=== PATIENT | male | born 1965 | race Caucasian/White ===

== ENCOUNTER 2016-09-25 16:23 | Emergency (ER) | payer OTHER ==
[2016-09-25 16:34] VITALS: TEMP 98
[2016-09-25] MEDS ORDERED: ONDANSETRON 4 MG TAB PO STA (17:12)
[2016-09-25] MEDS ORDERED: METOCLOPRAMIDE 5 MG/ML 2 ML VIAL IVP STA (19:31)
[2016-09-25] MEDS ORDERED: diphenhydrAMINE 50 MG/ML 1 ML VIAL IVP STA (19:31)
[2016-09-25] MEDS ORDERED: MAG HYDROX/AL HYDROX/SIMETH 30 ML, HYOSCYAMINE ELIXIR 10 ML, CIMETIDINE HCL 300 MG PO STA ×6 (19:31→22:07)
[2016-09-25] MEDS ORDERED: SODIUM CHLORIDE 0.9% 1,000 ML IV STA (19:31)
--- NOTE | 2016-09-25 19:36 | ED ---
Abdominal Pain HPI - General Chief Complaint: Abdominal Pain Stated Complaint: Vomiting Time Seen by Provider: 09/25/16 19:17 Source: patient, RN notes reviewed Mode of arrival: ambulatory Limitations: no limitations - History of Present Illness Initial Comments: Patient is a 51-year-old male presenting to the emergency department with chief complaint of vomiting for the past few hourss and epigastric pain. Patient reports that he feels extremely nauseated. Patient is history of GERD and it has been this bad before. Patient was given a Zofran in the waiting room. Patient reports that he has been able to urinate and denies diarrhea, hematachezia, melena, constipation. Patient has history of A. fib, patient states he is on warfarin. She reports his any history of cholecystectomy and appendectomy. Patient denies any recent fever, chills, shortness of breath, chest pain, back pain, numbness or tingling, dysuria or hematuria, constipation or diarrhea, headaches or visual changes, or any other current symptoms. - Related Data Home Medications Medication Instructions Recorded Confirmed Warfarin Sodium [Coumadin] 6 mg PO HS 12/07/15 09/25/16 Famotidine [Pepcid] 40 mg PO DAILY 09/25/16 09/25/16 Previous Rx's Medication Instructions Recorded Acetaminophen-Codeine 300-30mg 1 tab PO Q4H PRN #8 tablet 09/25/16 [Tylenol #3] Metoclopramide [Reglan] 10 mg PO 10 #12 tab 09/25/16 Omeprazole 40 mg PO DAILY #30 capsule. 09/25/16 Allergies Allergy/AdvReac Type Severity Reaction Status Date / Time No Known Allergies Allergy Verified 09/25/16 19:18 Review of Systems ROS Statement: Those systems with pertinent positive or pertinent negative responses have been documented in the HPI. ROS Other: All systems not noted in ROS Statement are negative. Past Medical History Past Medical History: Atrial Fibrillation, GERD/Reflux, Hypertension, Osteoarthritis (OA) Additional Past Medical History / Comment(s): severe GERD, DJD. History of Any Multi-Drug Resistant Organisms: None Reported Past Surgical History: Appendectomy, Cholecystectomy, Hernia Repair, Joint Replacement, Orthopedic Surgery Additional Past Surgical History / Comment(s): 12/07/14 Total R Hip replacement, RIGHT KNEE SCOPE, umbilical hernia, EGD Past Anesthesia/Blood Transfusion Reactions: No Reported Reaction Past Psychological History: Anxiety Additional Psychological History / Comment(s): Pt lives significant other and is independent. He does have a limp. He does not use any assistive devices. There are 2 adult children in the home. Smoking Status: Current every day smoker Past Alcohol Use History: Daily, Heavy Additional Past Alcohol Use History / Comment(s): Pt started smoking in 1979 and is a 1 ppd smoker. Pt states he drinks 6-7 drinks with liquor per day. Past Drug Use History: None Reported Additional Drug Use History / Comment(s): Pt S.O. states he took 90 pills of norco within a week post hip replacement - Past Family History Father Family Medical History: Coronary Artery Disease (CAD), Diabetes Mellitus, Myocardial Infarction ([place]) Additional Family Medical History / Comment(s): Father has at the age of 74 yrs of a [place]. He had 2 Cabg's Mother Family Medical History: Coronary Artery Disease (CAD), Diabetes Mellitus, Musculoskeletal Disorder, Neurologic Disorder Additional Family Medical History / Comment(s): Mother is . She at age 64 yrs. She had a cabg and multiple sclerosis Brother(s) Family Medical History: AFIB Additional Family Medical History / Comment(s): Pt has another brother with CAD and MIs General Exam - General Exam Comments Initial Comments: Patient is a ill-appearing 51-year-old male. He does appear to be in discomfort. Limitations: no limitations General appearance: alert, in no apparent distress Head exam: Present: atraumatic, normocephalic, normal inspection Eye exam: Present: normal appearance, PERRL, EOMI. Absent: scleral icterus, conjunctival injection, periorbital swelling ENT exam: Present: normal exam, mucous membranes moist Neck exam: Present: normal inspection. Absent: tenderness, meningismus, lymphadenopathy Respiratory exam: Present: normal lung sounds bilaterally. Absent: respiratory distress, wheezes, rales, rhonchi, stridor Cardiovascular Exam: Present: regular rate, normal rhythm, normal heart sounds. Absent: systolic murmur, diastolic murmur, rubs, gallop, clicks GI/Abdominal exam: Present: soft, tenderness (Mild epigastric tenderness.), normal bowel sounds. Absent: distended, guarding, rebound, rigid Extremities exam: Present: normal inspection, full ROM, normal capillary refill. Absent: tenderness, pedal edema, joint swelling, calf tenderness Back exam: Present: normal inspection Neurological exam: Present: alert, oriented X3, CN II-XII intact Psychiatric exam: Present: normal affect, normal mood Skin exam: Present: warm, dry, intact, normal color. Absent: rash Course Vital Signs 09/25/16 09/25/16 16:30 20:33 Temperature 98 F Pulse Rate 98 83 Respiratory 20 17 Rate Blood Pressure 141/99 166/102 O2 Sat by Pulse 99 97 Oximetry - Reevaluation(s) Reevaluation #1: 09/25/16 20:18 is reevaluated states that his pain is mildly improving. Patient reports it is now an 8 out of 10 after the GI cocktail. Medical Decision Making - Medical Decision Making Patient is a 51 year old male with history of Afib on warfarin presenting with epigastric abdominal pain for a few hours and nausea. Patient reports he has had GERD episodes like this before, and states he has been taking pepcid for GERD occasionally. Patient reports that his pain is mildly improved with GI cocktail, but pain is not totally diminished. Patient reports that he has been treated in the past with 2 GI cocktails. with help with his symptoms. Patient lab work, imaging studies show no acute abnormalities. Patient will be discharged with Rx of omeprazole and pain medication as patients symptoms could likely be related to an Ulcer and advised to follow up with GI specialist. Patient agrees with treatment planand will comply. - Lab Data Result diagrams: 09/25/16 19:25 09/25/16 19:25 Lab Results 09/25/16 09/25/16 09/25/16 Range/Units 19:25 19:25 20:37 WBC 6.9 (3.8-10.6) k/uL RBC 5.39 (4.30-5.90) m/uL Hgb 17.7 H (13.0-17.5) gm/dL Hct 52.1 (39.0-53.0) % MCV 96.6 (80.0-100.0) fL MCH 32.9 (25.0-35.0) pg MCHC 34.1 (31.0-37.0) g/dL RDW 12.4 (11.5-15.5) % Plt Count 207 (150-450) k/uL Neutrophils % 81 % Lymphocytes % 12 % Monocytes % 5 % Eosinophils % 0 % Basophils % 1 % Neutrophils # 5.6 (1.3-7.7) k/uL Lymphocytes # 0.8 L (1.0-4.8) k/uL Monocytes # 0.3 (0-1.0) k/uL Eosinophils # 0.0 (0-0.7) k/uL Basophils # 0.0 (0-0.2) k/uL PT (9.0-12.0) sec INR (<1.1) APTT (22.0-30.0) sec Sodium 144 (137-145) mmol/L Potassium 5.1 (3.5-5.1) mmol/L Chloride 105 (98-107) mmol/L Carbon Dioxide 23 (22-30) mmol/L Anion Gap 16 mmol/L BUN 16 (9-20) mg/dL Creatinine 1.03 (0.66-1.25) mg/dL Est GFR (MDRD) Af Amer >60 (>60 ml/min/1.73 sqM) Est GFR (MDRD) Non-Af >60 (>60 ml/min/1.73 sqM) Glucose 134 H (74-99) mg/dL Calcium 9.9 (8.4-10.2) mg/dL Magnesium (1.6-2.3) mg/dL Total Bilirubin 1.0 (0.2-1.3) mg/dL AST 32 (17-59) U/L ALT 60 (21-72) U/L Alkaline Phosphatase 109 (38-126) U/L Total Creatine Kinase (55-170) U/L CK-MB (CK-2) (0.0-2.4) ng/mL CK-MB (CK-2) Rel Index Troponin I (0.000-0.034) ng/mL Total Protein 7.8 (6.3-8.2) g/dL Albumin 4.8 (3.5-5.0) g/dL Amylase 31 (30-110) U/L Lipase 161 (23-300) U/L Urine Color Yellow Urine Appearance Clear (Clear) Urine pH 8.5 H (5.0-8.0) Ur Specific [place] 1.022 (1.001-1.035) Urine Protein 2+ H (Negative) Urine Glucose (UA) Negative (Negative) Urine Ketones Negative (Negative) Urine Blood Negative (Negative) Urine Nitrate Negative (Negative) Urine Bilirubin Negative (Negative) Urine Urobilinogen <2.0 (<2.0) mg/dL Ur Leukocyte Esterase Negative (Negative) Urine RBC <1 (0-5) /hpf Urine WBC 2 (0-5) /hpf Urine Bacteria Rare H (None) /hpf Hyaline Casts 5 H (0-2) /lpf Urine Mucus Few H (None) /hpf 09/25/16 09/25/16 09/25/16 Range/Units 21:30 21:30 21:30 WBC (3.8-10.6) k/uL RBC (4.30-5.90) m/uL Hgb (13.0-17.5) gm/dL Hct (39.0-53.0) % MCV (80.0-100.0) fL MCH (25.0-35.0) pg MCHC (31.0-37.0) g/dL RDW (11.5-15.5) % Plt Count (150-450) k/uL Neutrophils % % Lymphocytes % % Monocytes % % Eosinophils % % Basophils % % Neutrophils # (1.3-7.7) k/uL Lymphocytes # (1.0-4.8) k/uL Monocytes # (0-1.0) k/uL Eosinophils # (0-0.7) k/uL Basophils # (0-0.2) k/uL PT 10.4 (9.0-12.0) sec INR 1.0 (<1.1) APTT 23.2 (22.0-30.0) sec Sodium (137-145) mmol/L Potassium (3.5-5.1) mmol/L Chloride (98-107) mmol/L Carbon Dioxide (22-30) mmol/L Anion Gap mmol/L BUN (9-20) mg/dL Creatinine (0.66-1.25) mg/dL Est GFR (MDRD) Af Amer (>60 ml/min/1.73 sqM) Est GFR (MDRD) Non-Af (>60 ml/min/1.73 sqM) Glucose (74-99) mg/dL Calcium (8.4-10.2) mg/dL Magnesium 2.1 (1.6-2.3) mg/dL Total Bilirubin (0.2-1.3) mg/dL AST (17-59) U/L ALT (21-72) U/L Alkaline Phosphatase (38-126) U/L Total Creatine Kinase 59 (55-170) U/L CK-MB (CK-2) 0.4 (0.0-2.4) ng/mL CK-MB (CK-2) Rel Index 0.7 Troponin I <0.012 (0.000-0.034) ng/mL Total Protein (6.3-8.2) g/dL Albumin (3.5-5.0) g/dL Amylase (30-110) U/L Lipase (23-300) U/L Urine Color Urine Appearance (Clear) Urine pH (5.0-8.0) Ur Specific [place] (1.001-1.035) Urine Protein (Negative) Urine Glucose (UA) (Negative) Urine Ketones (Negative) Urine Blood (Negative) Urine Nitrate (Negative) Urine Bilirubin (Negative) Urine Urobilinogen (<2.0) mg/dL Ur Leukocyte Esterase (Negative) Urine RBC (0-5) /hpf Urine WBC (0-5) /hpf Urine Bacteria (None) /hpf Hyaline Casts (0-2) /lpf Urine Mucus (None) /hpf 09/25/16 20:43 EKG does show atrial fibrillation. There is evidence of T-wave abnormality consistent with anterior ischemia. Injury 97 bpm. QRS duration 84 ms QT/QTc is 358/454 ms. Compared to previous EKG of 12/07/2015 this is a similar EKG. No acute changes. 09/25/16 21:24 - Radiology Data Radiology results: report reviewed Chest x-ray revealed no evidence of any acute cardiopulmonary process. KUB x- ray is shows no acute abnormalities. [address] Nicole. Disposition Clinical Impression: Nausea, Epigastric pain Disposition: HOME SELF-CARE Condition: Good Instructions: Abdominal Pain (ED), Gastroesophageal Reflux Disease (ED) Additional Instructions: Patient started a follow-up with GI specialist. Patient started to have a bland diet. Return to the emergency room if any alarming signs or symptoms occur. Prescriptions: Acetaminophen-Codeine 300-30mg [Tylenol #3] 1 tab PO Q4H PRN #8 tablet PRN Reason: Pain Metoclopramide [Reglan] 10 mg PO 10 #12 tab Omeprazole 40 mg PO DAILY #30 capsule.dr Referrals: Aaron Loja MD [Primary Care Provider] - 1-2 days Megan Scales MD [STAFF PHYSICIAN] - 1-2 days Time of Disposition: 22:35
[2016-09-25 19:46] LABS: Basophils % (A) 1 %; CH 33.8; CHCM 35.2; Eosinophils % (A) 0 %; HCT 52.1 % (39.0-53.0); HDW 2.39; HGB 17.7 gm/dL (13.0-17.5); Luc # (Auto) 0.09; Luc % (Auto) 1; Lymphocytes # (A) 0.8 k/uL (1.0-4.8); Lymphocytes % (A) 12 %; MCH 32.9 pg (25.0-35.0); MCHC 34.1 g/dL (31.0-37.0); MCV 96.6 fL (80.0-100.0); Monocytes # (A) 0.3 k/uL (0-1.0); Monocytes % (A) 5 %; Neutrophils # (A) 5.6 k/uL (1.3-7.7); Neutrophils % (A) 81 %; RBC 5.39 m/uL (4.30-5.90); RDW 12.4 % (11.5-15.5); WBC 6.9 k/uL (3.8-10.6); WBC (Perox) 6.53
[2016-09-25 19:56] LABS: ALT 60 U/L (21-72); AST 32 U/L (17-59); Alkaline Phosphatase 109 U/L (38-126); Amylase 31 U/L (30-110); Anion Gap 16 mmol/L; Blood Urea Nitrogen 16 mg/dL (9-20); Calcium 9.9 mg/dL (8.4-10.2); Carbon Dioxide 23 mmol/L (22-30); Chloride 105 mmol/L (98-107); Glucose 134 mg/dL (74-99); Non-African American GFR(MDRD) >60 (>60 ml/min/1.73 sqM); Potassium 5.1 mmol/L (3.5-5.1); Sodium 144 mmol/L (137-145); Total Protein 7.8 g/dL (6.3-8.2)
[2016-09-25] MEDS ORDERED: PANTOPRAZOLE 40 MG/10 ML VIAL IVP STA (20:18)
--- NOTE | 2016-09-25 20:23 | XR ---
EXAMINATION TYPE: XR chest 2V DATE OF EXAM: 09/25/2016 7:52 PM COMPARISON: Prior chest x-ray 18 December 2014 HISTORY: Epigastric pain, nausea and vomiting TECHNIQUE: Frontal and lateral views of the chest are obtained. FINDINGS: There is no focal air space opacity, pleural effusion, or pneumothorax seen. The cardiac silhouette size is within normal limits. The osseous structures are intact. IMPRESSION: No acute cardiopulmonary process.
--- NOTE | 2016-09-25 20:26 | XR ---
Abdomen HISTORY: Pain, nausea vomiting and diarrhea Frontal view of the abdomen submitted on 2 images and correlated to prior abdomen and CT abdomen 21 O ctober 2016 Lung bases are clear. There is no bowel obstruction or pneumoperitoneum evident. Postoperative change s noted to the right hip. Vascular calcifications are noted incidentally. Degenerative disc changes i n the visualized spine. IMPRESSION: No acute abnormality is evident
[2016-09-25 20:35] VITALS: BP 166/102; PULSE 83; RESP 17
[2016-09-25 20:50] LABS: Appearance,Urine Clear (Clear); Bacteria,Urine Rare /hpf; Bilirubin,Urine Negative (Negative); Glucose,Urine (UA) Negative (Negative); Ketones,Urine Negative (Negative); Leukocyte Esterase,Urine Negative (Negative); Mucus,Urine Few /hpf; Nitrite,Urine Negative (Negative); PH, Urine 8.5 (5.0-8.0); Particle Count 4018; Protein,Urine 2+ (Negative); RBC,Urine <1 /hpf (0-5); Specific Gravity,Urine 1.022 (1.001-1.035); UA Billing (MACRO vs. MICRO) MICRO; Urobilinogen,Urine <2.0 mg/dL (<2.0); WBC,Urine 2 /hpf (0-5)
[2016-09-25 21:48] LABS: Partial Thromboplastin Time 23.2 sec (22.0-30.0); Prothrombin Time 10.4 sec (9.0-12.0)
[2016-09-25 22:00] LABS: Creatine Kinase 59 U/L (55-170)
[2016-09-25] MEDS ORDERED: MORPHINE SULFATE 2 MG/ML SYRINGE IVP ONE (22:10)
[2016-09-25 22:14] LABS: Creatine Kinase MB 0.4 ng/mL (0.0-2.4); Troponin I <0.012 ng/mL (0.000-0.034)
[2016-09-25] MEDS ORDERED: MAG HYDROX/AL HYDROX/SIMETH 30 ML, HYOSCYAMINE ELIXIR 10 ML, CIMETIDINE HCL 300 MG, LID... PO STA ×4 (22:34)
== END 2016-09-25 23:18 | disposition home or self-care (01) ==
LOC: EC 16:23
DX: R11.2 Nausea with vomiting, unspecified (principal); I48.91 Unspecified atrial fibrillation; K21.9 Gastro-esophageal reflux disease without esophagitis; I10 Essential (primary) hypertension; F17.200 Nicotine dependence, unspecified, uncomplicated; Z79.01 Long term (current) use of anticoagulants; Z82.49 Family history of ischemic heart disease and other diseases of the circulatory system; Z79.899 Other long term (current) drug therapy
CPT/HCPCS: 99284; 96374; 96375 ×2; 96361; 36415; 93005; 80053; 82150; 82550; 82553; 83690; 83735; 84484; 85025; 85610; 85730; 81001; 71020; 74000; J1200; J2765; C9113

== ENCOUNTER 2016-12-17 12:32 | Emergency (ER) | payer OTHER ==
[2016-12-17] MEDS ORDERED: HYDROmorphone 1 MG/ML 1 ML SYRINGE IVP STA ×2 (14:29→15:39)
[2016-12-17] MEDS ORDERED: SODIUM CHLORIDE 0.9% 1,000 ML IV STA ×2 (14:29)
[2016-12-17] MEDS ORDERED: ONDANSETRON 4 MG/2 ML VIAL IVP STA (14:29)
[2016-12-17] MEDS ORDERED: PANTOPRAZOLE 40 MG/10 ML VIAL IVP STA (14:31)
[2016-12-17] MEDS ORDERED: MAG HYDROX/AL HYDROX/SIMETH 30 ML, HYOSCYAMINE ELIXIR 10 ML, CIMETIDINE HCL 300 MG, LID... PO STA ×4 (14:31)
[2016-12-17 15:16] LABS: Basophils % (A) 0 %; CH 33.8; CHCM 35.1; Eosinophils # (A) 0.1 k/uL (0-0.7); Eosinophils % (A) 1 %; HCT 50.7 % (39.0-53.0); HDW 2.39; Luc # (Auto) 0.08; Luc % (Auto) 1; Lymphocytes # (A) 0.8 k/uL (1.0-4.8); Lymphocytes % (A) 8 %; MCH 34.3 pg (25.0-35.0); MCHC 35.6 g/dL (31.0-37.0); MCV 96.4 fL (80.0-100.0); Mean Platelet Volume 8.2; Monocytes # (A) 0.2 k/uL (0-1.0); Monocytes % (A) 2 %; Neutrophils # (A) 8.5 k/uL (1.3-7.7); Neutrophils % (A) 88 %; RBC 5.26 m/uL (4.30-5.90); RDW 12.4 % (11.5-15.5); WBC 9.7 k/uL (3.8-10.6); WBC (Perox) 10.13
[2016-12-17 15:22] LABS: ALT 41 U/L (21-72); AST 27 U/L (17-59); Alkaline Phosphatase 77 U/L (38-126); Amylase 50 U/L (30-110); Anion Gap 15 mmol/L; Blood Urea Nitrogen 14 mg/dL (9-20); Carbon Dioxide 17 mmol/L (22-30); Chloride 110 mmol/L (98-107); Glucose 139 mg/dL (74-99); Magnesium 1.8 mg/dL (1.6-2.3); Non-African American GFR(MDRD) >60 (>60 ml/min/1.73 sqM); Potassium 4.9 mmol/L (3.5-5.1); Sodium 142 mmol/L (137-145); Total Bilirubin 1.3 mg/dL (0.2-1.3); Total Protein 7.8 g/dL (6.3-8.2)
--- NOTE | 2016-12-17 15:31 | XR ---
EXAMINATION TYPE: XR abdomen acute w cxr DATE OF EXAM: 12/17/2016 3:25 PM COMPARISON: 01/11/1716 HISTORY: Pain TECHNIQUE: Single view of the chest and 2 views of the abdomen are submitted. FINDINGS: Single view of the chest fails demonstrate evidence for acute pulmonary disease. There is no evidence for pneumoperitoneum. The bowel gas pattern is unremarkable as there is air throughout nondilated small and large bowel. No sizeable air fluid levels.No mass effects are seen. No unusual calcifications. Multiple phleboliths are seen within the pelvic basin. IMPRESSION: 1. Unremarkable study.
[2016-12-17 15:32] LABS: Partial Thromboplastin Time 22.5 sec (22.0-30.0); Prothrombin Time 10.4 sec (9.0-12.0)
[2016-12-17] MEDS ORDERED: METOCLOPRAMIDE 5 MG/ML 2 ML VIAL IVP STA (15:35)
[2016-12-17 15:38] VITALS: RESP 18
[2016-12-17 15:39] LABS: Creatine Kinase 52 U/L (55-170)
--- NOTE | 2016-12-17 15:46 | ED ---
General Adult HPI - General Chief complaint: Nausea/Vomiting/Diarrhea Stated complaint: Nausea Time Seen by Provider: 12/17/16 14:17 Source: patient Mode of arrival: wheelchair Limitations: no limitations - History of Present Illness Initial comments: This 51-year-old white male presents with a complaint of some nausea and vomiting. He states that it came on this morning. He also said some abdominal pain and chest burning. The abdominal pain and is in the midepigastric region. He states that his symptoms are consistent with his prior gastroesophageal reflux disorder. He apparently has had multiple similar incidents. She states that his last time was approximately 6 months ago. He relates that he has had some chills but no fever. There's been no blood in his vomitus or stool. He denies any diarrhea. He does not utilize any alcohol on the last 3-4 days. He states that he's had approximately 15 previous similar incidents in usually receives pain medication and a GI cocktail. No other complaints or modifying factors. He denies any fevers chills. - Related Data Home Medications Medication Instructions Recorded Confirmed Warfarin Sodium [Coumadin] 6 mg PO HS 12/07/15 12/17/16 Famotidine [Pepcid] 40 mg PO DAILY 09/25/16 12/17/16 Amoxicillin/Potassium Clav 1 tab PO Q12HR 12/17/16 12/17/16 [Augmentin 875-125 Tablet] Hydrocodone/Acetaminophen [[place] 1 tab PO Q6HR PRN 12/17/16 12/17/16 5-325] Venlafaxine HCl [Effexor XR] 75 mg PO DAILY 12/17/16 12/17/16 amLODIPine BESYLATE [Norvasc] 10 mg PO DAILY 12/17/16 12/17/16 Previous Rx's Medication Instructions Recorded Dicyclomine [Bentyl] 20 mg PO QID PRN #20 tablet 12/17/16 Ondansetron [Zofran ODT] 8 mg PO Q8HR PRN #20 tab 12/17/16 Allergies Allergy/AdvReac Type Severity Reaction Status Date / Time No Known Allergies Allergy Verified 12/17/16 14:41 Review of Systems ROS Statement: Those systems with pertinent positive or pertinent negative responses have been documented in the HPI. ROS Other: All systems not noted in ROS Statement are negative. Past Medical History Past Medical History: Atrial Fibrillation, GERD/Reflux, Hypertension, Osteoarthritis (OA) Additional Past Medical History / Comment(s): severe GERD, DJD. History of Any Multi-Drug Resistant Organisms: None Reported Past Surgical History: Appendectomy, Cholecystectomy, Hernia Repair, Joint Replacement, Orthopedic Surgery Additional Past Surgical History / Comment(s): 12/07/14 Total R Hip replacement, RIGHT KNEE SCOPE, umbilical hernia, EGD Past Anesthesia/Blood Transfusion Reactions: No Reported Reaction Past Psychological History: Anxiety Additional Psychological History / Comment(s): Pt lives significant other and is independent. He does have a limp. He does not use any assistive devices. There are 2 adult children in the home. Smoking Status: Current every day smoker Past Alcohol Use History: Daily, Heavy Additional Past Alcohol Use History / Comment(s): Pt started smoking in 1979 and is a 1 ppd smoker. Pt states he drinks 6-7 drinks with liquor per day. Past Drug Use History: None Reported Additional Drug Use History / Comment(s): Pt S.O. states he took 90 pills of norco within a week post hip replacement - Past Family History Father Family Medical History: Coronary Artery Disease (CAD), Diabetes Mellitus, Myocardial Infarction ([place]) Additional Family Medical History / Comment(s): Father has at the age of 74 yrs of a [place]. He had 2 Cabg's Mother Family Medical History: Coronary Artery Disease (CAD), Diabetes Mellitus, Musculoskeletal Disorder, Neurologic Disorder Additional Family Medical History / Comment(s): Mother is . She at age 64 yrs. She had a cabg and multiple sclerosis Brother(s) Family Medical History: AFIB Additional Family Medical History / Comment(s): Pt has another brother with CAD and MIs General Exam - General Exam Comments Initial Comments: GENERAL: The patient is well nourished and well hydrated. VITAL SIGNS: Heart rate, blood pressure, respiratory rate reviewed as recorded in nurse's notes. EYES: Pupils are round and reactive. Extraocular movements are intact. No conjunctival / lid redness or swelling. ENT: No external evidence of injury, swelling, or ecchymosis. Airway is patent. Throat is clear. NECK: Nontender. No swelling or evidence of injury. No subcutaneous emphysema. Trachea is midline. No thyroid mass. HEART: Regular rate and rhythm. Good peripheral pulses. LUNGS/CHEST: Breath sounds clear and equal bilaterally. No rales, rhonchi, or wheezes. No ecchymosis, subcutaneous emphysema, or tenderness. ABDOMEN: There is tenderness noted to the midepigastric region. No palpable masses or organomegaly. No peritoneal signs. No abdominal wall swelling or ecchymosis. EXTREMITIES: No extremity tenderness. Normal muscle tone and function. No thoracolumbar tenderness. NEUROLOGIC: Sensation is grossly intact. Cranial nerve exam reveals face is symmetrical, tongue is midline, speech is clear. SKIN: No abrasions or ecchymosis is noted. No induration or masses noted. PSYCHIATRIC: Alert and oriented. Appropriate behavior and judgment. Limitations: no limitations Course Vital Signs 12/17/16 12/17/16 12/17/16 13:41 15:10 15:37 Temperature 98.9 F 99.4 F Pulse Rate 84 95 80 Respiratory 20 24 18 Rate Blood Pressure 156/93 185/119 184/104 O2 Sat by Pulse 98 100 100 Oximetry Medical Decision Making - Medical Decision Making The patient was seen and examined. All diagnostics were reviewed. The EKG shows an atrial fibrillation rhythm at a rate of 79. The qrs duration is 86 and the qtc interval is 412. There is no acute ST-T wave changes noted. He does have a history of atrial fibrillation. The laboratory is reviewed. He receives a GI cocktail, Zofran, Reglan, 2 aliquots of Dilaudid, and IV fluids. The acute abdominal series was read out as unremarkable per radiology. I do not see any abnormalities upon my evaluation as well. The laboratory does show a decreased CO2 consistent with dehydration. The remainder of labs are essentially within normal limits. On recheck, he is feeling much improved. He states that he feels well enough to go home. Is felt that his symptoms are related to his reflux as he has had very similar symptoms approximately 15 times in the past. He leaves in no identifiable distress. - Lab Data Result diagrams: 12/17/16 15:06 12/17/16 15:06 Lab Results 12/17/16 12/17/16 12/17/16 Range/Units 15:06 15:06 15:06 WBC 9.7 (3.8-10.6) k/uL RBC 5.26 (4.30-5.90) m/uL Hgb 18.0 H (13.0-17.5) gm/dL Hct 50.7 (39.0-53.0) % MCV 96.4 (80.0-100.0) fL MCH 34.3 (25.0-35.0) pg MCHC 35.6 (31.0-37.0) g/dL RDW 12.4 (11.5-15.5) % Plt Count 198 (150-450) k/uL Neutrophils % 88 % Lymphocytes % 8 % Monocytes % 2 % Eosinophils % 1 % Basophils % 0 % Neutrophils # 8.5 H (1.3-7.7) k/uL Lymphocytes # 0.8 L (1.0-4.8) k/uL Monocytes # 0.2 (0-1.0) k/uL Eosinophils # 0.1 (0-0.7) k/uL Basophils # 0.0 (0-0.2) k/uL PT (9.0-12.0) sec INR (<1.1) APTT (22.0-30.0) sec Sodium 142 (137-145) mmol/L Potassium 4.9 (3.5-5.1) mmol/L Chloride 110 H (98-107) mmol/L Carbon Dioxide 17 L (22-30) mmol/L Anion Gap 15 mmol/L BUN 14 (9-20) mg/dL Creatinine 0.80 (0.66-1.25) mg/dL Est GFR (MDRD) Af Amer >60 (>60 ml/min/1.73 sqM) Est GFR (MDRD) Non-Af >60 (>60 ml/min/1.73 sqM) Glucose 139 H (74-99) mg/dL Calcium 10.0 (8.4-10.2) mg/dL Magnesium 1.8 (1.6-2.3) mg/dL Total Bilirubin 1.3 (0.2-1.3) mg/dL AST 27 (17-59) U/L ALT 41 (21-72) U/L Alkaline Phosphatase 77 (38-126) U/L Total Creatine Kinase 52 L (55-170) U/L CK-MB (CK-2) 0.6 (0.0-2.4) ng/mL CK-MB (CK-2) Rel Index 1.2 Troponin I <0.012 (0.000-0.034) ng/mL Total Protein 7.8 (6.3-8.2) g/dL Albumin 4.7 (3.5-5.0) g/dL Amylase 50 (30-110) U/L Lipase 182 (23-300) U/L 12/17/16 Range/Units 15:06 WBC (3.8-10.6) k/uL RBC (4.30-5.90) m/uL Hgb (13.0-17.5) gm/dL Hct (39.0-53.0) % MCV (80.0-100.0) fL MCH (25.0-35.0) pg MCHC (31.0-37.0) g/dL RDW (11.5-15.5) % Plt Count (150-450) k/uL Neutrophils % % Lymphocytes % % Monocytes % % Eosinophils % % Basophils % % Neutrophils # (1.3-7.7) k/uL Lymphocytes # (1.0-4.8) k/uL Monocytes # (0-1.0) k/uL Eosinophils # (0-0.7) k/uL Basophils # (0-0.2) k/uL PT 10.4 (9.0-12.0) sec INR 1.0 (<1.1) APTT 22.5 (22.0-30.0) sec Sodium (137-145) mmol/L Potassium (3.5-5.1) mmol/L Chloride (98-107) mmol/L Carbon Dioxide (22-30) mmol/L Anion Gap mmol/L BUN (9-20) mg/dL Creatinine (0.66-1.25) mg/dL Est GFR (MDRD) Af Amer (>60 ml/min/1.73 sqM) Est GFR (MDRD) Non-Af (>60 ml/min/1.73 sqM) Glucose (74-99) mg/dL Calcium (8.4-10.2) mg/dL Magnesium (1.6-2.3) mg/dL Total Bilirubin (0.2-1.3) mg/dL AST (17-59) U/L ALT (21-72) U/L Alkaline Phosphatase (38-126) U/L Total Creatine Kinase (55-170) U/L CK-MB (CK-2) (0.0-2.4) ng/mL CK-MB (CK-2) Rel Index Troponin I (0.000-0.034) ng/mL Total Protein (6.3-8.2) g/dL Albumin (3.5-5.0) g/dL Amylase (30-110) U/L Lipase (23-300) U/L Disposition Clinical Impression: Abdominal pain, Chest pain, GERD (gastroesophageal reflux disease), Nausea and vomiting, Hypertension Disposition: HOME SELF-CARE Condition: Fair Prescriptions: Dicyclomine [Bentyl] 20 mg PO QID PRN #20 tablet PRN Reason: Pain Ondansetron [Zofran ODT] 8 mg PO Q8HR PRN #20 tab PRN Reason: Nausea Referrals: Aaron Loja MD [Primary Care Provider] - 1-2 days Time of Disposition: 16:34
[2016-12-17 15:52] LABS: Creatine Kinase MB 0.6 ng/mL (0.0-2.4); Troponin I <0.012 ng/mL (0.000-0.034)
[2016-12-17 16:47] VITALS: BP 150/100; PULSE 71; TEMP 98
== END 2016-12-17 16:48 | disposition home or self-care (01) ==
LOC: EC 12:32
DX: K21.9 Gastro-esophageal reflux disease without esophagitis (principal); R07.9 Chest pain, unspecified; R10.13 Epigastric pain; R11.2 Nausea with vomiting, unspecified; I10 Essential (primary) hypertension; I48.91 Unspecified atrial fibrillation; F17.200 Nicotine dependence, unspecified, uncomplicated; Z79.01 Long term (current) use of anticoagulants; Z79.899 Other long term (current) drug therapy
CPT/HCPCS: 99284 ×2; 96374 ×2; 96375 ×4; 96376 ×2; 96361 ×3; 99283; 36415; 93005; 80053; 82150; 82550; 82553; 83690; 83735; 84484; 85025; 85610; 85730; 74022; J2765; J2405; J1170; C9113

== ENCOUNTER 2016-12-17 20:28 | Emergency (ER) | payer OTHER ==
[2016-12-17 21:09] VITALS: TEMP 100.4
[2016-12-17] MEDS ORDERED: ONDANSETRON 4 MG/2 ML VIAL IVP STA (23:31)
[2016-12-17] MEDS ORDERED: MAG HYDROX/AL HYDROX/SIMETH 30 ML, HYOSCYAMINE ELIXIR 10 ML, CIMETIDINE HCL 300 MG, LID... PO STA ×4 (23:31)
[2016-12-17] MEDS ORDERED: MORPHINE SULFATE 4 MG/ML SYRINGE IVP STA (23:31)
[2016-12-17] MEDS ORDERED: SODIUM CHLORIDE 0.9% 500 ML IV STA (23:31)
--- NOTE | 2016-12-17 23:37 | ED ---
General Adult HPI - General Chief complaint: Abdominal Pain Stated complaint: Abd Pain Time Seen by Provider: 12/17/16 22:57 Source: patient Mode of arrival: ambulatory Limitations: no limitations - History of Present Illness Initial comments: 51-year-old male with past medical history of GERD presented for evaluation of epigastric abdominal pain with radiation up into his chest. He states that this is similar to previous episodes of GERD including this morning when he was evaluated at this facility. His workup was negative for any acute abnormalities and he had resolution of his symptoms and was discharged home. He states that he called in his prescription but that he wasn't able to pick it up. His symptoms have now returned and are as bad as they were when he came the first time. He states he has associated nausea and vomiting and some looser stools but no diarrhea. He denies any shortness of breath and states that the chest pain is just a burning that goes up his sternum into his mouth. - Related Data Home Medications Medication Instructions Recorded Confirmed Warfarin Sodium [Coumadin] 6 mg PO HS 12/07/15 12/17/16 Famotidine [Pepcid] 40 mg PO DAILY 09/25/16 12/17/16 Amoxicillin/Potassium Clav 1 tab PO Q12HR 12/17/16 12/17/16 [Augmentin 875-125 Tablet] Hydrocodone/Acetaminophen [[place] 1 tab PO Q6HR PRN 12/17/16 12/17/16 5-325] Venlafaxine HCl [Effexor XR] 75 mg PO DAILY 12/17/16 12/17/16 amLODIPine BESYLATE [Norvasc] 10 mg PO DAILY 12/17/16 12/17/16 Previous Rx's Medication Instructions Recorded Dicyclomine [Bentyl] 20 mg PO QID PRN #20 tablet 12/17/16 Ondansetron [Zofran ODT] 8 mg PO Q8HR PRN #20 tab 12/17/16 Allergies Allergy/AdvReac Type Severity Reaction Status Date / Time No Known Allergies Allergy Verified 12/17/16 22:50 Review of Systems ROS Statement: Those systems with pertinent positive or pertinent negative responses have been documented in the HPI. ROS Other: All systems not noted in ROS Statement are negative. Constitutional: Denies: fever, chills Eyes: Denies: eye pain, eye discharge ENT: Denies: ear pain, throat pain, dental pain, hearing loss Respiratory: Denies: cough, dyspnea Cardiovascular: Reports: chest pain (Described as a burning radiating up into his mouth). Denies: palpitations, dyspnea on exertion Endocrine: Denies: fatigue, heat or cold intolerance Gastrointestinal: Reports: abdominal pain, nausea, vomiting. Denies: diarrhea, constipation, hematemesis, melena, hematochezia Genitourinary: Denies: urgency, dysuria Musculoskeletal: Denies: back pain, joint swelling, myalgia Skin: Denies: rash, lesions Neurological: Denies: headache, weakness Psychiatric: Denies: anxiety, depression Hematological/Lymphatic: Denies: easy bleeding, easy bruising Past Medical History Past Medical History: Atrial Fibrillation, GERD/Reflux, Hypertension, Osteoarthritis (OA) Additional Past Medical History / Comment(s): severe GERD, DJD. History of Any Multi-Drug Resistant Organisms: None Reported Past Surgical History: Appendectomy, Cholecystectomy, Hernia Repair, Joint Replacement, Orthopedic Surgery Additional Past Surgical History / Comment(s): 12/07/14 Total R Hip replacement, RIGHT KNEE SCOPE, umbilical hernia, EGD Past Anesthesia/Blood Transfusion Reactions: No Reported Reaction Past Psychological History: Anxiety Additional Psychological History / Comment(s): Pt lives significant other and is independent. He does have a limp. He does not use any assistive devices. There are 2 adult children in the home. Smoking Status: Current every day smoker Past Alcohol Use History: Daily, Heavy Additional Past Alcohol Use History / Comment(s): Pt started smoking in 1979 and is a 1 ppd smoker. Pt states he drinks 6-7 drinks with liquor per day. Past Drug Use History: None Reported Additional Drug Use History / Comment(s): Pt S.O. states he took 90 pills of norco within a week post hip replacement - Past Family History Father Family Medical History: Coronary Artery Disease (CAD), Diabetes Mellitus, Myocardial Infarction ([place]) Additional Family Medical History / Comment(s): Father has at the age of 74 yrs of a [place]. He had 2 Cabg's Mother Family Medical History: Coronary Artery Disease (CAD), Diabetes Mellitus, Musculoskeletal Disorder, Neurologic Disorder Additional Family Medical History / Comment(s): Mother is . She at age 64 yrs. She had a cabg and multiple sclerosis Brother(s) Family Medical History: AFIB Additional Family Medical History / Comment(s): Pt has another brother with CAD and MIs General Exam Limitations: no limitations General appearance: alert, in no apparent distress Head exam: Present: atraumatic, normocephalic, normal inspection Eye exam: Present: normal appearance, PERRL, EOMI. Absent: scleral icterus, conjunctival injection, periorbital swelling ENT exam: Present: normal exam, mucous membranes moist Neck exam: Present: normal inspection. Absent: tenderness, meningismus, lymphadenopathy Respiratory exam: Present: normal lung sounds bilaterally. Absent: respiratory distress, wheezes, rales, rhonchi, stridor Cardiovascular Exam: Present: regular rate, normal rhythm, normal heart sounds. Absent: systolic murmur, diastolic murmur, rubs, gallop, clicks GI/Abdominal exam: Present: soft, normal bowel sounds. Absent: distended, tenderness, guarding, rebound, rigid Rectal exam: Present: deferred Extremities exam: Present: normal inspection, full ROM, normal capillary refill. Absent: tenderness, pedal edema, joint swelling, calf tenderness Back exam: Present: normal inspection Neurological exam: Present: alert, oriented X3, CN II-XII intact. Absent: altered Psychiatric exam: Present: normal affect, normal mood Skin exam: Present: warm, dry, intact, normal color. Absent: rash Course Vital Signs 12/17/16 21:06 Temperature 100.4 F H Pulse Rate 104 H Respiratory 18 Rate Blood Pressure 165/94 O2 Sat by Pulse 96 Oximetry Medical Decision Making - Medical Decision Making 51-year-old male who was seen at this facility earlier today for GERD symptoms presenting for further evaluation today. He states that the symptoms are consistent with previous episodes of GERD and there is no change from earlier his symptoms just persist. He denies any chest pain or shortness of breath but does admit to associated nausea and vomiting. There is also some loose stools. On physical examination there are no significant abnormalities. We'll obtain labs and provide GI cocktail and pain control. Patient does have a mild temperature and was given Tylenol as there is no indication of infectious etiology between the workup earlier today and this one at this time. Labs revealed no significant abnormalities. Pt reevaluated and found sleeping in bed comfortably. He was woken up informed of all lab results and that he would be discharged with instruction to follow-up with his primary care physician as well as being given a GI referral. He was further advised to get the prescriptions that he was given earlier filled and to take them as prescribed. He was advised to return to this facility if symptoms should worsen or persist. The patient acknowledged an understanding of all this information and agreed with this plan of care. - Lab Data Result diagrams: 12/18/16 00:11 12/18/16 00:11 Lab Results 12/18/16 12/18/16 12/18/16 Range/Units 00:11 00:11 00:11 WBC 11.8 H (3.8-10.6) k/uL RBC 4.67 (4.30-5.90) m/uL Hgb 15.9 (13.0-17.5) gm/dL Hct 45.0 (39.0-53.0) % MCV 96.4 (80.0-100.0) fL MCH 34.1 (25.0-35.0) pg MCHC 35.3 (31.0-37.0) g/dL RDW 12.2 (11.5-15.5) % Plt Count 176 (150-450) k/uL Neutrophils % 85 % Lymphocytes % 8 % Monocytes % 5 % Eosinophils % 0 % Basophils % 0 % Neutrophils # 10.0 H (1.3-7.7) k/uL Lymphocytes # 0.9 L (1.0-4.8) k/uL Monocytes # 0.6 (0-1.0) k/uL Eosinophils # 0.0 (0-0.7) k/uL Basophils # 0.0 (0-0.2) k/uL Sodium 142 (137-145) mmol/L Potassium 4.3 (3.5-5.1) mmol/L Chloride 109 H (98-107) mmol/L Carbon Dioxide 20 L (22-30) mmol/L Anion Gap 13 mmol/L BUN 12 (9-20) mg/dL Creatinine 0.80 (0.66-1.25) mg/dL Est GFR (MDRD) Af Amer >60 (>60 ml/min/1.73 sqM) Est GFR (MDRD) Non-Af >60 (>60 ml/min/1.73 sqM) Glucose 117 H (74-99) mg/dL Calcium 9.4 (8.4-10.2) mg/dL Total Bilirubin 1.1 (0.2-1.3) mg/dL AST 20 (17-59) U/L ALT 46 (21-72) U/L Alkaline Phosphatase 71 (38-126) U/L Troponin I <0.012 (0.000-0.034) ng/mL Total Protein 6.8 (6.3-8.2) g/dL Albumin 4.2 (3.5-5.0) g/dL Lipase 223 (23-300) U/L Disposition Clinical Impression: Abdominal pain Disposition: HOME SELF-CARE Condition: Stable Instructions: Abdominal Pain (ED), Gastroesophageal Reflux Disease (ED) Time of Disposition: 01:55
[2016-12-18 00:39] LABS: Basophils % (A) 0 %; CH 34.2; CHCM 35.6; Eosinophils % (A) 0 %; HDW 2.37; HGB 15.9 gm/dL (13.0-17.5); Luc # (Auto) 0.19; Luc % (Auto) 2; Lymphocytes # (A) 0.9 k/uL (1.0-4.8); Lymphocytes % (A) 8 %; MCH 34.1 pg (25.0-35.0); MCHC 35.3 g/dL (31.0-37.0); MCV 96.4 fL (80.0-100.0); Mean Platelet Volume 8.8; Monocytes # (A) 0.6 k/uL (0-1.0); Monocytes % (A) 5 %; Neutrophils % (A) 85 %; RBC 4.67 m/uL (4.30-5.90); RDW 12.2 % (11.5-15.5); WBC 11.8 k/uL (3.8-10.6)
[2016-12-18] MEDS ORDERED: ACETAMINOPHEN TAB 325 MG TAB PO STA (00:49)
[2016-12-18 00:52] LABS: ALT 46 U/L (21-72); AST 20 U/L (17-59); Alkaline Phosphatase 71 U/L (38-126); Anion Gap 13 mmol/L; Blood Urea Nitrogen 12 mg/dL (9-20); Calcium 9.4 mg/dL (8.4-10.2); Carbon Dioxide 20 mmol/L (22-30); Chloride 109 mmol/L (98-107); Glucose 117 mg/dL (74-99); Non-African American GFR(MDRD) >60 (>60 ml/min/1.73 sqM); Potassium 4.3 mmol/L (3.5-5.1); Sodium 142 mmol/L (137-145); Total Bilirubin 1.1 mg/dL (0.2-1.3); Total Protein 6.8 g/dL (6.3-8.2)
[2016-12-18] MEDS ORDERED: FAMOTIDINE 20 MG/2 ML VIAL IV STA (01:47)
[2016-12-18] MEDS ORDERED: ONDANSETRON 4 MG/2 ML VIAL IVP STA (01:47)
[2016-12-18 02:07] VITALS: BP 143/89; PULSE 99; RESP 16
== END 2016-12-18 02:07 | disposition home or self-care (01) ==
LOC: EC 20:28
DX: R10.13 Epigastric pain (principal); R11.2 Nausea with vomiting, unspecified; F17.200 Nicotine dependence, unspecified, uncomplicated; I10 Essential (primary) hypertension; K21.9 Gastro-esophageal reflux disease without esophagitis; I48.91 Unspecified atrial fibrillation; Z90.49 Acquired absence of other specified parts of digestive tract; Z98.890 Other specified postprocedural states; Z79.01 Long term (current) use of anticoagulants; Z79.899 Other long term (current) drug therapy
CPT/HCPCS: 96374 ×2; 96375 ×3; 96376 ×2; 96361 ×2; 99283 ×2; 36415; 80053; 83690; 84484; 85025; J2270; J2405

== ENCOUNTER 2017-03-04 17:01 | Emergency (ER) | payer OTHER ==
[2017-03-04] MEDS ORDERED: METOCLOPRAMIDE 5 MG/ML 2 ML VIAL IVP STA (17:52)
[2017-03-04] MEDS ORDERED: MORPHINE SULFATE 2 MG/ML SYRINGE IVP STA (17:52)
[2017-03-04] MEDS ORDERED: SODIUM CHLORIDE 0.9% 1,000 ML IV STA (17:52)
[2017-03-04] MEDS ORDERED: MAG HYDROX/AL HYDROX/SIMETH 30 ML, HYOSCYAMINE ELIXIR 10 ML, CIMETIDINE HCL 300 MG PO STA ×3 (17:53)
--- NOTE | 2017-03-04 18:17 | ED ---
Abdominal Pain HPI - General Chief Complaint: Abdominal Pain Stated Complaint: Acid Reflex Time Seen by Provider: 03/04/17 17:51 Source: patient, RN notes reviewed Mode of arrival: ambulatory Limitations: no limitations - History of Present Illness Initial Comments: This a 52-year-old male presents emergency Department with chief complaint of abdominal pain,, acid reflux. Patient states he has his ongoing issue where he needs to come to the hospital occasionally. Patient states that he has seen Dr. Kelly has had EGDs in the past. Patient states that he wants to perform Tyler fundoplication Patient states that he is unsure if he wants to have this procedure done. Patient denies any fevers or chills. Patient denies any chest pain or shortness breath denies any back pain. Patient has no diarrhea no constipation. Patient states that he tried some Sprite to settle his stomach was states it did not help. - Related Data Home Medications Medication Instructions Recorded Confirmed Hydrocodone/Acetaminophen [[place] 1 tab PO Q6HR PRN 12/17/16 03/04/17 5-325] Warfarin [Coumadin] 2.5 mg PO DAILY 03/04/17 03/04/17 Allergies Allergy/AdvReac Type Severity Reaction Status Date / Time No Known Allergies Allergy Verified 03/04/17 18:44 Review of Systems ROS Statement: Those systems with pertinent positive or pertinent negative responses have been documented in the HPI. ROS Other: All systems not noted in ROS Statement are negative. Past Medical History Past Medical History: Atrial Fibrillation, GERD/Reflux, Hypertension, Osteoarthritis (OA) Additional Past Medical History / Comment(s): severe GERD, DJD. History of Any Multi-Drug Resistant Organisms: None Reported Past Surgical History: Appendectomy, Cholecystectomy, Hernia Repair, Joint Replacement, Orthopedic Surgery Additional Past Surgical History / Comment(s): 12/07/14 Total R Hip replacement, RIGHT KNEE SCOPE, umbilical hernia, EGD Past Anesthesia/Blood Transfusion Reactions: No Reported Reaction Past Psychological History: Anxiety Additional Psychological History / Comment(s): Pt lives significant other and is independent. He does have a limp. He does not use any assistive devices. There are 2 adult children in the home. Smoking Status: Current every day smoker Past Alcohol Use History: Daily, Heavy Additional Past Alcohol Use History / Comment(s): Pt started smoking in 1979 and is a 1 ppd smoker. Pt states he drinks 6-7 drinks with liquor per day. Past Drug Use History: None Reported Additional Drug Use History / Comment(s): Pt S.O. states he took 90 pills of norco within a week post hip replacement - Past Family History Father Family Medical History: Coronary Artery Disease (CAD), Diabetes Mellitus, Myocardial Infarction ([place]) Additional Family Medical History / Comment(s): Father has at the age of 74 yrs of a [place]. He had 2 Cabg's Mother Family Medical History: Coronary Artery Disease (CAD), Diabetes Mellitus, Musculoskeletal Disorder, Neurologic Disorder Additional Family Medical History / Comment(s): Mother is . She at age 64 yrs. She had a cabg and multiple sclerosis Brother(s) Family Medical History: AFIB Additional Family Medical History / Comment(s): Pt has another brother with CAD and MIs General Exam Limitations: no limitations General appearance: alert, in no apparent distress Respiratory exam: Present: normal lung sounds bilaterally. Absent: respiratory distress, wheezes, rales, rhonchi, stridor Cardiovascular Exam: Present: regular rate, normal rhythm, normal heart sounds. Absent: systolic murmur, diastolic murmur, rubs, gallop, clicks GI/Abdominal exam: Present: soft, tenderness, normal bowel sounds. Absent: distended, guarding, rebound, rigid Back exam: Absent: CVA tenderness (R), CVA tenderness (L) Skin exam: Present: warm, dry, intact, normal color. Absent: rash Course Vital Signs 03/04/17 17:20 Temperature 98.5 F Pulse Rate 95 Respiratory 20 Rate Blood Pressure 158/98 O2 Sat by Pulse 99 Oximetry - Reevaluation(s) Reevaluation #1: 03/04/17 20:03 Patient was reevaluated at this time. Patient is resting comfortably and much improved. Medical Decision Making - Medical Decision Making 52-year-old male present emergency department for low pain, GERD. Patient has is ongoing issue. Patient has seen was seen in the past. Patient will follow-up with him. Return parameters were discussed. - Lab Data Result diagrams: 03/04/17 18:16 03/04/17 18:16 Lab Results 03/04/17 03/04/17 03/04/17 Range/Units 18:16 18:16 18:16 WBC 8.2 (3.8-10.6) k/uL RBC 5.13 (4.30-5.90) m/uL Hgb 17.7 H (13.0-17.5) gm/dL Hct 51.1 (39.0-53.0) % MCV 99.6 (80.0-100.0) fL MCH 34.5 (25.0-35.0) pg MCHC 34.6 (31.0-37.0) g/dL RDW 12.5 (11.5-15.5) % Plt Count 222 (150-450) k/uL Neutrophils % 89 % Lymphocytes % 7 % Monocytes % 3 % Eosinophils % 0 % Basophils % 0 % Neutrophils # 7.3 (1.3-7.7) k/uL Lymphocytes # 0.6 L (1.0-4.8) k/uL Monocytes # 0.2 (0-1.0) k/uL Eosinophils # 0.0 (0-0.7) k/uL Basophils # 0.0 (0-0.2) k/uL Sodium 139 (137-145) mmol/L Potassium 4.5 (3.5-5.1) mmol/L Chloride 110 H (98-107) mmol/L Carbon Dioxide 20 L (22-30) mmol/L Anion Gap 9 mmol/L BUN 10 (9-20) mg/dL Creatinine 0.73 (0.66-1.25) mg/dL Est GFR (MDRD) Af Amer >60 (>60 ml/min/1.73 sqM) Est GFR (MDRD) Non-Af >60 (>60 ml/min/1.73 sqM) Glucose 149 H (74-99) mg/dL Calcium 9.6 (8.4-10.2) mg/dL Total Bilirubin 1.4 H (0.2-1.3) mg/dL AST 27 (17-59) U/L ALT 51 (21-72) U/L Alkaline Phosphatase 83 (38-126) U/L Troponin I <0.012 (0.000-0.034) ng/mL Total Protein 7.3 (6.3-8.2) g/dL Albumin 4.4 (3.5-5.0) g/dL Amylase <30 L (30-110) U/L Lipase 138 (23-300) U/L Urine Color Urine Appearance (Clear) Urine pH (5.0-8.0) Ur Specific [place] (1.001-1.035) Urine Protein (Negative) Urine Glucose (UA) (Negative) Urine Ketones (Negative) Urine Blood (Negative) Urine Nitrite (Negative) Urine Bilirubin (Negative) Urine Urobilinogen (<2.0) mg/dL Ur Leukocyte Esterase (Negative) Urine RBC (0-5) /hpf Urine WBC (0-5) /hpf Ur Squamous Epith Cells (0-4) /hpf Hyaline Casts (0-2) /lpf Urine Mucus (None) /hpf 03/04/17 Range/Units 19:39 WBC (3.8-10.6) k/uL RBC (4.30-5.90) m/uL Hgb (13.0-17.5) gm/dL Hct (39.0-53.0) % MCV (80.0-100.0) fL MCH (25.0-35.0) pg MCHC (31.0-37.0) g/dL RDW (11.5-15.5) % Plt Count (150-450) k/uL Neutrophils % % Lymphocytes % % Monocytes % % Eosinophils % % Basophils % % Neutrophils # (1.3-7.7) k/uL Lymphocytes # (1.0-4.8) k/uL Monocytes # (0-1.0) k/uL Eosinophils # (0-0.7) k/uL Basophils # (0-0.2) k/uL Sodium (137-145) mmol/L Potassium (3.5-5.1) mmol/L Chloride (98-107) mmol/L Carbon Dioxide (22-30) mmol/L Anion Gap mmol/L BUN (9-20) mg/dL Creatinine (0.66-1.25) mg/dL Est GFR (MDRD) Af Amer (>60 ml/min/1.73 sqM) Est GFR (MDRD) Non-Af (>60 ml/min/1.73 sqM) Glucose (74-99) mg/dL Calcium (8.4-10.2) mg/dL Total Bilirubin (0.2-1.3) mg/dL AST (17-59) U/L ALT (21-72) U/L Alkaline Phosphatase (38-126) U/L Troponin I (0.000-0.034) ng/mL Total Protein (6.3-8.2) g/dL Albumin (3.5-5.0) g/dL Amylase (30-110) U/L Lipase (23-300) U/L Urine Color Yellow Urine Appearance Clear (Clear) Urine pH 6.0 (5.0-8.0) Ur Specific [place] 1.023 (1.001-1.035) Urine Protein 1+ H (Negative) Urine Glucose (UA) Negative (Negative) Urine Ketones Negative (Negative) Urine Blood Negative (Negative) Urine Nitrite Negative (Negative) Urine Bilirubin Negative (Negative) Urine Urobilinogen <2.0 (<2.0) mg/dL Ur Leukocyte Esterase Negative (Negative) Urine RBC <1 (0-5) /hpf Urine WBC <1 (0-5) /hpf Ur Squamous Epith Cells <1 (0-4) /hpf Hyaline Casts 1 (0-2) /lpf Urine Mucus Rare H (None) /hpf Disposition Clinical Impression: Abdominal pain, GERD (gastroesophageal reflux disease) Disposition: HOME SELF-CARE Condition: Stable Instructions: Abdominal Pain (ED) Additional Instructions: Please return to the Emergency Department if symptoms worsen or any other concerns. Referrals: Aaron Loja MD [Primary Care Provider] - 1-2 days Time of Disposition: 20:04
[2017-03-04 18:28] LABS: Basophils % (A) 0 %; CH 34.9; CHCM 35.2; Eosinophils % (A) 0 %; HCT 51.1 % (39.0-53.0); HDW 2.27; HGB 17.7 gm/dL (13.0-17.5); Luc # (Auto) 0.06; Luc % (Auto) 1; Lymphocytes # (A) 0.6 k/uL (1.0-4.8); Lymphocytes % (A) 7 %; MCH 34.5 pg (25.0-35.0); MCHC 34.6 g/dL (31.0-37.0); MCV 99.6 fL (80.0-100.0); Mean Platelet Volume 8.9; Monocytes # (A) 0.2 k/uL (0-1.0); Monocytes % (A) 3 %; Neutrophils # (A) 7.3 k/uL (1.3-7.7); Neutrophils % (A) 89 %; RBC 5.13 m/uL (4.30-5.90); RDW 12.5 % (11.5-15.5); WBC 8.2 k/uL (3.8-10.6); WBC (Perox) 8.28
[2017-03-04 18:38] LABS: ALT 51 U/L (21-72); AST 27 U/L (17-59); Alkaline Phosphatase 83 U/L (38-126); Amylase <30 U/L (30-110); Anion Gap 9 mmol/L; Blood Urea Nitrogen 10 mg/dL (9-20); Calcium 9.6 mg/dL (8.4-10.2); Carbon Dioxide 20 mmol/L (22-30); Chloride 110 mmol/L (98-107); Glucose 149 mg/dL (74-99); Non-African American GFR(MDRD) >60 (>60 ml/min/1.73 sqM); Potassium 4.5 mmol/L (3.5-5.1); Sodium 139 mmol/L (137-145); Total Bilirubin 1.4 mg/dL (0.2-1.3); Total Protein 7.3 g/dL (6.3-8.2)
[2017-03-04] MEDS ORDERED: ONDANSETRON 4 MG/2 ML VIAL IVP STA (19:01)
[2017-03-04] MEDS ORDERED: HYDROmorphone 1 MG/ML 1 ML SYRINGE IVP STA (19:01)
[2017-03-04 19:58] LABS: Appearance,Urine Clear (Clear); Bilirubin,Urine Negative (Negative); Glucose,Urine (UA) Negative (Negative); Ketones,Urine Negative (Negative); Leukocyte Esterase,Urine Negative (Negative); Mucus,Urine Rare /hpf; Nitrite,Urine Negative (Negative); Particle Count 1916; Protein,Urine 1+ (Negative); RBC,Urine <1 /hpf (0-5); Specific Gravity,Urine 1.023 (1.001-1.035); Squamous Epithelial Cell,Urine <1 /hpf (0-4); UA Billing (MACRO vs. MICRO) MICRO; Urobilinogen,Urine <2.0 mg/dL (<2.0); WBC,Urine <1 /hpf (0-5)
[2017-03-04 20:25] VITALS: BP 129/80; PULSE 70; RESP 18; TEMP 98.4
== END 2017-03-04 20:25 | disposition home or self-care (01) ==
LOC: EC 17:01
DX: K21.9 Gastro-esophageal reflux disease without esophagitis (principal); I48.91 Unspecified atrial fibrillation; F17.200 Nicotine dependence, unspecified, uncomplicated; Z96.641 Presence of right artificial hip joint; Z79.01 Long term (current) use of anticoagulants
CPT/HCPCS: 36415; 80053; 82150; 83690; 84484; 85025; 81001; 99284; 96374; 96375 ×3; 96361; J2765; J2405; J2270; J1170

== ENCOUNTER 2017-04-24 18:26 | Emergency (ER) | payer OTHER ==
[2017-04-24 18:30] VITALS: TEMP 98.8
[2017-04-24] MEDS ORDERED: ONDANSETRON 4 MG/2 ML VIAL IVP STA (18:59)
[2017-04-24] MEDS ORDERED: MORPHINE SULFATE 4 MG/ML SYRINGE IV STA (18:59)
[2017-04-24] MEDS ORDERED: SODIUM CHLORIDE 0.9% 1,000 ML IV STA (18:59)
[2017-04-24] MEDS ORDERED: FAMOTIDINE 20 MG/2 ML VIAL IV STA (19:00)
--- NOTE | 2017-04-24 19:20 | ED ---
Abdominal Pain HPI - General Chief Complaint: Abdominal Pain Stated Complaint: vomiting Time Seen by Provider: 04/24/17 18:42 Source: patient, RN notes reviewed Mode of arrival: wheelchair Limitations: no limitations - History of Present Illness Initial Comments: Patient is a 52-year-old male presents emergency room for evaluation of GERD. Patient states he has a history of GERD. Patient states he takes medication daily for it. Patient states every once in a while he will have extreme vomiting that he cannot subside. Patient states this feels like his normal symptoms when he has a flareup. Patient denies chest pain. Patient denies shortness of breath. Patient states symptoms began about 12 hours ago. Patient denies fevers or chills. Patient denies diarrhea constipation. - Related Data Home Medications Medication Instructions Recorded Confirmed Hydrocodone/Acetaminophen [[place] 1 tab PO Q6HR PRN 12/17/16 04/24/17 5-325] Warfarin [Coumadin] 2.5 mg PO DAILY 03/04/17 04/24/17 Allergies Allergy/AdvReac Type Severity Reaction Status Date / Time No Known Allergies Allergy Verified 04/24/17 18:29 Review of Systems ROS Statement: Those systems with pertinent positive or pertinent negative responses have been documented in the HPI. ROS Other: All systems not noted in ROS Statement are negative. Past Medical History Past Medical History: Atrial Fibrillation, GERD/Reflux, Hypertension, Osteoarthritis (OA) Additional Past Medical History / Comment(s): severe GERD, DJD. History of Any Multi-Drug Resistant Organisms: None Reported Past Surgical History: Appendectomy, Cholecystectomy, Hernia Repair, Joint Replacement, Orthopedic Surgery Additional Past Surgical History / Comment(s): 12/07/14 Total R Hip replacement, RIGHT KNEE SCOPE, umbilical hernia, EGD Past Anesthesia/Blood Transfusion Reactions: No Reported Reaction Past Psychological History: Anxiety Smoking Status: Current every day smoker Past Alcohol Use History: Daily, Heavy Past Drug Use History: None Reported - Past Family History Father Family Medical History: Coronary Artery Disease (CAD), Diabetes Mellitus, Myocardial Infarction ([place]) Additional Family Medical History / Comment(s): Father has at the age of 74 yrs of a [place]. He had 2 Cabg's Mother Family Medical History: Coronary Artery Disease (CAD), Diabetes Mellitus, Musculoskeletal Disorder, Neurologic Disorder Additional Family Medical History / Comment(s): Mother is . She at age 64 yrs. She had a cabg and multiple sclerosis Brother(s) Family Medical History: AFIB Additional Family Medical History / Comment(s): Pt has another brother with CAD and MIs General Exam - General Exam Comments Initial Comments: Laying in exam room, actively vomiting Limitations: no limitations General appearance: alert, anxious Head exam: Present: atraumatic, normocephalic, normal inspection Eye exam: Present: normal appearance ENT exam: Present: normal exam Neck exam: Present: normal inspection Respiratory exam: Present: normal lung sounds bilaterally. Absent: respiratory distress Cardiovascular Exam: Present: normal rhythm, tachycardia, normal heart sounds GI/Abdominal exam: Present: soft, normal bowel sounds. Absent: distended, tenderness, guarding, rebound, rigid Extremities exam: Present: normal inspection Back exam: Present: normal inspection Neurological exam: Present: alert, oriented X3, CN II-XII intact, normal gait Psychiatric exam: Present: normal affect, normal mood Skin exam: Present: warm, dry, intact, normal color. Absent: rash Course Vital Signs 04/24/17 04/24/17 18:28 23:42 Temperature 98.8 F Pulse Rate 115 H 75 Respiratory 20 18 Rate Blood Pressure 123/95 134/82 O2 Sat by Pulse 99 98 Oximetry - Reevaluation(s) Reevaluation #1: 04/24/17 20:29 Patient reevaluated and states he is not feeling any better. Patient will be given Reglan and Dilaudid reevaluated after KUB x-ray is read. Medical Decision Making - Medical Decision Making Patient is a 52-year-old male since emergency room for evaluation. Patient states he has a history of GERD and is having a flareup of acid reflux. Patient states the symptoms are consistent with every other time he comes here. Patient denies chest pain or shortness of breath. Cardiac workup negative. Patient is feeling better and can be discharged home. Return parameters discussed. Case discussed Dr. Rashid. - Lab Data Result diagrams: 04/24/17 19:17 04/24/17 19:17 Lab Results 04/24/17 04/24/17 04/24/17 Range/Units 19:17 19:17 19:17 WBC 6.6 (3.8-10.6) k/uL RBC 4.82 (4.30-5.90) m/uL Hgb 16.7 (13.0-17.5) gm/dL Hct 47.5 (39.0-53.0) % MCV 98.6 (80.0-100.0) fL MCH 34.6 (25.0-35.0) pg MCHC 35.0 (31.0-37.0) g/dL RDW 11.8 (11.5-15.5) % Plt Count 189 (150-450) k/uL Neutrophils % 74 % Lymphocytes % 17 % Monocytes % 6 % Eosinophils % 2 % Basophils % 1 % Neutrophils # 4.9 (1.3-7.7) k/uL Lymphocytes # 1.1 (1.0-4.8) k/uL Monocytes # 0.4 (0-1.0) k/uL Eosinophils # 0.1 (0-0.7) k/uL Basophils # 0.0 (0-0.2) k/uL PT (9.0-12.0) sec INR (<1.2) APTT (22.0-30.0) sec Sodium 139 (137-145) mmol/L Potassium 4.3 (3.5-5.1) mmol/L Chloride 107 (98-107) mmol/L Carbon Dioxide 18 L (22-30) mmol/L Anion Gap 14 mmol/L BUN 5 L (9-20) mg/dL Creatinine 0.80 (0.66-1.25) mg/dL Est GFR (MDRD) Af Amer >60 (>60 ml/min/1.73 sqM) Est GFR (MDRD) Non-Af >60 (>60 ml/min/1.73 sqM) Glucose 117 H (74-99) mg/dL Calcium 9.3 (8.4-10.2) mg/dL Total Bilirubin 0.8 (0.2-1.3) mg/dL AST 29 (17-59) U/L ALT 57 (21-72) U/L Alkaline Phosphatase 76 (38-126) U/L Total Creatine Kinase 69 (55-170) U/L CK-MB (CK-2) 1.0 (0.0-2.4) ng/mL CK-MB (CK-2) Rel Index 1.4 Troponin I <0.012 (0.000-0.034) ng/mL Total Protein 6.6 (6.3-8.2) g/dL Albumin 4.2 (3.5-5.0) g/dL Amylase <30 L (30-110) U/L Lipase 168 (23-300) U/L 04/24/17 Range/Units 19:17 WBC (3.8-10.6) k/uL RBC (4.30-5.90) m/uL Hgb (13.0-17.5) gm/dL Hct (39.0-53.0) % MCV (80.0-100.0) fL MCH (25.0-35.0) pg MCHC (31.0-37.0) g/dL RDW (11.5-15.5) % Plt Count (150-450) k/uL Neutrophils % % Lymphocytes % % Monocytes % % Eosinophils % % Basophils % % Neutrophils # (1.3-7.7) k/uL Lymphocytes # (1.0-4.8) k/uL Monocytes # (0-1.0) k/uL Eosinophils # (0-0.7) k/uL Basophils # (0-0.2) k/uL PT 10.3 (9.0-12.0) sec INR 1.0 (<1.2) APTT 22.4 (22.0-30.0) sec Sodium (137-145) mmol/L Potassium (3.5-5.1) mmol/L Chloride (98-107) mmol/L Carbon Dioxide (22-30) mmol/L Anion Gap mmol/L BUN (9-20) mg/dL Creatinine (0.66-1.25) mg/dL Est GFR (MDRD) Af Amer (>60 ml/min/1.73 sqM) Est GFR (MDRD) Non-Af (>60 ml/min/1.73 sqM) Glucose (74-99) mg/dL Calcium (8.4-10.2) mg/dL Total Bilirubin (0.2-1.3) mg/dL AST (17-59) U/L ALT (21-72) U/L Alkaline Phosphatase (38-126) U/L Total Creatine Kinase (55-170) U/L CK-MB (CK-2) (0.0-2.4) ng/mL CK-MB (CK-2) Rel Index Troponin I (0.000-0.034) ng/mL Total Protein (6.3-8.2) g/dL Albumin (3.5-5.0) g/dL Amylase (30-110) U/L Lipase (23-300) U/L 04/24/17 20:33 Atrial fibrillation, ventricular rate 91 bpm, QRS duration 88 ms, QT/QTC 362/ 445 ms - Radiology Data Radiology results: report reviewed, image reviewed Disposition Clinical Impression: Acid reflux Disposition: HOME SELF-CARE Condition: Good Instructions: Gastroesophageal Reflux Disease (ED) Additional Instructions: Continue taking at home medications as needed. Please follow up with primary care provider or GI specialist in 1-2 days. If any new symptom arises or symptoms worsen, return to ER as soon as possible. Referrals: Aaron Loja MD [Primary Care Provider] - 1-2 days Time of Disposition: 23:32
[2017-04-24 19:35] LABS: Basophils % (A) 1 %; CH 34.5; CHCM 35.1; Eosinophils # (A) 0.1 k/uL (0-0.7); Eosinophils % (A) 2 %; HCT 47.5 % (39.0-53.0); HDW 2.36; HGB 16.7 gm/dL (13.0-17.5); Luc # (Auto) 0.12; Luc % (Auto) 2; Lymphocytes # (A) 1.1 k/uL (1.0-4.8); Lymphocytes % (A) 17 %; MCH 34.6 pg (25.0-35.0); MCV 98.6 fL (80.0-100.0); Mean Platelet Volume 8.4; Monocytes # (A) 0.4 k/uL (0-1.0); Monocytes % (A) 6 %; Neutrophils # (A) 4.9 k/uL (1.3-7.7); Neutrophils % (A) 74 %; RBC 4.82 m/uL (4.30-5.90); RDW 11.8 % (11.5-15.5); WBC 6.6 k/uL (3.8-10.6); WBC (Perox) 6.84
[2017-04-24 19:44] LABS: ALT 57 U/L (21-72); AST 29 U/L (17-59); Alkaline Phosphatase 76 U/L (38-126); Amylase <30 U/L (30-110); Anion Gap 14 mmol/L; Blood Urea Nitrogen 5 mg/dL (9-20); Calcium 9.3 mg/dL (8.4-10.2); Carbon Dioxide 18 mmol/L (22-30); Chloride 107 mmol/L (98-107); Glucose 117 mg/dL (74-99); Non-African American GFR(MDRD) >60 (>60 ml/min/1.73 sqM); Potassium 4.3 mmol/L (3.5-5.1); Sodium 139 mmol/L (137-145); Total Bilirubin 0.8 mg/dL (0.2-1.3); Total Protein 6.6 g/dL (6.3-8.2)
[2017-04-24 19:52] LABS: Partial Thromboplastin Time 22.4 sec (22.0-30.0); Prothrombin Time 10.3 sec (9.0-12.0)
[2017-04-24 19:56] LABS: Creatine Kinase 69 U/L (55-170)
[2017-04-24 20:09] LABS: Troponin I <0.012 ng/mL (0.000-0.034)
[2017-04-24] MEDS ORDERED: METOCLOPRAMIDE 5 MG/ML 2 ML VIAL IVP STA (20:27)
[2017-04-24] MEDS ORDERED: SODIUM CHLORIDE 0.9% 1,000 ML IV ONE (20:28)
[2017-04-24] MEDS ORDERED: HYDROmorphone 1 MG/ML 1 ML SYRINGE IVP STA ×2 (20:28→23:07)
--- NOTE | 2017-04-24 21:24 | XR ---
EXAMINATION TYPE: XR KUB DATE OF EXAM: 04/24/2017 COMPARISON: 12/17/2016 HISTORY: Abdominal pain TECHNIQUE: 3 views FINDINGS: There is no sign of intestinal obstruction or pneumoperitoneum. Fecal pattern is normal. Th ere is a right hip prosthesis. There are no pathologic calcifications over the kidneys. Lung bases ar e clear. IMPRESSION: Nonacute abdomen. No change.
[2017-04-24] MEDS ORDERED: MAG HYDROX/AL HYDROX/SIMETH 30 ML, HYOSCYAMINE ELIXIR 10 ML, CIMETIDINE HCL 300 MG, LID... PO STA ×4 (22:20)
[2017-04-24 23:43] VITALS: BP 134/82; PULSE 75; RESP 18
== END 2017-04-24 23:47 | disposition home or self-care (01) ==
LOC: EC 18:26
DX: K21.9 Gastro-esophageal reflux disease without esophagitis (principal); R11.10 Vomiting, unspecified; I48.91 Unspecified atrial fibrillation; F17.200 Nicotine dependence, unspecified, uncomplicated; Z90.49 Acquired absence of other specified parts of digestive tract
CPT/HCPCS: 36415; 93005; 80053; 82150; 82550; 82553; 83690; 84484; 85025; 85610; 85730; 74000; 99284; 96374; 96375 ×4; 96376; 96361 ×2; J2270; J2765; J2405; J1170

== ENCOUNTER 2017-06-24 09:50 | Emergency (ER) | payer OTHER ==
[2017-06-24] MEDS ORDERED: PANTOPRAZOLE 40 MG/10 ML VIAL IVP STA (10:31)
[2017-06-24] MEDS ORDERED: SODIUM CHLORIDE 0.9% 1,000 ML IV STA (10:31)
[2017-06-24] MEDS ORDERED: HYDROmorphone 1 MG/ML 1 ML SYRINGE IVP STA (10:31)
[2017-06-24] MEDS ORDERED: ONDANSETRON 4 MG/2 ML VIAL IVP STA ×2 (10:31→13:14)
[2017-06-24] MEDS ORDERED: MAG HYDROX/AL HYDROX/SIMETH 30 ML, HYOSCYAMINE ELIXIR 10 ML, CIMETIDINE HCL 300 MG PO STA ×3 (10:32)
--- NOTE | 2017-06-24 10:43 | ED ---
General Adult HPI - General Chief complaint: Nausea/Vomiting/Diarrhea Stated complaint: N/V/D Time Seen by Provider: 06/24/17 10:00 Source: patient, RN notes reviewed Mode of arrival: ambulatory Limitations: no limitations - History of Present Illness Initial comments: This is a 52-year-old male presents emergency department past medical history significant for intractable vomiting. Patient states after he starts vomiting he gets severe heartburn and this is been ongoing problem for years. Patient states she supposed to have a fundoplication but he never does because he isn't independent worker and has no one else to do his job. Patient denies any fever chills. Patient denies any diarrhea. Patient states there is a little bit of epigastric abdominal pain but the burning in his esophagus is what really bothered. Patient states he has had pancreatitis once before. Patient states she drinks about twice a week. Patient denies seeing any blood in his vomitus. Patient denies any back pain. Patient denies any chest pain or pressure patient denies any difficulty breathing or shortness of breath - Related Data Home Medications Medication Instructions Recorded Confirmed Hydrocodone/Acetaminophen [[place] 1 tab PO Q6HR PRN 12/17/16 06/24/17 5-325] Warfarin Sodium 6 mg PO DAILY 06/24/17 06/24/17 Previous Rx's Medication Instructions Recorded Ondansetron Odt [Zofran Odt] 4 mg PO Q8HR PRN #10 tab 06/24/17 Allergies Allergy/AdvReac Type Severity Reaction Status Date / Time No Known Allergies Allergy Verified 06/24/17 10:33 Review of Systems ROS Statement: Those systems with pertinent positive or pertinent negative responses have been documented in the HPI. ROS Other: All systems not noted in ROS Statement are negative. Past Medical History Past Medical History: Atrial Fibrillation, GERD/Reflux, Hypertension, Osteoarthritis (OA) Additional Past Medical History / Comment(s): severe GERD, DJD. History of Any Multi-Drug Resistant Organisms: None Reported Past Surgical History: Appendectomy, Cholecystectomy, Hernia Repair, Joint Replacement, Orthopedic Surgery Additional Past Surgical History / Comment(s): 12/07/14 Total R Hip replacement, RIGHT KNEE SCOPE, umbilical hernia, EGD Past Anesthesia/Blood Transfusion Reactions: No Reported Reaction Past Psychological History: Anxiety Smoking Status: Current every day smoker Past Alcohol Use History: Daily, Heavy Past Drug Use History: None Reported - Past Family History Father Family Medical History: Coronary Artery Disease (CAD), Diabetes Mellitus, Myocardial Infarction ([place]) Additional Family Medical History / Comment(s): Father has at the age of 74 yrs of a [place]. He had 2 Cabg's Mother Family Medical History: Coronary Artery Disease (CAD), Diabetes Mellitus, Musculoskeletal Disorder, Neurologic Disorder Additional Family Medical History / Comment(s): Mother is . She at age 64 yrs. She had a cabg and multiple sclerosis Brother(s) Family Medical History: AFIB Additional Family Medical History / Comment(s): Pt has another brother with CAD and MIs General Exam - General Exam Comments Initial Comments: GENERAL: Patient is well-developed and well-nourished. Patient is nontoxic and well- hydrated and is in mild distress. ENT: Neck is soft and supple. No significant lymphadenopathy is noted. Oropharynx is clear. Moist mucous membranes. Neck has full range of motion without eliciting any pain. EYES: The sclera were anicteric and conjunctiva were pink and moist. Extraocular movements were intact and pupils were equal round and reactive to light. Eyelids were unremarkable. PULMONARY: Unlabored respirations. Good breath sounds bilaterally. No audible rales rhonchi or wheezing was noted. CARDIOVASCULAR: There is a regular rate and rhythm without any murmurs gallops or rubs. ABDOMEN: Minimal epigastric pain. No palpable organomegaly was noted. There is no palpable pulsatile mass. SKIN: Skin is clear with no lesions or rashes and otherwise unremarkable. NEUROLOGIC: Patient is alert and oriented x3. Cranial nerves II through XII are grossly intact. Motor and sensory are also intact. Normal speech, volume and content. Symmetrical smile. MUSCULOSKELETAL: Normal extremities with adequate strength and full range of motion. No lower extremity swelling or edema. No calf tenderness. LYMPHATICS: No significant lymphadenopathy is noted PSYCHIATRIC: Normal psychiatric evaluation. Limitations: no limitations Course Vital Signs 06/24/17 06/24/17 06/24/17 10:18 12:31 14:02 Temperature 99.3 F 98.1 F Pulse Rate 92 68 70 Respiratory 20 20 20 Rate Blood Pressure 161/106 154/93 156/75 O2 Sat by Pulse 97 96 96 Oximetry 06/24/17 14:55 Temperature 98 F Pulse Rate 70 Respiratory 18 Rate Blood Pressure 155/90 O2 Sat by Pulse 98 Oximetry Medical Decision Making - Medical Decision Making EKG shows atrial fibrillation at 81 bpm QRS is 86 QT interval 372 QTC is 432. Patient's EKG shows no ST segment elevation or depression there is no T-wave abnormalities. I offered the patient admission and told him I would speak with Dr. Loja the patient wanted to go home and follow-up on his own. - Lab Data Result diagrams: 06/24/17 11:44 06/24/17 11:44 Lab Results 06/24/17 06/24/17 06/24/17 Range/Units 11:44 11:44 11:44 WBC 9.2 (3.8-10.6) k/uL RBC 5.17 (4.30-5.90) m/uL Hgb 17.3 (13.0-17.5) gm/dL Hct 51.7 (39.0-53.0) % MCV 100.1 H (80.0-100.0) fL MCH 33.5 (25.0-35.0) pg MCHC 33.5 (31.0-37.0) g/dL RDW 12.0 (11.5-15.5) % Plt Count 195 (150-450) k/uL Neutrophils % 79 % Lymphocytes % 11 % Monocytes % 6 % Eosinophils % 1 % Basophils % 0 % Neutrophils # 7.3 (1.3-7.7) k/uL Lymphocytes # 1.0 (1.0-4.8) k/uL Monocytes # 0.6 (0-1.0) k/uL Eosinophils # 0.1 (0-0.7) k/uL Basophils # 0.0 (0-0.2) k/uL Sodium 139 (137-145) mmol/L Potassium 5.2 H (3.5-5.1) mmol/L Chloride 110 H (98-107) mmol/L Carbon Dioxide 16 L (22-30) mmol/L Anion Gap 13 mmol/L BUN 16 (9-20) mg/dL Creatinine 0.87 (0.66-1.25) mg/dL Est GFR (MDRD) Af Amer >60 (>60 ml/min/1.73 sqM) Est GFR (MDRD) Non-Af >60 (>60 ml/min/1.73 sqM) Glucose 133 H (74-99) mg/dL Calcium 9.9 (8.4-10.2) mg/dL Total Bilirubin 1.1 (0.2-1.3) mg/dL AST 35 (17-59) U/L ALT 46 (21-72) U/L Alkaline Phosphatase 72 (38-126) U/L Total Creatine Kinase 52 L (55-170) U/L CK-MB (CK-2) 1.1 (0.0-2.4) ng/mL CK-MB (CK-2) Rel Index 2.1 Troponin I <0.012 (0.000-0.034) ng/mL Total Protein 7.6 (6.3-8.2) g/dL Albumin 4.5 (3.5-5.0) g/dL Amylase 38 (30-110) U/L Lipase 270 (23-300) U/L Disposition Clinical Impression: GERD (gastroesophageal reflux disease) Disposition: HOME SELF-CARE Condition: Good Instructions: Gastroesophageal Reflux Disease (ED) Additional Instructions: Patient should stop drinking alcohol and stop smoking. Prescriptions: Ondansetron Odt [Zofran Odt] 4 mg PO Q8HR PRN #10 tab PRN Reason: Nausea And Vomiting Referrals: Aaron Loja MD [Primary Care Provider] - 1-2 days Time of Disposition: 14:36
[2017-06-24 12:10] LABS: Basophils % (A) 0 %; CH 34.1; CHCM 34.2; Eosinophils # (A) 0.1 k/uL (0-0.7); Eosinophils % (A) 1 %; HCT 51.7 % (39.0-53.0); HDW 2.31; HGB 17.3 gm/dL (13.0-17.5); Luc % (Auto) 2; Lymphocytes % (A) 11 %; MCH 33.5 pg (25.0-35.0); MCHC 33.5 g/dL (31.0-37.0); MCV 100.1 fL (80.0-100.0); Mean Platelet Volume 8.9; Monocytes # (A) 0.6 k/uL (0-1.0); Monocytes % (A) 6 %; Neutrophils # (A) 7.3 k/uL (1.3-7.7); Neutrophils % (A) 79 %; RBC 5.17 m/uL (4.30-5.90); WBC 9.2 k/uL (3.8-10.6)
[2017-06-24 12:16] LABS: ALT 46 U/L (21-72); AST 35 U/L (17-59); Alkaline Phosphatase 72 U/L (38-126); Amylase 38 U/L (30-110); Anion Gap 13 mmol/L; Blood Urea Nitrogen 16 mg/dL (9-20); Calcium 9.9 mg/dL (8.4-10.2); Carbon Dioxide 16 mmol/L (22-30); Chloride 110 mmol/L (98-107); Glucose 133 mg/dL (74-99); Non-African American GFR(MDRD) >60 (>60 ml/min/1.73 sqM); Sodium 139 mmol/L (137-145); Total Bilirubin 1.1 mg/dL (0.2-1.3); Total Protein 7.6 g/dL (6.3-8.2)
--- NOTE | 2017-06-24 12:19 | XR ---
EXAMINATION TYPE: XR KUB DATE OF EXAM: 06/24/2017 11:59 AM CLINICAL HISTORY: Abdominal pain with history of GERD. TECHNIQUE: Two Upright KUB images of the abdomen are obtained. COMPARISON: Abdominal x-ray April 24, 2017. CT abdomen and pelvis July 13, 2016. FINDINGS: There is some paucity of bowel gas. Visualized gas is noted in nondistended small and large bowel loops. No suspicious air-fluid levels are seen. There are scattered pelvic phleboliths. Metall ic hardware from right hip surgery is partially imaged. There is prominent spurring in the lower thor acic spine. No pneumoperitoneum is seen. IMPRESSION: Overall nonspecific but favor nonobstructive bowel gas pattern.
[2017-06-24 12:21] LABS: Potassium 5.2 mmol/L (3.5-5.1)
[2017-06-24 12:30] LABS: Creatine Kinase 52 U/L (55-170)
[2017-06-24 12:43] LABS: Creatine Kinase MB 1.1 ng/mL (0.0-2.4); Troponin I <0.012 ng/mL (0.000-0.034)
[2017-06-24 14:04] VITALS: PULSE 70
[2017-06-24 14:56] VITALS: BP 155/90; RESP 18; TEMP 98
== END 2017-06-24 14:57 | disposition home or self-care (01) ==
LOC: EC 09:50
DX: K21.9 Gastro-esophageal reflux disease without esophagitis (principal); I48.91 Unspecified atrial fibrillation; F17.200 Nicotine dependence, unspecified, uncomplicated; Z79.01 Long term (current) use of anticoagulants; Z90.49 Acquired absence of other specified parts of digestive tract
CPT/HCPCS: 99284 ×2; 96374 ×2; 96375 ×3; 96376 ×2; 96361 ×3; 36415; 93005; 80053; 82150; 82550; 82553; 83690; 84484; 85025; 74000; J2405; J1170; C9113

== ENCOUNTER 2017-09-20 17:56 | Emergency (ER) | payer OTHER ==
[2017-09-20 18:14] VITALS: RESP 18; TEMP 99
[2017-09-20] MEDS ORDERED: ONDANSETRON 4 MG/2 ML VIAL IVP STA (19:39)
[2017-09-20] MEDS ORDERED: SODIUM CHLORIDE 0.9% 1,000 ML IV STA (19:39)
[2017-09-20] MEDS ORDERED: PANTOPRAZOLE 40 MG/10 ML VIAL IVP STA (19:39)
[2017-09-20] MEDS ORDERED: ACETAMINOPHEN IV (For NPO) 1,000 MG in EMPTY BAG 1 BAG IVPB ONE (19:41)
--- NOTE | 2017-09-20 19:44 | ED ---
General Adult HPI - General Chief complaint: Abdominal Pain Stated complaint: Gerd Time Seen by Provider: 09/20/17 18:15 Source: patient, RN notes reviewed Mode of arrival: ambulatory Limitations: no limitations - History of Present Illness Initial comments: This is a 52-year-old male who presents emergency Department complaining of his GERD getting very bad. Patient states he had a long-standing history of this. Patient states it starts and then he starts having vomiting episodes about every half an hour. Patient states he scheduled for a fundoplication next year by Dr. Kelly. Patient denies any fever but states she's had the chills all day. Patient denies any abdominal pain. Patient denies any diarrhea. Patient denies any chest pain palpitations difficulty breathing or shortness of breath. Patient denies any headache patient denies lightheadedness or dizziness. Patient states this episode is like many other episodes she's had in the past. - Related Data Home Medications Medication Instructions Recorded Confirmed Hydrocodone/Acetaminophen [[place] 1 tab PO Q6HR PRN 12/17/16 09/20/17 5-325] Warfarin Sodium 6 mg PO DAILY 06/24/17 09/20/17 Previous Rx's Medication Instructions Recorded Ondansetron Odt [Zofran Odt] 4 mg PO Q8HR PRN #10 tab 06/24/17 Allergies Allergy/AdvReac Type Severity Reaction Status Date / Time No Known Allergies Allergy Verified 09/20/17 19:27 Review of Systems ROS Statement: Those systems with pertinent positive or pertinent negative responses have been documented in the HPI. ROS Other: All systems not noted in ROS Statement are negative. Past Medical History Past Medical History: Atrial Fibrillation, GERD/Reflux, Hypertension, Osteoarthritis (OA) Additional Past Medical History / Comment(s): severe GERD, DJD. History of Any Multi-Drug Resistant Organisms: None Reported Past Surgical History: Appendectomy, Cholecystectomy, Hernia Repair, Joint Replacement, Orthopedic Surgery Additional Past Surgical History / Comment(s): 12/07/14 Total R Hip replacement, RIGHT KNEE SCOPE, umbilical hernia, EGD Past Anesthesia/Blood Transfusion Reactions: No Reported Reaction Past Psychological History: Anxiety Smoking Status: Current every day smoker Past Alcohol Use History: None Reported Past Drug Use History: None Reported - Past Family History Father Family Medical History: Coronary Artery Disease (CAD), Diabetes Mellitus, Myocardial Infarction ([place]) Additional Family Medical History / Comment(s): Father has at the age of 74 yrs of a [place]. He had 2 Cabg's Mother Family Medical History: Coronary Artery Disease (CAD), Diabetes Mellitus, Musculoskeletal Disorder, Neurologic Disorder Additional Family Medical History / Comment(s): Mother is . She at age 64 yrs. She had a cabg and multiple sclerosis Brother(s) Family Medical History: AFIB Additional Family Medical History / Comment(s): Pt has another brother with CAD and MIs General Exam - General Exam Comments Initial Comments: GENERAL: Patient is well-developed and well-nourished. Patient is nontoxic and well- hydrated and is in mild distress. ENT: Neck is soft and supple. No significant lymphadenopathy is noted. Oropharynx is clear. Moist mucous membranes. Neck has full range of motion without eliciting any pain. EYES: The sclera were anicteric and conjunctiva were pink and moist. Extraocular movements were intact and pupils were equal round and reactive to light. Eyelids were unremarkable. PULMONARY: Unlabored respirations. Good breath sounds bilaterally. No audible rales rhonchi or wheezing was noted. CARDIOVASCULAR: Irregular heartbeat. ABDOMEN: Soft and nontender with normal bowel sounds. No palpable organomegaly was noted. There is no palpable pulsatile mass. SKIN: Skin is clear with no lesions or rashes and otherwise unremarkable. NEUROLOGIC: Patient is alert and oriented x3. Cranial nerves II through XII are grossly intact. Motor and sensory are also intact. Normal speech, volume and content. Symmetrical smile. MUSCULOSKELETAL: Normal extremities with adequate strength and full range of motion. No lower extremity swelling or edema. No calf tenderness. LYMPHATICS: No significant lymphadenopathy is noted PSYCHIATRIC: Normal psychiatric evaluation. Normal interpersonal interactions appears functionally intact in deals appropriately with others. No signs of depression. No signs of anxiety. Limitations: no limitations Course Vital Signs 09/20/17 18:13 Temperature 99 F Pulse Rate 85 Respiratory 18 Rate Blood Pressure 161/104 O2 Sat by Pulse 99 Oximetry Medical Decision Making - Medical Decision Making EKG shows atrial fibrillation with rapid ventricular response at 102 bpm QRS is 86 QT interval 354 QTC is 461. Patient's EKG shows no ST segment elevation or depression or T wave abnormalities are noted Patient states he knows he has severe GERD but he is not on anything in years to get it fixed. He is just keeps showing up to the emergency department. He states he might do it this summer. I spoke with Dr. Soares he agreed to admit the patient admitted the patient I wrote admitting orders. - Lab Data Result diagrams: 09/20/17 19:45 09/20/17 19:45 Lab Results 09/20/17 09/20/17 09/20/17 Range/Units 19:45 19:45 19:45 WBC 9.5 (3.8-10.6) k/uL RBC 5.38 (4.30-5.90) m/uL Hgb 17.7 H (13.0-17.5) gm/dL Hct 53.4 H (39.0-53.0) % MCV 99.2 (80.0-100.0) fL MCH 33.0 (25.0-35.0) pg MCHC 33.2 (31.0-37.0) g/dL RDW 13.7 (11.5-15.5) % Plt Count 223 (150-450) k/uL Neutrophils % 90 % Lymphocytes % 6 % Monocytes % 2 % Eosinophils % 2 % Basophils % 0 % Neutrophils # 8.6 H (1.3-7.7) k/uL Lymphocytes # 0.5 L (1.0-4.8) k/uL Monocytes # 0.2 (0-1.0) k/uL Eosinophils # 0.1 (0-0.7) k/uL Basophils # 0.0 (0-0.2) k/uL PT 11.1 (9.0-12.0) sec INR 1.2 H (<1.2) APTT 22.3 (22.0-30.0) sec Sodium 144 (137-145) mmol/L Potassium 3.8 (3.5-5.1) mmol/L Chloride 104 (98-107) mmol/L Carbon Dioxide 22 (22-30) mmol/L Anion Gap 18 mmol/L BUN 14 (9-20) mg/dL Creatinine 0.90 (0.66-1.25) mg/dL Est GFR (MDRD) Af Amer >60 (>60 ml/min/1.73 sqM) Est GFR (MDRD) Non-Af >60 (>60 ml/min/1.73 sqM) Glucose 150 H (74-99) mg/dL Calcium 10.1 (8.4-10.2) mg/dL Total Bilirubin 1.6 H (0.2-1.3) mg/dL AST 29 (17-59) U/L ALT 55 (21-72) U/L Alkaline Phosphatase 95 (38-126) U/L Total Protein 7.8 (6.3-8.2) g/dL Albumin 4.8 (3.5-5.0) g/dL Amylase 41 (30-110) U/L Lipase 186 (23-300) U/L Gastric Occult Blood (Negative) 09/20/17 Range/Units 19:45 WBC (3.8-10.6) k/uL RBC (4.30-5.90) m/uL Hgb (13.0-17.5) gm/dL Hct (39.0-53.0) % MCV (80.0-100.0) fL MCH (25.0-35.0) pg MCHC (31.0-37.0) g/dL RDW (11.5-15.5) % Plt Count (150-450) k/uL Neutrophils % % Lymphocytes % % Monocytes % % Eosinophils % % Basophils % % Neutrophils # (1.3-7.7) k/uL Lymphocytes # (1.0-4.8) k/uL Monocytes # (0-1.0) k/uL Eosinophils # (0-0.7) k/uL Basophils # (0-0.2) k/uL PT (9.0-12.0) sec INR (<1.2) APTT (22.0-30.0) sec Sodium (137-145) mmol/L Potassium (3.5-5.1) mmol/L Chloride (98-107) mmol/L Carbon Dioxide (22-30) mmol/L Anion Gap mmol/L BUN (9-20) mg/dL Creatinine (0.66-1.25) mg/dL Est GFR (MDRD) Af Amer (>60 ml/min/1.73 sqM) Est GFR (MDRD) Non-Af (>60 ml/min/1.73 sqM) Glucose (74-99) mg/dL Calcium (8.4-10.2) mg/dL Total Bilirubin (0.2-1.3) mg/dL AST (17-59) U/L ALT (21-72) U/L Alkaline Phosphatase (38-126) U/L Total Protein (6.3-8.2) g/dL Albumin (3.5-5.0) g/dL Amylase (30-110) U/L Lipase (23-300) U/L Gastric Occult Blood Positive (Negative) Disposition Clinical Impression: Upper GI bleed Disposition: ADMITTED IP TO THIS [facility] Referrals: Aaron Loja MD [Primary Care Provider] - 1-2 days Time of Disposition: 20:49
[2017-09-20 20:02] LABS: Basophils % (A) 0 %; Eosinophils # (A) 0.1 k/uL (0-0.7); Eosinophils % (A) 2 %; HCT 53.4 % (39.0-53.0); HGB 17.7 gm/dL (13.0-17.5); Lymphocytes # (A) 0.5 k/uL (1.0-4.8); Lymphocytes % (A) 6 %; MCHC 33.2 g/dL (31.0-37.0); MCV 99.2 fL (80.0-100.0); Mean Platelet Volume 8.4; Monocytes # (A) 0.2 k/uL (0-1.0); Monocytes % (A) 2 %; Neutrophils # (A) 8.6 k/uL (1.3-7.7); Neutrophils % (A) 90 %; Platelet Count 223 k/uL (150-450); RBC 5.38 m/uL (4.30-5.90); RDW 13.7 % (11.5-15.5); WBC 9.5 k/uL (3.8-10.6)
[2017-09-20 20:11] LABS: INR 1.2 (<1.2); Prothrombin Time 11.1 sec (9.0-12.0)
[2017-09-20 20:12] LABS: Partial Thromboplastin Time 22.3 sec (22.0-30.0)
[2017-09-20 20:13] LABS: ALT 55 U/L (21-72); AST 29 U/L (17-59); Albumin 4.8 g/dL (3.5-5.0); Alkaline Phosphatase 95 U/L (38-126); Amylase 41 U/L (30-110); Anion Gap 18 mmol/L; Blood Urea Nitrogen 14 mg/dL (9-20); Calcium 10.1 mg/dL (8.4-10.2); Carbon Dioxide 22 mmol/L (22-30); Chloride 104 mmol/L (98-107); Glucose 150 mg/dL (74-99); Lipase 186 U/L (23-300); Potassium 3.8 mmol/L (3.5-5.1); Sodium 144 mmol/L (137-145); Total Bilirubin 1.6 mg/dL (0.2-1.3); Total Protein 7.8 g/dL (6.3-8.2)
[2017-09-20] MEDS ORDERED: METOCLOPRAMIDE 5 MG/ML 2 ML VIAL IVP STA (20:25)
[2017-09-20] MEDS ORDERED: HYDROmorphone 1 MG/ML 1 ML SYRINGE IVP STA (20:26)
[2017-09-20] MEDS ORDERED: SODIUM CHLORIDE 0.9% 1,000 ML IV ONE (20:49)
[2017-09-20] MEDS ORDERED: ONDANSETRON 4 MG/2 ML VIAL IVP PRN (20:53)
[2017-09-20 21:03] VITALS: BP 157/96; PULSE 99
[2017-09-21] MEDS ORDERED: METOCLOPRAMIDE 5 MG/ML 2 ML VIAL IVP SCH (01:00)
[2017-09-21] MEDS ORDERED: PANTOPRAZOLE 40 MG/10 ML VIAL IVP SCH (09:00)
== END 2017-09-20 21:20 | disposition other institution (70) ==
LOC: EC 17:56 → 4MS4W 20:49 → UNDOADMIN 20:49 → EC 21:20
DX: K92.2 Gastrointestinal hemorrhage, unspecified (principal); I48.91 Unspecified atrial fibrillation; R68.83 Chills (without fever); K21.9 Gastro-esophageal reflux disease without esophagitis; F17.200 Nicotine dependence, unspecified, uncomplicated; Z79.01 Long term (current) use of anticoagulants; Z90.49 Acquired absence of other specified parts of digestive tract; Z82.49 Family history of ischemic heart disease and other diseases of the circulatory system
CPT/HCPCS: 99285; 96365; 96375 ×4; 36415; 93005; 80053; 82150; 83690; 85025; 85610; 85730; 82271; J2765; J2405; J1170; J0131; C9113

== ENCOUNTER 2018-02-17 15:45 | Emergency (ER) | payer OTHER ==
[2018-02-17 15:50] VITALS: RESP 18
[2018-02-17] MEDS ORDERED: PANTOPRAZOLE 40 MG/10 ML VIAL IVP STA (16:00)
[2018-02-17] MEDS ORDERED: ONDANSETRON 4 MG/2 ML VIAL IVP STA ×2 (16:00→16:44)
[2018-02-17] MEDS ORDERED: MAG HYDROX/AL HYDROX/SIMETH 30 ML, HYOSCYAMINE ELIXIR 10 ML, CIMETIDINE HCL 300 MG, LID... PO STA ×4 (16:00)
[2018-02-17] MEDS ORDERED: SODIUM CHLORIDE 0.9% 1,000 ML IV STA (16:00)
--- NOTE | 2018-02-17 16:02 | ED ---
General Adult HPI - General Chief complaint: Abdominal Pain Stated complaint: Abd Pain Time Seen by Provider: 02/17/18 15:51 Source: patient, RN notes reviewed, old records reviewed Mode of arrival: wheelchair Limitations: no limitations - History of Present Illness Initial comments: Patient's 53-year-old male with significant past medical history for acid reflux , presented emergency room today with a chief complaint of nausea vomiting started at 8 AM. He does admit that he's been drinking up some bile. He does admit that he's had similar episodes multiple times in the past. He does admit that he recently did some IV with GI cocktail and nausea medication pain medication and begins feeling better. Patient denies any other complaints or symptoms. Pleasant signs blood in the emesis. Patient denies any recent fever, chills, shortness of breath, chest pain, numbness or tingling, dysuria or hematuria, constipation or diarrhea, headaches or visual changes, or any other complaints. - Related Data Home Medications Medication Instructions Recorded Confirmed Hydrocodone/Acetaminophen [[place] 1 tab PO Q6HR PRN 12/17/16 09/20/17 5-325] Warfarin Sodium 6 mg PO DAILY 06/24/17 09/20/17 Previous Rx's Medication Instructions Recorded Ondansetron Odt [Zofran Odt] 4 mg PO Q8HR PRN #10 tab 06/24/17 Ondansetron Odt [Zofran ODT] 4 mg PO Q8HR PRN #20 tab 02/17/18 Allergies Allergy/AdvReac Type Severity Reaction Status Date / Time No Known Allergies Allergy Verified 02/17/18 15:50 Review of Systems ROS Statement: Those systems with pertinent positive or pertinent negative responses have been documented in the HPI. ROS Other: All systems not noted in ROS Statement are negative. Past Medical History Past Medical History: Atrial Fibrillation, GERD/Reflux, Hypertension, Osteoarthritis (OA) Additional Past Medical History / Comment(s): severe GERD, DJD. History of Any Multi-Drug Resistant Organisms: None Reported Past Surgical History: Appendectomy, Cholecystectomy, Hernia Repair, Joint Replacement, Orthopedic Surgery Additional Past Surgical History / Comment(s): 12/07/14 Total R Hip replacement, RIGHT KNEE SCOPE, umbilical hernia, EGD Past Anesthesia/Blood Transfusion Reactions: No Reported Reaction Past Psychological History: Anxiety Smoking Status: Current every day smoker Past Alcohol Use History: None Reported Past Drug Use History: None Reported - Past Family History Father Family Medical History: Coronary Artery Disease (CAD), Diabetes Mellitus, Myocardial Infarction ([place]) Additional Family Medical History / Comment(s): Father has at the age of 74 yrs of a [place]. He had 2 Cabg's Mother Family Medical History: Coronary Artery Disease (CAD), Diabetes Mellitus, Musculoskeletal Disorder, Neurologic Disorder Additional Family Medical History / Comment(s): Mother is . She at age 64 yrs. She had a cabg and multiple sclerosis Brother(s) Family Medical History: AFIB Additional Family Medical History / Comment(s): Pt has another brother with CAD and MIs General Exam - General Exam Comments Initial Comments: General: The patient is awake and alert, in no distress, and does not appear acutely ill. Eye: Pupils are equal, round and reactive to light, extra-ocular movements are intact. No nystagmus. There is normal conjunctiva bilaterally. No signs of icterus. Ears, nose, mouth and throat: There are moist mucous membranes and no oral lesions. Neck: The neck is supple, there is no tenderness or JVD. Cardiovascular: There is a regular rate and rhythm. No murmur, rub or gallop is appreciated. Respiratory: Lungs are clear to auscultation, respirations are non-labored, breath sounds are equal. No wheezes, stridor, rales, or rhonchi. Gastrointestinal: Abdomen soft on palpation. Patient does have tenderness epigastric. No rebound tenderness. No guarding. No CVA tenderness. Musculoskeletal: Normal ROM, no tenderness. Strength 5/5. Sensation intact. Pulses equal bilaterally 2+. Neurological: A&O x 3. CN II-XII intact, There are no obvious motor or sensory deficits. Coordination appears grossly intact. Speech is normal. Skin: Skin is warm and dry and no rashes or lesions are noted. Psychiatric: Cooperative, appropriate mood & affect, normal judgment. Limitations: no limitations Course Vital Signs 02/17/18 15:47 Temperature 98.5 F Pulse Rate 89 Respiratory 18 Rate Blood Pressure 171/93 O2 Sat by Pulse 98 Oximetry Medical Decision Making - Medical Decision Making Patient reexamined at this time shows no signs of distress. Patient does not that he's had symptoms similar to this multiple times in the past. Patient's labs been reviewed unremarkable. He is been a reexamined and has had no vomiting here the emergency room. He does feel better. Will be discharged home and advised follow-up. - Lab Data Result diagrams: 02/17/18 16:07 02/17/18 16:07 Lab Results 02/17/18 02/17/18 02/17/18 Range/Units 16:07 16:07 16:07 WBC 7.5 (3.8-10.6) k/uL RBC 5.16 (4.30-5.90) m/uL Hgb 17.6 H (13.0-17.5) gm/dL Hct 50.2 (39.0-53.0) % MCV 97.4 (80.0-100.0) fL MCH 34.1 (25.0-35.0) pg MCHC 35.1 (31.0-37.0) g/dL RDW 12.1 (11.5-15.5) % Plt Count 193 (150-450) k/uL Neutrophils % 84 % Lymphocytes % 10 % Monocytes % 3 % Eosinophils % 1 % Basophils % 0 % Neutrophils # 6.3 (1.3-7.7) k/uL Lymphocytes # 0.8 L (1.0-4.8) k/uL Monocytes # 0.2 (0-1.0) k/uL Eosinophils # 0.1 (0-0.7) k/uL Basophils # 0.0 (0-0.2) k/uL Sodium 141 (137-145) mmol/L Potassium 4.6 (3.5-5.1) mmol/L Chloride 108 H (98-107) mmol/L Carbon Dioxide 18 L (22-30) mmol/L Anion Gap 15 mmol/L BUN 13 (9-20) mg/dL Creatinine 0.70 (0.66-1.25) mg/dL Est GFR (CKD-EPI)AfAm >90 (>60 ml/min/1.73 sqM) Est GFR (CKD-EPI)NonAf >90 (>60 ml/min/1.73 sqM) Glucose 150 H (74-99) mg/dL Calcium 9.6 (8.4-10.2) mg/dL Total Bilirubin 1.6 H (0.2-1.3) mg/dL AST 37 (17-59) U/L ALT 63 (21-72) U/L Alkaline Phosphatase 79 (38-126) U/L Total Protein 7.1 (6.3-8.2) g/dL Albumin 4.5 (3.5-5.0) g/dL Amylase 47 (30-110) U/L Lipase 198 (23-300) U/L Urine Color Yellow Urine Appearance Clear (Clear) Urine pH 8.5 H (5.0-8.0) Ur Specific [place] 1.021 (1.001-1.035) Urine Protein 2+ H (Negative) Urine Glucose (UA) Negative (Negative) Urine Ketones Negative (Negative) Urine Blood Negative (Negative) Urine Nitrite Negative (Negative) Urine Bilirubin Negative (Negative) Urine Urobilinogen <2.0 (<2.0) mg/dL Ur Leukocyte Esterase Negative (Negative) Urine RBC <1 (0-5) /hpf Urine WBC 1 (0-5) /hpf Hyaline Casts 5 H (0-2) /lpf Urine Mucus Moderate H (None) /hpf Disposition Clinical Impression: Nausea and vomiting Disposition: HOME SELF-CARE Condition: Good Instructions: Acute Nausea and Vomiting (ED) Additional Instructions: Please use medication as discussed. Please follow-up with family doctor in the next 2 days of symptoms have not improved. Please return to emergency room if the symptoms increase or worsen or for any other concerns. Prescriptions: Ondansetron Odt [Zofran ODT] 4 mg PO Q8HR PRN #20 tab PRN Reason: Nausea Is patient prescribed a controlled substance at d/c from ED?: No Referrals: Aaron Loja MD [Primary Care Provider] - 1-2 days Time of Disposition: 16:46
[2018-02-17 16:13] LABS: Basophils % (A) 0 %; Eosinophils # (A) 0.1 k/uL (0-0.7); Eosinophils % (A) 1 %; HCT 50.2 % (39.0-53.0); HGB 17.6 gm/dL (13.0-17.5); Lymphocytes # (A) 0.8 k/uL (1.0-4.8); Lymphocytes % (A) 10 %; MCH 34.1 pg (25.0-35.0); MCHC 35.1 g/dL (31.0-37.0); MCV 97.4 fL (80.0-100.0); Mean Platelet Volume 7.9; Monocytes # (A) 0.2 k/uL (0-1.0); Monocytes % (A) 3 %; Neutrophils # (A) 6.3 k/uL (1.3-7.7); Neutrophils % (A) 84 %; Platelet Count 193 k/uL (150-450); RBC 5.16 m/uL (4.30-5.90); RDW 12.1 % (11.5-15.5); WBC 7.5 k/uL (3.8-10.6)
[2018-02-17 16:19] LABS: Appearance,Urine Clear (Clear); Bilirubin,Urine Negative (Negative); Blood,Urine Negative (Negative); Color,Urine Yellow; Glucose,Urine (UA) Negative (Negative); Hyaline Casts,Urine 5 /lpf (0-2); Ketones,Urine Negative (Negative); Leukocyte Esterase,Urine Negative (Negative); Mucus,Urine Moderate /hpf; Nitrite,Urine Negative (Negative); PH, Urine 8.5 (5.0-8.0); Protein,Urine 2+ (Negative); RBC,Urine <1 /hpf (0-5); Specific Gravity,Urine 1.021 (1.001-1.035); Urobilinogen,Urine <2.0 mg/dL (<2.0); WBC,Urine 1 /hpf (0-5)
[2018-02-17 16:24] LABS: ALT 63 U/L (21-72); AST 37 U/L (17-59); Albumin 4.5 g/dL (3.5-5.0); Alkaline Phosphatase 79 U/L (38-126); Amylase 47 U/L (30-110); Anion Gap 15 mmol/L; Blood Urea Nitrogen 13 mg/dL (9-20); Calcium 9.6 mg/dL (8.4-10.2); Carbon Dioxide 18 mmol/L (22-30); Chloride 108 mmol/L (98-107); Glucose 150 mg/dL (74-99); Lipase 198 U/L (23-300); Potassium 4.6 mmol/L (3.5-5.1); Sodium 141 mmol/L (137-145); Total Bilirubin 1.6 mg/dL (0.2-1.3); Total Protein 7.1 g/dL (6.3-8.2)
--- NOTE | 2018-02-17 16:35 | XR ---
EXAMINATION TYPE: XR KUB DATE OF EXAM: 02/17/2018 4:23 PM CLINICAL HISTORY: Abdominal pain and vomiting TECHNIQUE: Single upright image of the abdomen is obtained. COMPARISON: 06/24/2017. FINDINGS: Scattered gas is seen in non-distended small bowel loops. Gas and fecal material is seen in non-distended colon. There is no visceromegaly, pneumoperitoneum, or abnormal calcification apprecia sita. The lung bases are clear and the osseous structures are intact. Right hip arthroplasty is noted in addition to moderate degenerative changes of the lumbar spine and rotation of the hemipelvis. IMPRESSION: Nonobstructive bowel gas pattern.
[2018-02-17] MEDS ORDERED: MORPHINE SULFATE/PF 10MG/10ML VL IVP STA (16:44)
[2018-02-17] MEDS ORDERED: MORPHINE SULFATE 4 MG/ML SYRINGE IVP STA (16:53)
[2018-02-17 17:40] VITALS: BP 183/105; PULSE 76; TEMP 97
== END 2018-02-17 17:40 | disposition home or self-care (01) ==
LOC: EC 15:45
DX: R11.2 Nausea with vomiting, unspecified (principal); R10.9 Unspecified abdominal pain; I48.91 Unspecified atrial fibrillation; M19.90 Unspecified osteoarthritis, unspecified site; F17.200 Nicotine dependence, unspecified, uncomplicated; Z96.641 Presence of right artificial hip joint; Z90.49 Acquired absence of other specified parts of digestive tract; Z98.890 Other specified postprocedural states; Z87.19 Personal history of other diseases of the digestive system; Z79.01 Long term (current) use of anticoagulants
CPT/HCPCS: 36415; 80053; 82150; 83690; 85025; 81001; 74018; 99284; 96374; 96375 ×2; 96376; 96361; J2270; J2405; C9113

== ENCOUNTER 2018-04-18 10:57 | Emergency (ER) | payer OTHER ==
[2018-04-18] MEDS ORDERED: ONDANSETRON 4 MG/2 ML VIAL IVP STA ×2 (11:37→13:31)
[2018-04-18] MEDS ORDERED: SODIUM CHLORIDE 0.9% 1,000 ML IV STA (11:37)
[2018-04-18] MEDS ORDERED: MAG HYDROX/AL HYDROX/SIMETH 30 ML, HYOSCYAMINE ELIXIR 10 ML, CIMETIDINE HCL 300 MG, LID... PO STA ×4 (11:37)
--- NOTE | 2018-04-18 11:40 | ED ---
General Adult HPI - General Chief complaint: Nausea/Vomiting/Diarrhea Stated complaint: GERD Time Seen by Provider: 04/18/18 11:31 Source: patient, RN notes reviewed, old records reviewed Mode of arrival: ambulatory Limitations: no limitations - History of Present Illness Initial comments: Patient 53-year-old male presented emergency room today with a chief complaint of fast reflux. Patient does not that he's had increased nausea vomiting today. He states he's feeling a burning sensation going from his stomach radiating up. He states he's had this multiple times in the past that he has had to come to the hospital for. He states he usually gets a GI cocktail with Zofran and morphine. Patient states is not a drinker. Patient denies any other complaints or symptoms. Patient denies any recent fever, chills, shortness of breath, chest pain, back pain, numbness or tingling, dysuria or hematuria, constipation or diarrhea, headaches or visual changes, or any other complaints. - Related Data Home Medications Medication Instructions Recorded Confirmed Hydrocodone/Acetaminophen [[place] 1 tab PO BID 12/17/16 04/18/18 5-325] Warfarin Sodium 6 mg PO DAILY 06/24/17 04/18/18 Previous Rx's Medication Instructions Recorded Famotidine [Pepcid] 20 mg PO BID #20 tablet 04/18/18 Ondansetron [Zofran] 4 mg PO Q8HR PRN #15 tab 04/18/18 Allergies Allergy/AdvReac Type Severity Reaction Status Date / Time No Known Allergies Allergy Verified 04/18/18 11:41 Review of Systems ROS Statement: Those systems with pertinent positive or pertinent negative responses have been documented in the HPI. ROS Other: All systems not noted in ROS Statement are negative. Past Medical History Past Medical History: Atrial Fibrillation, GERD/Reflux, Hypertension, Osteoarthritis (OA) Additional Past Medical History / Comment(s): severe GERD, DJD. History of Any Multi-Drug Resistant Organisms: None Reported Past Surgical History: Appendectomy, Cholecystectomy, Hernia Repair, Joint Replacement, Orthopedic Surgery Additional Past Surgical History / Comment(s): 12/07/14 Total R Hip replacement, RIGHT KNEE SCOPE, umbilical hernia, EGD Past Anesthesia/Blood Transfusion Reactions: No Reported Reaction Past Psychological History: Anxiety Smoking Status: Current every day smoker Past Alcohol Use History: None Reported Past Drug Use History: None Reported - Past Family History Father Family Medical History: Coronary Artery Disease (CAD), Diabetes Mellitus, Myocardial Infarction (AK) Additional Family Medical History / Comment(s): Father has at the age of 74 yrs of a AK. He had 2 Cabg's Mother Family Medical History: Coronary Artery Disease (CAD), Diabetes Mellitus, Musculoskeletal Disorder, Neurologic Disorder Additional Family Medical History / Comment(s): Mother is . She at age 64 yrs. She had a cabg and multiple sclerosis Brother(s) Family Medical History: AFIB Additional Family Medical History / Comment(s): Pt has another brother with CAD and MIs General Exam - General Exam Comments Initial Comments: General: The patient is awake and alert, in no distress, and does not appear acutely ill. Eye: Pupils are equal, round and reactive to light, extra-ocular movements are intact. No nystagmus. There is normal conjunctiva bilaterally. No signs of icterus. Ears, nose, mouth and throat: There are moist mucous membranes and no oral lesions. Neck: The neck is supple, there is no tenderness or JVD. Cardiovascular: There is a regular rate and rhythm. No murmur, rub or gallop is appreciated. Respiratory: Lungs are clear to auscultation, respirations are non-labored, breath sounds are equal. No wheezes, stridor, rales, or rhonchi. Gastrointestinal: Soft, non-distended, non-tender abdomen without masses or organomegaly noted. There is no rebound or guarding present. No CVA tenderness. Musculoskeletal: Normal ROM, no tenderness. Strength 5/5. Sensation intact. Pulses equal bilaterally 2+. Neurological: A&O x 3. CN II-XII intact, There are no obvious motor or sensory deficits. Coordination appears grossly intact. Speech is normal. Skin: Skin is warm and dry and no rashes or lesions are noted. Psychiatric: Cooperative, appropriate mood & affect, normal judgment. Limitations: no limitations Course Vital Signs 04/18/18 04/18/18 11:12 12:00 Temperature 98.4 F Pulse Rate 76 98 Respiratory 22 24 Rate Blood Pressure 149/78 169/119 O2 Sat by Pulse 97 97 Oximetry EKG Findings - EKG Comments: EKG Findings:: EKG performed at 1151: Shows A. fib at 100 bpm. QRS 86. QT/QTC 346/446. No acute changes. Medical Decision Making - Medical Decision Making EKG shows A. fib which patient has a history of her patient's labs been reviewed unremarkable. Patient's had previous appendectomy and cholecystectomy. He admits to as a reflux. He states had multiple times in the past. Patient states that the symptoms are consistent with acid reflux she' s been acting completely ER in the past GI cocktail, morphine and Zofran. - Lab Data Result diagrams: 04/18/18 12:00 04/18/18 12:00 Lab Results 04/18/18 04/18/18 04/18/18 Range/Units 11:45 12:00 12:00 WBC (3.8-10.6) k/uL RBC (4.30-5.90) m/uL Hgb (13.0-17.5) gm/dL Hct (39.0-53.0) % MCV (80.0-100.0) fL MCH (25.0-35.0) pg MCHC (31.0-37.0) g/dL RDW (11.5-15.5) % Plt Count (150-450) k/uL Neutrophils % % Lymphocytes % % Monocytes % % Eosinophils % % Basophils % % Neutrophils # (1.3-7.7) k/uL Lymphocytes # (1.0-4.8) k/uL Monocytes # (0-1.0) k/uL Eosinophils # (0-0.7) k/uL Basophils # (0-0.2) k/uL PT (9.0-12.0) sec INR (<1.2) APTT (22.0-30.0) sec Sodium 141 (137-145) mmol/L Potassium 3.9 (3.5-5.1) mmol/L Chloride 104 (98-107) mmol/L Carbon Dioxide 22 (22-30) mmol/L Anion Gap 15 mmol/L BUN 11 (9-20) mg/dL Creatinine 0.88 (0.66-1.25) mg/dL Est GFR (CKD-EPI)AfAm >90 (>60 ml/min/1.73 sqM) Est GFR (CKD-EPI)NonAf >90 (>60 ml/min/1.73 sqM) Glucose 146 H (74-99) mg/dL Calcium 9.9 (8.4-10.2) mg/dL Total Bilirubin 1.5 H (0.2-1.3) mg/dL AST 36 (17-59) U/L ALT 57 (21-72) U/L Alkaline Phosphatase 82 (38-126) U/L Total Creatine Kinase 66 (55-170) U/L CK-MB (CK-2) 1.0 (0.0-2.4) ng/mL CK-MB (CK-2) Rel Index 1.5 Troponin I <0.012 (0.000-0.034) ng/mL Total Protein 7.2 (6.3-8.2) g/dL Albumin 4.6 (3.5-5.0) g/dL Amylase 43 (30-110) U/L Lipase 258 (23-300) U/L Urine Color Light Red Urine Appearance Cloudy (Clear) Urine pH 8.5 H (5.0-8.0) Ur Specific [place] 1.020 (1.001-1.035) Urine Protein 4+ H (Negative) Urine Glucose (UA) Trace H (Negative) Urine Ketones Trace H (Negative) Urine Blood Negative (Negative) Urine Nitrite Negative (Negative) Urine Bilirubin 1+ H (Negative) Urine Urobilinogen 3.0 (<2.0) mg/dL Ur Leukocyte Esterase Negative (Negative) Urine RBC 2 (0-5) /hpf Urine WBC 5 (0-5) /hpf Ur Squamous Epith Cells <1 (0-4) /hpf Hyaline Casts 16 H (0-2) /lpf Urine Mucus Many H (None) /hpf 04/18/18 04/18/18 Range/Units 12:00 12:00 WBC 9.2 (3.8-10.6) k/uL RBC 5.16 (4.30-5.90) m/uL Hgb 17.3 (13.0-17.5) gm/dL Hct 50.8 (39.0-53.0) % MCV 98.4 (80.0-100.0) fL MCH 33.5 (25.0-35.0) pg MCHC 34.1 (31.0-37.0) g/dL RDW 12.1 (11.5-15.5) % Plt Count 197 (150-450) k/uL Neutrophils % 90 % Lymphocytes % 6 % Monocytes % 4 % Eosinophils % 0 % Basophils % 0 % Neutrophils # 8.2 H (1.3-7.7) k/uL Lymphocytes # 0.5 L (1.0-4.8) k/uL Monocytes # 0.4 (0-1.0) k/uL Eosinophils # 0.0 (0-0.7) k/uL Basophils # 0.0 (0-0.2) k/uL PT 10.2 (9.0-12.0) sec INR 1.0 (<1.2) APTT 21.9 L (22.0-30.0) sec Sodium (137-145) mmol/L Potassium (3.5-5.1) mmol/L Chloride (98-107) mmol/L Carbon Dioxide (22-30) mmol/L Anion Gap mmol/L BUN (9-20) mg/dL Creatinine (0.66-1.25) mg/dL Est GFR (CKD-EPI)AfAm (>60 ml/min/1.73 sqM) Est GFR (CKD-EPI)NonAf (>60 ml/min/1.73 sqM) Glucose (74-99) mg/dL Calcium (8.4-10.2) mg/dL Total Bilirubin (0.2-1.3) mg/dL AST (17-59) U/L ALT (21-72) U/L Alkaline Phosphatase (38-126) U/L Total Creatine Kinase (55-170) U/L CK-MB (CK-2) (0.0-2.4) ng/mL CK-MB (CK-2) Rel Index Troponin I (0.000-0.034) ng/mL Total Protein (6.3-8.2) g/dL Albumin (3.5-5.0) g/dL Amylase (30-110) U/L Lipase (23-300) U/L Urine Color Urine Appearance (Clear) Urine pH (5.0-8.0) Ur Specific [place] (1.001-1.035) Urine Protein (Negative) Urine Glucose (UA) (Negative) Urine Ketones (Negative) Urine Blood (Negative) Urine Nitrite (Negative) Urine Bilirubin (Negative) Urine Urobilinogen (<2.0) mg/dL Ur Leukocyte Esterase (Negative) Urine RBC (0-5) /hpf Urine WBC (0-5) /hpf Ur Squamous Epith Cells (0-4) /hpf Hyaline Casts (0-2) /lpf Urine Mucus (None) /hpf Disposition Clinical Impression: Abdominal pain Disposition: HOME SELF-CARE Condition: Good Instructions: Abdominal Pain (ED) Additional Instructions: Please use medication as discussed. Please follow-up with family doctor in the next 2 days of symptoms have not improved. Please return to emergency room if the symptoms increase or worsen or for any other concerns. Prescriptions: Famotidine [Pepcid] 20 mg PO BID #20 tablet Ondansetron [Zofran] 4 mg PO Q8HR PRN #15 tab PRN Reason: Nausea Is patient prescribed a controlled substance at d/c from ED?: No Referrals: Aaron Loja MD [Primary Care Provider] - 1-2 days Time of Disposition: 13:30
[2018-04-18 12:25] LABS: Appearance,Urine Cloudy (Clear); Bilirubin,Urine 1+ (Negative); Blood,Urine Negative (Negative); Color,Urine Light Red; Glucose,Urine (UA) Trace (Negative); Hyaline Casts,Urine 16 /lpf (0-2); Ketones,Urine Trace (Negative); Leukocyte Esterase,Urine Negative (Negative); Mucus,Urine Many /hpf; Nitrite,Urine Negative (Negative); PH, Urine 8.5 (5.0-8.0); Protein,Urine 4+ (Negative); RBC,Urine 2 /hpf (0-5); Squamous Epithelial Cell,Urine <1 /hpf (0-4); WBC,Urine 5 /hpf (0-5)
[2018-04-18 12:36] LABS: ALT 57 U/L (21-72); AST 36 U/L (17-59); Albumin 4.6 g/dL (3.5-5.0); Alkaline Phosphatase 82 U/L (38-126); Amylase 43 U/L (30-110); Anion Gap 15 mmol/L; Blood Urea Nitrogen 11 mg/dL (9-20); Calcium 9.9 mg/dL (8.4-10.2); Carbon Dioxide 22 mmol/L (22-30); Chloride 104 mmol/L (98-107); Glucose 146 mg/dL (74-99); Lipase 258 U/L (23-300); Potassium 3.9 mmol/L (3.5-5.1); Sodium 141 mmol/L (137-145); Total Bilirubin 1.5 mg/dL (0.2-1.3); Total Protein 7.2 g/dL (6.3-8.2)
[2018-04-18 12:38] LABS: Partial Thromboplastin Time 21.9 sec (22.0-30.0); Prothrombin Time 10.2 sec (9.0-12.0)
[2018-04-18 12:39] LABS: Basophils % (A) 0 %; Eosinophils % (A) 0 %; HCT 50.8 % (39.0-53.0); HGB 17.3 gm/dL (13.0-17.5); Lymphocytes # (A) 0.5 k/uL (1.0-4.8); Lymphocytes % (A) 6 %; MCH 33.5 pg (25.0-35.0); MCHC 34.1 g/dL (31.0-37.0); MCV 98.4 fL (80.0-100.0); Mean Platelet Volume 7.9; Monocytes # (A) 0.4 k/uL (0-1.0); Monocytes % (A) 4 %; Neutrophils # (A) 8.2 k/uL (1.3-7.7); Neutrophils % (A) 90 %; Platelet Count 197 k/uL (150-450); RBC 5.16 m/uL (4.30-5.90); RDW 12.1 % (11.5-15.5); WBC 9.2 k/uL (3.8-10.6)
[2018-04-18 12:47] LABS: Creatine Kinase 66 U/L (55-170)
--- NOTE | 2018-04-18 12:53 | XR ---
EXAMINATION TYPE: XR chest 2V DATE OF EXAM: 04/18/2018 COMPARISON: 09/25/2016 INDICATION: Abdomen pain TECHNIQUE: Frontal and lateral views of the chest are obtained. FINDINGS: The heart size is normal. The pulmonary vasculature is normal. The lungs are clear. IMPRESSION: 1. No acute pulmonary process.
[2018-04-18 13:00] LABS: Troponin I <0.012 ng/mL (0.000-0.034)
[2018-04-18] MEDS ORDERED: MORPHINE SULFATE 4 MG/ML SYRINGE IVP STA (13:31)
[2018-04-18] MEDS ORDERED: FAMOTIDINE 20 MG/2 ML VIAL IV STA (13:31)
[2018-04-18 13:48] VITALS: BP 165/106; PULSE 86; RESP 18; TEMP 98.3
== END 2018-04-18 13:55 | disposition home or self-care (01) ==
LOC: EC 10:57
DX: R10.9 Unspecified abdominal pain (principal); R11.2 Nausea with vomiting, unspecified; M19.90 Unspecified osteoarthritis, unspecified site; I48.91 Unspecified atrial fibrillation; F17.200 Nicotine dependence, unspecified, uncomplicated; Z79.01 Long term (current) use of anticoagulants; Z79.891 Long term (current) use of opiate analgesic; Z96.651 Presence of right artificial knee joint; Z90.49 Acquired absence of other specified parts of digestive tract; Z96.641 Presence of right artificial hip joint
CPT/HCPCS: 36415; 93005; 80053; 82150; 82550; 82553; 83690; 84484; 85025; 85610; 85730; 81001; 71046; 99284; 96374; 96375 ×2; 96376; 96361; J2270; J2405

== ENCOUNTER 2018-04-20 10:43 | Emergency (ER) | payer OTHER ==
[2018-04-20] MEDS ORDERED: ONDANSETRON 4 MG/2 ML VIAL IVP STA (11:14)
[2018-04-20] MEDS ORDERED: SODIUM CHLORIDE 0.9% 1,000 ML IV STA (11:14)
[2018-04-20] MEDS ORDERED: MAG HYDROX/AL HYDROX/SIMETH 30 ML, HYOSCYAMINE ELIXIR 10 ML, CIMETIDINE HCL 300 MG, LID... PO STA ×4 (11:15)
[2018-04-20] MEDS ORDERED: FAMOTIDINE 20 MG/2 ML VIAL IV STA (11:15)
--- NOTE | 2018-04-20 11:18 | ED ---
Abdominal Pain HPI - General Chief Complaint: Abdominal Pain Stated Complaint: gerd Time Seen by Provider: 04/20/18 11:00 Source: patient Mode of arrival: ambulatory Limitations: no limitations - History of Present Illness Initial Comments: 53-year-old male patient presents the emergency department today for complaints of acid reflux and upper abdominal pain. Patient states that he occasionally has episodes where his reflux gets out of control. Patient states that for the last several days he has been experiencing burning upper abdominal pain that radiates into his chest. Patient states his been very nauseated and has been vomiting up acid. Patient was seen and evaluated here Saturday for the same and was discharged home with a prescription for Pepcid and Zofran. States he has been taking the medications without relief. Patient states he has been chilled but has not had any documented fevers. Denies any constipation or diarrhea. Denies any hematemesis, hematochezia, or melena. Patient states that he was supposed to have a [place] fundoplication performed but has not yet done so. Patient denies any recent rash, fever, chills, shortness breath, back pain, numbness, tingling, dizziness, weakness, hematuria, dysuria, urinary urgency, urinary frequency, headache, visual changes, or any other complaints. - Related Data Home Medications Medication Instructions Recorded Confirmed Hydrocodone/Acetaminophen [[place] 1 tab PO BID 12/17/16 04/20/18 5-325] Warfarin Sodium 6 mg PO DAILY 06/24/17 04/20/18 Previous Rx's Medication Instructions Recorded Famotidine [Pepcid] 20 mg PO BID #20 tablet 04/18/18 Ondansetron [Zofran] 4 mg PO Q8HR PRN #15 tab 04/18/18 Allergies Allergy/AdvReac Type Severity Reaction Status Date / Time No Known Allergies Allergy Verified 04/20/18 10:51 Review of Systems ROS Statement: Those systems with pertinent positive or pertinent negative responses have been documented in the HPI. ROS Other: All systems not noted in ROS Statement are negative. Past Medical History Past Medical History: Atrial Fibrillation, GERD/Reflux, Hypertension, Osteoarthritis (OA) Additional Past Medical History / Comment(s): severe GERD, DJD. History of Any Multi-Drug Resistant Organisms: None Reported Past Surgical History: Appendectomy, Cholecystectomy, Hernia Repair, Joint Replacement, Orthopedic Surgery Additional Past Surgical History / Comment(s): 12/07/14 Total R Hip replacement, RIGHT KNEE SCOPE, umbilical hernia, EGD Past Anesthesia/Blood Transfusion Reactions: No Reported Reaction Past Psychological History: Anxiety Smoking Status: Current every day smoker Past Alcohol Use History: None Reported Past Drug Use History: None Reported - Past Family History Father Family Medical History: Coronary Artery Disease (CAD), Diabetes Mellitus, Myocardial Infarction (AK) Additional Family Medical History / Comment(s): Father has at the age of 74 yrs of a AK. He had 2 Cabg's Mother Family Medical History: Coronary Artery Disease (CAD), Diabetes Mellitus, Musculoskeletal Disorder, Neurologic Disorder Additional Family Medical History / Comment(s): Mother is . She at age 64 yrs. She had a cabg and multiple sclerosis Brother(s) Family Medical History: AFIB Additional Family Medical History / Comment(s): Pt has another brother with CAD and MIs General Exam Limitations: no limitations General appearance: alert, in no apparent distress, anxious, other (Physical well-developed, well-nourished adult male patient in no acute distress. Vital signs upon presentation are temperature 98.7F, pulse 101, respirations 20, blood pressure 153/114, pulse ox 97% on room air.) Eye exam: Present: normal appearance, PERRL, EOMI. Absent: scleral icterus, conjunctival injection, periorbital swelling ENT exam: Present: normal exam, normal oropharynx, mucous membranes moist Respiratory exam: Present: normal lung sounds bilaterally. Absent: respiratory distress, wheezes, rales, rhonchi, stridor Cardiovascular Exam: Present: normal rhythm, tachycardia, normal heart sounds. Absent: systolic murmur, diastolic murmur, rubs, gallop, clicks GI/Abdominal exam: Present: soft, tenderness (Midepigastric), normal bowel sounds. Absent: distended, guarding, rebound, rigid Neurological exam: Present: alert, oriented X3, CN II-XII intact Psychiatric exam: Present: normal affect, normal mood Skin exam: Present: warm, dry, intact, normal color. Absent: rash Course Vital Signs 04/20/18 04/20/18 04/20/18 10:51 12:56 13:41 Temperature 98.7 F 98.0 F 98.9 F Pulse Rate 101 H 68 78 Respiratory 20 22 16 Rate Blood Pressure 153/114 165/89 156/102 O2 Sat by Pulse 97 98 94 L Oximetry Medical Decision Making - Medical Decision Making 53-year-old male patient presented to the emergency department today for complaints of acid reflux. States he is having permeating midepigastric and chest pain. Physical examination did reveal some mild midepigastric tenderness. Labs reviewed and are unremarkable. Patient's cardiac profile was negative EKG showed atrial fibrillation which is chronic for the patient. Patient is feeling somewhat improved after receiving medications here in the department. Patient states that he does have an appointment with his primary care physician on Saturday, he is supposed to be having any symptoms on the fundoplication performed to help with his symptoms. He does have Pepcid and Zofran at home. He is instructed to keep his appointment on Saturday and to return here immediately. His any new, worsening, or concerning symptoms. Patient verbalizes understanding and agrees this plan. - Lab Data Result diagrams: 04/20/18 10:50 04/20/18 10:50 Lab Results 04/20/18 04/20/18 04/20/18 Range/Units 10:50 10:50 10:50 WBC 7.3 (3.8-10.6) k/uL RBC 4.94 (4.30-5.90) m/uL Hgb 16.5 (13.0-17.5) gm/dL Hct 48.3 (39.0-53.0) % MCV 97.8 (80.0-100.0) fL MCH 33.3 (25.0-35.0) pg MCHC 34.0 (31.0-37.0) g/dL RDW 12.0 (11.5-15.5) % Plt Count 169 (150-450) k/uL Neutrophils % 76 % Lymphocytes % 14 % Monocytes % 7 % Eosinophils % 1 % Basophils % 0 % Neutrophils # 5.6 (1.3-7.7) k/uL Lymphocytes # 1.0 (1.0-4.8) k/uL Monocytes # 0.5 (0-1.0) k/uL Eosinophils # 0.1 (0-0.7) k/uL Basophils # 0.0 (0-0.2) k/uL Sodium 137 (137-145) mmol/L Potassium 4.0 (3.5-5.1) mmol/L Chloride 104 (98-107) mmol/L Carbon Dioxide 21 L (22-30) mmol/L Anion Gap 12 mmol/L BUN 17 (9-20) mg/dL Creatinine 0.84 (0.66-1.25) mg/dL Est GFR (CKD-EPI)AfAm >90 (>60 ml/min/1.73 sqM) Est GFR (CKD-EPI)NonAf >90 (>60 ml/min/1.73 sqM) Glucose 142 H (74-99) mg/dL Calcium 9.4 (8.4-10.2) mg/dL Total Bilirubin 1.9 H (0.2-1.3) mg/dL AST 37 (17-59) U/L ALT 50 (21-72) U/L Alkaline Phosphatase 69 (38-126) U/L Total Creatine Kinase 88 (55-170) U/L CK-MB (CK-2) 1.4 (0.0-2.4) ng/mL CK-MB (CK-2) Rel Index 1.6 Troponin I 0.015 (0.000-0.034) ng/mL Total Protein 6.9 (6.3-8.2) g/dL Albumin 4.4 (3.5-5.0) g/dL Amylase 43 (30-110) U/L Lipase 316 H (23-300) U/L Urine Color Urine Appearance (Clear) Urine pH (5.0-8.0) Ur Specific Trail (1.001-1.035) Urine Protein (Negative) Urine Glucose (UA) (Negative) Urine Ketones (Negative) Urine Blood (Negative) Urine Nitrite (Negative) Urine Bilirubin (Negative) Urine Urobilinogen (<2.0) mg/dL Ur Leukocyte Esterase (Negative) Urine WBC (0-5) /hpf Urine Mucus (None) /hpf Serum Alcohol <10 mg/dL 04/20/18 Range/Units 12:47 WBC (3.8-10.6) k/uL RBC (4.30-5.90) m/uL Hgb (13.0-17.5) gm/dL Hct (39.0-53.0) % MCV (80.0-100.0) fL MCH (25.0-35.0) pg MCHC (31.0-37.0) g/dL RDW (11.5-15.5) % Plt Count (150-450) k/uL Neutrophils % % Lymphocytes % % Monocytes % % Eosinophils % % Basophils % % Neutrophils # (1.3-7.7) k/uL Lymphocytes # (1.0-4.8) k/uL Monocytes # (0-1.0) k/uL Eosinophils # (0-0.7) k/uL Basophils # (0-0.2) k/uL Sodium (137-145) mmol/L Potassium (3.5-5.1) mmol/L Chloride (98-107) mmol/L Carbon Dioxide (22-30) mmol/L Anion Gap mmol/L BUN (9-20) mg/dL Creatinine (0.66-1.25) mg/dL Est GFR (CKD-EPI)AfAm (>60 ml/min/1.73 sqM) Est GFR (CKD-EPI)NonAf (>60 ml/min/1.73 sqM) Glucose (74-99) mg/dL Calcium (8.4-10.2) mg/dL Total Bilirubin (0.2-1.3) mg/dL AST (17-59) U/L ALT (21-72) U/L Alkaline Phosphatase (38-126) U/L Total Creatine Kinase (55-170) U/L CK-MB (CK-2) (0.0-2.4) ng/mL CK-MB (CK-2) Rel Index Troponin I (0.000-0.034) ng/mL Total Protein (6.3-8.2) g/dL Albumin (3.5-5.0) g/dL Amylase (30-110) U/L Lipase (23-300) U/L Urine Color Yellow Urine Appearance Cloudy (Clear) Urine pH 8.0 (5.0-8.0) Ur Specific Trail 1.015 (1.001-1.035) Urine Protein 1+ H (Negative) Urine Glucose (UA) Negative (Negative) Urine Ketones Negative (Negative) Urine Blood Negative (Negative) Urine Nitrite Negative (Negative) Urine Bilirubin Negative (Negative) Urine Urobilinogen <2.0 (<2.0) mg/dL Ur Leukocyte Esterase Negative (Negative) Urine WBC 1 (0-5) /hpf Urine Mucus Rare H (None) /hpf Serum Alcohol mg/dL - EKG Data -: EKG Interpreted by Me EKG Comments: EKG obtained at 1219 shows atrial fibrillation with a ventricular rate of 71, QRS duration 86, QT 380, QTc 412. No evidence of ST elevation or depression. - Radiology Data Radiology results: report reviewed, image reviewed Two-view x-ray of the abdomen is obtained. Within the abdomen the abdominal gas pattern is within normal limits. There is no evidence of obstruction or free air. There is right hip arthroplasty in place. Impression by Dr. Jolly shows no acute intra-abdominal abnormality. Disposition Clinical Impression: GERD (gastroesophageal reflux disease), Abdominal pain Disposition: HOME SELF-CARE Condition: Good Instructions: Gastroesophageal Reflux Disease (ED), Abdominal Pain (ED) Additional Instructions: Take home pain medications and nausea medications as prescribed. Follow bland diet. Follow-up with your primary care physician for recheck in 1-2 days. Return here immediately for any new, worsening, or concerning symptoms. Is patient prescribed a controlled substance at d/c from ED?: No Referrals: Aaron Loja MD [Primary Care Provider] - 1-2 days Time of Disposition: 13:12
[2018-04-20 11:37] LABS: Albumin 4.4 g/dL (3.5-5.0); Alcohol <10 mg/dL; Amylase 43 U/L (30-110); Anion Gap 12 mmol/L; Calcium 9.4 mg/dL (8.4-10.2); Carbon Dioxide 21 mmol/L (22-30); Chloride 104 mmol/L (98-107); Glucose 142 mg/dL (74-99); Lipase 316 U/L (23-300); Sodium 137 mmol/L (137-145); Total Bilirubin 1.9 mg/dL (0.2-1.3); Total Protein 6.9 g/dL (6.3-8.2)
[2018-04-20 11:42] LABS: Blood Urea Nitrogen 17 mg/dL (9-20)
[2018-04-20 11:43] LABS: ALT 50 U/L (21-72); AST 37 U/L (17-59); Alkaline Phosphatase 69 U/L (38-126)
[2018-04-20 11:55] LABS: Basophils % (A) 0 %; Eosinophils # (A) 0.1 k/uL (0-0.7); Eosinophils % (A) 1 %; HCT 48.3 % (39.0-53.0); HGB 16.5 gm/dL (13.0-17.5); Lymphocytes % (A) 14 %; MCH 33.3 pg (25.0-35.0); MCV 97.8 fL (80.0-100.0); Mean Platelet Volume 8.3; Monocytes # (A) 0.5 k/uL (0-1.0); Monocytes % (A) 7 %; Neutrophils # (A) 5.6 k/uL (1.3-7.7); Neutrophils % (A) 76 %; Platelet Count 169 k/uL (150-450); RBC 4.94 m/uL (4.30-5.90); WBC 7.3 k/uL (3.8-10.6)
[2018-04-20 12:01] LABS: Creatine Kinase MB 1.4 ng/mL (0.0-2.4); Troponin I 0.015 ng/mL (0.000-0.034)
--- NOTE | 2018-04-20 12:08 | XR ---
EXAMINATION TYPE: XR KUB , 2 VIEWS DATE OF EXAM ORDERED: 04/20/2018 HISTORY: abdominal pain. COMPARISON: Previous study dated 01/28/2018. FINDINGS: The lung bases are clear. Within the abdomen, the abdominal gas pattern is within normal limits. There is no evidence of obstru ction or free air. There is a right hip arthroplasty in place. IMPRESSION: NO ACUTE INTRA-ABDOMINAL ABNORMALITY.
[2018-04-20] MEDS ORDERED: METOCLOPRAMIDE 5 MG/ML 2 ML VIAL IVP STA (12:49)
[2018-04-20] MEDS ORDERED: diphenhydrAMINE 50 MG/ML 1 ML VIAL IVP STA (12:49)
[2018-04-20 13:00] LABS: Appearance,Urine Cloudy (Clear); Bilirubin,Urine Negative (Negative); Blood,Urine Negative (Negative); Color,Urine Yellow; Glucose,Urine (UA) Negative (Negative); Ketones,Urine Negative (Negative); Leukocyte Esterase,Urine Negative (Negative); Mucus,Urine Rare /hpf; Nitrite,Urine Negative (Negative); Protein,Urine 1+ (Negative); Specific Gravity,Urine 1.015 (1.001-1.035); Urobilinogen,Urine <2.0 mg/dL (<2.0); WBC,Urine 1 /hpf (0-5)
[2018-04-20] MEDS ORDERED: MORPHINE SULFATE 4 MG/ML SYRINGE IVP STA (13:20)
[2018-04-20 13:42] VITALS: BP 156/102; PULSE 78; RESP 16; TEMP 98.9
== END 2018-04-20 14:03 | disposition home or self-care (01) ==
LOC: EC 10:43
DX: K21.9 Gastro-esophageal reflux disease without esophagitis (principal); I48.91 Unspecified atrial fibrillation; M19.90 Unspecified osteoarthritis, unspecified site; F17.200 Nicotine dependence, unspecified, uncomplicated; Z79.01 Long term (current) use of anticoagulants; Z79.891 Long term (current) use of opiate analgesic; Z96.641 Presence of right artificial hip joint; Z90.49 Acquired absence of other specified parts of digestive tract
CPT/HCPCS: 36415; 93005; 80053; 82150; 82550; 82553; 83690; 84484; 85025; 81001; 80320; 74018; 99284; 96374; 96375 ×4; 96361; J2270; J1200; J2765; J2405

== ENCOUNTER 2018-04-21 22:08 | Emergency (ER) | payer OTHER ==
[2018-04-21 22:13] VITALS: RESP 18
[2018-04-21] MEDS ORDERED: ONDANSETRON 4 MG/2 ML VIAL IVP STA (22:33)
[2018-04-21] MEDS ORDERED: PANTOPRAZOLE 40 MG/10 ML VIAL IVP STA (22:33)
[2018-04-21] MEDS ORDERED: SODIUM CHLORIDE 0.9% 1,000 ML IV STA (22:33)
[2018-04-21 23:00] LABS: Basophils % (A) 0 %; Eosinophils # (A) 0.1 k/uL (0-0.7); Eosinophils % (A) 1 %; HCT 48.2 % (39.0-53.0); HGB 16.7 gm/dL (13.0-17.5); Lymphocytes # (A) 0.9 k/uL (1.0-4.8); Lymphocytes % (A) 14 %; MCH 33.3 pg (25.0-35.0); MCHC 34.6 g/dL (31.0-37.0); MCV 96.4 fL (80.0-100.0); Mean Platelet Volume 8.3; Monocytes # (A) 0.4 k/uL (0-1.0); Monocytes % (A) 7 %; Neutrophils # (A) 4.9 k/uL (1.3-7.7); Neutrophils % (A) 76 %; Platelet Count 191 k/uL (150-450); RDW 11.8 % (11.5-15.5); WBC 6.5 k/uL (3.8-10.6)
[2018-04-21] MEDS ORDERED: MAG HYDROX/AL HYDROX/SIMETH 30 ML, HYOSCYAMINE ELIXIR 10 ML, CIMETIDINE HCL 300 MG PO STA ×3 (23:07)
[2018-04-21] MEDS ORDERED: MORPHINE SULFATE 4 MG/ML SYRINGE IVP STA (23:07)
[2018-04-21 23:13] LABS: ALT 58 U/L (21-72); AST 34 U/L (17-59); Albumin 4.5 g/dL (3.5-5.0); Alkaline Phosphatase 68 U/L (38-126); Anion Gap 16 mmol/L; Blood Urea Nitrogen 12 mg/dL (9-20); Calcium 9.3 mg/dL (8.4-10.2); Carbon Dioxide 23 mmol/L (22-30); Chloride 99 mmol/L (98-107); Glucose 126 mg/dL (74-99); Lipase 280 U/L (23-300); Magnesium 2.1 mg/dL (1.6-2.3); Potassium 3.4 mmol/L (3.5-5.1); Sodium 138 mmol/L (137-145); Total Bilirubin 0.9 mg/dL (0.2-1.3); Total Protein 6.8 g/dL (6.3-8.2)
--- NOTE | 2018-04-21 23:14 | ED ---
General Adult HPI - General Chief complaint: Chest Pain Stated complaint: gerd Time Seen by Provider: 04/21/18 22:20 Source: patient, RN notes reviewed, old records reviewed Mode of arrival: ambulatory Limitations: no limitations - History of Present Illness Initial comments: This is a 33-year-old male to the ER for evaluation of significant nausea significant vomiting. Severe burning of his stomach and abdomen. Patient states evaluation coffee and the symptoms began. He is under both upper GI therapy with both Pepcid and Protonix. No recent travel. No sick contacts no shortness of breath. No modifying factors for symptoms at home. Patient takes no pain medications at home. Patient is multiple recent ER visits for exact similar complaint. Patient states he has known hiatal hernia with possible surgery upcoming. Again denies shortness breath or fevers currently. - Related Data Home Medications Medication Instructions Recorded Confirmed Hydrocodone/Acetaminophen [[place] 1 tab PO BID 12/17/16 04/21/18 5-325] Warfarin Sodium 6 mg PO DAILY 06/24/17 04/21/18 Allergies Allergy/AdvReac Type Severity Reaction Status Date / Time No Known Allergies Allergy Verified 04/21/18 22:23 Review of Systems ROS Statement: Those systems with pertinent positive or pertinent negative responses have been documented in the HPI. ROS Other: All systems not noted in ROS Statement are negative. Past Medical History Past Medical History: Atrial Fibrillation, GERD/Reflux, Hypertension, Osteoarthritis (OA) Additional Past Medical History / Comment(s): severe GERD, DJD. History of Any Multi-Drug Resistant Organisms: None Reported Past Surgical History: Appendectomy, Cholecystectomy, Hernia Repair, Joint Replacement, Orthopedic Surgery Additional Past Surgical History / Comment(s): 12/07/14 Total R Hip replacement, RIGHT KNEE SCOPE, umbilical hernia, EGD Past Anesthesia/Blood Transfusion Reactions: No Reported Reaction Past Psychological History: Anxiety Smoking Status: Current every day smoker Past Alcohol Use History: None Reported Past Drug Use History: None Reported - Past Family History Father Family Medical History: Coronary Artery Disease (CAD), Diabetes Mellitus, Myocardial Infarction ([place]) Additional Family Medical History / Comment(s): Father has at the age of 74 yrs of a [place]. He had 2 Cabg's Mother Family Medical History: Coronary Artery Disease (CAD), Diabetes Mellitus, Musculoskeletal Disorder, Neurologic Disorder Additional Family Medical History / Comment(s): Mother is . She at age 64 yrs. She had a cabg and multiple sclerosis Brother(s) Family Medical History: AFIB Additional Family Medical History / Comment(s): Pt has another brother with CAD and MIs General Exam Limitations: no limitations General appearance: alert, in no apparent distress Head exam: Present: atraumatic, normocephalic, normal inspection Eye exam: Present: normal appearance, PERRL, EOMI. Absent: scleral icterus, conjunctival injection, periorbital swelling ENT exam: Present: normal exam, mucous membranes moist Neck exam: Present: normal inspection. Absent: tenderness, meningismus, lymphadenopathy Respiratory exam: Present: normal lung sounds bilaterally. Absent: respiratory distress, wheezes, rales, rhonchi, stridor Cardiovascular Exam: Present: regular rate, normal rhythm, normal heart sounds. Absent: systolic murmur, diastolic murmur, rubs, gallop, clicks GI/Abdominal exam: Present: soft, normal bowel sounds. Absent: distended, tenderness, guarding, rebound, rigid Extremities exam: Present: normal inspection, full ROM, normal capillary refill. Absent: tenderness, pedal edema, joint swelling, calf tenderness Back exam: Present: normal inspection Neurological exam: Present: alert, oriented X3, CN II-XII intact Psychiatric exam: Present: normal affect, normal mood Skin exam: Present: warm, dry, intact, normal color. Absent: rash Course Vital Signs 04/21/18 22:10 Temperature 98.2 F Pulse Rate 79 Respiratory 18 Rate Blood Pressure 169/96 O2 Sat by Pulse 97 Oximetry - Reevaluation(s) Reevaluation #1: 04/21/18 23:13 Patient symptoms are significantly improved Reevaluation #2: 04/21/18 23:14 Medical record hospitalizations as well as ER visits are reviewed EKG Findings - EKG Comments: EKG Findings:: EKG rate 97 QRS 88, QTc 454 Medical Decision Making - Medical Decision Making 53 male the ER for positive evaluation regarding significant reflux. At this point patient can be discharged home with symptoms resolved CAT scan is negative and labwork is normal - Lab Data Result diagrams: 04/21/18 22:45 04/21/18 22:45 Lab Results 04/21/18 04/21/18 04/21/18 Range/Units 22:45 22:45 22:45 WBC 6.5 (3.8-10.6) k/uL RBC 5.00 (4.30-5.90) m/uL Hgb 16.7 (13.0-17.5) gm/dL Hct 48.2 (39.0-53.0) % MCV 96.4 (80.0-100.0) fL MCH 33.3 (25.0-35.0) pg MCHC 34.6 (31.0-37.0) g/dL RDW 11.8 (11.5-15.5) % Plt Count 191 (150-450) k/uL Neutrophils % 76 % Lymphocytes % 14 % Monocytes % 7 % Eosinophils % 1 % Basophils % 0 % Neutrophils # 4.9 (1.3-7.7) k/uL Lymphocytes # 0.9 L (1.0-4.8) k/uL Monocytes # 0.4 (0-1.0) k/uL Eosinophils # 0.1 (0-0.7) k/uL Basophils # 0.0 (0-0.2) k/uL PT (9.0-12.0) sec INR (<1.2) APTT (22.0-30.0) sec D-Dimer (<0.60) mg/L FEU Sodium 138 (137-145) mmol/L Potassium 3.4 L (3.5-5.1) mmol/L Chloride 99 (98-107) mmol/L Carbon Dioxide 23 (22-30) mmol/L Anion Gap 16 mmol/L BUN 12 (9-20) mg/dL Creatinine 0.80 (0.66-1.25) mg/dL Est GFR (CKD-EPI)AfAm >90 (>60 ml/min/1.73 sqM) Est GFR (CKD-EPI)NonAf >90 (>60 ml/min/1.73 sqM) Glucose 126 H (74-99) mg/dL Calcium 9.3 (8.4-10.2) mg/dL Magnesium 2.1 (1.6-2.3) mg/dL Total Bilirubin 0.9 (0.2-1.3) mg/dL AST 34 (17-59) U/L ALT 58 (21-72) U/L Alkaline Phosphatase 68 (38-126) U/L Total Creatine Kinase 61 (55-170) U/L CK-MB (CK-2) 0.6 (0.0-2.4) ng/mL CK-MB (CK-2) Rel Index 1.0 Troponin I <0.012 (0.000-0.034) ng/mL Total Protein 6.8 (6.3-8.2) g/dL Albumin 4.5 (3.5-5.0) g/dL Lipase 280 (23-300) U/L 04/21/18 Range/Units 22:45 WBC (3.8-10.6) k/uL RBC (4.30-5.90) m/uL Hgb (13.0-17.5) gm/dL Hct (39.0-53.0) % MCV (80.0-100.0) fL MCH (25.0-35.0) pg MCHC (31.0-37.0) g/dL RDW (11.5-15.5) % Plt Count (150-450) k/uL Neutrophils % % Lymphocytes % % Monocytes % % Eosinophils % % Basophils % % Neutrophils # (1.3-7.7) k/uL Lymphocytes # (1.0-4.8) k/uL Monocytes # (0-1.0) k/uL Eosinophils # (0-0.7) k/uL Basophils # (0-0.2) k/uL PT 10.3 (9.0-12.0) sec INR 1.1 (<1.2) APTT 22.3 (22.0-30.0) sec D-Dimer 0.29 (<0.60) mg/L FEU Sodium (137-145) mmol/L Potassium (3.5-5.1) mmol/L Chloride (98-107) mmol/L Carbon Dioxide (22-30) mmol/L Anion Gap mmol/L BUN (9-20) mg/dL Creatinine (0.66-1.25) mg/dL Est GFR (CKD-EPI)AfAm (>60 ml/min/1.73 sqM) Est GFR (CKD-EPI)NonAf (>60 ml/min/1.73 sqM) Glucose (74-99) mg/dL Calcium (8.4-10.2) mg/dL Magnesium (1.6-2.3) mg/dL Total Bilirubin (0.2-1.3) mg/dL AST (17-59) U/L ALT (21-72) U/L Alkaline Phosphatase (38-126) U/L Total Creatine Kinase (55-170) U/L CK-MB (CK-2) (0.0-2.4) ng/mL CK-MB (CK-2) Rel Index Troponin I (0.000-0.034) ng/mL Total Protein (6.3-8.2) g/dL Albumin (3.5-5.0) g/dL Lipase (23-300) U/L - Radiology Data Radiology results: report reviewed (CT abdomen pelvis chest negative for acute disease), image reviewed Disposition Clinical Impression: Intractable nausea and vomiting, Abdominal pain, GERD (gastroesophageal reflux disease) Disposition: HOME SELF-CARE Condition: Good Instructions: Abdominal Pain (ED) Is patient prescribed a controlled substance at d/c from ED?: No Referrals: Aaron Loja MD [Primary Care Provider] - 1-2 days
[2018-04-21 23:20] LABS: D-Dimer 0.29 mg/L FEU (<0.60); INR 1.1 (<1.2); Partial Thromboplastin Time 22.3 sec (22.0-30.0); Prothrombin Time 10.3 sec (9.0-12.0)
[2018-04-21 23:25] LABS: Creatine Kinase 61 U/L (55-170)
[2018-04-21 23:38] LABS: Creatine Kinase MB 0.6 ng/mL (0.0-2.4); Troponin I <0.012 ng/mL (0.000-0.034)
--- NOTE | 2018-04-21 23:55 | CT ---
EXAMINATION TYPE: CT abdomen pelvis w con DATE OF EXAM: 04/21/2018 COMPARISON: 07/13/2016 HISTORY: r/o PE, chest pain, back pain, nausea and vomiting, hx of appy, dagoberto, hip, hernia CT DLP: 1364.60 mGycm Automated exposure control for dose reduction was used. TECHNIQUE: Helical acquisition of images was performed from the lung bases through the pelvis. CONTRAST: Performed without Oral Contrast and with IV Contrast, patient injected with 100 mL of Isovue 370. FINDINGS: Lung bases are clear. There is no pleural effusion. There is no pericardial effusion. Liver spleen pancreas appear normal. Bile ducts are not dilated. Gallbladder is absent. There is no adrenal mass. Kidneys show satisfactory contrast opacification. There is no hydronephrosi s. There is no retroperitoneal adenopathy. There is no ascites. There is small umbilical hernia that contains fat. There is no intestinal wall thickening. There are clips from appendectomy. There are no dilated loops. Bladder distends smoothly. There is right hip prosthesis. Abdominal aorta is atheroma tous. There are some spondylotic changes in the thoracic and lumbar spine. IMPRESSION: NEGATIVE CT SCAN OF THE ABDOMEN AND PELVIS. SMALL UMBILICAL HERNIA. I DO NOT SEE A CAUSE FOR ABDOMINA L PAIN. NO ADVERSE CHANGE COMPARED TO OLD EXAM.
[2018-04-21] MEDS ORDERED: LORazepam 2 MG/ML INJ IV STA (23:58)
--- NOTE | 2018-04-21 23:58 | CT ---
EXAMINATION TYPE: CT angio chest DATE OF EXAM: 04/21/2018 11:46 PM COMPARISON: None HISTORY: r/o PE, chest pain, back pain,nausea and vomiting hx of appy, dagoberto, hip, hernia CT DLP: 1364.60 mGycm Automated exposure control for dose reduction was used. CONTRAST: CTA scan of the thorax is performed with IV Contrast, patient injected with 100 mL of Isovue 370, pul monary embolism protocol. There are 3-D post processed images.. FINDINGS: The heart size appears slightly enlarged. There is no pericardial effusion. Lungs are clear of consol idation. There are old left posterior healed rib fractures. There is no evidence of a pulmonary mass. There is no pleural effusion. There is no pericardial effusion. There is small hiatal hernia. There is normal contrast opacification of the pulmonary arteries. There are no filling defects. There is no evidence of thoracic aortic aneurysm or dissection. Ascending aorta measures 3.8 cm. There is no mediastinal adenopathy. IMPRESSION: NO EVIDENCE OF PULMONARY EMBOLISM. MILD CARDIOMEGALY.
[2018-04-22] MEDS ORDERED: ONDANSETRON 4 MG/2 ML VIAL IVP STA (01:39)
[2018-04-22 01:41] VITALS: BP 116/83; PULSE 96; TEMP 97.6
== END 2018-04-22 01:50 | disposition home or self-care (01) ==
LOC: EC 22:08
DX: K21.9 Gastro-esophageal reflux disease without esophagitis (principal); R10.9 Unspecified abdominal pain; R11.2 Nausea with vomiting, unspecified; K44.9 Diaphragmatic hernia without obstruction or gangrene; F41.9 Anxiety disorder, unspecified; I48.91 Unspecified atrial fibrillation; M19.90 Unspecified osteoarthritis, unspecified site; F17.200 Nicotine dependence, unspecified, uncomplicated; Z90.49 Acquired absence of other specified parts of digestive tract; Z96.641 Presence of right artificial hip joint; Z82.49 Family history of ischemic heart disease and other diseases of the circulatory system; Z79.891 Long term (current) use of opiate analgesic; Z79.01 Long term (current) use of anticoagulants
CPT/HCPCS: 36415; 93005; 85379; 80053; 82550; 82553; 83690; 83735; 84484; 85025; 85610; 85730; 71275; 74177; 99285; 96374; 96375 ×3; 96376; 96361; J2060; J2405 ×2; J2270; C9113; Q9967

== ENCOUNTER 2018-05-11 19:04 | Emergency (ER) | payer OTHER ==
[2018-05-11] MEDS ORDERED: SODIUM CHLORIDE 0.9% 1,000 ML IV STA ×2 (20:09→21:17)
[2018-05-11 20:17] LABS: Basophils % (A) 1 %; Eosinophils # (A) 0.3 k/uL (0-0.7); Eosinophils % (A) 4 %; HCT 44.3 % (39.0-53.0); HGB 15.5 gm/dL (13.0-17.5); Lymphocytes % (A) 32 %; MCH 34.1 pg (25.0-35.0); MCHC 34.9 g/dL (31.0-37.0); MCV 97.7 fL (80.0-100.0); Mean Platelet Volume 8.3; Monocytes # (A) 0.4 k/uL (0-1.0); Monocytes % (A) 7 %; Neutrophils # (A) 3.5 k/uL (1.3-7.7); Neutrophils % (A) 55 %; Platelet Count 202 k/uL (150-450); RBC 4.53 m/uL (4.30-5.90); WBC 6.4 k/uL (3.8-10.6)
--- NOTE | 2018-05-11 20:21 | XR ---
EXAMINATION TYPE: XR chest 2V DATE OF EXAM: 05/11/2018 COMPARISON: 04/18/2018 HISTORY: Chest pain TECHNIQUE: Frontal and lateral views of the chest are obtained. FINDINGS: There is no heart failure nor confluent pneumonic infiltrate. Costophrenic angles are landon r. There are chest leads. IMPRESSION: No active cardiopulmonary disease. Normal heart. No change.
[2018-05-11 20:28] LABS: INR 1.2 (<1.2); Partial Thromboplastin Time 23.1 sec (22.0-30.0); Prothrombin Time 11.6 sec (9.0-12.0)
[2018-05-11 20:33] LABS: Creatine Kinase 73 U/L (55-170)
[2018-05-11 20:34] LABS: Albumin 3.6 g/dL (3.5-5.0); Calcium 9.2 mg/dL (8.4-10.2); Potassium 4.3 mmol/L (3.5-5.1); Total Bilirubin 0.4 mg/dL (0.2-1.3); Total Protein 5.9 g/dL (6.3-8.2)
[2018-05-11 20:44] LABS: Creatine Kinase MB 1.8 ng/mL (0.0-2.4); Troponin I <0.012 ng/mL (0.000-0.034)
--- NOTE | 2018-05-11 21:33 | ED ---
Dizziness HPI - General Chief Complaint: Syncope Stated Complaint: SYNCOPE AND DOUBLE VISION Time Seen by Provider: 05/11/18 20:08 Source: patient, family Mode of arrival: wheelchair Limitations: no limitations - History of Present Illness Initial Comments: Vision is a 53-year-old male presenting for syncope. He states that he was at home walking when he started to feel lightheaded and having blurry vision when he nearly collapsed with his girlfriend caught him. He denies any head trauma and states that he feels slightly improved and denies any chest pain/shortness breath. He also denies any nausea/vomiting/diarrhea. He states that he has a history of fibrillation and does take warfarin but no other rate control or rhythm control medications. He does take blood pressure medications as well which he took this morning. He also denies any source of infection such as coughing, dysuria, abdominal pain. - Related Data Home Medications Medication Instructions Recorded Confirmed Hydrocodone/Acetaminophen [[place] 1 tab PO BID 12/17/16 05/11/18 5-325] Warfarin Sodium 6 mg PO DAILY 06/24/17 05/11/18 Allergies Allergy/AdvReac Type Severity Reaction Status Date / Time No Known Allergies Allergy Verified 05/11/18 19:20 Review of Systems ROS Statement: Those systems with pertinent positive or pertinent negative responses have been documented in the HPI. Constitutional: Negative for chills, fatigue and fever. HENT: Negative for congestion. Respiratory: Negative for chest tightness, shortness of breath and wheezing. Negative for cough Cardiovascular: Negative for chest pain and palpitations. Positive for syncope Gastrointestinal: Negative for abdominal pain. Negative for abdominal distention , diarrhea, nausea and vomiting. Genitourinary: Negative for dysuria. Musculoskeletal: Negative for back pain, neck pain and neck stiffness. Skin: Negative for color change. Neurological: Negative for dizziness, speech difficulty, weakness and positive for light-headedness. Negative for headache Psychiatric/Behavioral: Negative for agitation and confusion. Negative for anxiety ROS Other: All systems not noted in ROS Statement are negative. Past Medical History Past Medical History: Atrial Fibrillation, GERD/Reflux, Hypertension, Osteoarthritis (OA) Additional Past Medical History / Comment(s): severe GERD, DJD. History of Any Multi-Drug Resistant Organisms: None Reported Past Surgical History: Appendectomy, Cholecystectomy, Hernia Repair, Joint Replacement, Orthopedic Surgery Additional Past Surgical History / Comment(s): 12/07/14 Total R Hip replacement, RIGHT KNEE SCOPE, umbilical hernia, EGD Past Anesthesia/Blood Transfusion Reactions: No Reported Reaction Past Psychological History: Anxiety Smoking Status: Current every day smoker Past Alcohol Use History: Occasional Past Drug Use History: None Reported - Past Family History Father Family Medical History: Coronary Artery Disease (CAD), Diabetes Mellitus, Myocardial Infarction ([place]) Additional Family Medical History / Comment(s): Father has at the age of 74 yrs of a [place]. He had 2 Cabg's Mother Family Medical History: Coronary Artery Disease (CAD), Diabetes Mellitus, Musculoskeletal Disorder, Neurologic Disorder Additional Family Medical History / Comment(s): Mother is . She at age 64 yrs. She had a cabg and multiple sclerosis Brother(s) Family Medical History: AFIB Additional Family Medical History / Comment(s): Pt has another brother with CAD and MIs General Exam - General Exam Comments Initial Comments: Constitutional: Pt is oriented to person, place, and time. Pt appears well- developed and well-nourished. No distress. HENT: Head: Normocephalic and atraumatic. Eyes: EOM are normal. No nystagmus Neck: Normal range of motion. Neck supple. Cardiovascular: Normal rate, regular rhythm, S1 normal, S2 normal and normal heart sounds. Exam reveals no gallop and no friction rub. No murmur heard. Pulmonary/Chest: Effort normal and breath sounds normal. No tachypnea and no bradypnea. No respiratory distress. No wheezes or rales noted. Abdominal: Soft. Bowel sounds are normal. Pt exhibits no shifting dullness, no distension, no pulsatile liver, no fluid wave, no abdominal bruit and no ascites. There is no tenderness. There is no rigidity, no rebound, no guarding, no tenderness at McBurney's point and negative Scott's sign. Musculoskeletal: Normal range of motion. Neurological: Pt is alert and oriented to person, place, and time. No cranial nerve deficit. Skin: Skin is warm and dry. No rash noted. Pt is not diaphoretic. No erythema. No pallor. Psychiatric: Pt has a normal mood and affect. Pt behavior is normal. Thought content normal. Limitations: no limitations Course Vital Signs 05/11/18 05/11/18 05/11/18 19:20 19:22 21:08 Temperature 98.5 F Pulse Rate 69 98 Pulse Rate [ Sitting Practicing Dermatologist] Pulse Rate [ Standing Practicing Dermatologist ] Pulse Rate [ Supine Practicing Dermatologist] Respiratory 16 20 Rate Blood Pressure 93/57 96/66 Blood Pressure 110/67 [Right Arm Sitting] Blood Pressure 86/64 [Right Arm Standing] Blood Pressure 109/72 [Right Arm Supine] O2 Sat by Pulse 93 L 98 Oximetry 05/11/18 05/11/18 05/11/18 21:22 22:23 22:44 Temperature Pulse Rate 92 88 Pulse Rate [ 104 H Sitting Practicing Dermatologist] Pulse Rate [ 107 H Standing Practicing Dermatologist ] Pulse Rate [ 96 Supine Practicing Dermatologist] Respiratory 16 16 20 Rate Blood Pressure 88/70 127/76 Blood Pressure 119/69 [Right Arm Sitting] Blood Pressure 120/74 [Right Arm Standing] Blood Pressure 129/84 [Right Arm Supine] O2 Sat by Pulse 94 L Oximetry 05/11/18 23:52 Temperature 98 F Pulse Rate 89 Pulse Rate [ Sitting Practicing Dermatologist] Pulse Rate [ Standing Practicing Dermatologist ] Pulse Rate [ Supine Practicing Dermatologist] Respiratory 18 Rate Blood Pressure 119/79 Blood Pressure [Right Arm Sitting] Blood Pressure [Right Arm Standing] Blood Pressure [Right Arm Supine] O2 Sat by Pulse 97 Oximetry EKG Findings - EKG Comments: EKG Findings:: EKG shows atrial fibrillation with a rate of 98, QRS 82, QTC 428. There is no significant ST depressions or elevations. Medical Decision Making - Medical Decision Making Laboratory studies showed the INR was less than therapeutic and that there was no leukocytosis or significant only Donna derangements. Initial orthostatics were also noted to be positive and patient was given 2 L normal saline. Orthostatics were then rechecked and heart rate increased to 107 with standing and technically positive. Patient was advised that because he was also showing PVCs on the monitor and his heart rate was starting to increase, that he should be admitted to hospital for further evaluation. However, he currently declined and stated that he would like to go home. He was advised multiple times that doing so could lead to poor outcomes. He was also advised that leaving AGAINST MEDICAL ADVICE could result in or disability. Patient expressed understanding and stated that he still would like to go. Patient was advised to follow-up with the PCP in the next 1-2 days and/or return if the symptoms came back or worsen. Patient was agreeable to plan. - Lab Data Result diagrams: 05/11/18 19:41 05/11/18 19:41 Lab Results 05/11/18 05/11/18 05/11/18 Range/Units 19:41 19:41 19:41 WBC 6.4 (3.8-10.6) k/uL RBC 4.53 (4.30-5.90) m/uL Hgb 15.5 (13.0-17.5) gm/dL Hct 44.3 (39.0-53.0) % MCV 97.7 (80.0-100.0) fL MCH 34.1 (25.0-35.0) pg MCHC 34.9 (31.0-37.0) g/dL RDW 12.0 (11.5-15.5) % Plt Count 202 (150-450) k/uL Neutrophils % 55 % Lymphocytes % 32 % Monocytes % 7 % Eosinophils % 4 % Basophils % 1 % Neutrophils # 3.5 (1.3-7.7) k/uL Lymphocytes # 2.0 (1.0-4.8) k/uL Monocytes # 0.4 (0-1.0) k/uL Eosinophils # 0.3 (0-0.7) k/uL Basophils # 0.0 (0-0.2) k/uL PT (9.0-12.0) sec INR (<1.2) APTT (22.0-30.0) sec Sodium 140 (137-145) mmol/L Potassium 4.3 (3.5-5.1) mmol/L Chloride 107 (98-107) mmol/L Carbon Dioxide 22 (22-30) mmol/L Anion Gap 11 mmol/L BUN 14 (9-20) mg/dL Creatinine 1.10 (0.66-1.25) mg/dL Est GFR (CKD-EPI)AfAm 88 (>60 ml/min/1.73 sqM) Est GFR (CKD-EPI)NonAf 76 (>60 ml/min/1.73 sqM) Glucose 98 (74-99) mg/dL Calcium 9.2 (8.4-10.2) mg/dL Total Bilirubin 0.4 (0.2-1.3) mg/dL AST 28 (17-59) U/L ALT 45 (21-72) U/L Alkaline Phosphatase 59 (38-126) U/L Total Creatine Kinase 73 (55-170) U/L CK-MB (CK-2) 1.8 (0.0-2.4) ng/mL CK-MB (CK-2) Rel Index 2.5 Troponin I <0.012 (0.000-0.034) ng/mL Total Protein 5.9 L (6.3-8.2) g/dL Albumin 3.6 (3.5-5.0) g/dL Urine Color Urine Appearance (Clear) Urine pH (5.0-8.0) Ur Specific [place] (1.001-1.035) Urine Protein (Negative) Urine Glucose (UA) (Negative) Urine Ketones (Negative) Urine Blood (Negative) Urine Nitrite (Negative) Urine Bilirubin (Negative) Urine Urobilinogen (<2.0) mg/dL Ur Leukocyte Esterase (Negative) 05/11/18 05/11/18 Range/Units 19:41 22:30 WBC (3.8-10.6) k/uL RBC (4.30-5.90) m/uL Hgb (13.0-17.5) gm/dL Hct (39.0-53.0) % MCV (80.0-100.0) fL MCH (25.0-35.0) pg MCHC (31.0-37.0) g/dL RDW (11.5-15.5) % Plt Count (150-450) k/uL Neutrophils % % Lymphocytes % % Monocytes % % Eosinophils % % Basophils % % Neutrophils # (1.3-7.7) k/uL Lymphocytes # (1.0-4.8) k/uL Monocytes # (0-1.0) k/uL Eosinophils # (0-0.7) k/uL Basophils # (0-0.2) k/uL PT 11.6 (9.0-12.0) sec INR 1.2 H (<1.2) APTT 23.1 (22.0-30.0) sec Sodium (137-145) mmol/L Potassium (3.5-5.1) mmol/L Chloride (98-107) mmol/L Carbon Dioxide (22-30) mmol/L Anion Gap mmol/L BUN (9-20) mg/dL Creatinine (0.66-1.25) mg/dL Est GFR (CKD-EPI)AfAm (>60 ml/min/1.73 sqM) Est GFR (CKD-EPI)NonAf (>60 ml/min/1.73 sqM) Glucose (74-99) mg/dL Calcium (8.4-10.2) mg/dL Total Bilirubin (0.2-1.3) mg/dL AST (17-59) U/L ALT (21-72) U/L Alkaline Phosphatase (38-126) U/L Total Creatine Kinase (55-170) U/L CK-MB (CK-2) (0.0-2.4) ng/mL CK-MB (CK-2) Rel Index Troponin I (0.000-0.034) ng/mL Total Protein (6.3-8.2) g/dL Albumin (3.5-5.0) g/dL Urine Color Yellow Urine Appearance Clear (Clear) Urine pH 6.0 (5.0-8.0) Ur Specific [place] 1.017 (1.001-1.035) Urine Protein Trace H (Negative) Urine Glucose (UA) Negative (Negative) Urine Ketones Negative (Negative) Urine Blood Negative (Negative) Urine Nitrite Negative (Negative) Urine Bilirubin Negative (Negative) Urine Urobilinogen <2.0 (<2.0) mg/dL Ur Leukocyte Esterase Negative (Negative) Disposition Clinical Impression: Syncope, Atrial fibrillation, Orthostatic hypotension Disposition: Left Against Medical Advice Condition: Fair Is patient prescribed a controlled substance at d/c from ED?: No Referrals: Aaron Loja MD [Primary Care Provider] - 1-2 days Time of Disposition: 23:40
[2018-05-11 22:37] LABS: Appearance,Urine Clear (Clear); Bilirubin,Urine Negative (Negative); Blood,Urine Negative (Negative); Color,Urine Yellow; Glucose,Urine (UA) Negative (Negative); Ketones,Urine Negative (Negative); Leukocyte Esterase,Urine Negative (Negative); Nitrite,Urine Negative (Negative); Protein,Urine Trace (Negative); Specific Gravity,Urine 1.017 (1.001-1.035); Urobilinogen,Urine <2.0 mg/dL (<2.0)
[2018-05-11 23:53] VITALS: BP 119/79; PULSE 89; RESP 18; TEMP 98
== END 2018-05-11 23:53 | disposition left against medical advice (07) ==
LOC: EC 19:04
DX: I95.1 Orthostatic hypotension (principal); I48.91 Unspecified atrial fibrillation; I49.3 Ventricular premature depolarization; I10 Essential (primary) hypertension; F17.200 Nicotine dependence, unspecified, uncomplicated; Z79.01 Long term (current) use of anticoagulants; Z79.891 Long term (current) use of opiate analgesic; Z79.899 Other long term (current) drug therapy; Z82.49 Family history of ischemic heart disease and other diseases of the circulatory system; Z87.39 Personal history of other diseases of the musculoskeletal system and connective tissue
CPT/HCPCS: 36415; 71046; 80053; 81003; 82550; 82553; 84484; 85025; 85610; 85730; 93005; 96360; 96361; 99284

== ENCOUNTER 2018-07-09 15:16 | Emergency (ER) | payer OTHER ==
[2018-07-09 15:30] VITALS: BP 135/91; PULSE 88; RESP 18; TEMP 98.4
[2018-07-09] MEDS ORDERED: METOCLOPRAMIDE 5 MG/ML 2 ML VIAL IVP STA (16:08)
[2018-07-09] MEDS ORDERED: SODIUM CHLORIDE 0.9% 1,000 ML IV STA (16:08)
[2018-07-09] MEDS ORDERED: LORazepam 2 MG/ML INJ IV STA (16:09)
[2018-07-09] MEDS ORDERED: MAG HYDROX/AL HYDROX/SIMETH 30 ML, HYOSCYAMINE ELIXIR 10 ML, CIMETIDINE HCL 300 MG, LID... PO STA ×4 (16:10)
--- NOTE | 2018-07-09 16:12 | ED ---
General Adult HPI - General Chief complaint: Nausea/Vomiting/Diarrhea Stated complaint: Dehydration & vomiting Time Seen by Provider: 07/09/18 16:00 Source: patient, RN notes reviewed Mode of arrival: ambulatory Limitations: no limitations - History of Present Illness Initial comments: Patient is a pleasant 53-year-old male presenting to the emergency Department with nausea vomiting and abdominal pain. Onset of symptoms was the past day or so. Patient states this is a chronic problem for him secondary to reflux. Patient does admit to drinking alcohol a little bit too much at times. Patient states he has had similar symptoms dozens of times. Patient states he frequently needs to come to the emergency department and have a GI cocktail and a pain shot, sometimes 2 pain shots. Patient states he has follow-up with surgeon who did recommend he have Tyler fundliplication surgery done. - Related Data Home Medications Medication Instructions Recorded Confirmed Hydrocodone/Acetaminophen [[place] 1 tab PO TID 12/17/16 07/09/18 5-325] Warfarin Sodium 6 mg PO DAILY 06/24/17 07/09/18 Allergies Allergy/AdvReac Type Severity Reaction Status Date / Time No Known Allergies Allergy Verified 07/09/18 16:02 Review of Systems ROS Statement: Those systems with pertinent positive or pertinent negative responses have been documented in the HPI. ROS Other: All systems not noted in ROS Statement are negative. Constitutional: Denies: fever Eyes: Denies: eye pain ENT: Denies: ear pain Respiratory: Denies: cough, dyspnea Cardiovascular: Denies: chest pain, palpitations Endocrine: Denies: fatigue Gastrointestinal: Reports: abdominal pain, nausea, vomiting Genitourinary: Denies: dysuria Musculoskeletal: Denies: back pain Skin: Denies: rash Neurological: Denies: weakness Past Medical History Past Medical History: Atrial Fibrillation, GERD/Reflux, Hypertension, Osteoarthritis (OA) Additional Past Medical History / Comment(s): severe GERD, DJD. History of Any Multi-Drug Resistant Organisms: None Reported Past Surgical History: Appendectomy, Cholecystectomy, Hernia Repair, Joint Replacement, Orthopedic Surgery Additional Past Surgical History / Comment(s): 12/07/14 Total R Hip replacement, RIGHT KNEE SCOPE, umbilical hernia, EGD Past Anesthesia/Blood Transfusion Reactions: No Reported Reaction Past Psychological History: Anxiety Smoking Status: Current every day smoker Past Alcohol Use History: Occasional Past Drug Use History: None Reported - Past Family History Father Family Medical History: Coronary Artery Disease (CAD), Diabetes Mellitus, Myocardial Infarction ([place]) Additional Family Medical History / Comment(s): Father has at the age of 74 yrs of a [place]. He had 2 Cabg's Mother Family Medical History: Coronary Artery Disease (CAD), Diabetes Mellitus, Musculoskeletal Disorder, Neurologic Disorder Additional Family Medical History / Comment(s): Mother is . She at age 64 yrs. She had a cabg and multiple sclerosis Brother(s) Family Medical History: AFIB Additional Family Medical History / Comment(s): Pt has another brother with CAD and MIs General Exam Limitations: no limitations General appearance: alert, in no apparent distress Head exam: Present: atraumatic Eye exam: Present: normal appearance, PERRL ENT exam: Present: normal oropharynx Neck exam: Present: normal inspection Respiratory exam: Present: normal lung sounds bilaterally Cardiovascular Exam: Present: regular rate, irregular rhythm Expanded Peripheral pulses: 2+: Radial (R), Radial (L), Dorsalis Pedis (R), Dorsalis Pedis (L) GI/Abdominal exam: Present: soft, normal bowel sounds. Absent: distended, tenderness, guarding, rebound, rigid, pulsatile mass Extremities exam: Present: normal inspection. Absent: pedal edema, calf tenderness Neurological exam: Present: alert Psychiatric exam: Present: normal affect, normal mood Skin exam: Present: normal color Course Vital Signs 07/09/18 15:26 Temperature 98.4 F Pulse Rate 88 Respiratory 18 Rate Blood Pressure 135/91 O2 Sat by Pulse 97 Oximetry Medical Decision Making - Medical Decision Making Patient reevaluated and feeling much better. Patient is comfortable with discharge home. - Lab Data Result diagrams: 07/09/18 16:22 07/09/18 16:22 Lab Results 07/09/18 07/09/18 07/09/18 Range/Units 16:22 16:22 16:22 WBC 6.8 (3.8-10.6) k/uL RBC 4.94 (4.30-5.90) m/uL Hgb 16.4 (13.0-17.5) gm/dL Hct 48.4 (39.0-53.0) % MCV 97.9 (80.0-100.0) fL MCH 33.3 (25.0-35.0) pg MCHC 34.0 (31.0-37.0) g/dL RDW 12.2 (11.5-15.5) % Plt Count 204 (150-450) k/uL Neutrophils % 88 % Lymphocytes % 7 % Monocytes % 3 % Eosinophils % 1 % Basophils % 0 % Neutrophils # 6.0 (1.3-7.7) k/uL Lymphocytes # 0.5 L (1.0-4.8) k/uL Monocytes # 0.2 (0-1.0) k/uL Eosinophils # 0.1 (0-0.7) k/uL Basophils # 0.0 (0-0.2) k/uL PT 10.0 (9.0-12.0) sec INR 1.0 (<1.2) APTT 22.6 (22.0-30.0) sec Sodium 139 (137-145) mmol/L Potassium 4.2 (3.5-5.1) mmol/L Chloride 105 (98-107) mmol/L Carbon Dioxide 23 (22-30) mmol/L Anion Gap 11 mmol/L BUN 11 (9-20) mg/dL Creatinine 0.66 (0.66-1.25) mg/dL Est GFR (CKD-EPI)AfAm >90 (>60 ml/min/1.73 sqM) Est GFR (CKD-EPI)NonAf >90 (>60 ml/min/1.73 sqM) Glucose 134 H (74-99) mg/dL Calcium 9.9 (8.4-10.2) mg/dL Total Bilirubin 1.3 (0.2-1.3) mg/dL AST 31 (17-59) U/L ALT 38 (21-72) U/L Alkaline Phosphatase 77 (38-126) U/L Total Protein 7.3 (6.3-8.2) g/dL Albumin 4.4 (3.5-5.0) g/dL Amylase 37 (30-110) U/L Lipase 146 (23-300) U/L Acetone, Qual Negative (Negative) - Radiology Data Radiology results: image reviewed (Abdominal x-ray shows no acute process) Disposition Clinical Impression: Abdominal pain, Vomiting Disposition: HOME SELF-CARE Condition: Stable Instructions: Abdominal Pain (ED), Acute Nausea and Vomiting (ED) Additional Instructions: Please follow-up with primary care physician in the next couple days for recheck. Please also follow-up with your surgeon. Return for fevers, not tolerating oral intake, worsening or changing symptoms or other concerns. Is patient prescribed a controlled substance at d/c from ED?: No Referrals: Aaron Loja MD [Primary Care Provider] - 1-2 days Cem Kelly MD [STAFF PHYSICIAN] - 1-2 days Time of Disposition: 18:24
[2018-07-09 16:36] LABS: Basophils % (A) 0 %; Eosinophils # (A) 0.1 k/uL (0-0.7); Eosinophils % (A) 1 %; HCT 48.4 % (39.0-53.0); HGB 16.4 gm/dL (13.0-17.5); Lymphocytes # (A) 0.5 k/uL (1.0-4.8); Lymphocytes % (A) 7 %; MCH 33.3 pg (25.0-35.0); MCV 97.9 fL (80.0-100.0); Mean Platelet Volume 8.7; Monocytes # (A) 0.2 k/uL (0-1.0); Monocytes % (A) 3 %; Neutrophils % (A) 88 %; Platelet Count 204 k/uL (150-450); RBC 4.94 m/uL (4.30-5.90); RDW 12.2 % (11.5-15.5); WBC 6.8 k/uL (3.8-10.6)
[2018-07-09 16:54] LABS: Partial Thromboplastin Time 22.6 sec (22.0-30.0)
--- NOTE | 2018-07-09 17:03 | XR ---
EXAMINATION TYPE: XR KUB DATE OF EXAM: 07/09/2018 COMPARISON: 04/20/2018 HISTORY: Abdominal pain TECHNIQUE: 2 views FINDINGS: 2 upright views were obtained and show no sign of intestinal obstruction or pneumoperitoneu m. Fecal pattern is normal. There is right hip prosthesis. Lung bases are clear. IMPRESSION: Nonacute abdomen. No change.
[2018-07-09 17:39] LABS: ALT 38 U/L (21-72); AST 31 U/L (17-59); Albumin 4.4 g/dL (3.5-5.0); Alkaline Phosphatase 77 U/L (38-126); Amylase 37 U/L (30-110); Anion Gap 11 mmol/L; Blood Urea Nitrogen 11 mg/dL (9-20); Calcium 9.9 mg/dL (8.4-10.2); Carbon Dioxide 23 mmol/L (22-30); Chloride 105 mmol/L (98-107); Glucose 134 mg/dL (74-99); Lipase 146 U/L (23-300); Potassium 4.2 mmol/L (3.5-5.1); Sodium 139 mmol/L (137-145); Total Bilirubin 1.3 mg/dL (0.2-1.3); Total Protein 7.3 g/dL (6.3-8.2)
== END 2018-07-09 19:00 | disposition home or self-care (01) ==
LOC: EC 15:16
DX: R10.9 Unspecified abdominal pain (principal); R11.2 Nausea with vomiting, unspecified; I49.9 Cardiac arrhythmia, unspecified; I48.91 Unspecified atrial fibrillation; K21.9 Gastro-esophageal reflux disease without esophagitis; M19.90 Unspecified osteoarthritis, unspecified site; F17.200 Nicotine dependence, unspecified, uncomplicated; Z79.01 Long term (current) use of anticoagulants; Z79.891 Long term (current) use of opiate analgesic; Z90.49 Acquired absence of other specified parts of digestive tract; Z98.890 Other specified postprocedural states; Z82.49 Family history of ischemic heart disease and other diseases of the circulatory system
CPT/HCPCS: 99284; 96374; 96375; 96361; 36415; 80053; 82150; 82009; 83690; 85025; 85610; 85730; 74018; J2060; J2765

== ENCOUNTER 2018-07-10 20:15 | Observation (INO) | payer OTHER ==
[2018-07-10] MEDS ORDERED: SODIUM CHLORIDE 0.9% 1,000 ML IV STA (21:01)
[2018-07-10] MEDS ORDERED: ONDANSETRON 4 MG/2 ML VIAL IVP STA (21:01)
[2018-07-10] MEDS ORDERED: PANTOPRAZOLE 40 MG/10 ML VIAL IVP STA (21:01)
[2018-07-10] MEDS ORDERED: MAG HYDROX/AL HYDROX/SIMETH 30 ML, HYOSCYAMINE ELIXIR 10 ML, CIMETIDINE HCL 300 MG, LID... PO STA ×4 (21:02)
[2018-07-10] MEDS ORDERED: ACETAMINOPHEN IV (For NPO) 1,000 MG in EMPTY BAG 1 BAG IVPB STA (21:02)
[2018-07-10] MEDS ORDERED: DIAZEPAM 5 MG/ML 2 ML INJ IVP STA (21:02)
--- NOTE | 2018-07-10 21:14 | ED ---
General Adult HPI - General Chief complaint: Abdominal Pain Stated complaint: gerd-revisit Time Seen by Provider: 07/10/18 20:25 Source: patient, RN notes reviewed Mode of arrival: ambulatory Limitations: no limitations - History of Present Illness Initial comments: This is a 53-year-old male who presents to the emergency Department complaining of a gastric reflux of the point of vomiting. Patient states she's had this for many years but he never follows up but he never gets admitted. Patient states already he does not want to be admitted even though I recommended. Patient states she just wants to have some relief from the vomiting. Patient was here yesterday and again left after they got it under control. Patient denies any chest pain difficulty breathing shortness of breath per patient denies any diaphoretic episodes. Patient denies headache patient denies numbness weakness. Patient denies any abdominal pain. Patient denies any diarrhea. Patient denies any drinking. - Related Data Home Medications Medication Instructions Recorded Confirmed Hydrocodone/Acetaminophen [[place] 1 tab PO TID 12/17/16 07/10/18 5-325] Naproxen Sodium [Aleve] 440 mg PO Q12HR PRN 07/10/18 07/10/18 Warfarin Sodium 5 mg PO DAILY 07/10/18 07/10/18 Allergies Allergy/AdvReac Type Severity Reaction Status Date / Time No Known Allergies Allergy Verified 07/10/18 21:00 Review of Systems ROS Statement: Those systems with pertinent positive or pertinent negative responses have been documented in the HPI. ROS Other: All systems not noted in ROS Statement are negative. Past Medical History Past Medical History: Atrial Fibrillation, GERD/Reflux, Hypertension, Osteoarthritis (OA) Additional Past Medical History / Comment(s): severe GERD, DJD. History of Any Multi-Drug Resistant Organisms: None Reported Past Surgical History: Appendectomy, Cholecystectomy, Hernia Repair, Joint Replacement, Orthopedic Surgery Additional Past Surgical History / Comment(s): 12/07/14 Total R Hip replacement, RIGHT KNEE SCOPE, umbilical hernia, EGD Past Anesthesia/Blood Transfusion Reactions: No Reported Reaction Past Psychological History: Anxiety Smoking Status: Current every day smoker Past Alcohol Use History: Occasional Past Drug Use History: None Reported - Past Family History Father Family Medical History: Coronary Artery Disease (CAD), Diabetes Mellitus, Myocardial Infarction ([place]) Additional Family Medical History / Comment(s): Father has at the age of 74 yrs of a [place]. He had 2 Cabg's Mother Family Medical History: Coronary Artery Disease (CAD), Diabetes Mellitus, Musculoskeletal Disorder, Neurologic Disorder Additional Family Medical History / Comment(s): Mother is . She at age 64 yrs. She had a cabg and multiple sclerosis Brother(s) Family Medical History: AFIB Additional Family Medical History / Comment(s): Pt has another brother with CAD and MIs General Exam - General Exam Comments Initial Comments: GENERAL: Patient is well-developed and well-nourished. Patient is nontoxic and well- hydrated and is in mild distress. ENT: Neck is soft and supple. No significant lymphadenopathy is noted. Oropharynx is clear. Moist mucous membranes. Neck has full range of motion without eliciting any pain. EYES: The sclera were anicteric and conjunctiva were pink and moist. Extraocular movements were intact and pupils were equal round and reactive to light. Eyelids were unremarkable. PULMONARY: Unlabored respirations. Good breath sounds bilaterally. No audible rales rhonchi or wheezing was noted. CARDIOVASCULAR: There is a regular rate and rhythm without any murmurs gallops or rubs. ABDOMEN: Soft and nontender with normal bowel sounds. No palpable organomegaly was noted. There is no palpable pulsatile mass. SKIN: Skin is clear with no lesions or rashes and otherwise unremarkable. NEUROLOGIC: Patient is alert and oriented x3. Cranial nerves II through XII are grossly intact. Motor and sensory are also intact. Normal speech, volume and content. Symmetrical smile. MUSCULOSKELETAL: Normal extremities with adequate strength and full range of motion. LYMPHATICS: No significant lymphadenopathy is noted PSYCHIATRIC: Normal psychiatric evaluation. Limitations: no limitations Course Vital Signs 07/10/18 07/10/18 07/10/18 20:24 21:32 22:37 Temperature 98.5 F Pulse Rate 103 H 88 84 Respiratory 18 16 16 Rate Blood Pressure 173/86 174/102 158/103 O2 Sat by Pulse 98 90 L 97 Oximetry Medical Decision Making - Medical Decision Making EKG shows atrial fibrillation at 82 bpm QRS is 90 QT interval 380 QTC is 443. Patient has some flipped T waves in leads V3 V4 V5 however these are seen on previous EKGs. I spoke with Dr. Loja he agreed to admit the patient admitted the patient I consulted GI and I continued Protonix and Zofran - Lab Data Result diagrams: 07/10/18 21:30 07/10/18 21:30 Lab Results 07/10/18 07/10/18 07/10/18 Range/Units 21:30 21:30 21:55 WBC 9.1 (3.8-10.6) k/uL RBC 4.44 (4.30-5.90) m/uL Hgb 14.6 (13.0-17.5) gm/dL Hct 43.3 (39.0-53.0) % MCV 97.6 (80.0-100.0) fL MCH 33.0 (25.0-35.0) pg MCHC 33.8 (31.0-37.0) g/dL RDW 12.4 (11.5-15.5) % Plt Count 193 (150-450) k/uL Neutrophils % 84 % Lymphocytes % 9 % Monocytes % 6 % Eosinophils % 1 % Basophils % 0 % Neutrophils # 7.6 (1.3-7.7) k/uL Lymphocytes # 0.8 L (1.0-4.8) k/uL Monocytes # 0.5 (0-1.0) k/uL Eosinophils # 0.1 (0-0.7) k/uL Basophils # 0.0 (0-0.2) k/uL Sodium 137 (137-145) mmol/L Potassium 3.6 (3.5-5.1) mmol/L Chloride 102 (98-107) mmol/L Carbon Dioxide 25 (22-30) mmol/L Anion Gap 10 mmol/L BUN 25 H (9-20) mg/dL Creatinine 1.23 (0.66-1.25) mg/dL Est GFR (CKD-EPI)AfAm 77 (>60 ml/min/1.73 sqM) Est GFR (CKD-EPI)NonAf 67 (>60 ml/min/1.73 sqM) Glucose 137 H (74-99) mg/dL Calcium 9.6 (8.4-10.2) mg/dL Total Bilirubin 1.1 (0.2-1.3) mg/dL AST 36 (17-59) U/L ALT 40 (21-72) U/L Alkaline Phosphatase 71 (38-126) U/L Total Protein 6.7 (6.3-8.2) g/dL Albumin 4.3 (3.5-5.0) g/dL Amylase <30 L (30-110) U/L Lipase 159 (23-300) U/L Urine Opiates Screen Detected H (NotDetected) Ur Oxycodone Screen Not Detected (NotDetected) Urine Methadone Screen Not Detected (NotDetected) Ur Propoxyphene Screen Not Detected (NotDetected) Ur Barbiturates Screen Not Detected (NotDetected) U Tricyclic Antidepress Not Detected (NotDetected) Ur Phencyclidine Scrn Not Detected (NotDetected) Ur Amphetamines Screen Not Detected (NotDetected) U Methamphetamines Scrn Not Detected (NotDetected) U Benzodiazepines Scrn Detected H (NotDetected) Urine Cocaine Screen Not Detected (NotDetected) U Marijuana (THC) Screen Not Detected (NotDetected) Serum Alcohol <10 mg/dL Disposition Clinical Impression: Abdominal pain, Gastroesophageal reflux Disposition: ADMITTED IP TO THIS HOSP Referrals: Aaron Loja MD [Primary Care Provider] - 1-2 days Time of Disposition: 22:52
[2018-07-10 21:45] LABS: Basophils % (A) 0 %; Eosinophils # (A) 0.1 k/uL (0-0.7); Eosinophils % (A) 1 %; HCT 43.3 % (39.0-53.0); HGB 14.6 gm/dL (13.0-17.5); Lymphocytes # (A) 0.8 k/uL (1.0-4.8); Lymphocytes % (A) 9 %; MCHC 33.8 g/dL (31.0-37.0); MCV 97.6 fL (80.0-100.0); Mean Platelet Volume 8.6; Monocytes # (A) 0.5 k/uL (0-1.0); Monocytes % (A) 6 %; Neutrophils # (A) 7.6 k/uL (1.3-7.7); Neutrophils % (A) 84 %; Platelet Count 193 k/uL (150-450); RBC 4.44 m/uL (4.30-5.90); RDW 12.4 % (11.5-15.5); WBC 9.1 k/uL (3.8-10.6)
[2018-07-10 21:54] LABS: ALT 40 U/L (21-72); AST 36 U/L (17-59); Albumin 4.3 g/dL (3.5-5.0); Alcohol <10 mg/dL; Alkaline Phosphatase 71 U/L (38-126); Amylase <30 U/L (30-110); Anion Gap 10 mmol/L; Blood Urea Nitrogen 25 mg/dL (9-20); Calcium 9.6 mg/dL (8.4-10.2); Carbon Dioxide 25 mmol/L (22-30); Chloride 102 mmol/L (98-107); Glucose 137 mg/dL (74-99); Lipase 159 U/L (23-300); Potassium 3.6 mmol/L (3.5-5.1); Sodium 137 mmol/L (137-145); Total Bilirubin 1.1 mg/dL (0.2-1.3); Total Protein 6.7 g/dL (6.3-8.2)
[2018-07-10 22:38] LABS: Amphetamine Screen,Urine Not Detected (NotDetected); Barbiturate Screen,Urine Not Detected (NotDetected); Benzodiazepines Screen,Urine Detected (NotDetected); Cocaine Screen,Urine Not Detected (NotDetected); Methadone Screen, Urine Not Detected (NotDetected); Opiate Screen,Urine Detected (NotDetected); Oxycodone Screen, Urine Not Detected (NotDetected); Phencyclidine Screen,Urine Not Detected (NotDetected); Tricyclic Antidepressant,Urine Not Detected (NotDetected); Urn Cannabinoid Scrn Not Detected (NotDetected)
[2018-07-10] MEDS ORDERED: FAMOTIDINE 20 MG/2 ML VIAL IV STA (22:50)
[2018-07-10] MEDS ORDERED: LORazepam 2 MG/ML INJ IV STA (22:50)
[2018-07-10] MEDS ORDERED: SODIUM CHLORIDE 0.9% 1,000 ML IV ONE (22:56)
[2018-07-11 01:03] VITALS: BMI 31.3
[2018-07-11 01:13] VITALS: RESP 18
[2018-07-11] MEDS: ONDANSETRON 4 MG/2 ML VIAL IVP PRN ×2 (04:29→13:56)
[2018-07-11] MEDS ORDERED: LORazepam 2 MG/ML INJ IV PRN (04:39)
[2018-07-11] MEDS ORDERED: HYDROmorphone 1 MG/ML 1 ML SYRINGE IVP PRN (07:55)
[2018-07-11] MEDS ORDERED: PANTOPRAZOLE 40 MG/10 ML VIAL IVP SCH (09:00)
[2018-07-11] MEDS: HYDROcodone/APAP 5-325MG 1 EACH TAB PO SCH ×2 (09:33→17:06)
[2018-07-11] MEDS ORDERED: FAMOTIDINE 20 MG TAB PO PRN (13:01)
[2018-07-11 16:01] VITALS: BP 138/84; PULSE 75; TEMP 98.7
--- NOTE | 2018-07-11 23:58 | P.CONS ---
History of Present Illness - Reason for Consult Consult date: 07/11/18 Nausea, GERD Requesting physician: Aaron Loja - Chief Complaint Reflux, vomiting - History of Present Illness The patient is a 53-year-old male with a medical history significant for atrial fibrillation, osteoarthritis, hypertension and GERD who presents to the hospital with reports of uncontrolled reflux and vomiting. The patient has multiple presentations to the hospital for similar complaints with reports of uncontrolled reflux with burning in his abdomen and chest pain and overall sick feeling. He reports that when the severe episodes happen he has nausea and vomiting which could not be controlled. He reports multiple episodes of bilious , nonbloody vomitus. The patient denies any regular NSAID use but does take Aleve a few times a week for arthritis pain, and also denies any blood in his vomit or bowel movements. No change in bowel movements, constipation or diarrhea. The patient takes omeprazole 20 mg twice daily for his reflux. He does engage in alcohol use drinking 2 cocktails before bed and is a active smoker. He previously had an EGD in 2014 which was significant for gastritis and esophagitis with negative biopsies. No prior colonoscopy. The patient did have improvement in his symptoms with IV Zofran and Protonix and was able to eat. Review of Systems REVIEW OF SYSTEMS: CONSTITUTIONAL: Denies any fevers, chills, weight change or fatigue. CARDIOVASCULAR: Denies any chest pain, palpitations high or low blood pressures RESPIRATORY: Denies any shortness of breath, hemoptysis or cough. GENITOURINARY: No dysuria or hematuria. MUSCULOSKELETAL: No weakness reported. SKIN: Denies any new rashes or lesions, jaundice or pallor. PSYCHIATRIC: Denies any depression or anxiety. NEUROLOGY: Denies headache, denies any new focal deficits. EARS/NOSE/THROAT: No recent hearing change, congestion, nasal discharge or sore throat. EYES: No pain in eyes, discharge or change in vision. GASTROINTESTINAL: As per HPI. Past Medical History Past Medical History: Atrial Fibrillation, GERD/Reflux, Hypertension, Osteoarthritis (OA) Additional Past Medical History / Comment(s): severe GERD, DJD. History of Any Multi-Drug Resistant Organisms: None Reported Past Surgical History: Appendectomy, Cholecystectomy, Hernia Repair, Joint Replacement, Orthopedic Surgery Additional Past Surgical History / Comment(s): 12/07/14 Total R Hip replacement, RIGHT KNEE SCOPE, umbilical hernia, EGD Past Anesthesia/Blood Transfusion Reactions: No Reported Reaction Smoking Status: Current every day smoker - Past Family History Father Family Medical History: Coronary Artery Disease (CAD), Diabetes Mellitus, Myocardial Infarction ([place]) Additional Family Medical History / Comment(s): Father has at the age of 74 yrs of a [place]. He had 2 Cabg's Mother Family Medical History: Coronary Artery Disease (CAD), Diabetes Mellitus, Musculoskeletal Disorder, Neurologic Disorder Additional Family Medical History / Comment(s): Mother is . She at age 64 yrs. She had a cabg and multiple sclerosis Brother(s) Family Medical History: AFIB Additional Family Medical History / Comment(s): Pt has another brother with CAD and MIs Medications and Allergies Home Medications Medication Instructions Recorded Confirmed Type Hydrocodone/Acetaminophen [[place] 1 tab PO TID 12/17/16 07/11/18 History 5-325] Naproxen Sodium [Aleve] 440 mg PO Q12HR PRN 07/10/18 07/11/18 History Warfarin Sodium 5 mg PO DAILY 07/10/18 07/11/18 History Allergies Allergy/AdvReac Type Severity Reaction Status Date / Time No Known Allergies Allergy Verified 07/10/18 21:00 Physical Exam Vitals: Vital Signs Temp Pulse Pulse Resp BP BP Pulse Ox 07/11/18 15:40 98.7 F 75 18 138/84 97 07/11/18 07:30 98.3 F 87 18 168/91 96 07/11/18 04:00 18 07/11/18 01:31 18 07/11/18 01:12 98.3 F 91 18 132/90 95 07/11/18 00:16 90 16 148/98 94 L 07/10/18 23:25 88 16 165/101 97 Intake and Output 07/11/18 07/11/18 07/12/18 14:59 22:59 06:59 Intake Total 240 236 Balance 240 236 Intake: Oral 240 236 Other: Voiding Method Toilet On physical examination, patient appears comfortable in no apparent distress. HEAD: Normocephalic, atraumatic. EYES: No scleral icterus. No conjunctival injection. MOUTH: No lesions, tongue midline. NECK: Trachea midline, no gross abnormalities. CHEST: Clear to auscultation with no wheezing or rhonchi appreciated. HEART: Regular rate and rhythm. ABDOMEN: Soft. Bowel sounds are positive. No organomegaly. No guarding or rigidity. EXTREMITIES: No pedal edema. SKIN: No rashes, no jaundice. NEUROLOGIC: Alert and oriented x3. No focal deficits. Results CBC & Chem 7: 07/10/18 21:30 07/10/18 21:30 Assessment and Plan (1) Gastroesophageal reflux Narrative/Plan: The patient has a known history of GERD with breakthrough symptoms almost daily. He does report taking omeprazole twice daily which he takes approximately 30 minutes before meals. He does not use additional medications for breakthrough symptoms. In addition he engages in activities which worsen reflux disease such as tobacco use, alcohol use and eating and drinking prior to bed. Status: Acute Code(s): K21.9 - GASTRO-ESOPHAGEAL REFLUX DISEASE WITHOUT ESOPHAGITIS SNOMED Code(s): 840544368 (2) Cigarette nicotine dependence Status: Acute Code(s): F17.210 - NICOTINE DEPENDENCE, CIGARETTES, UNCOMPLICATED SNOMED Code(s): 15851946 Plan: Supportive care Zofran as needed for nausea Continue twice daily Protonix in the hospital and omeprazole at home Will add Pepcid twice daily as needed for breakthrough reflux Extensive discussion with the patient on the physiology of reflux disease and AV years which will trigger his heartburn such as tobacco use, alcohol use and eating and drinking prior to bed Have suggested the patient to use Gaviscon as needed or Pepcid as needed for breakthrough reflux at home No plan for endoscopy at this time Prior EGD report reviewed Patient okay for discharge to home if symptomatically improved for follow-up with gastroenterology
--- NOTE | 2018-07-13 11:14 | P.HPIM ---
History of Present Illness H&P Date: 07/11/18 Chief Complaint: Severe abdominal pain This is a history and physical on a 53-year-old white male who has been in the hospital intermittent either monthly or every other month for the last 6 months complaining of abdominal pain. He struggles with DJD elements and has opiate dependence issues. However, he complains today of significant abdominal pain. Usually he states it is relieved with GI type cocktail but this did not help him at this visit and he is somewhat concerned. No overt dietary changes stated today. No hematemesis or hematochezia. No melena is stated. Review of Systems Constitutional: Denies chills, Denies fever Eyes: denies blurred vision, denies pain Ears, nose, mouth and throat: Denies headache, Denies sore throat Cardiovascular: Denies chest pain, Denies shortness of breath Gastrointestinal: Reports abdominal pain Musculoskeletal: Denies myalgias Past Medical History Past Medical History: Atrial Fibrillation, GERD/Reflux, Hypertension, Osteoarthritis (OA) Additional Past Medical History / Comment(s): severe GERD, DJD. History of Any Multi-Drug Resistant Organisms: None Reported Past Surgical History: Appendectomy, Cholecystectomy, Hernia Repair, Joint Replacement, Orthopedic Surgery Additional Past Surgical History / Comment(s): 12/07/14 Total R Hip replacement, RIGHT KNEE SCOPE, umbilical hernia, EGD Past Anesthesia/Blood Transfusion Reactions: No Reported Reaction Smoking Status: Current every day smoker - Past Family History Father Family Medical History: Coronary Artery Disease (CAD), Diabetes Mellitus, Myocardial Infarction ([place]) Additional Family Medical History / Comment(s): Father has at the age of 74 yrs of a [place]. He had 2 Cabg's Mother Family Medical History: Coronary Artery Disease (CAD), Diabetes Mellitus, Musculoskeletal Disorder, Neurologic Disorder Additional Family Medical History / Comment(s): Mother is . She at age 64 yrs. She had a cabg and multiple sclerosis Brother(s) Family Medical History: AFIB Additional Family Medical History / Comment(s): Pt has another brother with CAD and MIs Medications and Allergies Home Medications Medication Instructions Recorded Confirmed Type Hydrocodone/Acetaminophen [[place] 1 tab PO TID 12/17/16 07/11/18 History 5-325] Naproxen Sodium [Aleve] 440 mg PO Q12HR PRN 07/10/18 07/11/18 History Warfarin Sodium 5 mg PO DAILY 07/10/18 07/11/18 History Allergies Allergy/AdvReac Type Severity Reaction Status Date / Time No Known Allergies Allergy Verified 07/10/18 21:00 Physical Exam - Constitutional General appearance: no acute distress - EENT Eyes: EOMI - Neck Neck: no lymphadenopathy - Respiratory Respiratory: bilateral: CTA - Cardiovascular Rhythm: regular Heart sounds: normal: S1, S2 Abnormal Heart Sounds: no S3 Gallop - Gastrointestinal General gastrointestinal: tenderness Localized gastrointestinal: tender: epigastric periumbilical - Integumentary Integumentary: cellulitis - Neurologic Neurologic: CNII-XII intact - Musculoskeletal Musculoskeletal: generalized weakness Results CBC & Chem 7: 07/10/18 21:30 07/10/18 21:30 Thrombosis Risk Factor Assmnt - Choose All That Apply Each Factor Represents 1 point: Age 41-60 years Thrombosis Risk Factor Assessment Total Risk Factor Score: 1 Thrombosis Risk Factor Assessment Level: Low Risk Assessment and Plan (1) Abdominal pain Status: Acute Code(s): R10.9 - UNSPECIFIED ABDOMINAL PAIN SNOMED Code(s): 67560220 (2) S/P appendectomy Status: Acute Code(s): Z90.49 - ACQUIRED ABSENCE OF OTHER SPECIFIED PARTS OF DIGESTIVE TRACT SNOMED Code(s): 957908238 (3) Status post hip replacement Status: Acute Code(s): Z96.649 - PRESENCE OF UNSPECIFIED ARTIFICIAL HIP JOINT SNOMED Code(s): 528634034 Plan: Symptomatic control with PPI. Observe and appropriate pain control intermittently. GI consultation is pending. Question need for EGD while admitted. He See orders otherwise. Prognosis is guarded
--- NOTE | 2018-07-13 11:15 | P.DS ---
Providers Date of admission: 07/10/18 22:56 Expected date of discharge: 07/11/18 Attending physician: Aaron Loja Consults: 07/10/18 22:56 Consult Physician Urgent Consulting Provider: Carlton Alonso Consult Reason/Comments: Gastroesophageal reflux, abdominal pain Do you want consulting provider notified?: Yes Primary care physician: Aaron Loja - Discharge Diagnosis(es) (1) Abdominal pain Status: Acute (2) S/P appendectomy Status: Acute (3) Status post hip replacement Status: Acute Hospital Course: This is discharge summary 53-year-old white male centimeter for reflux esophagitis. The patient was stabilized with appropriate IV fluid and PPI medication. GI was consulted and ended up to follow as an outpatient. The patient might still need an EGD but Lysol changes and modifications were discussed with the patient. The patient is discharged tolerating diet and to follow-up with me in about 1 week. Patient Condition at Discharge: Stable Plan - Discharge Summary New Discharge Prescriptions: No Action Hydrocodone/Acetaminophen [[place] 5-325] 1 tab PO TID Warfarin Sodium 5 mg PO DAILY Naproxen Sodium [Aleve] 440 mg PO Q12HR PRN PRN Reason: Pain Discharge Medication List Hydrocodone/Acetaminophen [[place] 5-325] 1 tab PO TID 12/17/16 [History] Naproxen Sodium [Aleve] 440 mg PO Q12HR PRN 07/10/18 [History] Warfarin Sodium 5 mg PO DAILY 07/10/18 [History] Follow up Appointment(s)/Referral(s): Aaron Loja MD [Primary Care Provider] - 1-2 days Patient Instructions/Handouts: Gastroesophageal Reflux Disease (DC) Discharge Disposition: HOME SELF-CARE
== END 2018-07-11 18:30 | disposition home or self-care (01) ==
LOC: EC 20:15 → 1SOBS 22:56
PROVIDERS: ADMIT Family Medicine; ATTEND Family Medicine
DX: K21.0 Gastro-esophageal reflux disease with esophagitis (principal); I48.91 Unspecified atrial fibrillation; M19.90 Unspecified osteoarthritis, unspecified site; F11.20 Opioid dependence, uncomplicated; I10 Essential (primary) hypertension; Z96.641 Presence of right artificial hip joint; F17.210 Nicotine dependence, cigarettes, uncomplicated; Z90.49 Acquired absence of other specified parts of digestive tract; Z82.49 Family history of ischemic heart disease and other diseases of the circulatory system; Z79.01 Long term (current) use of anticoagulants; Z82.0 Family history of epilepsy and other diseases of the nervous system; Z83.3 Family history of diabetes mellitus; Z79.899 Other long term (current) drug therapy
CPT/HCPCS: 96361 ×3; 96376; 96374; 96375 ×2; 99285; 36415; 93005; 80053; 82150; 83690; 84484; 85025; 80306; G0378 ×2; G0480; J2060 ×2; J3360; J2405 ×2; J0131; C9113 ×2; 80320

== ENCOUNTER 2018-09-13 19:33 | Emergency (ER) | payer OTHER ==
[2018-09-13] MEDS ORDERED: ASPIRIN 81 MG PO STA (20:05)
[2018-09-13] MEDS ORDERED: SODIUM CHLORIDE 0.9% 1,000 ML IV STA ×2 (20:05→22:09)
[2018-09-13] MEDS ORDERED: MAG HYDROX/AL HYDROX/SIMETH 30 ML, HYOSCYAMINE ELIXIR 10 ML, CIMETIDINE HCL 300 MG, LID... PO STA ×4 (20:06)
[2018-09-13] MEDS ORDERED: MORPHINE SULFATE 4 MG/ML SYRINGE IVP STA (20:06)
[2018-09-13] MEDS ORDERED: ONDANSETRON 4 MG/2 ML VIAL IVP STA (20:06)
[2018-09-13] MEDS ORDERED: FAMOTIDINE 20 MG/2 ML VIAL IV STA (20:08)
[2018-09-13 20:34] LABS: Basophils % (A) 0 %; Eosinophils % (A) 0 %; Lymphocytes # (A) 0.6 k/uL (1.0-4.8); Lymphocytes % (A) 10 %; MCHC 33.6 g/dL (31.0-37.0); MCV 95.3 fL (80.0-100.0); Monocytes # (A) 0.3 k/uL (0-1.0); Monocytes % (A) 5 %; Neutrophils # (A) 5.2 k/uL (1.3-7.7); Neutrophils % (A) 84 %; Platelet Count 216 k/uL (150-450); RBC 5.66 m/uL (4.30-5.90); RDW 12.2 % (11.5-15.5); WBC 6.2 k/uL (3.8-10.6)
[2018-09-13 20:41] LABS: HGB 18.1 gm/dL (13.0-17.5)
[2018-09-13 20:42] LABS: INR 0.9 (<1.2); Partial Thromboplastin Time 24.2 sec (22.0-30.0); Prothrombin Time 10.2 sec (9.0-12.0)
[2018-09-13 20:46] LABS: ALT 40 U/L (21-72); AST 34 U/L (17-59); Albumin 4.9 g/dL (3.5-5.0); Alkaline Phosphatase 102 U/L (38-126); Amylase 46 U/L (30-110); Anion Gap 14 mmol/L; Blood Urea Nitrogen 15 mg/dL (9-20); Carbon Dioxide 28 mmol/L (22-30); Chloride 96 mmol/L (98-107); Glucose 160 mg/dL (74-99); Lipase 127 U/L (23-300); Magnesium 2.4 mg/dL (1.6-2.3); Potassium 3.6 mmol/L (3.5-5.1); Sodium 138 mmol/L (137-145); Total Bilirubin 1.2 mg/dL (0.2-1.3); Total Protein 7.8 g/dL (6.3-8.2)
[2018-09-13 21:02] LABS: Creatine Kinase MB 3.4 ng/mL (0.0-2.4); Troponin I 0.02 ng/mL (0.000-0.034)
[2018-09-13] MEDS ORDERED: METOCLOPRAMIDE 5 MG/ML 2 ML VIAL IVP STA (21:35)
[2018-09-13] MEDS ORDERED: diphenhydrAMINE 50 MG/ML 1 ML VIAL IVP STA (21:35)
--- NOTE | 2018-09-13 21:41 | ED ---
General Adult HPI - General Chief complaint: Nausea/Vomiting/Diarrhea Stated complaint: Vomiting Time Seen by Provider: 09/13/18 19:57 Source: patient, RN notes reviewed Mode of arrival: ambulatory Limitations: no limitations - History of Present Illness Initial comments: 53-year-old male with a past medical history of hypertension, atrial fibrillation, GERD presents to the emergency department for a chief complaint of vomiting and epigastric pain 12 hours. Patient states this started last night. Patient states he has vomited once since this began. Patient states this is consistent with past episodes of GERD. He states this is sometimes worsened by food but not always. Patient denies any radiating back arm or jaw pain. He denies any chest pain or shortness of breath. Patient has no other complaints at this time including shortness of breath, chest pain, abdominal pain, nausea or vomiting, headache, or visual changes. - Related Data Home Medications Medication Instructions Recorded Confirmed Hydrocodone/Acetaminophen [[place] 1 tab PO TID 12/17/16 07/11/18 5-325] Naproxen Sodium [Aleve] 440 mg PO Q12HR PRN 07/10/18 07/11/18 Warfarin Sodium 5 mg PO DAILY 07/10/18 07/11/18 Previous Rx's Medication Instructions Recorded Famotidine [Pepcid] 20 mg PO BID #20 tablet 09/13/18 Allergies Allergy/AdvReac Type Severity Reaction Status Date / Time No Known Allergies Allergy Verified 09/13/18 19:37 Review of Systems ROS Statement: Those systems with pertinent positive or pertinent negative responses have been documented in the HPI. ROS Other: All systems not noted in ROS Statement are negative. Past Medical History Past Medical History: Atrial Fibrillation, GERD/Reflux, Hypertension, Osteoarthritis (OA) Additional Past Medical History / Comment(s): severe GERD, DJD. History of Any Multi-Drug Resistant Organisms: None Reported Past Surgical History: Appendectomy, Cholecystectomy, Hernia Repair, Joint Replacement, Orthopedic Surgery Additional Past Surgical History / Comment(s): 12/07/14 Total R Hip replacement, RIGHT KNEE SCOPE, umbilical hernia, EGD Past Anesthesia/Blood Transfusion Reactions: No Reported Reaction Past Psychological History: Anxiety Smoking Status: Current every day smoker Past Alcohol Use History: None Reported, Occasional Past Drug Use History: None Reported - Past Family History Father Family Medical History: Coronary Artery Disease (CAD), Diabetes Mellitus, Myocardial Infarction ([place]) Additional Family Medical History / Comment(s): Father has at the age of 74 yrs of a [place]. He had 2 Cabg's Mother Family Medical History: Coronary Artery Disease (CAD), Diabetes Mellitus, Musculoskeletal Disorder, Neurologic Disorder Additional Family Medical History / Comment(s): Mother is . She at age 64 yrs. She had a cabg and multiple sclerosis Brother(s) Family Medical History: AFIB Additional Family Medical History / Comment(s): Pt has another brother with CAD and MIs General Exam Limitations: no limitations General appearance: alert, in no apparent distress Head exam: Present: atraumatic, normocephalic, normal inspection Eye exam: Present: normal appearance, PERRL, EOMI. Absent: scleral icterus, conjunctival injection, periorbital swelling ENT exam: Present: normal exam, normal oropharynx, mucous membranes moist, TM's normal bilaterally, normal external ear exam Neck exam: Present: normal inspection, full ROM. Absent: tenderness, meningismus, lymphadenopathy Respiratory exam: Present: normal lung sounds bilaterally. Absent: respiratory distress, wheezes, rales, rhonchi, stridor Cardiovascular Exam: Present: regular rate, normal rhythm, normal heart sounds. Absent: systolic murmur, diastolic murmur, rubs, gallop, clicks GI/Abdominal exam: Present: soft, tenderness (Very minimal epigastric tenderness , no right upper quadrant tenderness. Negative Scott sign. No left upper quadrant tenderness. No lower abdominal tenderness.), normal bowel sounds. Absent: distended, guarding, rebound, rigid Neurological exam: Present: alert, oriented X3, CN II-XII intact Psychiatric exam: Present: normal affect, normal mood Course Vital Signs 09/13/18 09/13/18 09/13/18 19:35 21:35 22:18 Temperature 98.5 F 98.6 F Pulse Rate 70 70 86 Respiratory 18 16 19 Rate Blood Pressure 151/98 124/84 O2 Sat by Pulse 98 95 97 Oximetry 09/13/18 22:52 Temperature Pulse Rate 108 H Respiratory 18 Rate Blood Pressure 128/91 O2 Sat by Pulse 95 Oximetry EKG Findings - EKG Comments: EKG Findings:: EKG shows atrial fibrillation, ventricular rate 105, QRS duration 88, QTc 478 Medical Decision Making - Medical Decision Making 53-year-old male with a past medical history of GERD, hypertension presents to the emergency department for a chief complaint of epigastric pain and vomiting 12 hours. Patient has vomited once at home. He denies vomiting any blood. Exam is unremarkable. Patient is well-appearing. He has very minimal epigastric tenderness, no other abdominal tenderness noted. Vitals are within acceptable limits. CBC and CMP are generally unremarkable. CBC does show a hemoglobin of 18.1, patient is likely dehydrated. He was given 2 L of fluids. Cardiac workup was also initiated. Troponin within normal limits. EKG does not show any ST elevation or depression. It does show atrial fibrillation which patient has a history of and currently takes Coumadin. INR 0.9, patient will follow up with primary care for this, which was discussed. Amylase and lipase are negative. I did not patient did have a chest and abdominal x-ray which she refuses. He states he does not have insurance right now. Patient states he does not want to stay in the hospital either. Patient was given multiple pain medications and antiemetics. He was reevaluated at discharge as well as multiple times for his stay and is feeling better. Patient is sleeping comfortably at discharge and is feeling ready to go home. Symptoms have improved significantly. Patient did see GI 2 months ago on the hospital and was currently taking omeprazole. He was also told in the past he needs a Jocelyne fundoplication. Patient will follow up outpatient with GI. Referral given. He will also follow up with primary and return if he has any worsening symptoms which he understands. - Lab Data Result diagrams: 09/13/18 19:58 09/13/18 19:58 Lab Results 09/13/18 09/13/18 09/13/18 Range/Units 19:58 19:58 19:58 WBC 6.2 (3.8-10.6) k/uL RBC 5.66 (4.30-5.90) m/uL Hgb 18.1 H D (13.0-17.5) gm/dL Hct 54.0 H (39.0-53.0) % MCV 95.3 (80.0-100.0) fL MCH 32.0 (25.0-35.0) pg MCHC 33.6 (31.0-37.0) g/dL RDW 12.2 (11.5-15.5) % Plt Count 216 (150-450) k/uL Neutrophils % 84 % Lymphocytes % 10 % Monocytes % 5 % Eosinophils % 0 % Basophils % 0 % Neutrophils # 5.2 (1.3-7.7) k/uL Lymphocytes # 0.6 L (1.0-4.8) k/uL Monocytes # 0.3 (0-1.0) k/uL Eosinophils # 0.0 (0-0.7) k/uL Basophils # 0.0 (0-0.2) k/uL PT (9.0-12.0) sec INR (<1.2) APTT (22.0-30.0) sec Sodium 138 (137-145) mmol/L Potassium 3.6 (3.5-5.1) mmol/L Chloride 96 L (98-107) mmol/L Carbon Dioxide 28 (22-30) mmol/L Anion Gap 14 mmol/L BUN 15 (9-20) mg/dL Creatinine 0.76 (0.66-1.25) mg/dL Est GFR (CKD-EPI)AfAm >90 (>60 ml/min/1.73 sqM) Est GFR (CKD-EPI)NonAf >90 (>60 ml/min/1.73 sqM) Glucose 160 H (74-99) mg/dL Calcium 10.0 (8.4-10.2) mg/dL Magnesium 2.4 H (1.6-2.3) mg/dL Total Bilirubin 1.2 (0.2-1.3) mg/dL AST 34 (17-59) U/L ALT 40 (21-72) U/L Alkaline Phosphatase 102 (38-126) U/L Total Creatine Kinase 170 (55-170) U/L CK-MB (CK-2) 3.4 H (0.0-2.4) ng/mL CK-MB (CK-2) Rel Index 2.0 Troponin I 0.020 (0.000-0.034) ng/mL Total Protein 7.8 (6.3-8.2) g/dL Albumin 4.9 (3.5-5.0) g/dL Amylase 46 (30-110) U/L Lipase 127 (23-300) U/L 09/13/ Range/Units 19:58 WBC (3.8-10.6) k/uL RBC (4.30-5.90) m/uL Hgb (13.0-17.5) gm/dL Hct (39.0-53.0) % MCV (80.0-100.0) fL MCH (25.0-35.0) pg MCHC (31.0-37.0) g/dL RDW (11.5-15.5) % Plt Count (150-450) k/uL Neutrophils % % Lymphocytes % % Monocytes % % Eosinophils % % Basophils % % Neutrophils # (1.3-7.7) k/uL Lymphocytes # (1.0-4.8) k/uL Monocytes # (0-1.0) k/uL Eosinophils # (0-0.7) k/uL Basophils # (0-0.2) k/uL PT 10.2 (9.0-12.0) sec INR 0.9 (<1.2) APTT 24.2 (22.0-30.0) sec Sodium (137-145) mmol/L Potassium (3.5-5.1) mmol/L Chloride (98-107) mmol/L Carbon Dioxide (22-30) mmol/L Anion Gap mmol/L BUN (9-20) mg/dL Creatinine (0.66-1.25) mg/dL Est GFR (CKD-EPI)AfAm (>60 ml/min/1.73 sqM) Est GFR (CKD-EPI)NonAf (>60 ml/min/1.73 sqM) Glucose (74-99) mg/dL Calcium (8.4-10.2) mg/dL Magnesium (1.6-2.3) mg/dL Total Bilirubin (0.2-1.3) mg/dL AST (17-59) U/L ALT (21-72) U/L Alkaline Phosphatase (38-126) U/L Total Creatine Kinase (55-170) U/L CK-MB (CK-2) (0.0-2.4) ng/mL CK-MB (CK-2) Rel Index Troponin I (0.000-0.034) ng/mL Total Protein (6.3-8.2) g/dL Albumin (3.5-5.0) g/dL Amylase (30-110) U/L Lipase (23-300) U/L Disposition Clinical Impression: Vomiting Disposition: HOME SELF-CARE Condition: Good Instructions: Gastroesophageal Reflux Disease (ED), Acute Nausea and Vomiting ( ED) Additional Instructions: Please take Pepcid as directed. Please follow up with GI specialist in 1-2 days. Please follow up with primary care. Return to the emergency department if you have any worsening symptoms. Prescriptions: Famotidine [Pepcid] 20 mg PO BID #20 tablet Is patient prescribed a controlled substance at d/c from ED?: No Referrals: Aaron Loja MD [Primary Care Provider] - 1-2 days Megan Scales MD [STAFF PHYSICIAN] - 1-2 days Time of Disposition: 23:42
[2018-09-13 21:46] VITALS: TEMP 98.6
[2018-09-13] MEDS ORDERED: KETOROLAC 30 MG/ML 1 ML VIAL IVP STA (22:09)
[2018-09-13] MEDS ORDERED: cloNIDine HCL 0.1 MG TAB PO STA (22:22)
[2018-09-14 00:05] VITALS: BP 124/84; PULSE 70; RESP 16
== END 2018-09-14 00:02 | disposition home or self-care (01) ==
LOC: EC 19:33
DX: R11.10 Vomiting, unspecified (principal); R10.13 Epigastric pain; I48.91 Unspecified atrial fibrillation; I10 Essential (primary) hypertension; M19.90 Unspecified osteoarthritis, unspecified site; F17.200 Nicotine dependence, unspecified, uncomplicated; Z79.01 Long term (current) use of anticoagulants; Z79.899 Other long term (current) drug therapy; Z96.641 Presence of right artificial hip joint
CPT/HCPCS: 36415; 93005; 80053; 82150; 82550; 82553; 83690; 83735; 84484; 85025; 85610; 85730; 99284; 96374; 96375 ×5; 96361 ×2; J2270; J1200; J2765; J2405; J1885

== ENCOUNTER 2018-09-15 11:58 | Observation (INO) | payer OTHER ==
[2018-09-15] MEDS ORDERED: SODIUM CHLORIDE 0.9% 1,000 ML IV STA (12:33)
[2018-09-15] MEDS ORDERED: METOCLOPRAMIDE 5 MG/ML 2 ML VIAL IVP STA (12:33)
[2018-09-15] MEDS ORDERED: LORazepam 2 MG/ML INJ IV STA (12:34)
--- NOTE | 2018-09-15 12:35 | ED ---
General Adult HPI - General Chief complaint: Abdominal Pain Stated complaint: Gerd Time Seen by Provider: 09/15/18 12:27 Source: patient, RN notes reviewed, old records reviewed (Patient does have multiple previous CT scans of the abdomen and pelvis.) Mode of arrival: ambulatory Limitations: no limitations - History of Present Illness Initial comments: Patient is a pleasant 53-year-old male presenting to the emergency Department with abdominal discomfort. Patient states this is a chronic problem for him. Patient states onset of symptoms was again this morning. Patient has had nausea with a couple episodes of vomiting. Patient remains nauseated. No constipation or diarrhea. No fever. Symptoms are similar to his chronic problem. Patient relates his symptoms somewhat alcohol use. Patient states he has not had alcohol in over 24 hours now. - Related Data Home Medications Medication Instructions Recorded Confirmed Cyclobenzaprine [Flexeril] 10 mg PO BID 09/15/18 09/15/18 Famotidine [Pepcid] 40 mg PO HS 09/15/18 09/15/18 HYDROcodone/APAP 7.5-325MG [[place] 1 tab PO Q6H 09/15/18 09/15/18 7.5-325] Warfarin Sodium 6 mg PO DAILY 09/15/18 09/15/18 Allergies Allergy/AdvReac Type Severity Reaction Status Date / Time No Known Allergies Allergy Verified 09/15/18 13:05 Review of Systems ROS Statement: Those systems with pertinent positive or pertinent negative responses have been documented in the HPI. ROS Other: All systems not noted in ROS Statement are negative. Constitutional: Denies: fever Eyes: Denies: eye pain ENT: Denies: ear pain Respiratory: Denies: cough Cardiovascular: Denies: chest pain Endocrine: Denies: fatigue Gastrointestinal: Reports: abdominal pain, nausea, vomiting. Denies: diarrhea, constipation Genitourinary: Denies: dysuria Musculoskeletal: Denies: back pain Skin: Denies: rash Neurological: Denies: weakness Past Medical History Past Medical History: Atrial Fibrillation, GERD/Reflux, Hypertension, Osteoarthritis (OA) Additional Past Medical History / Comment(s): severe GERD, DJD. History of Any Multi-Drug Resistant Organisms: None Reported Past Surgical History: Appendectomy, Cholecystectomy, Hernia Repair, Joint Replacement, Orthopedic Surgery Additional Past Surgical History / Comment(s): 12/07/14 Total R Hip replacement, RIGHT KNEE SCOPE, umbilical hernia, EGD Past Anesthesia/Blood Transfusion Reactions: No Reported Reaction Past Psychological History: Anxiety Smoking Status: Current every day smoker Past Alcohol Use History: None Reported, Occasional Past Drug Use History: None Reported - Past Family History Father Family Medical History: Coronary Artery Disease (CAD), Diabetes Mellitus, Myocardial Infarction ([place]) Additional Family Medical History / Comment(s): Father has at the age of 74 yrs of a [place]. He had 2 Cabg's Mother Family Medical History: Coronary Artery Disease (CAD), Diabetes Mellitus, Musculoskeletal Disorder, Neurologic Disorder Additional Family Medical History / Comment(s): Mother is . She at age 64 yrs. She had a cabg and multiple sclerosis Brother(s) Family Medical History: AFIB Additional Family Medical History / Comment(s): Pt has another brother with CAD and MIs General Exam Limitations: no limitations General appearance: alert, in no apparent distress Head exam: Present: atraumatic Eye exam: Present: normal appearance, PERRL ENT exam: Present: normal oropharynx Neck exam: Present: normal inspection Respiratory exam: Present: normal lung sounds bilaterally Cardiovascular Exam: Present: regular rate, normal rhythm Expanded Peripheral pulses: 2+: Dorsalis Pedis (R), Dorsalis Pedis (L) GI/Abdominal exam: Present: soft, normal bowel sounds. Absent: distended, tenderness, guarding, rebound, rigid, pulsatile mass Extremities exam: Present: normal inspection Neurological exam: Present: alert Psychiatric exam: Present: normal affect, normal mood Skin exam: Present: normal color Course Vital Signs 09/15/18 09/15/18 09/15/18 12:04 14:00 14:22 Temperature 98.2 F Pulse Rate 110 H 84 88 Respiratory 24 18 Rate Blood Pressure 210/102 191/94 164/110 O2 Sat by Pulse 99 95 95 Oximetry 09/15/18 09/15/18 09/15/18 14:30 15:00 15:21 Temperature 98.4 F Pulse Rate 81 97 81 Respiratory 20 Rate Blood Pressure 164/110 171/108 O2 Sat by Pulse 99 99 Oximetry 09/15/18 15:47 Temperature Pulse Rate Respiratory Rate Blood Pressure 169/119 O2 Sat by Pulse Oximetry - Reevaluation(s) Reevaluation #1: 09/15/18 13:54 Patient has refused abdominal imaging Medical Decision Making - Medical Decision Making Patient reevaluated and resting comfortably in bed. Patient states he does not feel any better however. Despite 2 doses of Trandate blood pressure remains 157 /121. Dr. Loja has been paged for admission. - Lab Data Result diagrams: 09/15/18 13:19 09/15/18 13:19 Lab Results 09/15/18 09/15/18 09/15/18 Range/Units 13:19 13:19 13:19 WBC 7.7 (3.8-10.6) k/uL RBC 5.15 (4.30-5.90) m/uL Hgb 16.7 (13.0-17.5) gm/dL Hct 49.1 (39.0-53.0) % MCV 95.4 (80.0-100.0) fL MCH 32.4 (25.0-35.0) pg MCHC 34.0 (31.0-37.0) g/dL RDW 12.1 (11.5-15.5) % Plt Count 185 (150-450) k/uL Neutrophils % 86 % Lymphocytes % 8 % Monocytes % 5 % Eosinophils % 0 % Basophils % 0 % Neutrophils # 6.6 (1.3-7.7) k/uL Lymphocytes # 0.6 L (1.0-4.8) k/uL Monocytes # 0.4 (0-1.0) k/uL Eosinophils # 0.0 (0-0.7) k/uL Basophils # 0.0 (0-0.2) k/uL PT 10.0 (9.0-12.0) sec INR 0.9 (<1.2) APTT 23.8 (22.0-30.0) sec Sodium 138 (137-145) mmol/L Potassium 4.0 (3.5-5.1) mmol/L Chloride 99 (98-107) mmol/L Carbon Dioxide 30 (22-30) mmol/L Anion Gap 9 mmol/L BUN 15 (9-20) mg/dL Creatinine 0.64 L (0.66-1.25) mg/dL Est GFR (CKD-EPI)AfAm >90 (>60 ml/min/1.73 sqM) Est GFR (CKD-EPI)NonAf >90 (>60 ml/min/1.73 sqM) Glucose 145 H (74-99) mg/dL Calcium 9.2 (8.4-10.2) mg/dL Total Bilirubin 1.4 H (0.2-1.3) mg/dL AST 40 (17-59) U/L ALT 25 (21-72) U/L Alkaline Phosphatase 69 (38-126) U/L Total Protein 7.5 (6.3-8.2) g/dL Albumin 4.6 (3.5-5.0) g/dL Amylase 37 (30-110) U/L Lipase 131 (23-300) U/L Urine Color Urine Appearance (Clear) Urine pH (5.0-8.0) Ur Specific [place] (1.001-1.035) Urine Protein (Negative) Urine Glucose (UA) (Negative) Urine Ketones (Negative) Urine Blood (Negative) Urine Nitrite (Negative) Urine Bilirubin (Negative) Urine Urobilinogen (<2.0) mg/dL Ur Leukocyte Esterase (Negative) Ur Squamous Epith Cells (0-4) /hpf Amorphous Sediment (None) /hpf Urine Mucus (None) /hpf 09/15/18 Range/Units 15:50 WBC (3.8-10.6) k/uL RBC (4.30-5.90) m/uL Hgb (13.0-17.5) gm/dL Hct (39.0-53.0) % MCV (80.0-100.0) fL MCH (25.0-35.0) pg MCHC (31.0-37.0) g/dL RDW (11.5-15.5) % Plt Count (150-450) k/uL Neutrophils % % Lymphocytes % % Monocytes % % Eosinophils % % Basophils % % Neutrophils # (1.3-7.7) k/uL Lymphocytes # (1.0-4.8) k/uL Monocytes # (0-1.0) k/uL Eosinophils # (0-0.7) k/uL Basophils # (0-0.2) k/uL PT (9.0-12.0) sec INR (<1.2) APTT (22.0-30.0) sec Sodium (137-145) mmol/L Potassium (3.5-5.1) mmol/L Chloride (98-107) mmol/L Carbon Dioxide (22-30) mmol/L Anion Gap mmol/L BUN (9-20) mg/dL Creatinine (0.66-1.25) mg/dL Est GFR (CKD-EPI)AfAm (>60 ml/min/1.73 sqM) Est GFR (CKD-EPI)NonAf (>60 ml/min/1.73 sqM) Glucose (74-99) mg/dL Calcium (8.4-10.2) mg/dL Total Bilirubin (0.2-1.3) mg/dL AST (17-59) U/L ALT (21-72) U/L Alkaline Phosphatase (38-126) U/L Total Protein (6.3-8.2) g/dL Albumin (3.5-5.0) g/dL Amylase (30-110) U/L Lipase (23-300) U/L Urine Color Yellow Urine Appearance Turbid (Clear) Urine pH 8.5 H (5.0-8.0) Ur Specific [place] 1.012 (1.001-1.035) Urine Protein 1+ H (Negative) Urine Glucose (UA) Negative (Negative) Urine Ketones Negative (Negative) Urine Blood Negative (Negative) Urine Nitrite Negative (Negative) Urine Bilirubin Negative (Negative) Urine Urobilinogen <2.0 (<2.0) mg/dL Ur Leukocyte Esterase Negative (Negative) Ur Squamous Epith Cells <1 (0-4) /hpf Amorphous Sediment Few H (None) /hpf Urine Mucus Rare H (None) /hpf Disposition Clinical Impression: Hypertensive urgency Disposition: ADMITTED IP TO THIS HOSP Is patient prescribed a controlled substance at d/c from ED?: No Referrals: Aaron Loja MD [Primary Care Provider] - 1-2 days Decision Time: 16:44
[2018-09-15 14:03] LABS: Basophils % (A) 0 %; Eosinophils % (A) 0 %; HCT 49.1 % (39.0-53.0); HGB 16.7 gm/dL (13.0-17.5); Lymphocytes # (A) 0.6 k/uL (1.0-4.8); Lymphocytes % (A) 8 %; MCH 32.4 pg (25.0-35.0); MCV 95.4 fL (80.0-100.0); Mean Platelet Volume 8.4; Monocytes # (A) 0.4 k/uL (0-1.0); Monocytes % (A) 5 %; Neutrophils # (A) 6.6 k/uL (1.3-7.7); Neutrophils % (A) 86 %; Platelet Count 185 k/uL (150-450); RBC 5.15 m/uL (4.30-5.90); RDW 12.1 % (11.5-15.5); WBC 7.7 k/uL (3.8-10.6)
[2018-09-15 14:10] LABS: INR 0.9 (<1.2); Partial Thromboplastin Time 23.8 sec (22.0-30.0)
[2018-09-15 14:12] LABS: ALT 25 U/L (21-72); AST 40 U/L (17-59); Albumin 4.6 g/dL (3.5-5.0); Alkaline Phosphatase 69 U/L (38-126); Amylase 37 U/L (30-110); Anion Gap 9 mmol/L; Blood Urea Nitrogen 15 mg/dL (9-20); Calcium 9.2 mg/dL (8.4-10.2); Carbon Dioxide 30 mmol/L (22-30); Chloride 99 mmol/L (98-107); Glucose 145 mg/dL (74-99); Lipase 131 U/L (23-300); Sodium 138 mmol/L (137-145); Total Bilirubin 1.4 mg/dL (0.2-1.3); Total Protein 7.5 g/dL (6.3-8.2)
[2018-09-15] MEDS ORDERED: MAG HYDROX/AL HYDROX/SIMETH 30 ML, HYOSCYAMINE ELIXIR 10 ML, CIMETIDINE HCL 300 MG, LID... PO STA ×4 (14:49)
[2018-09-15] MEDS ORDERED: LABETALOL SYRINGE 5 MG/ML IVP STA ×2 (15:35→16:15)
[2018-09-15 16:01] LABS: Amorphous Sediment,Urine Few /hpf; Appearance,Urine Turbid (Clear); Bilirubin,Urine Negative (Negative); Blood,Urine Negative (Negative); Color,Urine Yellow; Glucose,Urine (UA) Negative (Negative); Ketones,Urine Negative (Negative); Leukocyte Esterase,Urine Negative (Negative); Mucus,Urine Rare /hpf; Nitrite,Urine Negative (Negative); PH, Urine 8.5 (5.0-8.0); Protein,Urine 1+ (Negative); Specific Gravity,Urine 1.012 (1.001-1.035); Squamous Epithelial Cell,Urine <1 /hpf (0-4); Urobilinogen,Urine <2.0 mg/dL (<2.0)
[2018-09-15] MEDS ORDERED: MORPHINE SULFATE 2 MG/ML SYRINGE IVP STA (16:41)
[2018-09-15] MEDS ORDERED: hydrALAZINE HCL 20 MG/ML 1 ML VIAL IVP PRN (16:42)
[2018-09-15] MEDS ORDERED: hydrALAZINE HCL 20 MG/ML 1 ML VIAL IVP STA (16:42)
[2018-09-15] MEDS ORDERED: ONDANSETRON 4 MG/2 ML VIAL IVP PRN (16:44)
[2018-09-15] MEDS ORDERED: NALOXONE 0.4 MG/ML 1 ML VIAL IV PRN (16:44)
[2018-09-15] MEDS ORDERED: MORPHINE SULFATE 4 MG/ML SYRINGE IV PRN (16:44)
[2018-09-15] MEDS ORDERED: THIAMINE 100 MG/ML 2 ML VIAL IM STA (16:54)
[2018-09-15] MEDS ORDERED: LORazepam 2 MG/ML INJ IV PRN ×3 (16:54)
[2018-09-15 16:56] VITALS: RESP 18
[2018-09-15] MEDS: SODIUM CHLORIDE 0.9% 1,000 ML IV SCH (17:03)
[2018-09-15] MEDS: PANTOPRAZOLE 40 MG/10 ML VIAL IV SCH (17:03)
--- NOTE | 2018-09-15 18:02 | CT ---
EXAMINATION TYPE: CT abdomen pelvis w con DATE OF EXAM: 09/15/2018 COMPARISON: 04/21/2018 HISTORY: Generalized abdominal pain, acid reflux. CT DLP: 1008.3 mGycm CONTRAST: CT scan of the abdomen and pelvis is performed without Oral Contrast and with IV Contrast, patient in jected with 100 mL of Isovue 300. FINDINGS: LUNG BASES-: No visible nodule. No infiltrate. LIVER/GB: No calcified gallstones. No space occupying hepatic lesion. Biliary tree is of normal ca liber. PANCREAS: No inflammation. No distinct mass. SPLEEN: No splenic enlargement. No lesion seen. ADRENALS: No nodule. No thickening. KIDNEYS/BLADDER: No hydronephrosis. No nephrolithiasis. No distinct renal mass. Urinary bladder g rossly unremarkable. BOWEL: There is fluid distention of the stomach, small bowel and large bowel felt to reflect gastro-e nterocolitis. No evidence for free air or abscess. No obstructive change. Thickening distal esophagus may be related to esophagitis. Appendectomy changes noted. GENITAL ORGANS: No gross abnormality. LYMPH NODES: No greater than 1cm abdominal or pelvic lymph nodes are appreciated. AORTA: No significant abnormality. OSSEOUS STRUCTURES: No significant abnormality is seen. OTHER: No significant additional abnormality is seen. IMPRESSION: 1. Gastroenterocolitis. 2. Probable reflux esophagitis distal esophagus.
[2018-09-15] MEDS: THIAMINE 100 MG TAB PO SCH (19:32)
[2018-09-15] MEDS ORDERED: MELATONIN 5 MG TABLET PO PRN (22:39)
[2018-09-15] MEDS ORDERED: FAMOTIDINE 20 MG TAB PO SCH (22:45)
[2018-09-15] MEDS ORDERED: WARFARIN 3 MG TAB PO SCH (22:45)
[2018-09-15] MEDS: HYDROcodone/APAP 7.5-325MG 1 EACH TAB PO SCH (23:05)
[2018-09-15] MEDS: CYCLOBENZAPRINE 10 MG TAB PO SCH (23:05)
[2018-09-16] MEDS: SODIUM CHLORIDE 0.9% 1,000 ML IV SCH (00:51)
[2018-09-16] MEDS: HYDROcodone/APAP 7.5-325MG 1 EACH TAB PO SCH ×2 (05:20→13:13)
[2018-09-16 09:41] VITALS: BP 148/96; PULSE 90; TEMP 98.3
[2018-09-16] MEDS: CYCLOBENZAPRINE 10 MG TAB PO SCH (09:44)
[2018-09-16] MEDS: PANTOPRAZOLE 40 MG/10 ML VIAL IV SCH (09:45)
--- NOTE | 2018-09-16 10:57 | P.HPIM ---
History of Present Illness 53-year-old man with a history of alcohol was in came in with severe acid reflux symptoms epigastric abdominal burning sensation all of which improved with the proton pump inhibitor. Patient alcoholic drinks about 1 pint of alcohol almost on regular basis. Patient last alcoholic drink was 2 days ago and the patient wanted to go home and doesn't believe he'll have any all call withdraws. Patient had a CAT scan of the abdomen which showed enterocolitis and gastritis esophagitis. In patient's symptomology is consistent with that. Extensive counseling regarding alcohol use was provided and patient will be discharged with Prilosec twice a day thiamine supplementation area he patient's of having withdrawals patient was asked to come back or call the primary care physician. On history. Commended patient has atrial fibrillation patient is also on Coumadin although INR is of temperature do not believe patient is taking this medication I counseled him regarding importance of taking this medication patient may have had proximal A. fib not sure whether he will actually need a anticoagulation patient is presently sinus rhythm not in A. fib. I'll let his primary care physician and retail marketing specialist address anticoagulation issue. Review of Systems REVIEW OF SYSTEMS: CONSTITUTIONAL: No fever, no malaise, no fatigue. HEENT: No recent visual problems or hearing problems. Denied any sore throat. CARDIOVASCULAR: No chest pain, orthopnea, PND, no palpitations, no syncope. PULMONARY: No shortness of breath, no cough, no hemoptysis. GASTROINTESTINAL: As mentioned in HPI NEUROLOGICAL: No headaches, no weakness, no numbness. HEMATOLOGICAL: Denies any bleeding or petechiae. GENITOURINARY: Denies any burning micturition, frequency, or urgency. MUSCULOSKELETAL/RHEUMATOLOGICAL: Denies any joint pain, swelling, or any muscle pain. ENDOCRINE: Denies any polyuria or polydipsia. The rest of the 14-point review of systems is negative. Past Medical History Past Medical History: Atrial Fibrillation, GERD/Reflux, Hypertension, Osteoarthritis (OA) Additional Past Medical History / Comment(s): severe GERD, DJD. History of Any Multi-Drug Resistant Organisms: None Reported Past Surgical History: Appendectomy, Cholecystectomy, Hernia Repair, Joint Replacement, Orthopedic Surgery Additional Past Surgical History / Comment(s): 12/07/14 Total R Hip replacement, RIGHT KNEE SCOPE, umbilical hernia, EGD Past Anesthesia/Blood Transfusion Reactions: No Reported Reaction Additional Past Anesthesia/Blood Transfusion Reaction / Comment(s): "has never received any blood" Smoking Status: Current every day smoker - Past Family History Father Family Medical History: Coronary Artery Disease (CAD), Diabetes Mellitus, Myocardial Infarction ([place]) Additional Family Medical History / Comment(s): Father has at the age of 74 yrs of a [place]. He had 2 Cabg's Mother Family Medical History: Coronary Artery Disease (CAD), Diabetes Mellitus, Musculoskeletal Disorder, Neurologic Disorder Additional Family Medical History / Comment(s): Mother is . She at age 64 yrs. She had a cabg and multiple sclerosis Brother(s) Family Medical History: AFIB Additional Family Medical History / Comment(s): Pt has another brother with CAD and MIs Medications and Allergies Home Medications Medication Instructions Recorded Confirmed Type Cyclobenzaprine [Flexeril] 10 mg PO BID 09/15/18 09/15/18 History HYDROcodone/APAP 7.5-325MG [[place] 1 tab PO Q6H 09/15/18 09/15/18 History 7.5-325] Warfarin Sodium 6 mg PO DAILY 09/15/18 09/15/18 History Omeprazole [PriLOSEC] 20 mg PO BID-W/MEALS #60 capsule. 09/16/18 Rx Thiamine [Vitamin B-1] 100 mg PO DAILY #30 tablet 09/16/18 Rx Allergies Allergy/AdvReac Type Severity Reaction Status Date / Time No Known Allergies Allergy Verified 09/15/18 13:05 Physical Exam Vitals: Vital Signs Temp Pulse Pulse Resp BP BP Pulse Ox 09/16/18 08:35 98.3 F 90 18 148/96 92 L 09/16/18 03:55 97.6 F 72 18 130/76 95 09/16/18 03:14 93 18 09/16/18 00:00 98.9 F 93 18 137/84 95 09/15/18 22:12 97 18 09/15/18 22:11 99.3 F 97 18 116/71 95 09/15/18 21:30 97 125/84 97 09/15/18 21:15 93 125/91 98 09/15/18 21:00 114 H 115/69 95 09/15/18 20:45 89 122/75 09/15/18 20:30 100 144/80 09/15/18 20:15 90 143/83 93 L 09/15/18 20:00 93 133/72 96 09/15/18 19:45 90 151/91 09/15/18 19:30 90 156/98 09/15/18 19:15 84 144/99 96 09/15/18 19:00 85 130/93 93 L 09/15/18 18:45 94 124/79 97 09/15/18 18:30 96 117/74 97 09/15/18 18:15 100 18 119/76 97 09/15/18 17:30 152/106 97 09/15/18 17:15 85 146/104 97 09/15/18 17:00 90 147/104 97 09/15/18 16:53 88 18 147/104 100 09/15/18 16:45 85 161/98 97 09/15/18 16:30 90 163/112 95 09/15/18 16:15 92 159/103 95 09/15/18 16:00 92 147/115 91 L 09/15/18 15:47 169/119 09/15/18 15:45 94 169/119 93 L 09/15/18 15:30 88 167/131 96 09/15/18 15:21 98.4 F 81 20 99 09/15/18 15:15 99 09/15/18 15:00 97 171/108 09/15/18 14:30 81 164/110 99 09/15/18 14:22 88 18 164/110 95 09/15/18 14:00 84 191/94 95 09/15/18 12:04 98.2 F 110 H 24 210/102 99 Intake and Output 09/15/18 09/16/18 09/16/18 22:59 06:59 14:59 Intake Total 80 0 Balance 80 0 Intake: IV 80 0.9 80 Oral 0 Other: Voiding Method Toilet Toilet # Voids 2 Weight 86.6 kg PHYSICAL EXAMINATION: GENERAL: The patient is alert and oriented x3, not in any acute distress. Well developed, well nourished. HEENT: Pupils are round and equally reacting to light. EOMI. No scleral icterus. No conjunctival pallor. Normocephalic, atraumatic. No pharyngeal erythema. No thyromegaly. CARDIOVASCULAR: S1 and S2 present. No murmurs, rubs, or gallops. PULMONARY: Chest is clear to auscultation, no wheezing or crackles. ABDOMEN: Soft, nontender, nondistended, normoactive bowel sounds. No palpable organomegaly. MUSCULOSKELETAL: No joint swelling or deformity. EXTREMITIES: No cyanosis, clubbing, or pedal edema. NEUROLOGICAL: Gross neurological examination did not reveal any focal deficits. SKIN: No rashes. Results CBC & Chem 7: 09/15/18 13:19 09/15/18 13:19 Labs: Abnormal Lab Results - Last 24 Hours (Table) 09/15/18 09/15/18 09/15/18 Range/Units 13:19 13:19 15:50 Lymphocytes # 0.6 L (1.0-4.8) k/uL Creatinine 0.64 L (0.66-1.25) mg/dL Glucose 145 H (74-99) mg/dL Total Bilirubin 1.4 H (0.2-1.3) mg/dL Urine pH 8.5 H (5.0-8.0) Urine Protein 1+ H (Negative) Amorphous Sediment Few H (None) /hpf Urine Mucus Rare H (None) /hpf Thrombosis Risk Factor Assmnt - Choose All That Apply Any of the Below Risk Factors Present?: Yes Each Factor Represents 1 point: Age 41-60 years Other Risk Factors: No Other congenital or acquired thrombophilia - If yes, enter type in comment: No Thrombosis Risk Factor Assessment Total Risk Factor Score: 1 Thrombosis Risk Factor Assessment Level: Low Risk Assessment and Plan Plan: -Alcoholic gastritis and enterocolitis: Patient will be discharged on Prilosec twice a day for about a month after which patient can resume Pepcid on sliding regarding alcohol use and smoking cessation was provided. -Possibly of atrial fibrillation and cannot confirm this diagnosis patient may have had proximal A. fib is not requiring any rate control medications at this time -Hypertension: Patient blood pressure was bit elevated to yesterday and today but I do not believe patient has essential hypertension in him as he has pretty much normal blood pressures earlier today morning. I will not start patient denied any antidepressants medications at this time.
--- NOTE | 2018-09-16 10:57 | P.DS ---
Providers Date of admission: 09/15/18 16:44 Attending physician: Roni Soares Primary care physician: Aaron Loja Hospital Course: Please refer to my HPI Plan - Discharge Summary Discharge Rx Participant: Yes New Discharge Prescriptions: New Omeprazole [PriLOSEC] 20 mg PO BID-W/MEALS #60 capsule. Thiamine [Vitamin B-1] 100 mg PO DAILY #30 tablet Discontinued Famotidine [Pepcid] 40 mg PO HS No Action Warfarin Sodium 6 mg PO DAILY HYDROcodone/APAP 7.5-325MG [[place] 7.5-325] 1 tab PO Q6H Cyclobenzaprine [Flexeril] 10 mg PO BID Discharge Medication List Cyclobenzaprine [Flexeril] 10 mg PO BID 09/15/18 [History] HYDROcodone/APAP 7.5-325MG [[place] 7.5-325] 1 tab PO Q6H 09/15/18 [History] Warfarin Sodium 6 mg PO DAILY 09/15/18 [History] Omeprazole [PriLOSEC] 20 mg PO BID-W/MEALS #60 capsule. 09/16/18 [Rx] Thiamine [Vitamin B-1] 100 mg PO DAILY #30 tablet 09/16/18 [Rx] Follow up Appointment(s)/Referral(s): Aaron Loja MD [Primary Care Provider] - 3 Days Discharge Disposition: HOME SELF-CARE
[2018-09-16] MEDS ORDERED: MULTIVITAMINS, THERA 1 EACH TAB PO SCH (12:00)
[2018-09-16] MEDS: THIAMINE 100 MG TAB PO SCH (13:14)
== END 2018-09-16 16:34 | disposition home or self-care (01) ==
LOC: EC 11:58 → 1SOBS 16:44 → 3SCARD 21:22
PROVIDERS: ADMIT Hospitalist; ATTEND Hospitalist
DX: I16.0 Hypertensive urgency (principal); F17.200 Nicotine dependence, unspecified, uncomplicated; K29.20 Alcoholic gastritis without bleeding; K52.89 Other specified noninfective gastroenteritis and colitis; I48.91 Unspecified atrial fibrillation; K21.0 Gastro-esophageal reflux disease with esophagitis; Z71.41 Alcohol abuse counseling and surveillance of alcoholic; Z71.6 Tobacco abuse counseling; Z96.641 Presence of right artificial hip joint; Z79.01 Long term (current) use of anticoagulants; Z82.0 Family history of epilepsy and other diseases of the nervous system; Z82.49 Family history of ischemic heart disease and other diseases of the circulatory system; Z83.3 Family history of diabetes mellitus; Z79.899 Other long term (current) drug therapy
CPT/HCPCS: 96376 ×2; 96375 ×2; 96372; 96374; 99285; 36415; 80053; 82150; 83690; 85025; 85610; 85730; 81001; 74177; G0378 ×3; J2060; J0360 ×2; J2765; J3411; J2405; J2270; C9113 ×2; Q9967

== ENCOUNTER 2018-09-24 14:25 | Emergency (ER) | payer OTHER ==
[2018-09-24] MEDS ORDERED: SODIUM CHLORIDE 0.9% 500 ML 500 ML IV STA (16:34)
[2018-09-24] MEDS ORDERED: MAG HYDROX/AL HYDROX/SIMETH 30 ML, HYOSCYAMINE ELIXIR 10 ML, CIMETIDINE HCL 300 MG PO STA ×3 (16:34)
[2018-09-24] MEDS ORDERED: MORPHINE SULFATE 4 MG/ML SYRINGE IVP STA (16:34)
[2018-09-24] MEDS ORDERED: ONDANSETRON 4 MG/2 ML VIAL IVP STA (16:34)
[2018-09-24] MEDS ORDERED: PANTOPRAZOLE 40 MG/10 ML VIAL IVP STA (16:34)
[2018-09-24] MEDS ORDERED: SUCRALFATE 1 GM TAB PO STA (16:36)
[2018-09-24 16:56] LABS: ALT 33 U/L (21-72); AST 23 U/L (17-59); Albumin 4.8 g/dL (3.5-5.0); Alkaline Phosphatase 82 U/L (38-126); Amylase 47 U/L (30-110); Anion Gap 12 mmol/L; Basophils % (A) 0 %; Blood Urea Nitrogen 17 mg/dL (9-20); Calcium 10.4 mg/dL (8.4-10.2); Carbon Dioxide 28 mmol/L (22-30); Chloride 101 mmol/L (98-107); Eosinophils # (A) 0.1 k/uL (0-0.7); Eosinophils % (A) 1 %; Glucose 140 mg/dL (74-99); HGB 18.7 gm/dL (13.0-17.5); Lipase 376 U/L (23-300); Lymphocytes # (A) 1.2 k/uL (1.0-4.8); Lymphocytes % (A) 10 %; MCH 32.5 pg (25.0-35.0); MCHC 33.7 g/dL (31.0-37.0); MCV 96.5 fL (80.0-100.0); Mean Platelet Volume 7.9; Monocytes # (A) 0.8 k/uL (0-1.0); Monocytes % (A) 7 %; Neutrophils # (A) 9.3 k/uL (1.3-7.7); Neutrophils % (A) 81 %; Platelet Count 280 k/uL (150-450); Potassium 4.8 mmol/L (3.5-5.1); RBC 5.75 m/uL (4.30-5.90); RDW 12.2 % (11.5-15.5); Sodium 141 mmol/L (137-145); Total Bilirubin 1.2 mg/dL (0.2-1.3); Total Protein 8.1 g/dL (6.3-8.2); WBC 11.5 k/uL (3.8-10.6)
[2018-09-24 16:57] LABS: HCT 55.4 % (39.0-53.0)
[2018-09-24 17:12] LABS: Creatine Kinase 35 U/L (55-170)
[2018-09-24 17:25] LABS: Creatine Kinase MB 0.8 ng/mL (0.0-2.4); Troponin I <0.012 ng/mL (0.000-0.034)
[2018-09-24 17:56] LABS: Appearance,Urine Cloudy (Clear); Bilirubin,Urine Negative (Negative); Blood,Urine Negative (Negative); Color,Urine Yellow; Glucose,Urine (UA) Negative (Negative); Hyaline Casts,Urine 25 /lpf (0-2); Ketones,Urine Negative (Negative); Leukocyte Esterase,Urine Negative (Negative); Mucus,Urine Occasional /hpf; Nitrite,Urine Negative (Negative); PH, Urine 8.5 (5.0-8.0); Protein,Urine 2+ (Negative); RBC,Urine 1 /hpf (0-5); Urobilinogen,Urine <2.0 mg/dL (<2.0); WBC,Urine 2 /hpf (0-5)
--- NOTE | 2018-09-24 17:56 | ED ---
Abdominal Pain HPI - General Chief Complaint: Abdominal Pain Stated Complaint: GERD Time Seen by Provider: 09/24/18 16:10 Source: patient, RN notes reviewed, old records reviewed Mode of arrival: ambulatory Limitations: no limitations - History of Present Illness Initial Comments: This is a 53-year-old male the ER for evaluation. Patient is today for what he describes as reflux. Patient states he has severe history of reflux disease, also does have history of chronic alcohol is an. He has no fevers no travel history no sick contacts. No nausea vomiting or diarrhea currently. Patient denies any change in symptoms. This is a similar issue that he does have when he does continue to quit drinking alleged does stop and monitoring to drink. MD Complaint: abdominal pain (Epigastric) -: days(s) (2) Location: epigastric (Mild) Radiation: epigastric Migration to: epigastric Severity: mild Severity scale (1-10): 3 Quality: aching Consistency: constant Improves With: nothing Worsens With: nothing Context: other (Alcoholism) Associated Symptoms: nausea Treatments Prior to Arrival: other (Non-) - Related Data Home Medications Medication Instructions Recorded Confirmed Cyclobenzaprine [Flexeril] 10 mg PO BID 09/15/18 09/24/18 HYDROcodone/APAP 7.5-325MG [[place] 1 tab PO Q6H PRN 09/15/18 09/24/18 7.5-325] Warfarin Sodium 6 mg PO DAILY 09/15/18 09/24/18 Famotidine [Pepcid] 40 mg PO DAILY 09/24/18 09/24/18 Allergies Allergy/AdvReac Type Severity Reaction Status Date / Time No Known Allergies Allergy Verified 09/24/18 16:26 Review of Systems ROS Statement: Those systems with pertinent positive or pertinent negative responses have been documented in the HPI. ROS Other: All systems not noted in ROS Statement are negative. Past Medical History Past Medical History: Atrial Fibrillation, GERD/Reflux, Hypertension, Osteoarthritis (OA) Additional Past Medical History / Comment(s): severe GERD, DJD. History of Any Multi-Drug Resistant Organisms: None Reported Past Surgical History: Appendectomy, Cholecystectomy, Hernia Repair, Joint Replacement, Orthopedic Surgery Additional Past Surgical History / Comment(s): 12/07/14 Total R Hip replacement, RIGHT KNEE SCOPE, umbilical hernia, EGD Past Anesthesia/Blood Transfusion Reactions: No Reported Reaction Additional Past Anesthesia/Blood Transfusion Reaction / Comment(s): "has never received any blood" Past Psychological History: Anxiety Smoking Status: Current every day smoker Past Alcohol Use History: Occasional Past Drug Use History: None Reported - Past Family History Father Family Medical History: Coronary Artery Disease (CAD), Diabetes Mellitus, Myocardial Infarction ([place]) Additional Family Medical History / Comment(s): Father has at the age of 74 yrs of a [place]. He had 2 Cabg's Mother Family Medical History: Coronary Artery Disease (CAD), Diabetes Mellitus, Musculoskeletal Disorder, Neurologic Disorder Additional Family Medical History / Comment(s): Mother is . She at age 64 yrs. She had a cabg and multiple sclerosis Brother(s) Family Medical History: AFIB Additional Family Medical History / Comment(s): Pt has another brother with CAD and MIs General Exam Limitations: no limitations General appearance: alert, in no apparent distress Head exam: Present: atraumatic, normocephalic, normal inspection Eye exam: Present: normal appearance, PERRL, EOMI. Absent: scleral icterus, conjunctival injection, periorbital swelling ENT exam: Present: normal exam, mucous membranes moist Neck exam: Present: normal inspection. Absent: tenderness, meningismus, lymphadenopathy Respiratory exam: Present: normal lung sounds bilaterally. Absent: respiratory distress, wheezes, rales, rhonchi, stridor Cardiovascular Exam: Present: regular rate, normal rhythm, normal heart sounds. Absent: systolic murmur, diastolic murmur, rubs, gallop, clicks GI/Abdominal exam: Present: soft, normal bowel sounds. Absent: distended, tenderness, guarding, rebound, rigid Extremities exam: Present: normal inspection, full ROM, normal capillary refill. Absent: tenderness, pedal edema, joint swelling, calf tenderness Back exam: Present: normal inspection Neurological exam: Present: alert, oriented X3, CN II-XII intact Psychiatric exam: Present: normal affect, normal mood Skin exam: Present: warm, dry, intact, normal color. Absent: rash Course Vital Signs 09/24/18 15:21 Temperature 98.3 F Pulse Rate 57 L Respiratory 18 Rate Blood Pressure 145/92 O2 Sat by Pulse 99 Oximetry - Reevaluation(s) Reevaluation #1: 09/24/18 17:53 Medical record is reviewed, multiple ER visits for exact similar condition Reevaluation #2: 09/24/18 17:53 Patient's admits the patient being in everyday drinker Reevaluation #3: 09/24/18 17:54 Patient refusing further imaging or testing including x-ray Reevaluation #4: 09/24/18 17:54 Patient feeling better currently, pain is resolved controlled. No current nausea vomiting Medical Decision Making - Medical Decision Making 53 male the ER for evaluation abdominal pain. Patient resents today for evaluation of persistent epigastric abdominal pain history of reflux mild pancreatitis will patient has no abdominal tenderness but no acute vomiting. Patient is currently tolerating oral intake, encouraged increased water intake and refrain from drinking alcohol. Patient can be discharged home - Lab Data Result diagrams: 09/24/18 16:15 09/24/18 16:15 Lab Results 09/24/18 09/24/18 09/24/18 Range/Units 16:15 16:15 16:15 WBC 11.5 H (3.8-10.6) k/uL RBC 5.75 (4.30-5.90) m/uL Hgb 18.7 H (13.0-17.5) gm/dL Hct 55.4 H (39.0-53.0) % MCV 96.5 (80.0-100.0) fL MCH 32.5 (25.0-35.0) pg MCHC 33.7 (31.0-37.0) g/dL RDW 12.2 (11.5-15.5) % Plt Count 280 (150-450) k/uL Neutrophils % 81 % Lymphocytes % 10 % Monocytes % 7 % Eosinophils % 1 % Basophils % 0 % Neutrophils # 9.3 H (1.3-7.7) k/uL Lymphocytes # 1.2 (1.0-4.8) k/uL Monocytes # 0.8 (0-1.0) k/uL Eosinophils # 0.1 (0-0.7) k/uL Basophils # 0.0 (0-0.2) k/uL Sodium 141 (137-145) mmol/L Potassium 4.8 (3.5-5.1) mmol/L Chloride 101 (98-107) mmol/L Carbon Dioxide 28 (22-30) mmol/L Anion Gap 12 mmol/L BUN 17 (9-20) mg/dL Creatinine 1.04 (0.66-1.25) mg/dL Est GFR (CKD-EPI)AfAm >90 (>60 ml/min/1.73 sqM) Est GFR (CKD-EPI)NonAf 81 (>60 ml/min/1.73 sqM) Glucose 140 H (74-99) mg/dL Calcium 10.4 H (8.4-10.2) mg/dL Total Bilirubin 1.2 (0.2-1.3) mg/dL AST 23 (17-59) U/L ALT 33 (21-72) U/L Alkaline Phosphatase 82 (38-126) U/L Total Creatine Kinase 35 L (55-170) U/L CK-MB (CK-2) 0.8 (0.0-2.4) ng/mL CK-MB (CK-2) Rel Index 2.3 Troponin I <0.012 (0.000-0.034) ng/mL Total Protein 8.1 (6.3-8.2) g/dL Albumin 4.8 (3.5-5.0) g/dL Amylase 47 (30-110) U/L Lipase 376 H (23-300) U/L Disposition Clinical Impression: Abdominal pain, Pancreatitis, GERD (gastroesophageal reflux disease) Disposition: HOME SELF-CARE Condition: Good Instructions: Abdominal Pain (ED), Gastroesophageal Reflux Disease (ED) Is patient prescribed a controlled substance at d/c from ED?: No Referrals: Aaron Loja MD [Primary Care Provider] - 1-2 days
[2018-09-24 18:26] VITALS: BP 148/79; PULSE 78; RESP 16; TEMP 97.8
== END 2018-09-24 18:21 | disposition home or self-care (01) ==
LOC: EC 14:25
DX: K85.90 Acute pancreatitis without necrosis or infection, unspecified (principal); K21.9 Gastro-esophageal reflux disease without esophagitis; M19.90 Unspecified osteoarthritis, unspecified site; I48.91 Unspecified atrial fibrillation; F17.200 Nicotine dependence, unspecified, uncomplicated; Z79.01 Long term (current) use of anticoagulants; Z79.899 Other long term (current) drug therapy; Z96.641 Presence of right artificial hip joint; Z90.49 Acquired absence of other specified parts of digestive tract
CPT/HCPCS: 36415; 80053; 82150; 82550; 82553; 83690; 84484; 85025; 81001; 99284; 96374; 96375 ×2; 96361; J2270; J2405; C9113

== ENCOUNTER 2019-01-24 09:59 | Emergency (ER) | payer OTHER ==
[2019-01-24 10:05] VITALS: BP 170/86; PULSE 95; RESP 18; TEMP 98.8
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
--- NOTE | 2019-01-24 10:55 | XR ---
EXAMINATION TYPE: XR Hip Complete RT , 2 VIEWS DATE OF EXAM ORDERED: 01/24/2019 HISTORY: Pain. COMPARISON: None. FINDINGS: There has been a right hip arthroplasty with tension banding. Prosthetic elements appear t o be in good position. There is some heterotopic new bone present. No fracture or dislocation is seen . There is mild atheromatous calcification of the visualized arterial tree. IMPRESSION: STATUS POST RIGHT HIP ARTHROPLASTY.
--- NOTE | 2019-01-24 10:57 | XR ---
EXAMINATION TYPE: XR knee complete RT , 3 VIEWS DATE OF EXAM ORDERED: 01/24/2019 HISTORY: Pain. COMPARISON: Previous study dated 10/11/2014. FINDINGS: There is medial joint space loss. There are remodeling changes in all 3 compartments. No fr acture, dislocation or joint effusion is seen. There is moderate vascular calcification present. IMPRESSION: 1. NO ACUTE OSSEOUS LESION. 2. OSTEOARTHRITIS.
== END 2019-01-24 11:32 | disposition home or self-care (01) ==
LOC: EC 09:59
DX: S80.01XA Contusion of right knee, initial encounter (principal); S70.01XA Contusion of right hip, initial encounter; I48.91 Unspecified atrial fibrillation; K21.9 Gastro-esophageal reflux disease without esophagitis; M19.90 Unspecified osteoarthritis, unspecified site; F41.9 Anxiety disorder, unspecified; F17.200 Nicotine dependence, unspecified, uncomplicated; Z96.641 Presence of right artificial hip joint; Z79.891 Long term (current) use of opiate analgesic; Z79.01 Long term (current) use of anticoagulants; Z79.899 Other long term (current) drug therapy; V49.9XXA Car occupant (driver) (passenger) injured in unspecified traffic accident, initial encounter; Y92.410 Unspecified street and highway as the place of occurrence of the external cause
CPT/HCPCS: 73502; 99283

== ENCOUNTER 2019-06-24 16:33 | Emergency (ER) | payer OTHER ==
[2019-06-24] MEDS ORDERED: SODIUM CHLORIDE 0.9% 500 ML 500 ML IV STA (17:30)
[2019-06-24] MEDS ORDERED: PANTOPRAZOLE 40 MG/10 ML VIAL IVP ONE (17:31)
[2019-06-24] MEDS ORDERED: MAG HYDROX/AL HYDROX/SIMETH 30 ML, HYOSCYAMINE ELIXIR 10 ML, CIMETIDINE HCL 300 MG, LID... PO STA ×4 (17:33)
[2019-06-24] MEDS ORDERED: SODIUM CHLORIDE 0.9% 1,000 ML IV ONE (17:34)
[2019-06-24] MEDS ORDERED: ONDANSETRON 4 MG/2 ML VIAL IVP STA ×2 (17:34→19:05)
--- NOTE | 2019-06-24 17:37 | ED ---
General Adult HPI - General Chief complaint: Nausea/Vomiting/Diarrhea Stated complaint: GERD Time Seen by Provider: 06/24/19 16:40 Source: patient, RN notes reviewed Mode of arrival: ambulatory Limitations: no limitations - History of Present Illness Initial comments: This is a 54-year-old male who presents emergency Department with a past medical history significant for significant GERD. Patient states she's been to the hospital multiple times for. Patient states he does continue to drink alcohol and smoke cigarettes. Patient states this episode occurred started yesterday about 10:00 in the morning. Patient states as a burning sensation up into his chest which is what he always has. Patient states he has had this many times he believes that's his GERD. Patient denies any chest pressure or difficulty breathing or shortness of breath. Patient denies any diaphoretic episodes. Patient states the GERD gets so bad he starts to vomit has had multiple episodes of vomiting. Patient states from the beginning of my interview that he will not stay overnight but he does want to get some help so that the reflux isn't as bad as it currently is and he can stop throwing up. Patient states his last drink was on Saturday. - Related Data Home Medications Medication Instructions Recorded Confirmed HYDROcodone/APAP 7.5-325MG [[place] 1 tab PO Q6H PRN 09/15/18 06/24/19 7.5-325] Famotidine [Pepcid] 40 mg PO HS 09/24/18 06/24/19 Citalopram Hydrobromide [CeleXA] 20 mg PO HS 01/24/19 06/24/19 Warfarin Sodium [Coumadin] 5 mg PO SUTUWETHFRSA 06/24/19 06/24/19 amLODIPine BESYLATE/BENAZEPRIL 1 cap PO DAILY 06/24/19 06/24/19 [Lotrel 5-10 MG] Allergies Allergy/AdvReac Type Severity Reaction Status Date / Time No Known Allergies Allergy Verified 06/24/19 18:23 Review of Systems ROS Statement: Those systems with pertinent positive or pertinent negative responses have been documented in the HPI. ROS Other: All systems not noted in ROS Statement are negative. Past Medical History Past Medical History: Atrial Fibrillation, GERD/Reflux, Hypertension, Os teoarthritis (OA) Additional Past Medical History / Comment(s): severe GERD, DJD. History of Any Multi-Drug Resistant Organisms: None Reported Past Surgical History: Appendectomy, Cholecystectomy, Hernia Repair, Joint Replacement, Orthopedic Surgery Additional Past Surgical History / Comment(s): 12/07/14 Total R Hip replacement, RIGHT KNEE SCOPE, umbilical hernia, EGD Past Anesthesia/Blood Transfusion Reactions: No Reported Reaction Additional Past Anesthesia/Blood Transfusion Reaction / Comment(s): "has never received any blood" Past Psychological History: Anxiety Smoking Status: Current every day smoker Past Alcohol Use History: Rare Past Drug Use History: None Reported - Past Family History Father Family Medical History: Coronary Artery Disease (CAD), Diabetes Mellitus, Myocardial Infarction ([place]) Additional Family Medical History / Comment(s): Father has at the age of 74 yrs of a [place]. He had 2 Cabg's Mother Family Medical History: Coronary Artery Disease (CAD), Diabetes Mellitus, Musculoskeletal Disorder, Neurologic Disorder Additional Family Medical History / Comment(s): Mother is . She at age 64 yrs. She had a cabg and multiple sclerosis Brother(s) Family Medical History: AFIB Additional Family Medical History / Comment(s): Pt has another brother with CAD and MIs General Exam - General Exam Comments Initial Comments: GENERAL: Patient is well-developed and well-nourished. Patient is nontoxic and well- hydrated and is in moderate distress. ENT: Neck is soft and supple. No significant lymphadenopathy is noted. Oropharynx is clear. Moist mucous membranes. Neck has full range of motion without eliciting any pain. EYES: The sclera were anicteric and conjunctiva were pink and moist. Extraocular movements were intact and pupils were equal round and reactive to light. Eyelids were unremarkable. PULMONARY: Unlabored respirations. Good breath sounds bilaterally. No audible rales rhonchi or wheezing was noted. CARDIOVASCULAR: There is a regular rate and rhythm without any murmurs gallops or rubs. ABDOMEN: Soft and nontender with normal bowel sounds. SKIN: Skin is clear with no lesions or rashes and otherwise unremarkable. NEUROLOGIC: Patient is alert and oriented x3. Cranial nerves II through XII are grossly intact. Motor and sensory are also intact. Normal speech, volume and content. Symmetrical smile. MUSCULOSKELETAL: Normal extremities with adequate strength and full range of motion. No lower extremity swelling or edema. No calf tenderness. LYMPHATICS: No significant lymphadenopathy is noted PSYCHIATRIC: Normal psychiatric evaluation. Limitations: no limitations Course Vital Signs 06/24/19 06/24/19 16:39 17:56 Temperature 98.9 F Pulse Rate 68 Respiratory 18 18 Rate Blood Pressure 151/89 O2 Sat by Pulse 98 95 Oximetry Medical Decision Making - Medical Decision Making EKG shows atrial fibrillation with rapid ventricular response at 104 bpm cure dresses 86 Q-T intervals 356 QTC is 468. Patient's EKG shows no ST segment elevation or depression. Alex hernández is seen on an old EKG as well. I will begin to the room the patient was sleeping I woke him he stated he was better and he wanted a few more minutes. I gave the patient another dose of Zofran because he was mildly nauseated and some Carafate. I will begin the room to reevaluate him a second time he again was sleeping and woke him up he stated he felt could go home. Patient was offered admission he absolutely refused. - Lab Data Result diagrams: 06/24/19 17:55 06/24/19 17:55 Lab Results 06/24/19 06/24/19 06/24/19 Range/Units 17:55 17:55 17:55 WBC 9.0 (3.8-10.6) k/uL RBC 5.07 (4.30-5.90) m/uL Hgb 17.2 (13.0-17.5) gm/dL Hct 49.5 (39.0-53.0) % MCV 97.7 (80.0-100.0) fL MCH 33.9 (25.0-35.0) pg MCHC 34.8 (31.0-37.0) g/dL RDW 12.3 (11.5-15.5) % Plt Count 271 (150-450) k/uL Neutrophils % 80 % Lymphocytes % 8 % Monocytes % 9 % Eosinophils % 1 % Basophils % 1 % Neutrophils # 7.2 (1.3-7.7) k/uL Lymphocytes # 0.7 L (1.0-4.8) k/uL Monocytes # 0.8 (0-1.0) k/uL Eosinophils # 0.1 (0-0.7) k/uL Basophils # 0.1 (0-0.2) k/uL PT 13.8 H (9.0-12.0) sec INR 1.4 H (<1.2) APTT 27.9 (22.0-30.0) sec Sodium 137 (137-145) mmol/L Potassium 3.6 (3.5-5.1) mmol/L Chloride 100 (98-107) mmol/L Carbon Dioxide 22 (22-30) mmol/L Anion Gap 15 mmol/L BUN 19 (9-20) mg/dL Creatinine 0.85 (0.66-1.25) mg/dL Est GFR (CKD-EPI)AfAm >90 (>60 ml/min/1.73 sqM) Est GFR (CKD-EPI)NonAf >90 (>60 ml/min/1.73 sqM) Glucose 135 H (74-99) mg/dL Calcium 9.9 (8.4-10.2) mg/dL Magnesium 2.5 H (1.6-2.3) mg/dL Total Bilirubin 2.0 H (0.2-1.3) mg/dL AST 30 (17-59) U/L ALT 30 (21-72) U/L Alkaline Phosphatase 74 (38-126) U/L Troponin I (0.000-0.034) ng/mL Total Protein 7.7 (6.3-8.2) g/dL Albumin 4.7 (3.5-5.0) g/dL Serum Alcohol <10 mg/dL 06/24/19 Range/Units 17:55 WBC (3.8-10.6) k/uL RBC (4.30-5.90) m/uL Hgb (13.0-17.5) gm/dL Hct (39.0-53.0) % MCV (80.0-100.0) fL MCH (25.0-35.0) pg MCHC (31.0-37.0) g/dL RDW (11.5-15.5) % Plt Count (150-450) k/uL Neutrophils % % Lymphocytes % % Monocytes % % Eosinophils % % Basophils % % Neutrophils # (1.3-7.7) k/uL Lymphocytes # (1.0-4.8) k/uL Monocytes # (0-1.0) k/uL Eosinophils # (0-0.7) k/uL Basophils # (0-0.2) k/uL PT (9.0-12.0) sec INR (<1.2) APTT (22.0-30.0) sec Sodium (137-145) mmol/L Potassium (3.5-5.1) mmol/L Chloride (98-107) mmol/L Carbon Dioxide (22-30) mmol/L Anion Gap mmol/L BUN (9-20) mg/dL Creatinine (0.66-1.25) mg/dL Est GFR (CKD-EPI)AfAm (>60 ml/min/1.73 sqM) Est GFR (CKD-EPI)NonAf (>60 ml/min/1.73 sqM) Glucose (74-99) mg/dL Calcium (8.4-10.2) mg/dL Magnesium (1.6-2.3) mg/dL Total Bilirubin (0.2-1.3) mg/dL AST (17-59) U/L ALT (21-72) U/L Alkaline Phosphatase (38-126) U/L Troponin I <0.012 (0.000-0.034) ng/mL Total Protein (6.3-8.2) g/dL Albumin (3.5-5.0) g/dL Serum Alcohol mg/dL Disposition Clinical Impression: GERD (gastroesophageal reflux disease) Disposition: Left Against Medical Advice Instructions (If sedation given, give patient instructions): Gastroesophageal Reflux Disease in Children (ED) Additional Instructions: Patient should stop smoking and stop drinking. Patient should stop eating late at night. Patient should sleep with his back and head and at least 30 Is patient prescribed a controlled substance at d/c from ED?: No Referrals: Aaron Loja MD [Primary Care Provider] - 1-2 days Time of Disposition: 19:37
[2019-06-24 18:08] LABS: Basophils # (A) 0.1 k/uL (0-0.2); Basophils % (A) 1 %; Eosinophils # (A) 0.1 k/uL (0-0.7); Eosinophils % (A) 1 %; HCT 49.5 % (39.0-53.0); HGB 17.2 gm/dL (13.0-17.5); Lymphocytes # (A) 0.7 k/uL (1.0-4.8); Lymphocytes % (A) 8 %; MCH 33.9 pg (25.0-35.0); MCHC 34.8 g/dL (31.0-37.0); MCV 97.7 fL (80.0-100.0); Mean Platelet Volume 7.5; Monocytes # (A) 0.8 k/uL (0-1.0); Monocytes % (A) 9 %; Neutrophils # (A) 7.2 k/uL (1.3-7.7); Neutrophils % (A) 80 %; Platelet Count 271 k/uL (150-450); RBC 5.07 m/uL (4.30-5.90); RDW 12.3 % (11.5-15.5)
[2019-06-24 18:17] LABS: ALT 30 U/L (21-72); AST 30 U/L (17-59); African American GFR (CKD) >90 (>60 ml/min/1.73 sqM); Albumin 4.7 g/dL (3.5-5.0); Alcohol <10 mg/dL; Alkaline Phosphatase 74 U/L (38-126); Anion Gap 15 mmol/L; Blood Urea Nitrogen 19 mg/dL (9-20); Calcium 9.9 mg/dL (8.4-10.2); Carbon Dioxide 22 mmol/L (22-30); Chloride 100 mmol/L (98-107); Glucose 135 mg/dL (74-99); Magnesium 2.5 mg/dL (1.6-2.3); Potassium 3.6 mmol/L (3.5-5.1); Sodium 137 mmol/L (137-145); Total Protein 7.7 g/dL (6.3-8.2)
[2019-06-24 18:34] LABS: INR 1.4 (<1.2); Partial Thromboplastin Time 27.9 sec (22.0-30.0); Prothrombin Time 13.8 sec (9.0-12.0)
[2019-06-24] MEDS ORDERED: SUCRALFATE 1 GM TAB PO STA (19:05)
[2019-06-24] MEDS ORDERED: METOCLOPRAMIDE 5 MG/ML 2 ML VIAL IVP STA (20:24)
[2019-06-24 20:46] VITALS: BP 140/108; PULSE 78; RESP 20; TEMP 98
== END 2019-06-24 20:45 | disposition left against medical advice (07) ==
LOC: EC 16:33
DX: K21.9 Gastro-esophageal reflux disease without esophagitis (principal); I48.91 Unspecified atrial fibrillation; I10 Essential (primary) hypertension; M19.90 Unspecified osteoarthritis, unspecified site; F41.9 Anxiety disorder, unspecified; F17.210 Nicotine dependence, cigarettes, uncomplicated; Z79.01 Long term (current) use of anticoagulants; Z79.899 Other long term (current) drug therapy; Z96.641 Presence of right artificial hip joint; Z90.49 Acquired absence of other specified parts of digestive tract; Z82.49 Family history of ischemic heart disease and other diseases of the circulatory system; Z53.20 Procedure and treatment not carried out because of patient's decision for unspecified reasons
CPT/HCPCS: 36415; 93005; 80053; 83735; 84484; 85025; 85610; 85730; 80320; 99284; 96374; 96375 ×2; 96376; 96361; J2765; J2405; C9113

== ENCOUNTER 2019-06-25 03:37 | Emergency (ER) | payer OTHER ==
[2019-06-25 03:45] VITALS: RESP 18
[2019-06-25] MEDS ORDERED: ONDANSETRON 4 MG ODT STARTER PACK 2 TAB BTL PO STA (04:18)
[2019-06-25] MEDS ORDERED: MAG HYDROX/AL HYDROX/SIMETH 30 ML, HYOSCYAMINE ELIXIR 10 ML, CIMETIDINE HCL 300 MG, LID... PO STA ×4 (04:18)
--- NOTE | 2019-06-25 04:39 | ED ---
General Adult HPI - General Chief complaint: Abdominal Pain Stated complaint: gerd Source: patient Mode of arrival: ambulatory Limitations: no limitations - History of Present Illness Initial comments: Satya is a 54yo male with PMH significant for chronic GERD. Patient presents the emergency department this morning for evaluation of burning epigastric discomfort that radiates up his esophagus. Patient was seen and evaluated earlier in the day for identical complaints. He reports he was given a GI cocktail and some Carafate with only minimal improvement in his symptoms. Patient states that he's been having burning epigastric pain for 3 days duration, this is identical to previous episodes of GERD. Patient states that in the past he has needed to come to the emergency department and has received IV morphine which improved his discomfort. Patient states that when he receives morphine this patient improved 80% and he can go home. Patient states that he currently takes Pepcid daily, he has seen GI in the past and told that he has a hiatal hernia. Patient was advised number of years ago to discussed with the surgeon surgical repair but has elected not to. Patient reports he still drinks alcohol regularly, and is an every day cigarette smoker. - Related Data Home Medications Medication Instructions Recorded Confirmed HYDROcodone/APAP 7.5-325MG [[place] 1 tab PO Q6H PRN 09/15/18 06/24/19 7.5-325] Famotidine [Pepcid] 40 mg PO HS 09/24/18 06/24/19 Citalopram Hydrobromide [CeleXA] 20 mg PO HS 01/24/19 06/24/19 Warfarin Sodium [Coumadin] 5 mg PO SUTUWETHFRSA 06/24/19 06/24/19 amLODIPine BESYLATE/BENAZEPRIL 1 cap PO DAILY 06/24/19 06/24/19 [Lotrel 5-10 MG] Previous Rx's Medication Instructions Recorded Sucralfate [Carafate] 1 gm PO ACHS #1 bottle 06/25/19 Allergies Allergy/AdvReac Type Severity Reaction Status Date / Time No Known Allergies Allergy Verified 06/24/19 18:23 Review of Systems ROS Statement: Those systems with pertinent positive or pertinent negative responses have been documented in the HPI. ROS Other: All systems not noted in ROS Statement are negative. Past Medical History Past Medical History: Atrial Fibrillation, GERD/Reflux, Hypertension, Osteoarthritis (OA) Additional Past Medical History / Comment(s): severe GERD, DJD. History of Any Multi-Drug Resistant Organisms: None Reported Past Surgical History: Appendectomy, Cholecystectomy, Hernia Repair, Joint Replacement, Orthopedic Surgery Additional Past Surgical History / Comment(s): 12/07/14 Total R Hip replacement, RIGHT KNEE SCOPE, umbilical hernia, EGD Past Anesthesia/Blood Transfusion Reactions: No Reported Reaction Additional Past Anesthesia/Blood Transfusion Reaction / Comment(s): "has never received any blood" Past Psychological History: Anxiety Smoking Status: Current every day smoker Past Alcohol Use History: Rare Past Drug Use History: None Reported - Past Family History Father Family Medical History: Coronary Artery Disease (CAD), Diabetes Mellitus, Myocardial Infarction ([place]) Additional Family Medical History / Comment(s): Father has at the age of 74 yrs of a [place]. He had 2 Cabg's Mother Family Medical History: Coronary Artery Disease (CAD), Diabetes Mellitus, Musculoskeletal Disorder, Neurologic Disorder Additional Family Medical History / Comment(s): Mother is . She at age 64 yrs. She had a cabg and multiple sclerosis Brother(s) Family Medical History: AFIB Additional Family Medical History / Comment(s): Pt has another brother with CAD and MIs General Exam - General Exam Comments Initial Comments: Physical Exam GENERAL: Patient is well-developed and well-nourished. Patient is nontoxic and well- hydrated and is in no distress. HENT: Normocephalic, Atraumatic. EYES: PERRL, EOMI PULMONARY: Unlabored respirations. No audible rales rhonchi or wheezing was noted. CARDIOVASCULAR: There is a regular rate and rhythm without any murmurs gallops or rubs. ABDOMEN: Soft and nontender with normal bowel sounds. SKIN: Skin is clear with no lesions or rashes and otherwise unremarkable. : Deferred NEUROLOGIC: Patient is alert and oriented x3. Moving all extremities spontaneously MUSCULOSKELETAL: Normal extremities with adequate strength and full range of motion. No lower extremity swelling or edema. No calf tenderness. PSYCHIATRIC: Normal psychiatric evaluation Limitations: no limitations Course Vital Signs 06/25/19 06/25/19 03:41 04:54 Temperature 98.0 F 98 F Pulse Rate 76 88 Respiratory 18 18 Rate Blood Pressure 156/104 146/72 O2 Sat by Pulse 98 100 Oximetry Medical Decision Making - Medical Decision Making The patient was seen and evaluated history was obtained from the patient and review of medical record This a 54-year-old gentleman with a history of GERD likely secondary to hiatal hernia, poor diet, serous smoking and alcohol use. Patient was seen and evaluated in the hospital earlier today. He had a normal EKG and negative troponin. Patient states that in the past when he is completely ER for treatment of GERD he has received morphine which results as GERD he did not receive this earlier in the day and has persistent symptoms prompted him to return. Patient does state that since being discharge she's been able to drink milk and had 2 bottles of Gatorade. Upon my initial evaluation the patient was laying flat on the gurney in no acute distress. I discussed with the patient dietary and lifestyle modifications including not laying flat, laying with the head of bed elevated especially after eating. Avoiding acidic foods or greasy foods. Avoiding alcohol and smoking cessation. I advised the patient that I do not feel morphine is an appropriate treatment for acid reflux pain. I advised the patient we can repeat his workup if needed or we can treat him symptomatically. This time patient's comfortable with plan for symptom medical treatment with the GI cocktail and Zofran. Patient receive these and reportedly was feeling better enough to go home. Patient was discharged home in stable condition patient was referred back to gastroenterology and surgery for further management. Disposition Clinical Impression: GERD (gastroesophageal reflux disease), Drug-seeking behavior Disposition: HOME SELF-CARE Condition: Stable Prescriptions: Sucralfate [Carafate] 1 gm PO ACHS #1 bottle Is patient prescribed a controlled substance at d/c from ED?: No Referrals: Aaron Loja MD [Primary Care Provider] - 1-2 days Megan Scales MD [STAFF PHYSICIAN] - 1-2 days Cem Kelly MD [STAFF PHYSICIAN] - 1-2 days
[2019-06-25 04:55] VITALS: BP 146/72; PULSE 88; TEMP 98
== END 2019-06-25 04:53 | disposition home or self-care (01) ==
LOC: EC 03:37
DX: K21.9 Gastro-esophageal reflux disease without esophagitis (principal); Z76.5 Malingerer [conscious simulation]; I48.91 Unspecified atrial fibrillation; I10 Essential (primary) hypertension; M19.90 Unspecified osteoarthritis, unspecified site; F41.9 Anxiety disorder, unspecified; F17.210 Nicotine dependence, cigarettes, uncomplicated; Z79.01 Long term (current) use of anticoagulants; Z79.899 Other long term (current) drug therapy; Z96.641 Presence of right artificial hip joint; Z90.49 Acquired absence of other specified parts of digestive tract
CPT/HCPCS: 99283; S0119

== ENCOUNTER 2019-06-25 16:06 | Observation (INO) | payer OTHER ==
[2019-06-25] MEDS ORDERED: MORPHINE SULFATE 4 MG/ML SYRINGE IV STA (16:47)
[2019-06-25] MEDS ORDERED: THIAMINE 100 MG/ML 2 ML VIAL IVPB STA (16:47)
[2019-06-25] MEDS ORDERED: ONDANSETRON 4 MG/2 ML VIAL IVP STA (16:47)
[2019-06-25] MEDS ORDERED: SODIUM CHLORIDE 0.9% 500 ML 500 ML IV STA (16:47)
[2019-06-25] MEDS ORDERED: SODIUM CHLORIDE 0.9% 1,000 ML IV STA ×2 (16:47)
[2019-06-25] MEDS ORDERED: cloNIDine 0.3 MG/24HR PATCH TRANSDERM STA (16:48)
--- NOTE | 2019-06-25 16:52 | ED ---
Nausea/Vomiting/Diarrhea HPI - General Chief complaint: Nausea/Vomiting/Diarrhea Stated complaint: GERD Time Seen by Provider: 06/25/19 16:25 Source: patient, RN notes reviewed, old records reviewed Mode of arrival: ambulatory Limitations: no limitations - History of Present Illness Initial comments: This is a 54-year-old male the ER today. He presents today for evaluation regards to nausea vomiting reflux-type pain. Patient has multiple drug use is sues including alcoholism as well as opiate addiction. Patient is prescribed opiates but isn't taking them more than he should be in route of his medication early. Patient currently is without fever abdominal pain from vomiting. He states he is can't sleep feels fidgety he was moving around cannot rest his mind. He has been the ER 3 times in the last 24 hours. With other visits this week. is at bedside states patient is having some withdrawal symptoms maybe from the opiates which he ran out from on Saturday. No family members with similar complaints. No fevers MD complaint: nausea, vomiting, abdominal pain -: days(s) Description of Vomiting: food contents, watery Description of Diarrhea: water Associated Abdominal Pain: Yes Location: periumbilical Radiation: none Severity: moderate Severity scale (1-10): 7 Quality: aching Consistency: constant Improves with: none Worsens with: none Context: alcohol abuse Associated Symptoms: myalgias, diaphoresis, loss of appetite, nausea/vomiting, weakness - Related Data Home Medications Medication Instructions Recorded Confirmed HYDROcodone/APAP 7.5-325MG [[place] 1 tab PO Q6H PRN 09/15/18 06/25/19 7.5-325] Famotidine [Pepcid] 40 mg PO HS 09/24/18 06/25/19 Citalopram Hydrobromide [CeleXA] 20 mg PO HS 01/24/19 06/25/19 Warfarin Sodium [Coumadin] 5 mg PO SUTUWETHFRSA 06/24/19 06/25/19 amLODIPine BESYLATE/BENAZEPRIL 1 cap PO DAILY 06/24/19 06/25/19 [Lotrel 5-10 MG] Previous Rx's Medication Instructions Recorded Sucralfate [Carafate] 1 gm PO ACHS #1 bottle 06/25/19 Allergies Allergy/AdvReac Type Severity Reaction Status Date / Time No Known Allergies Allergy Verified 06/25/19 17:23 Review of Systems ROS Statement: Those systems with pertinent positive or pertinent negative responses have been documented in the HPI. ROS Other: All systems not noted in ROS Statement are negative. Past Medical History Past Medical History: Atrial Fibrillation, GERD/Reflux, Hypertension, Osteoarthritis (OA) Additional Past Medical History / Comment(s): severe GERD, DJD. History of Any Multi-Drug Resistant Organisms: None Reported Past Surgical History: Appendectomy, Cholecystectomy, Hernia Repair, Joint Replacement, Orthopedic Surgery Additional Past Surgical History / Comment(s): 12/07/14 Total R Hip replacement, RIGHT KNEE SCOPE, umbilical hernia, EGD Past Anesthesia/Blood Transfusion Reactions: No Reported Reaction Additional Past Anesthesia/Blood Transfusion Reaction / Comment(s): "has never received any blood" Past Psychological History: Anxiety Smoking Status: Current every day smoker Past Alcohol Use History: Rare Past Drug Use History: None Reported - Past Family History Father Family Medical History: Coronary Artery Disease (CAD), Diabetes Mellitus, Myocardial Infarction ([place]) Additional Family Medical History / Comment(s): Father has at the age of 74 yrs of a [place]. He had 2 Cabg's Mother Family Medical History: Coronary Artery Disease (CAD), Diabetes Mellitus, Musculoskeletal Disorder, Neurologic Disorder Additional Family Medical History / Comment(s): Mother is . She at age 64 yrs. She had a cabg and multiple sclerosis Brother(s) Family Medical History: AFIB Additional Family Medical History / Comment(s): Pt has another brother with CAD and MIs General Exam Limitations: no limitations General appearance: alert, in no apparent distress Head exam: Present: atraumatic, normocephalic, normal inspection Eye exam: Present: normal appearance, EOMI. Absent: scleral icterus, conjunctival injection, periorbital swelling ENT exam: Present: normal exam, mucous membranes dry Neck exam: Present: normal inspection. Absent: tenderness, meningismus, lymphadenopathy Respiratory exam: Present: normal lung sounds bilaterally. Absent: respiratory distress, wheezes, rales, rhonchi, stridor Cardiovascular Exam: Present: regular rate, normal rhythm, normal heart sounds. Absent: systolic murmur, diastolic murmur, rubs, gallop, clicks GI/Abdominal exam: Present: soft, tenderness (epigastric), normal bowel sounds. Absent: distended, guarding, rebound, rigid Extremities exam: Present: normal inspection, full ROM, normal capillary refill. Absent: tenderness, pedal edema, joint swelling, calf tenderness Back exam: Present: normal inspection Neurological exam: Present: alert, oriented X3, CN II-XII intact Psychiatric exam: Present: normal affect, normal mood Skin exam: Present: warm, dry, intact, normal color. Absent: rash Course Vital Signs 06/25/19 06/25/19 06/25/19 16:16 17:33 18:39 Temperature 99.7 F H 98.7 F Pulse Rate 114 H 103 H 90 Respiratory 20 18 18 Rate Blood Pressure 130/83 165/108 168/108 O2 Sat by Pulse 99 98 96 Oximetry 06/25/19 18:42 Temperature Pulse Rate Respiratory Rate Blood Pressure 149/99 O2 Sat by Pulse Oximetry - Reevaluation(s) Reevaluation #1: 06/25/19 16:52 Medical records reviewed including to ER visits from the last 24 hours Reevaluation #2: 06/25/19 19:16 Patient without significant improvement in symptoms - Consultations Consultation #1: Spoke with Dr. Freedom beltre for admission patient Medical Decision Making - Medical Decision Making 54 male to the ER for evaluation. Patient presents today for evaluation regards to nausea vomiting alcohol and opioate withdrawal. - Lab Data Result diagrams: 06/25/19 17:21 06/25/19 17:21 Lab Results 06/25/19 06/25/19 06/25/19 Range/Units 17:21 17:21 17:21 WBC 9.0 (3.8-10.6) k/uL RBC 4.87 (4.30-5.90) m/uL Hgb 16.6 (13.0-17.5) gm/dL Hct 47.9 (39.0-53.0) % MCV 98.3 (80.0-100.0) fL MCH 34.1 (25.0-35.0) pg MCHC 34.7 (31.0-37.0) g/dL RDW 12.1 (11.5-15.5) % Plt Count 224 (150-450) k/uL Neutrophils % 71 % Lymphocytes % 17 % Monocytes % 10 % Eosinophils % 0 % Basophils % 1 % Neutrophils # 6.3 (1.3-7.7) k/uL Lymphocytes # 1.5 (1.0-4.8) k/uL Monocytes # 0.9 (0-1.0) k/uL Eosinophils # 0.0 (0-0.7) k/uL Basophils # 0.0 (0-0.2) k/uL Sodium 136 L (137-145) mmol/L Potassium 3.4 L (3.5-5.1) mmol/L Chloride 99 (98-107) mmol/L Carbon Dioxide 23 (22-30) mmol/L Anion Gap 14 mmol/L BUN 16 (9-20) mg/dL Creatinine 0.86 (0.66-1.25) mg/dL Est GFR (CKD-EPI)AfAm >90 (>60 ml/min/1.73 sqM) Est GFR (CKD-EPI)NonAf >90 (>60 ml/min/1.73 sqM) Glucose 113 H (74-99) mg/dL Plasma Lactic Acid Jarred (0.7-2.0) mmol/L Calcium 9.5 (8.4-10.2) mg/dL Phosphorus 3.0 (2.5-4.5) mg/dL Magnesium 2.5 H (1.6-2.3) mg/dL Total Bilirubin 2.2 H (0.2-1.3) mg/dL AST 35 (17-59) U/L ALT 38 (21-72) U/L Alkaline Phosphatase 68 (38-126) U/L Creatine Kinase 255 H (55-170) U/L Total Protein 7.4 (6.3-8.2) g/dL Albumin 4.7 (3.5-5.0) g/dL Lipase 353 H (23-300) U/L Urine Color Yellow Urine Appearance Cloudy (Clear) Urine pH 7.5 (5.0-8.0) Ur Specific [place] 1.015 (1.001-1.035) Urine Protein Trace H (Negative) Urine Glucose (UA) Negative (Negative) Urine Ketones 1+ H (Negative) Urine Blood Negative (Negative) Urine Nitrite Negative (Negative) Urine Bilirubin Negative (Negative) Urine Urobilinogen 2.0 (<2.0) mg/dL Ur Leukocyte Esterase Negative (Negative) Urine WBC 1 (0-5) /hpf Amorphous Sediment Rare H (None) /hpf Urine Mucus Occasional H (None) /hpf Salicylates <1.0 mg/dL Urine Opiates Screen Not Detected (NotDetected) Ur Oxycodone Screen Not Detected (NotDetected) Urine Methadone Screen Not Detected (NotDetected) Ur Propoxyphene Screen Not Detected (NotDetected) Acetaminophen <10.0 ug/mL Ur Barbiturates Screen Not Detected (NotDetected) U Tricyclic Antidepress Not Detected (NotDetected) Ur Phencyclidine Scrn Not Detected (NotDetected) Ur Amphetamines Screen Not Detected (NotDetected) U Methamphetamines Scrn Not Detected (NotDetected) U Benzodiazepines Scrn Not Detected (NotDetected) Urine Cocaine Screen Not Detected (NotDetected) U Marijuana (THC) Screen Not Detected (NotDetected) Serum Alcohol <10 mg/dL 06/25/19 Range/Units 17:21 WBC (3.8-10.6) k/uL RBC (4.30-5.90) m/uL Hgb (13.0-17.5) gm/dL Hct (39.0-53.0) % MCV (80.0-100.0) fL MCH (25.0-35.0) pg MCHC (31.0-37.0) g/dL RDW (11.5-15.5) % Plt Count (150-450) k/uL Neutrophils % % Lymphocytes % % Monocytes % % Eosinophils % % Basophils % % Neutrophils # (1.3-7.7) k/uL Lymphocytes # (1.0-4.8) k/uL Monocytes # (0-1.0) k/uL Eosinophils # (0-0.7) k/uL Basophils # (0-0.2) k/uL Sodium (137-145) mmol/L Potassium (3.5-5.1) mmol/L Chloride (98-107) mmol/L Carbon Dioxide (22-30) mmol/L Anion Gap mmol/L BUN (9-20) mg/dL Creatinine (0.66-1.25) mg/dL Est GFR (CKD-EPI)AfAm (>60 ml/min/1.73 sqM) Est GFR (CKD-EPI)NonAf (>60 ml/min/1.73 sqM) Glucose (74-99) mg/dL Plasma Lactic Acid Jarred 1.4 (0.7-2.0) mmol/L Calcium (8.4-10.2) mg/dL Phosphorus (2.5-4.5) mg/dL Magnesium (1.6-2.3) mg/dL Total Bilirubin (0.2-1.3) mg/dL AST (17-59) U/L ALT (21-72) U/L Alkaline Phosphatase (38-126) U/L Creatine Kinase (55-170) U/L Total Protein (6.3-8.2) g/dL Albumin (3.5-5.0) g/dL Lipase (23-300) U/L Urine Color Urine Appearance (Clear) Urine pH (5.0-8.0) Ur Specific [place] (1.001-1.035) Urine Protein (Negative) Urine Glucose (UA) (Negative) Urine Ketones (Negative) Urine Blood (Negative) Urine Nitrite (Negative) Urine Bilirubin (Negative) Urine Urobilinogen (<2.0) mg/dL Ur Leukocyte Esterase (Negative) Urine WBC (0-5) /hpf Amorphous Sediment (None) /hpf Urine Mucus (None) /hpf Salicylates mg/dL Urine Opiates Screen (NotDetected) Ur Oxycodone Screen (NotDetected) Urine Methadone Screen (NotDetected) Ur Propoxyphene Screen (NotDetected) Acetaminophen ug/mL Ur Barbiturates Screen (NotDetected) U Tricyclic Antidepress (NotDetected) Ur Phencyclidine Scrn (NotDetected) Ur Amphetamines Screen (NotDetected) U Methamphetamines Scrn (NotDetected) U Benzodiazepines Scrn (NotDetected) Urine Cocaine Screen (NotDetected) U Marijuana (THC) Screen (NotDetected) Serum Alcohol mg/dL - EKG Data -: EKG Interpreted by Me (EKG shows A. fib rate of 83, QRS 90, QTc 460) Disposition Clinical Impression: GERD (gastroesophageal reflux disease), Hypertensive urgency, Intractable nausea and vomiting, Alcohol withdrawal, Opioid withdrawal Disposition: ADMITTED IP TO THIS [facility] Condition: Fair Is patient prescribed a controlled substance at d/c from ED?: No Referrals: Aaron Loja MD [Primary Care Provider] - 1-2 days
[2019-06-25 17:37] LABS: Basophils % (A) 1 %; Eosinophils % (A) 0 %; HCT 47.9 % (39.0-53.0); HGB 16.6 gm/dL (13.0-17.5); Lymphocytes # (A) 1.5 k/uL (1.0-4.8); Lymphocytes % (A) 17 %; MCH 34.1 pg (25.0-35.0); MCHC 34.7 g/dL (31.0-37.0); MCV 98.3 fL (80.0-100.0); Monocytes # (A) 0.9 k/uL (0-1.0); Monocytes % (A) 10 %; Neutrophils # (A) 6.3 k/uL (1.3-7.7); Neutrophils % (A) 71 %; Platelet Count 224 k/uL (150-450); RBC 4.87 m/uL (4.30-5.90); RDW 12.1 % (11.5-15.5)
[2019-06-25 17:42] LABS: Amorphous Sediment,Urine Rare /hpf; Appearance,Urine Cloudy (Clear); Bilirubin,Urine Negative (Negative); Blood,Urine Negative (Negative); Color,Urine Yellow; Glucose,Urine (UA) Negative (Negative); Ketones,Urine 1+ (Negative); Leukocyte Esterase,Urine Negative (Negative); Mucus,Urine Occasional /hpf; Nitrite,Urine Negative (Negative); PH, Urine 7.5 (5.0-8.0); Protein,Urine Trace (Negative); Specific Gravity,Urine 1.015 (1.001-1.035); WBC,Urine 1 /hpf (0-5)
[2019-06-25 17:47] LABS: ALT 38 U/L (21-72); AST 35 U/L (17-59); Acetaminophen <10.0 ug/mL; African American GFR (CKD) >90 (>60 ml/min/1.73 sqM); Albumin 4.7 g/dL (3.5-5.0); Alcohol <10 mg/dL; Alkaline Phosphatase 68 U/L (38-126); Anion Gap 14 mmol/L; Blood Urea Nitrogen 16 mg/dL (9-20); Calcium 9.5 mg/dL (8.4-10.2); Carbon Dioxide 23 mmol/L (22-30); Chloride 99 mmol/L (98-107); Creatine Kinase 255 U/L (55-170); Glucose 113 mg/dL (74-99); Magnesium 2.5 mg/dL (1.6-2.3); Potassium 3.4 mmol/L (3.5-5.1); Salicylate <1.0 mg/dL; Sodium 136 mmol/L (137-145); Total Bilirubin 2.2 mg/dL (0.2-1.3); Total Protein 7.4 g/dL (6.3-8.2)
[2019-06-25 18:01] LABS: Amphetamine Screen,Urine Not Detected (NotDetected); Barbiturate Screen,Urine Not Detected (NotDetected); Benzodiazepines Screen,Urine Not Detected (NotDetected); Cocaine Screen,Urine Not Detected (NotDetected); Methadone Screen, Urine Not Detected (NotDetected); Opiate Screen,Urine Not Detected (NotDetected); Oxycodone Screen, Urine Not Detected (NotDetected); Phencyclidine Screen,Urine Not Detected (NotDetected); Tricyclic Antidepressant,Urine Not Detected (NotDetected); Urn Cannabinoid Scrn Not Detected (NotDetected)
[2019-06-25] MEDS ORDERED: POTASSIUM BICARBONATE/CIT AC 20 MEQ TABLET.EFF PO ONE (18:12)
[2019-06-25] MEDS ORDERED: PANTOPRAZOLE 40 MG/10 ML VIAL IVP STA (18:12)
[2019-06-25] MEDS ORDERED: LABETALOL 5 MG/ML VIAL MDV IVP STA (18:45)
[2019-06-25] MEDS ORDERED: ONDANSETRON 4 MG/2 ML VIAL IVP PRN (19:13)
[2019-06-25] MEDS ORDERED: THIAMINE 100 MG/ML 2 ML VIAL IM STA (19:13)
[2019-06-25] MEDS ORDERED: DIAZEPAM 5 MG/ML 2 ML INJ IVP STA (19:13)
[2019-06-25] MEDS ORDERED: MORPHINE SULFATE 4 MG/ML SYRINGE IVP STA (19:13)
[2019-06-25] MEDS ORDERED: LORazepam 2 MG/ML INJ IV PRN ×3 (19:13)
[2019-06-25] MEDS ORDERED: MORPHINE SULFATE 4 MG/ML SYRINGE IVP PRN (19:13)
[2019-06-25] MEDS ORDERED: SODIUM CHLORIDE 0.9% 1,000 ML IV ONE (19:13)
[2019-06-25] MEDS: THIAMINE 100 MG TAB PO SCH (19:33)
[2019-06-25 20:06] VITALS: RESP 18
[2019-06-25 21:07] VITALS: BMI 30.5
[2019-06-25] MEDS: DEXTROSE 5%-0.45% NACL 1,000 ML IV SCH (21:12)
[2019-06-25] MEDS ORDERED: HYDROcodone/APAP 7.5-325MG 1 EACH TAB PO PRN (21:44)
[2019-06-25] MEDS ORDERED: CITALOPRAM HYDROBROMIDE 20 MG TAB PO SCH (22:00)
[2019-06-25] MEDS ORDERED: FAMOTIDINE 20 MG TAB PO SCH (22:00)
[2019-06-26 05:10] VITALS: BP 125/83; PULSE 69; TEMP 98.1
[2019-06-26] MEDS: DEXTROSE 5%-0.45% NACL 1,000 ML IV SCH (07:54)
[2019-06-26] MEDS: SUCRALFATE 1 GM TAB PO SCH ×2 (07:55→12:14)
--- NOTE | 2019-06-26 07:55 | P.HPIM ---
History of Present Illness H&P Date: 06/26/19 Chief Complaint: Nausea with vomiting This 54-year-old white male essentially admitted for probable opiate withdrawal. The patient abruptly stopped taking his [place] which she's taken for many years secondary to hip and knee and back pain. The patient has been given morphine and now feels much better. We had a long discussion regarding opiate use disorder and he would like to slowly wean off of his pain medication starting today. No voiding difficulties now. The patient seems tolerating diet patient is nominal. We had a long discussion regarding compensation and dietary modifications for reflux esophagitis Review of Systems Constitutional: Denies chills, Denies fever Eyes: denies blurred vision, denies pain Ears, nose, mouth and throat: Denies headache, Denies sore throat Cardiovascular: Denies chest pain, Denies shortness of breath Respiratory: Denies cough Gastrointestinal: Reports as per HPI, Reports abdominal pain, Reports nausea, Reports vomiting Musculoskeletal: Denies myalgias Past Medical History Past Medical History: Atrial Fibrillation, GERD/Reflux, Hypertension, Osteoarthritis (OA) Additional Past Medical History / Comment(s): severe GERD, DJD. History of Any Multi-Drug Resistant Organisms: None Reported Past Surgical History: Appendectomy, Cholecystectomy, Hernia Repair, Joint Replacement, Orthopedic Surgery Additional Past Surgical History / Comment(s): 12/07/14 Total R Hip replacement, RIGHT KNEE SCOPE, umbilical hernia, EGD Past Anesthesia/Blood Transfusion Reactions: No Reported Reaction Additional Past Anesthesia/Blood Transfusion Reaction / Comment(s): "has never received any blood" Past Psychological History: Anxiety Additional Psychological History / Comment(s): Pt lives significant other and is independent. He does have a limp. He does not use any assistive devices. . Smoking Status: Former smoker Past Alcohol Use History: Rare Additional Past Alcohol Use History / Comment(s): Pt started smoking in 1979 and is a 1 ppd smoker. Pt states he drinks a little less than a pint of whiskey per day Past Drug Use History: None Reported Additional Drug Use History / Comment(s): Pt S.O. states he took 90 pills of norco within a week post hip replacement - Past Family History Father Family Medical History: Coronary Artery Disease (CAD), Diabetes Mellitus, Myocardial Infarction ([place]) Additional Family Medical History / Comment(s): Father has at the age of 74 yrs of a [place]. He had 2 Cabg's Mother Family Medical History: Coronary Artery Disease (CAD), Diabetes Mellitus, Musculoskeletal Disorder, Neurologic Disorder Additional Family Medical History / Comment(s): Mother is . She at age 64 yrs. She had a cabg and multiple sclerosis Brother(s) Family Medical History: AFIB Additional Family Medical History / Comment(s): Pt has another brother with CAD and MIs Medications and Allergies Home Medications Medication Instructions Recorded Confirmed Type HYDROcodone/APAP 7.5-325MG [[place] 1 tab PO Q6H PRN 09/15/18 06/25/19 History 7.5-325] Famotidine [Pepcid] 40 mg PO HS 09/24/18 06/25/19 History RX: Citalopram Hydrobromide 20 mg PO HS 01/24/19 06/25/19 History [CeleXA] Warfarin Sodium [Coumadin] 5 mg PO SUTUWETHFRSA 06/24/19 06/25/19 History amLODIPine BESYLATE/BENAZEPRIL 1 cap PO DAILY 06/24/19 06/25/19 History [Lotrel 5-10 MG] Sucralfate [Carafate] 1 gm PO ACHS #1 bottle 06/25/19 06/25/19 Rx Allergies Allergy/AdvReac Type Severity Reaction Status Date / Time No Known Allergies Allergy Verified 06/25/19 17:23 Physical Exam Vitals: Vital Signs Temp Pulse Pulse Resp BP BP Pulse Ox 06/26/19 05:08 98.1 F 69 18 125/83 96 06/25/19 21:00 99.7 F H 94 18 144/98 96 06/25/19 20:05 93 18 145/98 100 06/25/19 19:47 97.6 F 89 20 154/103 97 06/25/19 18:42 149/99 06/25/19 18:39 98.7 F 90 18 168/108 96 06/25/19 17:33 103 H 18 165/108 98 06/25/19 16:16 99.7 F H 114 H 20 130/83 99 Intake and Output 06/25/19 06/26/19 06/26/19 22:59 06:59 14:59 Other: # Voids 1 1 Weight 88.451 kg - Constitutional General appearance: cooperative - EENT Eyes: EOMI - Neck Neck: no lymphadenopathy - Respiratory Respiratory: bilateral: CTA - Cardiovascular Rhythm: regular Heart sounds: normal: S1, S2 Abnormal Heart Sounds: no S3 Gallop - Gastrointestinal General gastrointestinal: soft, no tenderness - Integumentary Integumentary: no cellulitis - Psychiatric Psychiatric: A&O x's 3 Results CBC & Chem 7: 06/25/19 17:21 06/25/19 17:21 Labs: Abnormal Lab Results - Last 24 Hours (Table) 06/25/19 06/25/19 Range/Units 17:21 17:21 Sodium 136 L (137-145) mmol/L Potassium 3.4 L (3.5-5.1) mmol/L Glucose 113 H (74-99) mg/dL Magnesium 2.5 H (1.6-2.3) mg/dL Total Bilirubin 2.2 H (0.2-1.3) mg/dL Creatine Kinase 255 H (55-170) U/L Lipase 353 H (23-300) U/L Urine Protein Trace H (Negative) Urine Ketones 1+ H (Negative) Amorphous Sediment Rare H (None) /hpf Urine Mucus Occasional H (None) /hpf Thrombosis Risk Factor Assmnt - Choose All That Apply Any of the Below Risk Factors Present?: Yes Each Factor Represents 1 point: Age 41-60 years, Obesity (BMI >25) Other Risk Factors: No Thrombosis Risk Factor Assessment Total Risk Factor Score: 2 Thrombosis Risk Factor Assessment Level: Low Risk Assessment and Plan (1) GERD (gastroesophageal reflux disease) Current Visit: Yes Status: Acute Code(s): K21.9 - GASTRO-ESOPHAGEAL REFLUX DISEASE WITHOUT ESOPHAGITIS SNOMED Code(s): 633710203 (2) Opioid withdrawal Current Visit: Yes Status: Acute Code(s): F11.23 - OPIOID DEPENDENCE WITH WITHDRAWAL SNOMED Code(s): 86256425 (3) Abdominal pain Current Visit: No Status: Acute Code(s): R10.9 - UNSPECIFIED ABDOMINAL PAIN SNOMED Code(s): 08933494 (4) Alcohol dependence Current Visit: No Status: Acute Code(s): F10.20 - ALCOHOL DEPENDENCE, UNCOMPLICATED SNOMED Code(s): 22033545 (5) Chronic a-fib Current Visit: No Status: Acute Code(s): I48.2 - CHRONIC ATRIAL FIBRILLATION SNOMED Code(s): 610646965 (6) Cigarette nicotine dependence Current Visit: No Status: Acute Code(s): F17.210 - NICOTINE DEPENDENCE, CIGARETTES, UNCOMPLICATED SNOMED Code(s): 43187642 (7) Hypertension Current Visit: No Status: Acute Code(s): I10 - ESSENTIAL (PRIMARY) HYPERTENSION SNOMED Code(s): 36015610 Plan: Reconcile home medications. Wean off of opiates. This patient is tolerating diet today, anticipate discharge. Follow-up with me in 3-5 days. Time with Patient: Greater than 30
[2019-06-26] MEDS: THIAMINE 100 MG TAB PO SCH (07:56)
--- NOTE | 2019-06-26 08:00 | P.DS ---
Providers Date of admission: 06/25/19 19:15 Attending physician: Aaron Loja Primary care physician: Aaron Loja - Discharge Diagnosis(es) (1) GERD (gastroesophageal reflux disease) Current Visit: Yes Status: Acute (2) Opioid withdrawal Current Visit: Yes Status: Acute (3) Abdominal pain Current Visit: No Status: Acute (4) Alcohol dependence Current Visit: No Status: Acute (5) Chronic a-fib Current Visit: No Status: Acute (6) Cigarette nicotine dependence Current Visit: No Status: Acute (7) Hypertension Current Visit: No Status: Acute Hospital Course: This discharge summary 54-year-old white male essentially admitted for abdominal pain with opiate withdrawal. The patient was stabilized and morphine and we had a long discussion regarding weaning off his opiates as he abruptly stopped his [place] about 4 days ago. He denies any ethanol abuse recently. He will be discharged in stable condition after tolerating diet to follow-up with me in about 3-5 days. Patient Condition at Discharge: Fair Plan - Discharge Summary New Discharge Prescriptions: New HYDROcodone/APAP 5-325MG [[place] 5-325] 1 tab PO Q6HR 15 Days #60 tab RX: Lisinopril [Zestril] 10 mg PO DAILY #30 tab Continue RX: Citalopram Hydrobromide [CeleXA] 20 mg PO HS RX: amLODIPine BESYLATE/BENAZEPRIL [Lotrel 5-10 MG] 1 cap PO DAILY RX: Warfarin Sodium [Coumadin] 5 mg PO SUTUWETHFRSA RX: Sucralfate [Carafate] 1 gm PO ACHS #1 bottle Changed RX: Famotidine [Pepcid] 40 mg PO BID #60 tab Discontinued HYDROcodone/APAP 7.5-325MG [[place] 7.5-325] 1 tab PO Q6H PRN PRN Reason: Pain Discharge Medication List RX: Citalopram Hydrobromide [CeleXA] 20 mg PO HS 01/24/19 [History] RX: Warfarin Sodium [Coumadin] 5 mg PO SUTUWETHFRSA 06/24/19 [History] RX: amLODIPine BESYLATE/BENAZEPRIL [Lotrel 5-10 MG] 1 cap PO DAILY 06/24/19 [History] RX: Sucralfate [Carafate] 1 gm PO ACHS #1 bottle 06/25/19 [Rx] HYDROcodone/APAP 5-325MG [[place] 5-325] 1 tab PO Q6HR 15 Days #60 tab 06/26/19 [Rx] RX: Famotidine [Pepcid] 40 mg PO BID #60 tab 06/26/19 [Rx] RX: Lisinopril [Zestril] 10 mg PO DAILY #30 tab 06/26/19 [Rx] Follow up Appointment(s)/Referral(s): Aaron Loja MD [Primary Care Provider] - 1-2 days
[2019-06-26] MEDS ORDERED: amLODIPine 5 MG TAB PO SCH (09:00)
[2019-06-26] MEDS ORDERED: LISINOPRIL 10 MG TAB PO SCH (09:00)
[2019-06-26 09:13] LABS: INR 1.2 (<1.2); Prothrombin Time 12.6 sec (9.0-12.0)
[2019-06-26] MEDS ORDERED: WARFARIN 5 MG TAB PO SCH (18:00)
== END 2019-06-26 13:08 | disposition home or self-care (01) ==
LOC: EC 16:06 → 4MS4W 19:15
PROVIDERS: ADMIT Family Medicine; ATTEND Family Medicine
DX: K21.9 Gastro-esophageal reflux disease without esophagitis (principal); F11.23 Opioid dependence with withdrawal; I16.0 Hypertensive urgency; F10.20 Alcohol dependence, uncomplicated; F17.210 Nicotine dependence, cigarettes, uncomplicated; I10 Essential (primary) hypertension; F41.9 Anxiety disorder, unspecified; M19.90 Unspecified osteoarthritis, unspecified site; E66.9 Obesity, unspecified; Z68.30 Body mass index [BMI] 30.0-30.9, adult; R10.9 Unspecified abdominal pain; I48.20 Chronic atrial fibrillation, unspecified; Z79.01 Long term (current) use of anticoagulants; Z79.899 Other long term (current) drug therapy; Z96.641 Presence of right artificial hip joint; Z90.49 Acquired absence of other specified parts of digestive tract; Z82.49 Family history of ischemic heart disease and other diseases of the circulatory system; Z83.3 Family history of diabetes mellitus; Z82.69 Family history of other diseases of the musculoskeletal system and connective tissue
CPT/HCPCS: 96376 ×2; 96361 ×3; 96374; 96375; 99285; 36415; 93005; 80053; 82550; 83605; 83690; 83735; 84100; 85025; 85610; 81001; 80306; 83520; 80329; 80320; G0378 ×2; J2270; J3411; J2405; C9113

== ENCOUNTER 2019-09-17 05:09 | Emergency (ER) | payer OTHER ==
[2019-09-17 05:18] VITALS: RESP 20; TEMP 99.3
[2019-09-17] MEDS ORDERED: ONDANSETRON 4 MG/2 ML VIAL IVP STA (05:48)
[2019-09-17] MEDS ORDERED: MAG HYDROX/AL HYDROX/SIMETH 30 ML, HYOSCYAMINE ELIXIR 10 ML, LIDOCAINE VISCOUS 2% 10 ML PO STA ×6 (05:48→08:14)
[2019-09-17] MEDS ORDERED: SODIUM CHLORIDE 0.9% 1,000 ML IV ONE (05:48)
--- NOTE | 2019-09-17 05:51 | ED ---
Abdominal Pain HPI - General Chief Complaint: Abdominal Pain Stated Complaint: GERD Time Seen by Provider: 09/17/19 05:37 Source: patient, family Mode of arrival: ambulatory Limitations: no limitations - History of Present Illness Initial Comments: Satya is a 54-year-old gentleman with a history of GERD who presents to the ER today for evaluation of burning epigastric abdominal pain similar to previous exacerbations of GERD. Patient states that on he had a very large dinner, he woke around 11 AM on with burning epigastric abdominal pain nausea and inability tolerate any oral intake. Patient states he was unable to sleep throughout the night tonight due to the discomfort which prompted him to come to the ER. Patient states this is 70 of multiple times in the past she's had to come the ER for treatment. Patient states he usually feels better after GI cocktail and antiemetics and fluids. Patient states that he's been compliant with his Pepcid twice a day. He does not follow with gastroenterology he has been recommended to have the numbness and fundoplication but has refused to do financial issues. Patient admits to being only minimally compliant with dietary modifications suggested for GERD patient's. - Related Data Home Medications Medication Instructions Recorded Confirmed Citalopram Hydrobromide [CeleXA] 20 mg PO HS 01/24/19 06/25/19 Warfarin Sodium [Coumadin] 5 mg PO SUTUWETHFRSA 06/24/19 06/25/19 amLODIPine BESYLATE/BENAZEPRIL 1 cap PO DAILY 06/24/19 06/25/19 [Lotrel 5-10 MG] Previous Rx's Medication Instructions Recorded Sucralfate [Carafate] 1 gm PO ACHS #1 bottle 06/25/19 Famotidine [Pepcid] 40 mg PO BID #60 tab 06/26/19 HYDROcodone/APAP 5-325MG [[place] 1 tab PO Q6HR 15 Days #60 tab 06/26/19 5-325] Lisinopril [Zestril] 10 mg PO DAILY #30 tab 06/26/19 Pantoprazole [Protonix] 40 mg PO DAILY #15 tab 09/17/19 Sucralfate [Carafate] 1 gm PO ACHS #1 bottle 09/17/19 Allergies Allergy/AdvReac Type Severity Reaction Status Date / Time No Known Allergies Allergy Verified 09/17/19 17:14 Review of Systems ROS Statement: Those systems with pertinent positive or pertinent negative responses have been documented in the HPI. ROS Other: All systems not noted in ROS Statement are negative. Past Medical History Past Medical History: Atrial Fibrillation, GERD/Reflux, Hypertension, Osteoarthritis (OA) Additional Past Medical History / Comment(s): severe GERD, DJD. History of Any Multi-Drug Resistant Organisms: None Reported Past Surgical History: Appendectomy, Cholecystectomy, Hernia Repair, Joint Replacement, Orthopedic Surgery Additional Past Surgical History / Comment(s): 12/07/14 Total R Hip replacement, RIGHT KNEE SCOPE, umbilical hernia, EGD Past Anesthesia/Blood Transfusion Reactions: No Reported Reaction Additional Past Anesthesia/Blood Transfusion Reaction / Comment(s): "has never received any blood" Past Psychological History: Anxiety Smoking Status: Former smoker Past Alcohol Use History: Rare Past Drug Use History: None Reported - Past Family History Father Family Medical History: Coronary Artery Disease (CAD), Diabetes Mellitus, Myocardial Infarction ([place]) Additional Family Medical History / Comment(s): Father has at the age of 74 yrs of a [place]. He had 2 Cabg's Mother Family Medical History: Coronary Artery Disease (CAD), Diabetes Mellitus, Musculoskeletal Disorder, Neurologic Disorder Additional Family Medical History / Comment(s): Mother is . She at age 64 yrs. She had a cabg and multiple sclerosis Brother(s) Family Medical History: AFIB Additional Family Medical History / Comment(s): Pt has another brother with CAD and MIs General Exam - General Exam Comments Initial Comments: Physical Exam GENERAL: Patient is well-developed and well-nourished. Patient is nontoxic and well- hydrated and is in no distress. HENT: Normocephalic, Atraumatic. EYES: PERRL, EOMI PULMONARY: Unlabored respirations. No audible rales rhonchi or wheezing was noted. CARDIOVASCULAR: There is a regular rate and rhythm without any murmurs gallops or rubs. ABDOMEN: Soft and nontender with normal bowel sounds. SKIN: Skin is clear with no lesions or rashes and otherwise unremarkable. : Deferred NEUROLOGIC: Patient is alert and oriented x3. Moving all extremities spontaneously MUSCULOSKELETAL: Normal extremities with adequate strength and full range of motion. No lower extremity swelling or edema. No calf tenderness. PSYCHIATRIC: Normal psychiatric evaluation. Limitations: no limitations Course Vital Signs 09/17/19 09/17/19 09/17/19 05:14 07:43 09:15 Temperature 99.3 F 99.3 F Pulse Rate 69 99 99 Respiratory 20 20 20 Rate Blood Pressure 168/90 176/109 168/97 O2 Sat by Pulse 97 93 L 93 L Oximetry Medical Decision Making - Medical Decision Making She was seen and evaluated history is obtained from the patient. Patient with a history of GERD who reports when he has bad exacerbations he comes the ER for GI cocktail antiemetics fluids and pain medication. I discussed the patient appropriate management of GERD with dietary modifications and need to follow up with gastroenterology patient states that he doesn't think he needs to because he is on appropriate medications. I recommended discussing with [place] [facility] protonic's rather than Pepcid and possible Carafate for symptoms. Advised patient I will not treat his GERD pain with narcotic pain medications however I will give him a GI cocktail and IV fluids. Labs were relatively unremarkable no elevation of transaminases or lipase Patient received IV fluids, GI cocktail, and Zofran patient states that he is not feeling any better and that he needs morphine. Patient states that the morphine helps recent his sister make him feel better. Patient states that he knows his body and he will only get better if he gets morphine. Patient states that physicians have refused to give her morphine the past and his abdomen visit the ER 4 times in one day until he got morphine and then he felt better. I advised the patient that this is not appropriate management morphine is not indicated for acid reflux pain. He needs to control his symptoms with diet and appropriate medications and appropriate follow-up. Patient did have persistent nausea or for Reglan and Benadryl were ordered. Patient requested a repeat GI cocktail which was given. Patient advised he'll be discharged home with outpatient follow-up. Patient was prescribed Carafate which he reports he's currently not taking though he has been prescribed in the past. - Lab Data Result diagrams: 09/17/19 06:13 09/17/19 06:13 Lab Results 09/17/19 09/17/19 Range/Units 06:13 06:13 WBC 12.3 H (3.8-10.6) k/uL RBC 4.91 (4.30-5.90) m/uL Hgb 16.0 (13.0-17.5) gm/dL Hct 45.9 (39.0-53.0) % MCV 93.3 (80.0-100.0) fL MCH 32.7 (25.0-35.0) pg MCHC 35.0 (31.0-37.0) g/dL RDW 11.8 (11.5-15.5) % Plt Count 264 (150-450) k/uL Neutrophils % 88 % Lymphocytes % 7 % Monocytes % 4 % Eosinophils % 2 % Basophils % 0 % Neutrophils # 10.8 H (1.3-7.7) k/uL Lymphocytes # 0.8 L (1.0-4.8) k/uL Monocytes # 0.5 (0-1.0) k/uL Eosinophils # 0.2 (0-0.7) k/uL Basophils # 0.0 (0-0.2) k/uL Sodium 142 (137-145) mmol/L Potassium 4.2 (3.5-5.1) mmol/L Chloride 104 (98-107) mmol/L Carbon Dioxide 22 (22-30) mmol/L Anion Gap 16 mmol/L BUN 21 H (9-20) mg/dL Creatinine 0.75 (0.66-1.25) mg/dL Est GFR (CKD-EPI)AfAm >90 (>60 ml/min/1.73 sqM) Est GFR (CKD-EPI)NonAf >90 (>60 ml/min/1.73 sqM) Glucose 165 H (74-99) mg/dL Calcium 9.7 (8.4-10.2) mg/dL Total Bilirubin 1.3 (0.2-1.3) mg/dL AST 37 (17-59) U/L ALT 34 (4-49) U/L Alkaline Phosphatase 66 (38-126) U/L Total Protein 7.3 (6.3-8.2) g/dL Albumin 4.6 (3.5-5.0) g/dL Lipase 178 (23-300) U/L Disposition Clinical Impression: Epigastric abdominal pain, Drug-seeking behavior Disposition: HOME SELF-CARE Additional Instructions: Continue taking Pepcid BID Take Carafate with meals Eat multiple small meals, do not eat large meals Avoid spicy or greasy foods Follow up with gastroenterology for further recommendations Prescriptions: Sucralfate [Carafate] 1 gm PO ACHS #1 bottle Is patient prescribed a controlled substance at d/c from ED?: No Referrals: Aaron Loja MD [Primary Care Provider] - 1-2 days Megan Scales MD [STAFF PHYSICIAN] - 1-2 days
[2019-09-17 06:27] LABS: Basophils % (A) 0 %; Eosinophils # (A) 0.2 k/uL (0-0.7); Eosinophils % (A) 2 %; HCT 45.9 % (39.0-53.0); Lymphocytes # (A) 0.8 k/uL (1.0-4.8); Lymphocytes % (A) 7 %; MCH 32.7 pg (25.0-35.0); MCV 93.3 fL (80.0-100.0); Mean Platelet Volume 9.8; Monocytes # (A) 0.5 k/uL (0-1.0); Monocytes % (A) 4 %; Neutrophils # (A) 10.8 k/uL (1.3-7.7); Neutrophils % (A) 88 %; Platelet Count 264 k/uL (150-450); RBC 4.91 m/uL (4.30-5.90); RDW 11.8 % (11.5-15.5); WBC 12.3 k/uL (3.8-10.6)
[2019-09-17 07:08] LABS: AST 37 U/L (17-59); African American GFR (CKD) >90 (>60 ml/min/1.73 sqM); Albumin 4.6 g/dL (3.5-5.0); Alkaline Phosphatase 66 U/L (38-126); Anion Gap 16 mmol/L; Blood Urea Nitrogen 21 mg/dL (9-20); Calcium 9.7 mg/dL (8.4-10.2); Carbon Dioxide 22 mmol/L (22-30); Chloride 104 mmol/L (98-107); Glucose 165 mg/dL (74-99); Non-African American GFR(CKD) >90 (>60 ml/min/1.73 sqM); Potassium 4.2 mmol/L (3.5-5.1); Sodium 142 mmol/L (137-145); Total Bilirubin 1.3 mg/dL (0.2-1.3); Total Protein 7.3 g/dL (6.3-8.2)
[2019-09-17 07:18] LABS: ALT 34 U/L (4-49)
[2019-09-17] MEDS ORDERED: ACETAMINOPHEN TAB 500 MG TAB PO STA (07:33)
[2019-09-17 07:46] VITALS: PULSE 99
[2019-09-17] MEDS ORDERED: METOCLOPRAMIDE 5 MG/ML 2 ML VIAL IVP STA (08:06)
[2019-09-17] MEDS ORDERED: diphenhydrAMINE 50 MG/ML 1 ML VIAL IVP STA (08:06)
[2019-09-17 09:20] VITALS: BP 168/97
== END 2019-09-17 09:04 | disposition home or self-care (01) ==
LOC: EC 05:09
DX: R10.13 Epigastric pain (principal); R11.0 Nausea; Z76.5 Malingerer [conscious simulation]; I48.91 Unspecified atrial fibrillation; F41.9 Anxiety disorder, unspecified; M19.90 Unspecified osteoarthritis, unspecified site; I10 Essential (primary) hypertension; Z79.01 Long term (current) use of anticoagulants; Z79.899 Other long term (current) drug therapy; Z87.891 Personal history of nicotine dependence; Z96.641 Presence of right artificial hip joint; Z90.89 Acquired absence of other organs; Z90.49 Acquired absence of other specified parts of digestive tract
CPT/HCPCS: 36415; 80053; 83690; 85025; 99284; 96374; 96375 ×2; 96361; J1200; J2765; J2405

== ENCOUNTER 2019-09-17 16:03 | Emergency (ER) | payer OTHER ==
[2019-09-17 17:14] VITALS: RESP 17
[2019-09-17] MEDS ORDERED: PANTOPRAZOLE 40 MG/10 ML VIAL IVP STA (18:16)
[2019-09-17] MEDS ORDERED: METOCLOPRAMIDE 5 MG/ML 2 ML VIAL IVP STA (18:17)
[2019-09-17] MEDS ORDERED: MAG HYDROX/AL HYDROX/SIMETH 30 ML, HYOSCYAMINE ELIXIR 10 ML, LIDOCAINE VISCOUS 2% 10 ML PO STA ×3 (18:17)
[2019-09-17] MEDS ORDERED: SODIUM CHLORIDE 0.9% 1,000 ML IV STA (18:17)
--- NOTE | 2019-09-17 18:29 | ED ---
General Adult HPI - General Chief complaint: Abdominal Pain Stated complaint: GERD Time Seen by Provider: 09/17/19 17:51 Source: patient Mode of arrival: ambulatory - History of Present Illness Initial comments: Patient is a 54-year-old male presenting to the emergency Department with complaints of GERD. Patient was in the ER earlier this morning for same complaint. Patient states he has had many exacerbations of GERD and this feels similar. He describes the discomfort as a burning in the middle of his chest. Patient states he is requesting morphine for this issue as it has worked in the past. Patient was given GI cocktail and fluids early this morning with some improvement in symptoms however his symptoms returned and he is again requesting morphine. Patient had full lab workup which was normal this morning. Patient also admits to nausea. No fever, chills, shortness of breath, vomiting, diarrhea, abdominal pain. Patient states he does take Pepcid twice a day although he has not taken the last 2 days secondary to the holidays. Patient has not followed up with his GI doctor secondary to financial issues. Patient has no other complaints at this time. Upon arrival to the ER, his vital signs are stable. - Related Data Home Medications Medication Instructions Recorded Confirmed Citalopram Hydrobromide [CeleXA] 20 mg PO HS 01/24/19 06/25/19 Warfarin Sodium [Coumadin] 5 mg PO SUTUWETHFRSA 06/24/19 06/25/19 amLODIPine BESYLATE/BENAZEPRIL 1 cap PO DAILY 06/24/19 06/25/19 [Lotrel 5-10 MG] Previous Rx's Medication Instructions Recorded Sucralfate [Carafate] 1 gm PO ACHS #1 bottle 06/25/19 Famotidine [Pepcid] 40 mg PO BID #60 tab 06/26/19 HYDROcodone/APAP 5-325MG [[place] 1 tab PO Q6HR 15 Days #60 tab 06/26/19 5-325] Lisinopril [Zestril] 10 mg PO DAILY #30 tab 06/26/19 Pantoprazole [Protonix] 40 mg PO DAILY #15 tab 09/17/19 Sucralfate [Carafate] 1 gm PO ACHS #1 bottle 09/17/19 Allergies Allergy/AdvReac Type Severity Reaction Status Date / Time No Known Allergies Allergy Verified 09/17/19 17:14 Review of Systems ROS Statement: Those systems with pertinent positive or pertinent negative responses have been documented in the HPI. ROS Other: All systems not noted in ROS Statement are negative. Past Medical History Past Medical History: Atrial Fibrillation, GERD/Reflux, Hypertension, Osteoarthritis (OA) Additional Past Medical History / Comment(s): severe GERD, DJD. History of Any Multi-Drug Resistant Organisms: None Reported Past Surgical History: Appendectomy, Cholecystectomy, Hernia Repair, Joint Replacement, Orthopedic Surgery Additional Past Surgical History / Comment(s): 12/07/14 Total R Hip replacement, RIGHT KNEE SCOPE, umbilical hernia, EGD Past Anesthesia/Blood Transfusion Reactions: No Reported Reaction Additional Past Anesthesia/Blood Transfusion Reaction / Comment(s): "has never received any blood" Past Psychological History: Anxiety Smoking Status: Current every day smoker Past Alcohol Use History: Rare Past Drug Use History: None Reported - Past Family History Father Family Medical History: Coronary Artery Disease (CAD), Diabetes Mellitus, Myocardial Infarction ([place]) Additional Family Medical History / Comment(s): Father has at the e of 74 yrs of a [place]. He had 2 Cabg's Mother Family Medical History: Coronary Artery Disease (CAD), Diabetes Mellitus, Musculoskeletal Disorder, Neurologic Disorder Additional Family Medical History / Comment(s): Mother is . She at age 64 yrs. She had a cabg and multiple sclerosis Brother(s) Family Medical History: AFIB Additional Family Medical History / Comment(s): Pt has another brother with CAD and MIs General Exam - General Exam Comments Initial Comments: GENERAL: Well-appearing, well-nourished and in no acute distress. HEAD: Atraumatic, normocephalic. EYES: Pupils equal round and reactive to light, extraocular movements intact, sclera anicteric, conjunctiva are normal. ENT: TMs normal, nares patent, oropharynx clear without exudates. Moist mucous membranes. NECK: Normal range of motion, supple without lymphadenopathy or JVD. LUNGS: Breath sounds clear to auscultation bilaterally and equal. No wheezes rales or rhonchi. HEART: Regular rate and rhythm without murmurs, rubs or gallops. ABDOMEN: Mild epigastric discomfort, no other abdominal pain. Soft, normoactive bowel sounds. No guarding, no rebound. No masses appreciated. : Deferred EXTREMITIES: Normal range of motion, no pitting or edema. No clubbing or cyanosis. NEUROLOGICAL: Normal speech, normal gait. PSYCH: Normal mood, normal affect. SKIN: Warm, Dry, normal turgor, no rashes or lesions noted. Course Vital Signs 09/17/19 17:09 Temperature 98.5 F Pulse Rate 116 H Respiratory 17 Rate Blood Pressure 150/98 O2 Sat by Pulse 94 L Oximetry - Reevaluation(s) Reevaluation #1: 09/17/19 19:13 Upon reexamination, patient is seen sleeping and reports improvement in symptoms. Medical Decision Making - Medical Decision Making Patient is a 54-year-old male presenting with a GERD symptoms for 2 days. Patient was in the ER early this morning for same complaint. Patient is requesting morphine for this pain. Patient had normal lab workup today. I recommended additional lab work as well as chest x-ray and EKG however patient is refusing. I discussed with patient that we do not give narcotics for GERD symptoms. I checked patient's MAPS and he filled a [employer] prescription 2 days ago for 90 tablets. Patient states he takes this for back pain. Patient will be given GI cocktail, Protonix, Zofran, fluids. Upon reexamination, patient is witnessed sleeping comfortably in his bed. Patient reports improvement in his symptoms. Patient will be given a prescription for Protonix and recommended following up with his GI. Patient is agreeable with this plan of care. Return parameters were discussed with the patient he verbalizes understanding. Case discussed with Dr. Edge. Disposition Clinical Impression: Abdominal pain, GERD (gastroesophageal reflux disease) Disposition: HOME SELF-CARE Condition: Stable Instructions (If sedation given, give patient instructions): Gastroesophageal Reflux Disease (ED) Additional Instructions: Please return to the Emergency Department if symptoms worsen or any other concerns. Follow up with GI as discussed. Prescriptions: Pantoprazole [Protonix] 40 mg PO DAILY #15 tab Is patient prescribed a controlled substance at d/c from ED?: No Referrals: Aaron Loja MD [Primary Care Provider] - 1-2 days
[2019-09-17 19:34] VITALS: BP 137/88; PULSE 104; TEMP 97.8
== END 2019-09-17 19:45 | disposition home or self-care (01) ==
LOC: EC 16:03
DX: K21.9 Gastro-esophageal reflux disease without esophagitis (principal); F41.9 Anxiety disorder, unspecified; I48.91 Unspecified atrial fibrillation; I10 Essential (primary) hypertension; M19.90 Unspecified osteoarthritis, unspecified site; F17.200 Nicotine dependence, unspecified, uncomplicated; Z79.01 Long term (current) use of anticoagulants; Z79.899 Other long term (current) drug therapy; Z96.641 Presence of right artificial hip joint; Z90.49 Acquired absence of other specified parts of digestive tract; Z90.89 Acquired absence of other organs
CPT/HCPCS: 99283; 96374; 96375; 96361; J2765; C9113

== ENCOUNTER 2019-09-18 11:59 | Observation (INO) | payer OTHER ==
[2019-09-18] MEDS ORDERED: SODIUM CHLORIDE 0.9% 500 ML 500 ML IV STA (13:14)
[2019-09-18] MEDS ORDERED: PANTOPRAZOLE 40 MG/10 ML VIAL IVP STA (13:15)
--- NOTE | 2019-09-18 13:45 | ED ---
Abdominal Pain HPI - General Chief Complaint: Abdominal Pain Stated Complaint: GERD-revisit Time Seen by Provider: 09/18/19 12:59 Source: patient Mode of arrival: ambulatory Limitations: no limitations - History of Present Illness Initial Comments: 54-year-old male history of alcohol abuse GERD presents emergency department today for chief complaint my GERD his back. Patient states that his GERD has been out of control he states is a burning sensation as esophagus and has been puking since and has not had anything to eat since . Patient denies any diarrhea denies lower abdominal pain patient states the pain is burning to his chest and is very typical of his GERD he states this is not like different chest pain he states that he has had cardiac workup in the past including stress testing and cardiac catheterization. He states that he is trying to cut back on his [place] as he states that his controls the amount he takes and he states that 2 pills a day is not controlling his pain. Patient states he takes a medication for his GERD but this does not seem to help. Patient denies any recent endoscopies. Patient denies hematemesis melena hematochezia. Patient states the pain appears more severe the past 3 days and he is concerned remaining review of systems negative upon arrival patient appears uncomfortable blood pressure elevated he states he did take his blood pressure medications this morning - Related Data Home Medications Medication Instructions Recorded Confirmed Citalopram Hydrobromide [CeleXA] 20 mg PO HS 01/24/19 09/18/19 Warfarin Sodium [Coumadin] 5 mg PO SUTUWETHFRSA 06/24/19 09/18/19 amLODIPine BESYLATE/BENAZEPRIL 1 cap PO DAILY 06/24/19 09/18/19 [Lotrel 5-10 MG] HYDROcodone/APAP 5-325MG [[place] 1 tab PO Q6HR PRN 09/18/19 09/18/19 5-325] Previous Rx's Medication Instructions Recorded Famotidine [Pepcid] 40 mg PO BID #60 tab 06/26/19 Lisinopril [Zestril] 10 mg PO DAILY #30 tab 06/26/19 Pantoprazole [Protonix] 40 mg PO DAILY #15 tab 09/17/19 Sucralfate [Carafate] 1 gm PO ACHS #1 bottle 09/17/19 Allergies Allergy/AdvReac Type Severity Reaction Status Date / Time No Known Allergies Allergy Verified 09/18/19 17:04 Review of Systems ROS Statement: Those systems with pertinent positive or pertinent negative responses have been documented in the HPI. ROS Other: All systems not noted in ROS Statement are negative. Past Medical History Past Medical History: Atrial Fibrillation, GERD/Reflux, Hypertension, Osteoarthritis (OA) Additional Past Medical History / Comment(s): severe GERD, DJD. History of Any Multi-Drug Resistant Organisms: None Reported Past Surgical History: Appendectomy, Cholecystectomy, Hernia Repair, Joint Replacement, Orthopedic Surgery Additional Past Surgical History / Comment(s): 12/07/14 Total R Hip replacement, RIGHT KNEE SCOPE, umbilical hernia, EGD Past Anesthesia/Blood Transfusion Reactions: No Reported Reaction Additional Past Anesthesia/Blood Transfusion Reaction / Comment(s): "has never received any blood" Past Psychological History: Anxiety Smoking Status: Current every day smoker - Past Family History Father Family Medical History: Coronary Artery Disease (CAD), Diabetes Mellitus, Myocardial Infarction (CO) Additional Family Medical History / Comment(s): Father has at the age of 74 yrs of a CO. He had 2 Cabg's Mother Family Medical History: Coronary Artery Disease (CAD), Diabetes Mellitus, Musculoskeletal Disorder, Neurologic Disorder Additional Family Medical History / Comment(s): Mother is . She at age 64 yrs. She had a cabg and multiple sclerosis Brother(s) Family Medical History: AFIB Additional Family Medical History / Comment(s): Pt has another brother with CAD and MIs General Exam - General Exam Comments Initial Comments: General: The patient is awake and alert, in no distress Eye: Pupils are equal, round and reactive to light, extra-ocular movements are intact. No nystagmus. There is normal conjunctiva bilaterally. No signs of icterus. Ears, nose, mouth and throat: There are moist mucous membranes and no oral lesions. Neck: The neck is supple, there is no tenderness or JVD. Cardiovascular: There is a regular rate and rhythm. No murmur, rub or gallop is appreciated. Respiratory: Lungs are clear to auscultation, respirations are non-labored, breath sounds are equal. No wheezes, stridor, rales, or rhonchi. Gastrointestinal: Soft, non-distended, tenderness to palpation of the epigastric region of the abdomen without masses or organomegaly noted. There is no rebound or guarding present. Musculoskeletal: Normal ROM, no tenderness. Strength 5/5. Sensation intact. Pulses equal bilaterally 2+. Neurological: A&O x 3. CN II-XII intact grossly, There are no obvious motor or sensory deficits. Coordination appears grossly intact. Speech is normal. Skin: Skin is warm and dry and no rashes or lesions are noted. No LE edema Psychiatric: Cooperative, appropriate mood & affect, normal judgment. Limitations: no limitations Course Vital Signs 09/18/19 09/18/19 09/18/19 12:42 14:00 15:00 Temperature 98.6 F Pulse Rate 121 H 92 91 Respiratory 18 Rate Blood Pressure 155/97 169/117 161/118 O2 Sat by Pulse 98 97 Oximetry 09/18/19 16:29 Temperature Pulse Rate 103 H Respiratory 19 Rate Blood Pressure 148/99 O2 Sat by Pulse 98 Oximetry Medical Decision Making - Medical Decision Making Ventricular rate 81 bpm, QRS ratio 86 ms QT/QTC 368/427 ms his atrial fibrillation no ST elevation or depression noted. Patient has known history of atrial fibrillation 54-year-old male with history of GERD patient states he is at uncontrolled pain for the past 2 days unable to tolerate oral intake he has persistent vomiting. Patient states his history of a copious with last drink being on . Patient states he had vomiting after. Patient states that he was concerned because his pain is more severe than usual however feels like the exact same quality as his typical GERD pain. Patient denies any shortness of breath. Patient is epigastric pain on exam. Patient's lipase within normal limits, noted leukocytosis. Patient will be admitted for chest pain rule out and GI consultation. Dr. Wong accepted admission and Dr. Murray was agreeable to admission. - Lab Data Result diagrams: 09/18/19 13:40 09/18/19 13:40 Lab Results 09/18/19 09/18/19 09/18/19 Range/Units 13:40 13:40 13:40 WBC 14.9 H (3.8-10.6) k/uL RBC 5.03 (4.30-5.90) m/uL Hgb 15.6 (13.0-17.5) gm/dL Hct 47.3 (39.0-53.0) % MCV 94.1 (80.0-100.0) fL MCH 31.1 (25.0-35.0) pg MCHC 33.0 (31.0-37.0) g/dL RDW 11.7 (11.5-15.5) % Plt Count 225 (150-450) k/uL Neutrophils % 84 % Lymphocytes % 8 % Monocytes % 7 % Eosinophils % 1 % Basophils % 1 % Neutrophils # 12.5 H (1.3-7.7) k/uL Lymphocytes # 1.1 (1.0-4.8) k/uL Monocytes # 1.0 (0-1.0) k/uL Eosinophils # 0.2 (0-0.7) k/uL Basophils # 0.1 (0-0.2) k/uL Sodium 138 (137-145) mmol/L Potassium 3.9 (3.5-5.1) mmol/L Chloride 103 (98-107) mmol/L Carbon Dioxide 26 (22-30) mmol/L Anion Gap 9 mmol/L BUN 15 (9-20) mg/dL Creatinine 0.70 (0.66-1.25) mg/dL Est GFR (CKD-EPI)AfAm >90 (>60 ml/min/1.73 sqM) Est GFR (CKD-EPI)NonAf >90 (>60 ml/min/1.73 sqM) Glucose 129 H (74-99) mg/dL Calcium 9.1 (8.4-10.2) mg/dL Total Bilirubin 2.0 H (0.2-1.3) mg/dL AST 31 (17-59) U/L ALT 29 (4-49) U/L Alkaline Phosphatase 70 (38-126) U/L Troponin I <0.012 (0.000-0.034) ng/mL Total Protein 6.9 (6.3-8.2) g/dL Albumin 4.4 (3.5-5.0) g/dL Amylase 34 (30-110) U/L Lipase 204 (23-300) U/L Urine Color Urine Appearance (Clear) Urine pH (5.0-8.0) Ur Specific [place] (1.001-1.035) Urine Protein (Negative) Urine Glucose (UA) (Negative) Urine Ketones (Negative) Urine Blood (Negative) Urine Nitrite (Negative) Urine Bilirubin (Negative) Urine Urobilinogen (<2.0) mg/dL Ur Leukocyte Esterase (Negative) Urine WBC (0-5) /hpf Amorphous Sediment (None) /hpf Urine Mucus (None) /hpf 09/18/19 Range/Units 14:40 WBC (3.8-10.6) k/uL RBC (4.30-5.90) m/uL Hgb (13.0-17.5) gm/dL Hct (39.0-53.0) % MCV (80.0-100.0) fL MCH (25.0-35.0) pg MCHC (31.0-37.0) g/dL RDW (11.5-15.5) % Plt Count (150-450) k/uL Neutrophils % % Lymphocytes % % Monocytes % % Eosinophils % % Basophils % % Neutrophils # (1.3-7.7) k/uL Lymphocytes # (1.0-4.8) k/uL Monocytes # (0-1.0) k/uL Eosinophils # (0-0.7) k/uL Basophils # (0-0.2) k/uL Sodium (137-145) mmol/L Potassium (3.5-5.1) mmol/L Chloride (98-107) mmol/L Carbon Dioxide (22-30) mmol/L Anion Gap mmol/L BUN (9-20) mg/dL Creatinine (0.66-1.25) mg/dL Est GFR (CKD-EPI)AfAm (>60 ml/min/1.73 sqM) Est GFR (CKD-EPI)NonAf (>60 ml/min/1.73 sqM) Glucose (74-99) mg/dL Calcium (8.4-10.2) mg/dL Total Bilirubin (0.2-1.3) mg/dL AST (17-59) U/L ALT (4-49) U/L Alkaline Phosphatase (38-126) U/L Troponin I (0.000-0.034) ng/mL Total Protein (6.3-8.2) g/dL Albumin (3.5-5.0) g/dL Amylase (30-110) U/L Lipase (23-300) U/L Urine Color Yellow Urine Appearance Cloudy (Clear) Urine pH 8.0 (5.0-8.0) Ur Specific [place] 1.019 (1.001-1.035) Urine Protein Trace H (Negative) Urine Glucose (UA) Negative (Negative) Urine Ketones Negative (Negative) Urine Blood Negative (Negative) Urine Nitrite Negative (Negative) Urine Bilirubin Negative (Negative) Urine Urobilinogen <2.0 (<2.0) mg/dL Ur Leukocyte Esterase Negative (Negative) Urine WBC <1 (0-5) /hpf Amorphous Sediment Rare H (None) /hpf Urine Mucus Rare H (None) /hpf Disposition Clinical Impression: Dyspepsia, Abdominal pain, Hx of gastroesophageal reflux (GERD), Non-cardiac chest pain Disposition: ADMITTED IP TO THIS [facility] Condition: Stable Is patient prescribed a controlled substance at d/c from ED?: No Time of Disposition: 16:24 Decision to Admit Reason: Admit from EC Decision Date: 09/18/19 Decision Time: 16:24
[2019-09-18 13:56] LABS: Basophils # (A) 0.1 k/uL (0-0.2); Basophils % (A) 1 %; Eosinophils # (A) 0.2 k/uL (0-0.7); Eosinophils % (A) 1 %; HCT 47.3 % (39.0-53.0); HGB 15.6 gm/dL (13.0-17.5); Lymphocytes # (A) 1.1 k/uL (1.0-4.8); Lymphocytes % (A) 8 %; MCH 31.1 pg (25.0-35.0); MCV 94.1 fL (80.0-100.0); Monocytes % (A) 7 %; Neutrophils # (A) 12.5 k/uL (1.3-7.7); Neutrophils % (A) 84 %; Platelet Count 225 k/uL (150-450); RBC 5.03 m/uL (4.30-5.90); RDW 11.7 % (11.5-15.5); WBC 14.9 k/uL (3.8-10.6)
[2019-09-18 14:08] LABS: ALT 29 U/L (4-49); AST 31 U/L (17-59); African American GFR (CKD) >90 (>60 ml/min/1.73 sqM); Albumin 4.4 g/dL (3.5-5.0); Alkaline Phosphatase 70 U/L (38-126); Amylase 34 U/L (30-110); Anion Gap 9 mmol/L; Blood Urea Nitrogen 15 mg/dL (9-20); Calcium 9.1 mg/dL (8.4-10.2); Carbon Dioxide 26 mmol/L (22-30); Chloride 103 mmol/L (98-107); Glucose 129 mg/dL (74-99); Non-African American GFR(CKD) >90 (>60 ml/min/1.73 sqM); Potassium 3.9 mmol/L (3.5-5.1); Sodium 138 mmol/L (137-145); Total Protein 6.9 g/dL (6.3-8.2)
--- NOTE | 2019-09-18 14:33 | XR ---
EXAMINATION TYPE: XR chest 2V DATE OF EXAM: 09/18/2019 COMPARISON: Chest x-ray May 11, 2018. CTA chest April 21, 2018 HISTORY: Chest pain into back. TECHNIQUE: Frontal and lateral views of the chest are obtained. FINDINGS: Low lung volumes with patchy bibasilar opacities. No pleural effusion or pneumothorax see n bilaterally. The cardiac silhouette size is stable and mildly enlarged. Overlying EKG leads are red emonstrated. The osseous structures are intact. IMPRESSION: Low lung volumes and mild cardiomegaly with patchy bibasilar acute atelectasis and/or in filtrate thought present.
[2019-09-18] MEDS ORDERED: MORPHINE SULFATE 4 MG/ML SYRINGE IVP STA (14:43)
[2019-09-18 15:06] LABS: Amorphous Sediment,Urine Rare /hpf; Appearance,Urine Cloudy (Clear); Bilirubin,Urine Negative (Negative); Blood,Urine Negative (Negative); Color,Urine Yellow; Glucose,Urine (UA) Negative (Negative); Ketones,Urine Negative (Negative); Leukocyte Esterase,Urine Negative (Negative); Mucus,Urine Rare /hpf; Nitrite,Urine Negative (Negative); Protein,Urine Trace (Negative); Specific Gravity,Urine 1.019 (1.001-1.035); Urobilinogen,Urine <2.0 mg/dL (<2.0); WBC,Urine <1 /hpf (0-5)
[2019-09-18] MEDS ORDERED: hydrALAZINE HCL 20 MG/ML 1 ML VIAL IVP STA (15:21)
[2019-09-18] MEDS ORDERED: MAG HYDROX/AL HYDROX/SIMETH 30 ML, HYOSCYAMINE ELIXIR 10 ML, LIDOCAINE VISCOUS 2% 10 ML PO STA ×3 (15:31)
[2019-09-18] MEDS ORDERED: NALOXONE 0.4 MG/ML 1 ML VIAL IV PRN (16:20)
[2019-09-18] MEDS: SODIUM CHLORIDE 0.9% 1,000 ML IV SCH ×2 (16:50→22:57)
[2019-09-18] MEDS: TEMAZEPAM 15 MG CAP PO PRN (17:17)
[2019-09-18] MEDS: MAG HYDROX/AL HYDROX/SIMETH 30 ML CUP PO PRN (20:34)
[2019-09-18] MEDS: ONDANSETRON 4 MG/2 ML VIAL IVP PRN (20:38)
[2019-09-18] MEDS: MORPHINE SULFATE 4 MG/ML SYRINGE IVP PRN (21:02)
[2019-09-18 21:39] LABS: Magnesium 2.2 mg/dL (1.6-2.3); Potassium 3.9 mmol/L (3.5-5.1)
[2019-09-18] MEDS ORDERED: WARFARIN 5 MG TAB PO SCH (21:45)
[2019-09-18] MEDS: METOPROLOL TARTRATE 50 MG TAB PO SCH (21:50)
[2019-09-18 22:06] LABS: INR 1.2 (<1.2); Partial Thromboplastin Time 25.7 sec (22.0-30.0); Prothrombin Time 12.1 sec (9.0-12.0)
[2019-09-18] MEDS ORDERED: WARFARIN 3 MG TAB PO ONE (22:30)
[2019-09-18] MEDS: CITALOPRAM HYDROBROMIDE 20 MG TAB PO SCH (22:56)
[2019-09-18 23:02] LABS: Glucose,Whole Blood 116 mg/dL (75-99)
[2019-09-18] MEDS: HYDROcodone/APAP 5-325MG 1 EACH TAB PO PRN (23:02)
[2019-09-19] MEDS: PANTOPRAZOLE 40 MG/10 ML VIAL IVP SCH ×3 (01:11→20:39)
[2019-09-19] MEDS: MORPHINE SULFATE 4 MG/ML SYRINGE IVP PRN ×3 (05:20→16:57)
[2019-09-19] MEDS: ONDANSETRON 4 MG/2 ML VIAL IVP PRN ×3 (05:21→16:57)
[2019-09-19] MEDS: MAG HYDROX/AL HYDROX/SIMETH 30 ML CUP PO PRN ×2 (05:26→13:24)
[2019-09-19] MEDS ORDERED: PANTOPRAZOLE 40 MG TABLET PO SCH (07:30)
[2019-09-19 07:54] LABS: INR 1.4 (<1.2); Prothrombin Time 14.5 sec (9.0-12.0)
[2019-09-19 08:19] VITALS: RESP 16
[2019-09-19] MEDS: METOPROLOL TARTRATE 50 MG TAB PO SCH ×2 (08:43→20:39)
[2019-09-19] MEDS: SUCRALFATE 1 GM TAB PO SCH ×4 (08:44→20:39)
[2019-09-19] MEDS: amLODIPine 5 MG TAB PO SCH (08:44)
[2019-09-19] MEDS: NICOTINE 14MG/24HR PATCH TRANSDERM SCH (08:44)
[2019-09-19] MEDS: LISINOPRIL 10 MG TAB PO SCH ×2 (08:44)
[2019-09-19] MEDS: SODIUM CHLORIDE 0.9% 1,000 ML IV SCH ×2 (08:44→19:07)
[2019-09-19] MEDS ORDERED: ALPRAZolam 0.25 MG TAB PO PRN (09:00)
--- NOTE | 2019-09-19 09:00 | HP ---
HISTORY AND PHYSICAL DATE OF SERVICE: 09/18/2019 CHIEF COMPLAINT: Epigastric pain as well as chest pain. I am covering for Dr. Loja. HISTORY OF PRESENT ILLNESS: This 54-year-old gentleman with a past medical history of atrial fibrillation, GERD, hypertension, DJD, history of appendectomy, cholecystomy, being followed by Dr. Loja in the outpatient setting, complaining of some epigastric pain. Patient also has had some nausea. The patient had multiple episodes of GERD. Patient also had burning sensation in the esophagus and also going upwards in the chest. Patient came to [facility] and was admitted for further evaluation and treatment. The patient had cardiac workup and stress test previously according to the patient. Last year, the patient also had abdominal and pelvis CAT scan which showed gastroenterocolitis and possible GERD. The patient had laparoscopic appendectomy and laparoscopic recurrent incarcerated umbilical hernia repair without mesh previously. There is no history of fever, rigors. No history of headache, loss of consciousness, seizures. The patient was admitted recently to [facility] with complaints of gastroesophageal reflux disease. The patient also had history of alcohol dependence, also. PAST MEDICAL HISTORY: History of atrial fibrillation, history of GERD, hypertension, DJD, history of appendectomy, cholecystectomy, anxiety. MEDICATIONS: Prior to admission include: 1. Lotrel 5/10 p.o. daily. 2. Coumadin 5 mg Saturday, Saturday, Saturday, , Saturday, Saturday. 3. Carafate 1 g a.c. and q.h.s. 4. Protonix 40 mg. 5. Zestril 10 mg p.o. daily. 6. Hydrocodone 5 mg q.6h p.r.n. 7. Pepcid 40 mg p.o. b.i.d. 8. Celexa 20 mg q.h.s. ALLERGIES: None. FAMILY HISTORY: History of CAD, myocardial infarction in the family. SOCIAL HISTORY: History of smoking, history of alcohol. REVIEW OF SYSTEMS: ENT: No diminished hearing. No diminished vision. Otherwise as mentioned earlier. CARDIOVASCULAR: No angina or palpitations. Otherwise as mentioned earlier. RESPIRATION: No cough. No hemoptysis. GI: As mentioned earlier. no dysuria or hematuria. NERVOUS SYSTEM: No numbness or weakness. ALLERGY: No asthma or hayfever. MUSCULOSKELETAL SYSTEM: As mentioned earlier. HEMATOLOGY/ONCOLOGY: No history of anemia. ENDOCRINE: No history of diabetes or hypothyroidism. CONSTITUTIONAL: As mentioned earlier. DERMATOLOGY: Negative. RHEUMATOLOGY negative. PSYCHIATRY as mentioned earlier. PHYSICAL EXAM: Patient is alert, oriented x3. Pulse is 107. Blood pressure 159/96, respiration 18, temperature 98.9. Pulse ox 92% on room air. HEENT: Conjunctivae normal. Oral mucosa moist. Neck is no jugular venous distention. No carotid bruit. No lymph node enlargement. Cardiovascular system: S1, S2, muffled. No S3, no S4. RESPIRATION: Breath sounds diminished in the bases. No rhonchi. No crackles. ABDOMEN: Soft. Mild diffuse tenderness in the epigastrium present. No guarding. No rigidity. No mass palpable. Obese. LEGS: No edema. No swelling. NERVOUS SYSTEM: Higher functions as mentioned earlier. Moves all 4 limbs. No focal motor or sensory deficits. Lymphatics: No lymph nodes palpable in the neck, axillae or groin. SKIN: No ulcer, rashes or bleeding. JOINTS: No active deforming arthropathy. LABS: INR 1.2. UA noted. Otherwise, WBC 14.9 and glucose is 116. Total bilirubin is 2. ASSESSMENT: 1. Epigastric pain and chest pain for evaluation possible gastroesophageal reflux disease, rule out coronary artery disease. 2. Increased WBC. 3. Possible acute gastritis. 4. Atrial fibrillation. 5. History of gastroesophageal reflux disease. 6. Hypertension. 7. History of degenerative joint disease. 8. Appendectomy. 9. Cholecystectomy. 10.History of hernia repair. 11.History of nicotine dependence. 12.Obesity with body mass of 31.6. 13.Full code. RECOMMENDATIONS AND DISCUSSION: In this 54-year-old gentleman who presented with multiple complex medical issues, we will monitor the patient closely, continue the current medications, management and symptomatic treatment. Otherwise, I recommend proton pump inhibitors. Symptomatic treatment. Otherwise, resume the home medications. Cardiology consultation. Guarded prognosis. Further recommendations to follow. See orders for further details. Further recommendations to follow. As mentioned earlier, patient had a previous cardiac workup. The reports are not available. The patient might need repeat testing as well. Again, see orders for details. Further recommendations to follow. Continue the anticoagulation. MMODL / IJN: [id number] /
[2019-09-19 11:38] LABS: Amphetamine Screen,Urine Not Detected (NotDetected); Barbiturate Screen,Urine Not Detected (NotDetected); Benzodiazepines Screen,Urine Detected (NotDetected); Cocaine Screen,Urine Not Detected (NotDetected); Methadone Screen, Urine Not Detected (NotDetected); Opiate Screen,Urine Detected (NotDetected); Oxycodone Screen, Urine Not Detected (NotDetected); Phencyclidine Screen,Urine Not Detected (NotDetected); Tricyclic Antidepressant,Urine Not Detected (NotDetected); Urn Cannabinoid Scrn Not Detected (NotDetected)
--- NOTE | 2019-09-19 13:01 | ECHOF ---
Referral Reason:Chest pain MEASUREMENTS -------- HEIGHT: 170.2 cm WEIGHT: 90.7 kg BP: 115/73 IVSd: 1.4 cm (0.6 - 1.1) LVIDd: 4.7 cm (3.9 - 5.3) LVPWd: 1.4 cm (0.6 - 1.1) IVSs: 1.8 cm LVIDs: 3.6 cm LVPWs: 2.0 cm LA Diam: 4.5 cm (2.7 - 3.8) RVIDd: 3.6 cm (< 3.3) LAESV Index (A-L): 40.24 ml/m Ao Diam: 3.9 cm (2.0 - 3.7) AV Cusp: 2.1 cm (1.5 - 2.6) EPSS: 0.1 cm RAP: 5.00 mmHg RVSP: 32.41 mmHg MV EF SLOPE: 235.09 mm/s (70 - 150) MV EXCURSION: 28.81 mm (> 18.000) FINDINGS -------- Atrial fibrillation. This was a technically adequate study. The left ventricular size is normal. There is moderate concentric left ventricular hypertrophy. O verall left ventricular systolic function is mild-moderately impaired with, an EF between 40 - 45 %. The right ventricle is mildly enlarged. LA is severely dilated >40 ml/m2 The right atrium is normal in size. Aneurysmal Interatrial septum. The aortic valve is trileaflet and appears structurally normal. The mitral valve leaflets are mildly thickened. Moderate mitral regurgitation is present. Cannot exclude mitral valve prolapse. Mild tricuspid regurgitation present. Right ventricular systolic pressure is normal at < 35 mmHg. There is no pulmonic regurgitation present. The aortic root is dilated measuring 3.9cm. Normal inferior vena cava with normal inspiratory collapse consistent with estimated right atrial pre ssure of 5 mmHg. There is no pericardial effusion. CONCLUSIONS -------- 1. Atrial fibrillation. 2. This was a technically adequate study. 3. The left ventricular size is normal. 4. There is moderate concentric left ventricular hypertrophy. 5. Overall left ventricular systolic function is mild-moderately impaired with, an EF between 40 - 45 %. 6. The right ventricle is mildly enlarged. 7. LA is severely dilated >40 ml/m2 8. The right atrium is normal in size. 9. Aneurysmal Interatrial septum. 10. The aortic valve is trileaflet and appears structurally normal. 11. The mitral valve leaflets are mildly thickened. 12. Moderate mitral regurgitation is present. 13. Cannot exclude mitral valve prolapse. 14. Mild tricuspid regurgitation present. 15. Right ventricular systolic pressure is normal at < 35 mmHg. 16. There is no pulmonic regurgitation present. 17. The aortic root is dilated measuring 3.9cm. 18. Normal inferior vena cava with normal inspiratory collapse consistent with estimated right atrial pressure of 5 mmHg. 19. There is no pericardial effusion. [employer] RATER: Tia Jones RDCS
--- NOTE | 2019-09-19 14:33 | CONS ---
CONSULTATION This is a gentleman with a known history of chronic atrial fibrillation on anticoagulation, hypertension. He sees Dr. Loja in the outpatient setting. He came into the hospital with complaints of having some chest and epigastric pressure. He is known to have gastroesophageal reflux disease. Apparently, he takes the Carafate and also Pepcid. After arrival to the hospital, he went to the bathroom, had a rapid heart rate and went into a faster heart rate. He always has chronic atrial fibrillation. At the time of my evaluation, he is asymptomatic. His epigastric discomfort has resolved with Carafate. His troponins are normal. He is resting comfortably. Atrial fib rate is well controlled. However, his PT/INR was 1.2. I gave him an additional dose of Coumadin. The patient is not compliant with medications. Apparently, he was supposed to be on a beta jeff, but has not been taking it. PAST MEDICAL HISTORY: 1. Chronic atrial fibrillation. 2. Hypertension. 3. History of smoking. 4. Probable COPD. 5. History of gastroesophageal reflux disease. MEDICATIONS: At home include Coumadin, Carafate, Protonix, Zestril, Celexa, amlodipine and benazepril combination. ALLERGIES: None. PHYSICAL EXAMINATION: Blood pressure is 150/80, pulse rate is 88 per minute, irregular. HEENT unremarkable. Fundus was not examined by me. Neck is supple. There is no JVD. I do not hear a carotid bruit. HEART exam reveals S1, S2 heard normally. There is irregular rhythm, short systolic murmur. LUNGS reveal diminished air entry. ABDOMEN is soft, nontender. Lower extremities reveal diminished pulses. Central nervous system is grossly within normal limits. EKG revealed atrial fib controlled rate, nonspecific ST changes. Echocardiogram revealed global decrease in contractility, estimated ejection fraction in the 45% range with mild right ventricular enlargement. There is no evidence of any pulmonary hypertension. Moderate mitral regurgitation is noted. IMPRESSION: 1. Atrial fib with moderate ventricular rate but now controlled, noncompliant with Coumadin. 2. Hypertension. 3. Hyperlipidemia. 4. Nonischemic cardiomyopathy type picture. RECOMMENDATIONS: I am recommending beta blockers and also suggested that he should be compliant with Coumadin. We will give an additional 7.5 mg today. Check PT/INR tomorrow. If he remains stable, he can be discharged. He is advised to follow up closely with Cardiology. Thank you very much for the consult. MMODL / IJN: [id number] /
[2019-09-19] MEDS: HYDROcodone/APAP 5-325MG 1 EACH TAB PO PRN ×2 (14:55→21:24)
[2019-09-19] MEDS ORDERED: WARFARIN 3 MG TAB PO ONE (18:00)
[2019-09-19] MEDS ORDERED: WARFARIN 5 MG TAB PO SCH (18:00)
[2019-09-19] MEDS ORDERED: WARFARIN 7.5 MG TAB PO ONE (18:00)
[2019-09-19] MEDS: CITALOPRAM HYDROBROMIDE 20 MG TAB PO SCH (20:39)
[2019-09-19] MEDS: TEMAZEPAM 15 MG CAP PO PRN (21:24)
--- NOTE | 2019-09-19 21:59 | PN ---
PROGRESS NOTE DATE OF SERVICE: 09/19/2019 This 54-year-old gentleman admitted with epigastric pain as well as chest pain is still complaining of chest burning at this time. The patient is empirically being treated with proton pump inhibitors. Cardiology is following the patient closely. A 2D echo with Doppler was done and showed ejection fraction about 40-45% with mild to moderate impairment. Cardiology is seeing the patient and recommended to continue with medical treatment and beta blockers and recommended more compliance with Coumadin. Atrial ablation was also noted. PAST MEDICAL HISTORY: Reviewed. REVIEW OF SYSTEMS: CARDIOVASCULAR SYSTEM: As mentioned earlier. RESPIRATORY: As mentioned earlier. GI: No nausea. : No dysuria. NERVOUS SYSTEM: No numbness or weakness. CURRENT MEDICATIONS: 1. [place] 5 mg p.o. q.6 p.r.n. 2. Maalox. 3. Xanax 0.5 t.i.d. 4. Norvasc 5 mg p.o. daily. 5. Celexa 20 mg q.h.s. 6. Zestril 20 10 mg daily. 7. Lopressor 50 mg p.o. b.i.d. 8. Coumadin. 9. Morphine. 10.Narcan. 11.Habitrol 14. 12.Zofran. 13.Protonix. 14.Carafate. 15.Restoril. PHYSICAL EXAMINATION: The patient is alert, oriented x3. Pulse 78, blood pressure 130/92, respirations 16, temperature 97.6, pulse ox 97% on room air. HEENT: Conjunctivae normal. Oral mucosa moist. NECK: No jugular venous distention. No lymph node enlargement. CARDIOVASCULAR: S1, S2. RESPIRATORY: Diminished breath sounds at the bases. A few scattered rhonchi. ABDOMEN: Soft. Mild diffuse discomfort in the epigastrium. LEGS: No edema. No swelling. NERVOUS SYSTEM: No focal deficits. LABS: INR is 1.4. ( ) 14.9. Other labs are noted. Total bilirubin is 0.2. ASSESSMENT: 1. Epigastric and chest pain, possible gastroesophageal reflux disease, rule out coronary artery disease. 2. Increased WBC. 3. Possible acute gastritis. 4. Atrial fibrillation, paroxysmal. 5. History of gastroesophageal reflux disease. 6. Coumadin monitor. 7. History of hypertension. 8. History of degenerative joint disease. 9. History of appendectomy. 10.History of cholecystectomy. 11.History of hernia repair. 12.History of nicotine dependence. 13.Obesity with body mass index of 31.6. 14.FULL CODE. RECOMMENDATIONS AND DISCUSSION: I recommend to continue current medications, management and symptomatic treatment. Otherwise, at this time I recommend continue with proton pump inhibitors, Carafate and monitor PT, INR closely. Coumadin 7.5 mg given. Closely follow with Cardiology. Otherwise, the patient previously had a cardiac workup, details are not available at this time. Discussed with the patient's family at length. Prognosis guarded because of multiple complex medical issues as listed above. Further recommendations to follow. Patient will require further cardiac workup possibly in outpatient setting. MMODL / IJN: [id number] /
[2019-09-20] MEDS: MORPHINE SULFATE 4 MG/ML SYRINGE IVP PRN (06:14)
[2019-09-20 07:27] LABS: Basophils % (A) 1 %; Eosinophils # (A) 0.2 k/uL (0-0.7); Eosinophils % (A) 2 %; HCT 42.3 % (39.0-53.0); HGB 14.4 gm/dL (13.0-17.5); Lymphocytes # (A) 1.7 k/uL (1.0-4.8); Lymphocytes % (A) 21 %; MCH 31.9 pg (25.0-35.0); MCV 93.6 fL (80.0-100.0); Monocytes # (A) 0.6 k/uL (0-1.0); Monocytes % (A) 8 %; Neutrophils # (A) 5.4 k/uL (1.3-7.7); Neutrophils % (A) 67 %; Platelet Count 186 k/uL (150-450); RBC 4.52 m/uL (4.30-5.90); RDW 11.4 % (11.5-15.5)
[2019-09-20 07:48] LABS: INR 2.5 (<1.2); Prothrombin Time 24.3 sec (9.0-12.0)
[2019-09-20 07:59] LABS: African American GFR (CKD) >90 (>60 ml/min/1.73 sqM); Anion Gap 6 mmol/L; Blood Urea Nitrogen 15 mg/dL (9-20); Calcium 8.4 mg/dL (8.4-10.2); Carbon Dioxide 25 mmol/L (22-30); Chloride 105 mmol/L (98-107); Glucose 115 mg/dL (74-99); Non-African American GFR(CKD) >90 (>60 ml/min/1.73 sqM); Potassium 3.8 mmol/L (3.5-5.1); Sodium 136 mmol/L (137-145)
[2019-09-20] MEDS: SUCRALFATE 1 GM TAB PO SCH ×2 (08:23→11:58)
[2019-09-20] MEDS: NICOTINE 14MG/24HR PATCH TRANSDERM SCH (08:24)
[2019-09-20] MEDS: amLODIPine 5 MG TAB PO SCH (08:24)
[2019-09-20] MEDS: LISINOPRIL 10 MG TAB PO SCH ×2 (08:24)
[2019-09-20] MEDS: METOPROLOL TARTRATE 50 MG TAB PO SCH (08:24)
[2019-09-20] MEDS: PANTOPRAZOLE 40 MG/10 ML VIAL IVP SCH (08:25)
[2019-09-20 08:40] VITALS: BP 115/65; PULSE 79; TEMP 98.3
--- NOTE | 2019-09-20 16:03 | PN ---
PROGRESS NOTE Mr. Arevalo is in atrial fib. Rate control is much better with beta jeff addition. PT/INR is 2.5. I am recommending that he can be discharged on current medical regimen with optimal rate control on Coumadin 4 mg daily and PT/INR in the next 48 hours. Vitals are stable. No JVD. S1, S2 heard normally. Irregular rhythm noted. Lungs reveal diminished air entry. Abdomen and lower extremity exam otherwise unchanged. MMODL / IJN: [id number] /
[2019-09-20] MEDS ORDERED: WARFARIN 2.5 MG TAB PO ONE (18:00)
--- NOTE | 2019-09-21 06:51 | DS ---
DISCHARGE SUMMARY DATE OF SERVICE: 09/20/2019 FINAL DIAGNOSES: 1. Epigastric chest pain, possible gastroesophageal reflux disease. 2. Increased WBC. 3. Possible acute gastritis. 4. Atrial fibrillation, paroxysmal. 5. History of gastroesophageal reflux disease. 6. Coumadin monitoring. 7. History of hypertension. 8. History of degenerative joint disease. 9. History of appendectomy. 10.History of cholecystectomy. 11.History of hernia repair. 12.History of nicotine dependence. 13.Obesity, body mass index 31.6. 14.FULL CODE. DISCHARGE DISPOSITION: The patient will be discharged in stable condition with guarded prognosis. Cardiology cleared the patient for discharge. HISTORY OF PRESENT ILLNESS: This 54-year-old gentleman with a past medical history of multiple medical problems admitted with epigastric and chest pain. Patient was treated symptomatically. Patient improved significantly. Cardiology saw the patient and recommended outpatient followup. The patient follows with Dr. Loja in the outpatient setting. On exam, vitals are stable. CARDIOVASCULAR: S1 and S2 muffled. ABDOMEN: Soft. NERVOUS SYSTEM: No focal deficit. Otherwise, a 2D echo was reviewed. DISCHARGE ADVICE AND MEDICATIONS: 1. Diet is cardiac. 2. Activity limited until followup. 3. Follow up with Dr. Loja in 2 to 3 days. Medications are: 1. Celexa 20 mg at bedtime. 2. Amlodipine 1 capsule daily. 3. [place] 5 mg q.6 p.r.n. 4. Carafate 1 gram p.o. a.c. and at bedtime. 5. Coumadin 4 mg p.o. daily. 6. Lopressor 50 mg p.o. b.i.d. 7. Magnesium, that is Maalox p.r.n. 8. Pepcid 40 mg p.o. b.i.d. 9. Protonix 40 mg p.o. b.i.d. 10.Zestril 10 mg p.o. daily. Once again the patient will be discharged in stable condition with guarded prognosis. Follow with Cardiology as an outpatient and further workup as an outpatient. MMODL / AASHISHN: [id number] /
== END 2019-09-20 12:32 | disposition home or self-care (01) ==
LOC: EC 11:59 → 4SSUR 16:21
PROVIDERS: ADMIT Internal Medicine; ATTEND Internal Medicine
DX: R10.13 Epigastric pain (principal); R07.89 Other chest pain; K21.9 Gastro-esophageal reflux disease without esophagitis; D72.829 Elevated white blood cell count, unspecified; I10 Essential (primary) hypertension; E78.5 Hyperlipidemia, unspecified; I48.20 Chronic atrial fibrillation, unspecified; Z91.14 Patient's other noncompliance with medication regimen; F10.11 Alcohol abuse, in remission; M19.90 Unspecified osteoarthritis, unspecified site; F41.9 Anxiety disorder, unspecified; E66.9 Obesity, unspecified; Z68.31 Body mass index [BMI] 31.0-31.9, adult; K52.9 Noninfective gastroenteritis and colitis, unspecified; F17.200 Nicotine dependence, unspecified, uncomplicated; Z83.3 Family history of diabetes mellitus; Z82.49 Family history of ischemic heart disease and other diseases of the circulatory system; Z82.0 Family history of epilepsy and other diseases of the nervous system; Z90.49 Acquired absence of other specified parts of digestive tract; Z96.641 Presence of right artificial hip joint; Z98.890 Other specified postprocedural states; Z79.01 Long term (current) use of anticoagulants; Z79.891 Long term (current) use of opiate analgesic; Z79.899 Other long term (current) drug therapy
CPT/HCPCS: 96376 ×3; 96375 ×2; 96361; 96374; 99285; 36415; 93005 ×2; 93306; 80053; 80048; 82150; 83690; 83735; 84132; 84484 ×2; 85025 ×2; 85610 ×3; 85730; 81001; 80306; 71046; G0378 ×3; S4990 ×2; J2270 ×3; J0360; J2405 ×2; C9113 ×3

== ENCOUNTER 2019-09-25 13:39 | Inpatient (IN) | payer OTHER ==
[2019-09-25] MEDS ORDERED: SODIUM CHLORIDE 0.9% 1,000 ML IV STA (14:33)
--- NOTE | 2019-09-25 14:41 | ED ---
General Adult HPI - General Chief complaint: Dizziness Stated complaint: dizziness/syncope Time Seen by Provider: 09/25/19 14:10 Source: patient, family, EMS, RN notes reviewed Mode of arrival: EMS Limitations: no limitations - History of Present Illness Initial comments: Patient is a pleasant 54-year-old male presenting to the emergency department following syncopal episode. Patient states he was at work and felt lightheaded. Patient stood up and passed out. Patient then got up again and believes he passed out twice. Patient did hit his head at one point. Patient did lose consciousness prior to striking his head. Patient only has minimal discomfort of the left forehead. No neck or back pain. No chest pain or dyspnea. No abdominal pain. Patient does have history of atrial fibrillation. Patient was sweaty with the episode. - Related Data Home Medications Medication Instructions Recorded Confirmed Citalopram Hydrobromide [CeleXA] 20 mg PO HS 01/24/19 09/18/19 amLODIPine BESYLATE/BENAZEPRIL 1 cap PO DAILY 06/24/19 09/18/19 [Lotrel 5-10 MG] HYDROcodone/APAP 5-325MG [Otter 1 tab PO Q6HR PRN 09/18/19 09/18/19 5-325] Previous Rx's Medication Instructions Recorded Famotidine [Pepcid] 40 mg PO BID #60 tab 06/26/19 Lisinopril [Zestril] 10 mg PO DAILY #30 tab 06/26/19 Sucralfate [Carafate] 1 gm PO ACHS #1 bottle 09/17/19 Mag Hydrox/Al Hydrox/Simeth 30 ml PO Q6HR PRN cup 09/20/19 [Maalox] Metoprolol Tartrate [Lopressor] 50 mg PO BID #60 tab 09/20/19 Pantoprazole [Protonix] 40 mg PO BID #60 tab 09/20/19 Pantoprazole [Protonix] 40 mg PO BID #60 tablet. 09/20/19 Warfarin Sodium [Coumadin] 4 mg PO DAILY #30 tablet 09/20/19 Allergies Allergy/AdvReac Type Severity Reaction Status Date / Time No Known Allergies Allergy Verified 09/18/19 17:04 Review of Systems ROS Statement: Those systems with pertinent positive or pertinent negative responses have been documented in the HPI. ROS Other: All systems not noted in ROS Statement are negative. Constitutional: Denies: fever Eyes: Denies: eye pain ENT: Denies: ear pain Respiratory: Denies: cough, dyspnea Cardiovascular: Denies: chest pain Endocrine: Denies: fatigue Gastrointestinal: Reports: nausea. Denies: abdominal pain Genitourinary: Denies: dysuria Musculoskeletal: Denies: back pain Skin: Denies: rash Neurological: Reports: as per HPI Past Medical History Past Medical History: Atrial Fibrillation, GERD/Reflux, Hypertension, Osteoarthritis (OA) Additional Past Medical History / Comment(s): severe GERD, DJD. History of Any Multi-Drug Resistant Organisms: None Reported Past Surgical History: Appendectomy, Cholecystectomy, Hernia Repair, Joint Replacement, Orthopedic Surgery Additional Past Surgical History / Comment(s): 12/07/14 Total R Hip replacement, RIGHT KNEE SCOPE, umbilical hernia, EGD Past Anesthesia/Blood Transfusion Reactions: No Reported Reaction Additional Past Anesthesia/Blood Transfusion Reaction / Comment(s): "has never received any blood" Past Psychological History: Anxiety Smoking Status: Current every day smoker Past Alcohol Use History: Rare Past Drug Use History: None Reported - Past Family History Father Family Medical History: Coronary Artery Disease (CAD), Diabetes Mellitus, Myocardial Infarction (DE) Additional Family Medical History / Comment(s): Father has at the ag e of 74 yrs of a DE. He had 2 Cabg's Mother Family Medical History: Coronary Artery Disease (CAD), Diabetes Mellitus, Musculoskeletal Disorder, Neurologic Disorder Additional Family Medical History / Comment(s): Mother is . She at age 64 yrs. She had a cabg and multiple sclerosis Brother(s) Family Medical History: AFIB Additional Family Medical History / Comment(s): Pt has another brother with CAD and MIs General Exam Limitations: no limitations General appearance: alert, in no apparent distress Head exam: Present: other (Minimal soft tissue swelling left forehead) Eye exam: Present: normal appearance, PERRL, EOMI ENT exam: Present: normal oropharynx Neck exam: Present: normal inspection. Absent: tenderness Respiratory exam: Present: normal lung sounds bilaterally Cardiovascular Exam: Present: irregular rhythm Expanded Peripheral pulses: 2+: Radial (R), Radial (L), Dorsalis Pedis (R), Dorsalis Pedis (L) GI/Abdominal exam: Present: soft. Absent: distended, tenderness, pulsatile mass Extremities exam: Present: normal inspection Back exam: Present: normal inspection Neurological exam: Present: alert, CN II-XII intact. Absent: motor sensory deficit Expanded Neurological exam: Present: protecting the airway Speech: Present: fluid speech Cranial nerves: Facial Sensation: Normal Sensory exam: Upper Extremity Light Touch: Normal, Lower Extremity Light Touch: Normal Motor strength exam: RUE: 5, LUE: 5, RLE: 5, LLE: 5 Psychiatric exam: Present: normal affect, normal mood Skin exam: Present: normal color Course Vital Signs 09/25/19 13:44 Temperature 98.8 F Pulse Rate 90 Respiratory 18 Rate Blood Pressure 116/79 O2 Sat by Pulse 100 Oximetry EKG Findings - EKG Comments: EKG Findings:: A. fib with rate of 91. QRS 84. QT 350. QTC 4:30. Normal axis. Normal QRS. No acute ST change. Medical Decision Making - Medical Decision Making Patient reevaluated and resting comfortably in bed. Patient updated on results and plan. Case discussed with Dr. Loja, who will admit his patient. - Lab Data Result diagrams: 09/25/19 15:08 09/25/19 15:08 Lab Results 09/25/19 09/25/19 09/25/19 Range/Units 15:08 15:08 15:08 WBC 9.3 (3.8-10.6) k/uL RBC 3.36 L (4.30-5.90) m/uL Hgb 11.0 L D (13.0-17.5) gm/dL Hct 32.5 L (39.0-53.0) % MCV 97.0 (80.0-100.0) fL MCH 32.8 (25.0-35.0) pg MCHC 33.8 (31.0-37.0) g/dL RDW 12.3 (11.5-15.5) % Plt Count 207 (150-450) k/uL Neutrophils % 78 % Lymphocytes % 15 % Monocytes % 5 % Eosinophils % 1 % Basophils % 1 % Neutrophils # 7.2 (1.3-7.7) k/uL Lymphocytes # 1.4 (1.0-4.8) k/uL Monocytes # 0.4 (0-1.0) k/uL Eosinophils # 0.1 (0-0.7) k/uL Basophils # 0.1 (0-0.2) k/uL PT 16.5 H (9.0-12.0) sec INR 1.7 H (<1.2) APTT 25.8 (22.0-30.0) sec Sodium 139 (137-145) mmol/L Potassium 5.8 H (3.5-5.1) mmol/L Chloride 111 H (98-107) mmol/L Carbon Dioxide 24 (22-30) mmol/L Anion Gap 4 mmol/L BUN 56 H (9-20) mg/dL Creatinine 1.18 (0.66-1.25) mg/dL Est GFR (CKD-EPI)AfAm 80 (>60 ml/min/1.73 sqM) Est GFR (CKD-EPI)NonAf 69 (>60 ml/min/1.73 sqM) Glucose 103 H (74-99) mg/dL Calcium 8.5 (8.4-10.2) mg/dL Total Bilirubin 0.6 (0.2-1.3) mg/dL AST 33 (17-59) U/L ALT 18 (4-49) U/L Alkaline Phosphatase 35 L (38-126) U/L Troponin I (0.000-0.034) ng/mL Total Protein 5.9 L (6.3-8.2) g/dL Albumin 3.5 (3.5-5.0) g/dL Urine Color Urine Appearance (Clear) Urine pH (5.0-8.0) Ur Specific Counce (1.001-1.035) Urine Protein (Negative) Urine Glucose (UA) (Negative) Urine Ketones (Negative) Urine Blood (Negative) Urine Nitrite (Negative) Urine Bilirubin (Negative) Urine Urobilinogen (<2.0) mg/dL Ur Leukocyte Esterase (Negative) Serum Alcohol <10 mg/dL 09/25/19 09/25/19 Range/Units 15:08 15:08 WBC (3.8-10.6) k/uL RBC (4.30-5.90) m/uL Hgb (13.0-17.5) gm/dL Hct (39.0-53.0) % MCV (80.0-100.0) fL MCH (25.0-35.0) pg MCHC (31.0-37.0) g/dL RDW (11.5-15.5) % Plt Count (150-450) k/uL Neutrophils % % Lymphocytes % % Monocytes % % Eosinophils % % Basophils % % Neutrophils # (1.3-7.7) k/uL Lymphocytes # (1.0-4.8) k/uL Monocytes # (0-1.0) k/uL Eosinophils # (0-0.7) k/uL Basophils # (0-0.2) k/uL PT (9.0-12.0) sec INR (<1.2) APTT (22.0-30.0) sec Sodium (137-145) mmol/L Potassium (3.5-5.1) mmol/L Chloride (98-107) mmol/L Carbon Dioxide (22-30) mmol/L Anion Gap mmol/L BUN (9-20) mg/dL Creatinine (0.66-1.25) mg/dL Est GFR (CKD-EPI)AfAm (>60 ml/min/1.73 sqM) Est GFR (CKD-EPI)NonAf (>60 ml/min/1.73 sqM) Glucose (74-99) mg/dL Calcium (8.4-10.2) mg/dL Total Bilirubin (0.2-1.3) mg/dL AST (17-59) U/L ALT (4-49) U/L Alkaline Phosphatase (38-126) U/L Troponin I <0.012 (0.000-0.034) ng/mL Total Protein (6.3-8.2) g/dL Albumin (3.5-5.0) g/dL Urine Color Light Yellow Urine Appearance Clear (Clear) Urine pH 6.5 (5.0-8.0) Ur Specific Counce 1.014 (1.001-1.035) Urine Protein Negative (Negative) Urine Glucose (UA) Negative (Negative) Urine Ketones Negative (Negative) Urine Blood Negative (Negative) Urine Nitrite Negative (Negative) Urine Bilirubin Negative (Negative) Urine Urobilinogen <2.0 (<2.0) mg/dL Ur Leukocyte Esterase Negative (Negative) Serum Alcohol mg/dL - Radiology Data Radiology results: report reviewed (ET scan of the brain shows no acute process), image reviewed (Chest x-ray shows no acute process, mild cardiac megaly) Disposition Clinical Impression: Syncope Disposition: ADMITTED IP TO THIS HOSP Is patient prescribed a controlled substance at d/c from ED?: No Referrals: Aaron Loja MD [Primary Care Provider] - 1-2 days Decision Time: 16:17
[2019-09-25 15:24] LABS: Appearance,Urine Clear (Clear); Bilirubin,Urine Negative (Negative); Blood,Urine Negative (Negative); Color,Urine Light Yellow; Glucose,Urine (UA) Negative (Negative); Ketones,Urine Negative (Negative); Leukocyte Esterase,Urine Negative (Negative); Nitrite,Urine Negative (Negative); PH, Urine 6.5 (5.0-8.0); Protein,Urine Negative (Negative); Specific Gravity,Urine 1.014 (1.001-1.035); Urobilinogen,Urine <2.0 mg/dL (<2.0)
[2019-09-25 15:36] LABS: ALT 18 U/L (4-49); AST 33 U/L (17-59); African American GFR (CKD) 80 (>60 ml/min/1.73 sqM); Albumin 3.5 g/dL (3.5-5.0); Alcohol <10 mg/dL; Alkaline Phosphatase 35 U/L (38-126); Anion Gap 4 mmol/L; Blood Urea Nitrogen 56 mg/dL (9-20); Calcium 8.5 mg/dL (8.4-10.2); Carbon Dioxide 24 mmol/L (22-30); Chloride 111 mmol/L (98-107); Glucose 103 mg/dL (74-99); Non-African American GFR(CKD) 69 (>60 ml/min/1.73 sqM); Potassium 5.8 mmol/L (3.5-5.1); Sodium 139 mmol/L (137-145); Total Bilirubin 0.6 mg/dL (0.2-1.3); Total Protein 5.9 g/dL (6.3-8.2)
[2019-09-25 15:41] LABS: Basophils # (A) 0.1 k/uL (0-0.2); Basophils % (A) 1 %; Eosinophils # (A) 0.1 k/uL (0-0.7); Eosinophils % (A) 1 %; HCT 32.5 % (39.0-53.0); Lymphocytes # (A) 1.4 k/uL (1.0-4.8); Lymphocytes % (A) 15 %; MCH 32.8 pg (25.0-35.0); MCHC 33.8 g/dL (31.0-37.0); Mean Platelet Volume 9.9; Monocytes # (A) 0.4 k/uL (0-1.0); Monocytes % (A) 5 %; Neutrophils # (A) 7.2 k/uL (1.3-7.7); Neutrophils % (A) 78 %; Platelet Count 207 k/uL (150-450); RBC 3.36 m/uL (4.30-5.90); RDW 12.3 % (11.5-15.5); WBC 9.3 k/uL (3.8-10.6)
--- NOTE | 2019-09-25 15:52 | XR ---
EXAMINATION TYPE: XR chest 2V DATE OF EXAM: 09/25/2019 COMPARISON: 09/18/2019 HISTORY: 54-year-old male with syncope TECHNIQUE: AP and lateral views FINDINGS: Heart is mildly enlarged. Mild interstitial prominence of the cardiac appearance. No consolidation or pleural effusion. IMPRESSION: Mild cardiomegaly. Otherwise, there are chronic appearing changes without acute process seen.
[2019-09-25 15:59] LABS: INR 1.7 (<1.2); Partial Thromboplastin Time 25.8 sec (22.0-30.0); Prothrombin Time 16.5 sec (9.0-12.0)
--- NOTE | 2019-09-25 15:59 | CT ---
EXAMINATION TYPE: CT brain wo con DATE OF EXAM: 09/25/2019 COMPARISON: None INDICATION: Dizziness and syncopal episode with injury today DLP: 1084.4 mGycm, Automated exposure control for dose reduction was used. CONTRAST: None CT of the brain is performed utilizing 3 mm thick sections through the posterior fossa and 3 mm thick sections through the remaining calvarium. Study is performed within 24 hours of arrival to the hosp ital. No abnormal hyperdensity is present to suggest an acute intracranial hemorrhage. No mass lesion is evident. No acute infarcts are evident. Ventricles and sulci are appropriate for the patient age. Paranasal sinuses and mastoid air cells within the [id number] are clear. IMPRESSIONS: 1. Normal CT Brain
[2019-09-25] MEDS ORDERED: NALOXONE 0.4 MG/ML 1 ML VIAL IV PRN (16:18)
[2019-09-25] MEDS: SODIUM CHLORIDE 0.9% 1,000 ML IV SCH (16:36)
[2019-09-25] MEDS ORDERED: LACTULOSE 20 GM/30 ML CUP PO ONE (21:03)
[2019-09-25] MEDS ORDERED: MAG HYDROX/AL HYDROX/SIMETH 30 ML CUP PO PRN (21:41)
[2019-09-25] MEDS ORDERED: HYDROcodone/APAP 5-325MG 1 EACH TAB PO PRN (21:41)
[2019-09-25] MEDS: FAMOTIDINE 20 MG TAB PO SCH (22:39)
[2019-09-25] MEDS: CITALOPRAM HYDROBROMIDE 20 MG TAB PO SCH (22:39)
[2019-09-25] MEDS: PANTOPRAZOLE 40 MG TABLET PO SCH (22:39)
[2019-09-26] MEDS: SODIUM CHLORIDE 0.9% 1,000 ML IV SCH ×3 (01:47→18:38)
[2019-09-26 07:20] LABS: Basophils % (A) 0 %; Eosinophils # (A) 0.1 k/uL (0-0.7); Eosinophils % (A) 3 %; HCT 29.4 % (39.0-53.0); HGB 9.8 gm/dL (13.0-17.5); Lymphocytes # (A) 1.2 k/uL (1.0-4.8); Lymphocytes % (A) 22 %; MCH 32.3 pg (25.0-35.0); MCHC 33.5 g/dL (31.0-37.0); MCV 96.5 fL (80.0-100.0); Mean Platelet Volume 9.5; Monocytes # (A) 0.4 k/uL (0-1.0); Monocytes % (A) 8 %; Neutrophils # (A) 3.6 k/uL (1.3-7.7); Neutrophils % (A) 66 %; Platelet Count 195 k/uL (150-450); RBC 3.05 m/uL (4.30-5.90); RDW 12.3 % (11.5-15.5); WBC 5.4 k/uL (3.8-10.6)
[2019-09-26 07:37] LABS: African American GFR (CKD) >90 (>60 ml/min/1.73 sqM); Anion Gap 4 mmol/L; Blood Urea Nitrogen 25 mg/dL (9-20); Calcium 8.2 mg/dL (8.4-10.2); Carbon Dioxide 22 mmol/L (22-30); Chloride 114 mmol/L (98-107); Glucose 123 mg/dL (74-99); Non-African American GFR(CKD) >90 (>60 ml/min/1.73 sqM); Potassium 4.4 mmol/L (3.5-5.1); Sodium 140 mmol/L (137-145)
[2019-09-26 07:38] LABS: INR 1.6 (<1.2); Partial Thromboplastin Time 28.1 sec (22.0-30.0); Prothrombin Time 16.1 sec (9.0-12.0)
[2019-09-26] MEDS ORDERED: HEPARIN SODIUM,PORCINE 5,000 UNIT/ML 1 ML VIAL SQ SCH (09:00)
[2019-09-26] MEDS ORDERED: amLODIPine 5 MG TAB PO SCH ×2 (09:00)
[2019-09-26] MEDS ORDERED: LISINOPRIL 10 MG TAB PO SCH ×3 (09:00)
[2019-09-26] MEDS: METOPROLOL TARTRATE 50 MG TAB PO SCH ×2 (10:43→20:12)
[2019-09-26] MEDS: PANTOPRAZOLE 40 MG TABLET PO SCH (10:43)
[2019-09-26] MEDS ORDERED: ONDANSETRON 4 MG/2 ML VIAL IVP PRN (12:52)
[2019-09-26 13:25] LABS: Amphetamine Screen,Urine Not Detected (NotDetected); Barbiturate Screen,Urine Not Detected (NotDetected); Benzodiazepines Screen,Urine Not Detected (NotDetected); Cocaine Screen,Urine Not Detected (NotDetected); Methadone Screen, Urine Not Detected (NotDetected); Opiate Screen,Urine Detected (NotDetected); Oxycodone Screen, Urine Not Detected (NotDetected); Phencyclidine Screen,Urine Not Detected (NotDetected); Tricyclic Antidepressant,Urine Not Detected (NotDetected); Urn Cannabinoid Scrn Not Detected (NotDetected)
[2019-09-26 15:43] LABS: Basophils % (A) 1 %; Eosinophils # (A) 0.2 k/uL (0-0.7); Eosinophils % (A) 3 %; HCT 30.9 % (39.0-53.0); HGB 10.2 gm/dL (13.0-17.5); Lymphocytes # (A) 1.7 k/uL (1.0-4.8); Lymphocytes % (A) 30 %; MCH 32.4 pg (25.0-35.0); MCHC 32.9 g/dL (31.0-37.0); MCV 98.5 fL (80.0-100.0); Mean Platelet Volume 9.7; Monocytes # (A) 0.5 k/uL (0-1.0); Monocytes % (A) 8 %; Neutrophils # (A) 3.3 k/uL (1.3-7.7); Neutrophils % (A) 57 %; Platelet Count 215 k/uL (150-450); RBC 3.14 m/uL (4.30-5.90); RDW 12.2 % (11.5-15.5); WBC 5.8 k/uL (3.8-10.6)
--- NOTE | 2019-09-26 16:09 | CONS ---
CONSULTATION CHIEF COMPLAINT: Syncope. Abilio is a 54-year-old gentleman with history of hypertension, permanent atrial fibrillation, GERD, and EtOH abuse that comes into hospital having had an episode of syncope. On his initial presentation his hemoglobin was low at 11. Normally his hemoglobin was 14.4 when it was last checked on September 20 and this morning it has dropped to 9.8. On his initial presentation his BUN was elevated and the potassium was elevated. These are all suggestive of GI bleed. The patient's syncope is probably related to the GI bleed. At the time of my evaluation patient appears comfortable at rest, remains in sinus rhythm, hemodynamically stable. EKG does not reveal acute changes. Cardiac enzymes have been negative. Please hold the Coumadin at this time given the concern for GI bleed, significant drop in his hemoglobin. PAST MEDICAL HISTORY: Significant for hypertension, permanent atrial fibrillation. CURRENT MEDICATIONS: Include Lopressor 50 b.i.d., Maalox, [place], Pepcid, Celexa, Carafate, Coumadin and Lotrel. ALLERGIES: There are no known drug allergies. FAMILY HISTORY: Negative for premature coronary artery disease. SOCIAL HISTORY: Significant for ETOH abuse. REVIEW OF SYSTEMS: HEENT: Unremarkable. CARDIAC: As described above. RESPIRATORY: Negative. GI: Significant for possible GI bleed. PSYCHOSOCIAL: Negative. ENDOCRINE: Negative. HEMATOLOGICAL: Significant for acute anemia. GENITOURINARY: Negative. MUSCULOSKELETAL: Negative. DERM: Negative. CONSTITUTIONAL: Negative. ONCOLOGICAL: Negative. Rest of the system review is not relevant. PHYSICAL EXAMINATION: Comfortable at rest. Vital signs are stable. There is no jugular venous distention. Chest exam reveals good air entry bilaterally. Heart exam reveals first and second heart sounds. No gallop. Exam of extremities did not reveal any edema. Peripheral pulses are felt. FLOSSER exam did not reveal focal neurological deficits. LAB: Show a hemoglobin of 9.8. INR is 1.6. Potassium is 4.4, BUN is 25, creatinine is 0.7. ASSESSMENT: 1. Syncope probably secondary to gastrointestinal bleed. 2. Acute blood loss anemia. 3. Permanent atrial fibrillation. PLAN: I am going to stop the Coumadin. The patient will need workup for possible GI bleed. MMODL / IJN: [id number] /
[2019-09-26] MEDS: PANTOPRAZOLE 40 MG/10 ML VIAL IVP SCH ×2 (16:18→20:13)
--- NOTE | 2019-09-26 17:30 | HP ---
HISTORY AND PHYSICAL DATE OF SERVICE: 09/26/2019. CHIEF COMPLAINT: Syncope. HISTORY OF PRESENT ILLNESS: This 54-year-old gentleman with a past medical history of multiple medical problems including history of atrial fibrillation, history of GERD, hypertension, history of DJD, history of severe DJD, history of cholecystectomy, history of anxiety, being followed by Dr. Loja in the outpatient setting, was recently admitted to [facility] with complaints of epigastric pain. The patient was monitored closely. Symptomatic treatment was provided, improved significantly. Cardiology saw the patient and cleared the patient for discharge. At that time, patient went home. Currently the patient apparently passed out at this work. The patient tried to get up and passed out again. The patient also had dizziness. The patient might have hit his head also. The patient had a CT scan in the ER which did not show acute abnormality. Blood pressure was in the low ranges. As far as the hemoglobin is concerned, the patient's current hemoglobin is found to be 11 yesterday and today is 9.8, and about a week ago 09/20/2019 it was 14. The patient had hemoglobin up to 18.1 last year. There is no history of any fever, rigors. No history of headache. No history of any chest pain, palpitations, hematochezia or melena at this time. PAST MEDICAL HISTORY: History of atrial fibrillation, history of GERD, hypertension, DJD, history of cholecystectomy. MEDICATIONS: Home medications are: 1. Amlodipine. 2. Benazepril 5/10 that is Lotrel 1 p.o. daily. 3. Coumadin 4 mg p.o. 4. Carafate 1 g a.c. and q.h.s. 5. Protonix 40 mg p.o. b.i.d. 6. Lopressor 50 mg p.o. b.i.d. 7. Maalox 30 mL q.6 p.r.n. 8. [place] 5 mg q.6h p.r.n. 9. Pepcid 20 mg q.h.s. 10.Celexa 20 mg q.h.s. ALLERGIES: None. FAMILY HISTORY: No history of heart disease history of CAD, diabetes, myocardial infarction in the family. SOCIAL HISTORY: History of smoking and ongoing. No history of alcohol intake. REVIEW OF SYSTEMS: ENT: No diminished vision. No diminished hearing. CARDIOVASCULAR: No angina or palpitations, otherwise as mentioned earlier. RESPIRATORY: No cough. GI as mentioned earlier. no dysuria. Nervous system: No numbness or weakness. ALLERGY/IMMUNOLOGY: No asthma or hayfever. MUSCULOSKELETAL as mentioned earlier. HEMATOLOGY/ONCOLOGY: No history of anemia. ENDOCRINE: As mentioned earlier. CONSTITUTIONAL: As mentioned earlier. DERMATOLOGY: Negative. RHEUMATOLOGY negative. PSYCHIATRY as mentioned earlier. PHYSICAL EXAMINATION: Alert and oriented times three. Pulse is 79. Blood pressure 99/60. Respirations 18. Temperature 97.8, pulse ox 98% on room air. HEENT: Conjunctivae normal. Oral mucosa moist. NECK is no jugular venous distention. No carotid bruit. No lymph node enlargement. Cardiovascular system: S1, S2 muffled. No S3, no S4. RESPIRATORY: Breath sounds diminished in the bases. Scattered rhonchi. No crackles. ABDOMEN: Soft, obese, nontender. No mass palpable. No guarding. No rigidity. LEGS no edema. No swelling. NERVOUS SYSTEM: Higher functions as mentioned earlier. Moves all four limbs. No focal motor or sensory deficits. LYMPHATICS: No lymph nodes palpable in the neck, axillae or groin. SKIN: No ulcer, no rashes or bleeding. JOINTS: No active deforming arthropathy. LABS: WBC 5.2, hemoglobin 9.8, INR 1.6, sodium 140, potassium 4.4, calcium is 8.2. UA noted. Drug screen ordered. ASSESSMENT: 1. Syncope for evaluation, possible acute blood loss anemia, rule out upper gastrointestinal bleeding. 2. Coumadin monitoring. 3. Mild hyperkalemia, present on admission. 4. History of recent gastroesophageal reflux disease. 5. Chronic atrial fibrillation. 6. Coumadin monitoring. 7. History of gastroesophageal reflux disease. 8. Hypertension. 9. History of degenerative joint disease. 10.Appendectomy. 11.Cholecystectomy. 12.History of anxiety. 13.History of nicotine dependence, continued ongoing. 14.Obesity with body mass of 31.6. 15.FULL CODE. RECOMMENDATIONS AND DISCUSSION: In this 54-year-old gentleman who presented with multiple complex medical issues, we will monitor the patient closely, continue the current medications, management and symptomatic treatment. We will initiate proton pump inhibitors, H and H q.6h. For hemoglobin less than 7, we will transfuse. I recommend surgical consultation for possible endoscopies. Otherwise, the prognosis guarded because of multiple complex medical issues. We will stop the Coumadin. Also consult Cardiology also for continued monitoring. Discussed with the patient who understands and agrees. Further recommendations to follow. Discussed with the patient. Medication reconciliation was done. We will hold the antihypertensive medications also at this time. Give metoprolol only if the systolic more than 100 systolic. Continue to monitor. A copy of this dictation being forwarded to Dr. Loja who is the primary physician. MMESMEL / IJN: [id number] / ENRRIQUE
[2019-09-26] MEDS: SUCRALFATE 1 GM TAB PO SCH ×2 (18:36→22:04)
[2019-09-26] MEDS: FAMOTIDINE 20 MG TAB PO SCH (20:12)
[2019-09-26] MEDS: CITALOPRAM HYDROBROMIDE 20 MG TAB PO SCH (20:12)
[2019-09-26 21:41] LABS: Basophils % (A) 0 %; Eosinophils # (A) 0.1 k/uL (0-0.7); Eosinophils % (A) 2 %; HGB 9.4 gm/dL (13.0-17.5); Lymphocytes # (A) 1.8 k/uL (1.0-4.8); Lymphocytes % (A) 30 %; MCH 32.5 pg (25.0-35.0); MCHC 33.7 g/dL (31.0-37.0); MCV 96.7 fL (80.0-100.0); Mean Platelet Volume 9.1; Monocytes # (A) 0.4 k/uL (0-1.0); Monocytes % (A) 6 %; Neutrophils # (A) 3.5 k/uL (1.3-7.7); Neutrophils % (A) 59 %; Platelet Count 179 k/uL (150-450); RBC 2.89 m/uL (4.30-5.90); RDW 12.2 % (11.5-15.5)
[2019-09-27] MEDS: SODIUM CHLORIDE 0.9% 1,000 ML IV SCH ×3 (01:48→18:01)
[2019-09-27 03:47] LABS: Basophils % (A) 0 %; Eosinophils # (A) 0.2 k/uL (0-0.7); Eosinophils % (A) 3 %; HCT 29.6 % (39.0-53.0); Lymphocytes # (A) 1.7 k/uL (1.0-4.8); Lymphocytes % (A) 27 %; MCH 32.7 pg (25.0-35.0); MCHC 33.7 g/dL (31.0-37.0); MCV 96.8 fL (80.0-100.0); Mean Platelet Volume 10.1; Monocytes # (A) 0.4 k/uL (0-1.0); Monocytes % (A) 6 %; Neutrophils % (A) 62 %; Platelet Count 206 k/uL (150-450); RBC 3.06 m/uL (4.30-5.90); RDW 12.2 % (11.5-15.5); WBC 6.4 k/uL (3.8-10.6)
[2019-09-27 04:14] LABS: African American GFR (CKD) >90 (>60 ml/min/1.73 sqM); Anion Gap 3 mmol/L; Blood Urea Nitrogen 10 mg/dL (9-20); Calcium 8.4 mg/dL (8.4-10.2); Carbon Dioxide 22 mmol/L (22-30); Chloride 111 mmol/L (98-107); Glucose 106 mg/dL (74-99); Non-African American GFR(CKD) >90 (>60 ml/min/1.73 sqM); Potassium 4.1 mmol/L (3.5-5.1); Sodium 136 mmol/L (137-145)
[2019-09-27 06:09] LABS: INR 1.3 (<1.2); Prothrombin Time 13.6 sec (9.0-12.0)
[2019-09-27] MEDS: METOPROLOL TARTRATE 50 MG TAB PO SCH ×2 (07:57→20:38)
[2019-09-27] MEDS: SUCRALFATE 1 GM TAB PO SCH ×4 (07:57→20:38)
[2019-09-27] MEDS: PANTOPRAZOLE 40 MG/10 ML VIAL IVP SCH ×2 (07:58→20:38)
[2019-09-27 09:27] LABS: Basophils % (A) 0 %; Eosinophils # (A) 0.1 k/uL (0-0.7); Eosinophils % (A) 2 %; HCT 29.6 % (39.0-53.0); HGB 9.6 gm/dL (13.0-17.5); Lymphocytes # (A) 1.1 k/uL (1.0-4.8); Lymphocytes % (A) 22 %; MCH 31.5 pg (25.0-35.0); MCHC 32.4 g/dL (31.0-37.0); MCV 97.1 fL (80.0-100.0); Mean Platelet Volume 9.7; Monocytes # (A) 0.3 k/uL (0-1.0); Monocytes % (A) 6 %; Neutrophils # (A) 3.4 k/uL (1.3-7.7); Neutrophils % (A) 67 %; Platelet Count 194 k/uL (150-450); RBC 3.05 m/uL (4.30-5.90); RDW 12.1 % (11.5-15.5)
--- NOTE | 2019-09-27 11:11 | PN ---
PROGRESS NOTE This is a 54-year-old gentleman who was admitted to hospital with syncope that seems to be related to acute blood loss. He is currently awaiting evaluation by surgeon. He has done well through last night. Has not had any further episodes of syncope. He was on Coumadin for atrial fibrillation, which I stopped. On exam, he is comfortable at rest. Vital signs are stable. Chest exam reveals good air entry bilaterally. Heart exam reveals first and second heart sounds, no gallop. Irregular rhythm. Abdomen is soft. Exam of extremities did not reveal any edema. Peripheral pulses are felt. ASSESSMENT: Syncope secondary to acute blood loss. PLAN: We will continue to hold Coumadin. GI workup is pending. MMODL / IJN: [id number] /
--- NOTE | 2019-09-27 11:22 | P.GSCN ---
History of Present Illness Consult date: 09/27/19 Reason for Consult: Anemia, abdominal pain History of present illness: This a 54-year-old male who had a syncopal episode at work. Patient was worked up emergency room. Patient's found be anemic. Patient states that he has had some epigastric abdominal pain. He is also had some black melanotic stools. Past Medical History Past Medical History: Atrial Fibrillation, GERD/Reflux, Hypertension, Osteo arthritis (OA) Additional Past Medical History / Comment(s): severe GERD, DJD. History of Any Multi-Drug Resistant Organisms: None Reported Past Surgical History: Appendectomy, Cholecystectomy, Hernia Repair, Joint Replacement, Orthopedic Surgery Additional Past Surgical History / Comment(s): 12/07/14 Total R Hip replacement, RIGHT KNEE SCOPE, umbilical hernia, EGD Past Anesthesia/Blood Transfusion Reactions: No Reported Reaction Additional Past Anesthesia/Blood Transfusion Reaction / Comm: "has never received any blood" Past Psychological History: Anxiety Additional Psychological History / Comment(s): Pt lives significant other and is independent. He does have a limp. He does not use any assistive devices. . Smoking Status: Current every day smoker Past Alcohol Use History: Rare Additional Past Alcohol Use History / Comment(s): Pt started smoking in 1979 and is a 1 ppd smoker. Pt states he drinks a little less than a pint of whiskey per day Past Drug Use History: None Reported Additional Drug Use History / Comment(s): Pt S.O. states he took 90 pills of no rco within a week post hip replacement - Past Family History Father Family Medical History: Coronary Artery Disease (CAD), Diabetes Mellitus, My ocardial Infarction (NE) Additional Family Medical History / Comment(s): Father has at the age of 74 yrs of a NE. He had 2 Cabg's Mother Family Medical History: Coronary Artery Disease (CAD), Diabetes Mellitus, Musculoskeletal Disorder, Neurologic Disorder Additional Family Medical History / Comment(s): Mother is . She at age 64 yrs. She had a cabg and multiple sclerosis Brother(s) Family Medical History: AFIB Additional Family Medical History / Comment(s): Pt has another brother with CAD and MIs Medications and Allergies Home Medications Medication Instructions Recorded Confirmed Type Citalopram Hydrobromide [CeleXA] 20 mg PO HS 01/24/19 09/25/19 History amLODIPine BESYLATE/BENAZEPRIL 1 cap PO DAILY 06/24/19 09/25/19 History [Lotrel 5-10 MG] Sucralfate [Carafate] 1 gm PO ACHS #1 bottle 09/17/19 09/25/19 Rx HYDROcodone/APAP 5-325MG [[place] 1 tab PO Q6HR PRN 09/18/19 09/25/19 History 5-325] Mag Hydrox/Al Hydrox/Simeth 30 ml PO Q6HR PRN cup 09/20/19 09/25/19 Rx [Maalox] Metoprolol Tartrate [Lopressor] 50 mg PO BID #60 tab 09/20/19 09/25/19 Rx Pantoprazole [Protonix] 40 mg PO BID #60 tablet. 09/20/19 09/25/19 Rx Warfarin Sodium [Coumadin] 4 mg PO DAILY #30 tablet 09/20/19 09/25/19 Rx Famotidine [Pepcid] 40 mg PO HS 09/25/19 09/25/19 History Allergies Allergy/AdvReac Type Severity Reaction Status Date / Time No Known Allergies Allergy Verified 09/18/19 17:04 Surgical - Exam Vital Signs Temp Pulse Resp BP Pulse Ox 98.8 F 90 18 116/79 100 09/25/19 13:44 09/25/19 13:44 09/25/19 13:44 09/25/19 13:44 09/25/19 13:44 - General well developed, well nourished, no distress - Eyes PERRL - ENT normal pinna - Neck no masses - Respiratory normal expansion - Cardiovascular Rhythm: regular - Abdomen Abdomen: soft, non tender Results - Labs 09/27/19 09:09 09/27/19 03:33 Abnormal Lab Results - Last 24 Hours (Table) 09/26/19 09/26/19 09/26/19 Range/Units 13:04 15:32 21:19 RBC 3.14 L 2.89 L (4.30-5.90) m/uL Hgb 10.2 L 9.4 L (13.0-17.5) gm/dL Hct 30.9 L 28.0 L (39.0-53.0) % PT (9.0-12.0) sec INR (<1.2) Sodium (137-145) mmol/L Chloride (98-107) mmol/L Glucose (74-99) mg/dL Urine Opiates Screen Detected H (NotDetected) 09/27/19 09/27/19 09/27/19 Range/Units 03:33 03:33 05:31 RBC 3.06 L (4.30-5.90) m/uL Hgb 10.0 L (13.0-17.5) gm/dL Hct 29.6 L (39.0-53.0) % PT 13.6 H (9.0-12.0) sec INR 1.3 H (<1.2) Sodium 136 L (137-145) mmol/L Chloride 111 H (98-107) mmol/L Glucose 106 H (74-99) mg/dL Urine Opiates Screen (NotDetected) 09/27/19 Range/Units 09:09 RBC 3.05 L (4.30-5.90) m/uL Hgb 9.6 L (13.0-17.5) gm/dL Hct 29.6 L (39.0-53.0) % PT (9.0-12.0) sec INR (<1.2) Sodium (137-145) mmol/L Chloride (98-107) mmol/L Glucose (74-99) mg/dL Urine Opiates Screen (NotDetected) Diabetes panel 09/27/19 Range/Units 03:33 Sodium 136 L (137-145) mmol/L Potassium 4.1 (3.5-5.1) mmol/L Chloride 111 H (98-107) mmol/L Carbon Dioxide 22 (22-30) mmol/L BUN 10 (9-20) mg/dL Creatinine 0.69 (0.66-1.25) mg/dL Glucose 106 H (74-99) mg/dL Calcium 8.4 (8.4-10.2) mg/dL Calcium panel 09/27/19 Range/Units 03:33 Calcium 8.4 (8.4-10.2) mg/dL Pituitary panel 09/27/19 Range/Units 03:33 Sodium 136 L (137-145) mmol/L Potassium 4.1 (3.5-5.1) mmol/L Chloride 111 H (98-107) mmol/L Carbon Dioxide 22 (22-30) mmol/L BUN 10 (9-20) mg/dL Creatinine 0.69 (0.66-1.25) mg/dL Glucose 106 H (74-99) mg/dL Calcium 8.4 (8.4-10.2) mg/dL Adrenal panel 09/27/19 Range/Units 03:33 Sodium 136 L (137-145) mmol/L Potassium 4.1 (3.5-5.1) mmol/L Chloride 111 H (98-107) mmol/L Carbon Dioxide 22 (22-30) mmol/L BUN 10 (9-20) mg/dL Creatinine 0.69 (0.66-1.25) mg/dL Glucose 106 H (74-99) mg/dL Calcium 8.4 (8.4-10.2) mg/dL Assessment and Plan Assessment: Anemia, possible GI bleed.. Patient be scheduled for EGD in the a.m.
[2019-09-27 15:28] LABS: Basophils % (A) 1 %; Eosinophils # (A) 0.2 k/uL (0-0.7); Eosinophils % (A) 3 %; HCT 29.5 % (39.0-53.0); HGB 9.8 gm/dL (13.0-17.5); Lymphocytes # (A) 1.6 k/uL (1.0-4.8); Lymphocytes % (A) 29 %; MCH 32.2 pg (25.0-35.0); MCHC 33.3 g/dL (31.0-37.0); MCV 96.6 fL (80.0-100.0); Mean Platelet Volume 8.6; Monocytes # (A) 0.5 k/uL (0-1.0); Monocytes % (A) 9 %; Neutrophils % (A) 56 %; Platelet Count 223 k/uL (150-450); RBC 3.05 m/uL (4.30-5.90); RDW 12.1 % (11.5-15.5); WBC 5.4 k/uL (3.8-10.6)
[2019-09-27] MEDS ORDERED: TEMAZEPAM 15 MG CAP PO PRN (19:20)
--- NOTE | 2019-09-27 20:29 | PN ---
PROGRESS NOTE DATE OF SERVICE: 09/27/2019 This 54-year-old gentleman who was admitted with syncope also had anemia possibly GI blood loss anemia. The patient is being closely monitored. Cardiology and Pulmonology as well as Surgery following the patient closely. EGD has been planned tomorrow by Dr. Kelly. No chest pain. No palpitations. No fever. PHYSICAL EXAM: Alert and oriented x3. Pulse 80, blood pressure 111/70, respiration 20, temperature 98.1, no orthostatic changes. HEENT: Conjunctivae normal. Oral mucosa moist. NECK: No jugular venous distention. No lymph node enlargement. CARDIOVASCULAR: S1, S2. RESPIRATORY: Diminished breath sounds at the bases. No rhonchi, no crackles. ABDOMEN: Soft, nontender. LEGS: No edema, no swelling. NERVOUS SYSTEM: No focal deficits. LAB STUDIES: WBC 5.1, hemoglobin 9.8, rather stable. Sodium is 136. ASSESSMENT: 1. Syncope for evaluation, rule out acute blood loss anemia, rule out upper gastrointestinal bleeding. 2. Coumadin monitoring. 3. Mild hyperkalemia, present on admission. 4. History of recent gastroesophageal reflux disease. 5. Chronic atrial fibrillation. 6. Coumadin monitoring. 7. History of gastroesophageal reflux disease. 8. Hypertension. 9. History of degenerative joint disease. 10.History of appendectomy. 11.History of cholecystectomy. 12.History of anxiety. 13.Obesity, body mass index of 31.6. 14.Remote history of nicotine dependence. 15.FULL CODE. RECOMMENDATIONS AND DISCUSSION: Recommend to continue current medications, continue to monitor, continue symptomatic treatment. Otherwise, at this time I recommend monitor hemoglobin closely. Otherwise, ( ) EGD as mentioned and Dr. Loja will follow tomorrow. MMODL / IJN: [id number] /
[2019-09-27] MEDS: FAMOTIDINE 20 MG TAB PO SCH (20:38)
[2019-09-27] MEDS: CITALOPRAM HYDROBROMIDE 20 MG TAB PO SCH (20:39)
[2019-09-27 21:27] LABS: Basophils % (A) 0 %; Eosinophils # (A) 0.2 k/uL (0-0.7); Eosinophils % (A) 3 %; HCT 27.2 % (39.0-53.0); HGB 8.9 gm/dL (13.0-17.5); Lymphocytes # (A) 1.7 k/uL (1.0-4.8); Lymphocytes % (A) 30 %; MCH 31.7 pg (25.0-35.0); MCHC 32.8 g/dL (31.0-37.0); MCV 96.6 fL (80.0-100.0); Monocytes # (A) 0.6 k/uL (0-1.0); Monocytes % (A) 10 %; Neutrophils # (A) 3.1 k/uL (1.3-7.7); Neutrophils % (A) 55 %; Platelet Count 194 k/uL (150-450); RBC 2.81 m/uL (4.30-5.90); RDW 12.1 % (11.5-15.5); WBC 5.7 k/uL (3.8-10.6)
[2019-09-28] MEDS: SODIUM CHLORIDE 0.9% 1,000 ML IV SCH (03:43)
[2019-09-28 04:22] LABS: Basophils % (A) 0 %; Eosinophils # (A) 0.1 k/uL (0-0.7); Eosinophils % (A) 3 %; HCT 27.8 % (39.0-53.0); HGB 9.3 gm/dL (13.0-17.5); Lymphocytes # (A) 1.3 k/uL (1.0-4.8); Lymphocytes % (A) 24 %; MCHC 33.4 g/dL (31.0-37.0); MCV 95.8 fL (80.0-100.0); Mean Platelet Volume 9.5; Monocytes # (A) 0.5 k/uL (0-1.0); Monocytes % (A) 9 %; Neutrophils # (A) 3.4 k/uL (1.3-7.7); Neutrophils % (A) 63 %; Platelet Count 191 k/uL (150-450); RBC 2.91 m/uL (4.30-5.90); RDW 12.3 % (11.5-15.5); WBC 5.4 k/uL (3.8-10.6)
[2019-09-28 04:26] LABS: INR 1.2 (<1.2); Prothrombin Time 12.4 sec (9.0-12.0)
[2019-09-28 04:36] LABS: African American GFR (CKD) >90 (>60 ml/min/1.73 sqM); Anion Gap 3 mmol/L; Blood Urea Nitrogen 4 mg/dL (9-20); Calcium 8.3 mg/dL (8.4-10.2); Carbon Dioxide 23 mmol/L (22-30); Chloride 112 mmol/L (98-107); Glucose 111 mg/dL (74-99); Non-African American GFR(CKD) >90 (>60 ml/min/1.73 sqM); Potassium 4.1 mmol/L (3.5-5.1); Sodium 138 mmol/L (137-145)
--- NOTE | 2019-09-28 07:25 | P.PN ---
Subjective Progress Note Date: 09/28/19 Objective - Vital Signs Vital signs: Vital Signs Temp 98.4 F 09/28/19 04:00 Pulse 66 09/28/19 04:00 Resp 16 09/28/19 04:00 BP 111/60 09/28/19 04:00 Pulse Ox 99 09/28/19 04:00 Intake & Output 09/27/19 09/28/19 09/28/19 18:59 06:59 18:59 Intake Total 2340 Balance 2340 Intake: Oral 1840 Other 500 Other: Voiding Method Urinal Toilet Urinal # Voids 1 - Constitutional General appearance: Present: average body habitus - EENT Eyes: Absent: abnormal pupil - Neck Neck: Absent: lymphadenopathy - Respiratory Respiratory: bilateral: CTA - Cardiovascular Rhythm: irregularly irregular Heart sounds: normal: S1, S2 Abnormal Heart Sounds: Absent: S3 Gallop - Gastrointestinal General gastrointestinal: Present: soft - Neurologic Neurologic: Present: CNII-XII intact - Psychiatric Psychiatric: Present: A&O x's 3 - Labs CBC & Chem 7: 09/28/19 04:11 09/28/19 04:11 Labs: Abnormal Lab Results - Last 24 Hours (Table) 09/27/19 09/27/19 09/27/19 Range/Units 09:09 15:20 21:16 RBC 3.05 L 3.05 L 2.81 L (4.30-5.90) m/uL Hgb 9.6 L 9.8 L 8.9 L (13.0-17.5) gm/dL Hct 29.6 L 29.5 L 27.2 L (39.0-53.0) % PT (9.0-12.0) sec INR (<1.2) Chloride (98-107) mmol/L BUN (9-20) mg/dL Glucose (74-99) mg/dL Calcium (8.4-10.2) mg/dL 09/28/19 09/28/19 09/28/19 Range/Units 04:11 04:11 04:11 RBC 2.91 L (4.30-5.90) m/uL Hgb 9.3 L (13.0-17.5) gm/dL Hct 27.8 L (39.0-53.0) % PT 12.4 H (9.0-12.0) sec INR 1.2 H (<1.2) Chloride 112 H (98-107) mmol/L BUN 4 L (9-20) mg/dL Glucose 111 H (74-99) mg/dL Calcium 8.3 L (8.4-10.2) mg/dL Assessment and Plan (1) Syncope Current Visit: Yes Status: Acute Code(s): R55 - SYNCOPE AND COLLAPSE SNOMED Code(s): 783434166 (2) Chronic a-fib Current Visit: No Status: Acute Code(s): I48.2 - CHRONIC ATRIAL FIBRILLATION * DO NOT USE * SNOMED Code(s): 226534725 Plan: Given his syncopal episode and anemia, we will go ahead and check EGD today. No overt bleeding as stated. Anticipate discharge if EGD is nominal. Time with Patient: Less than 30
[2019-09-28 08:00] VITALS: RESP 17
[2019-09-28] MEDS: PANTOPRAZOLE 40 MG/10 ML VIAL IVP SCH (08:28)
[2019-09-28 11:06] LABS: Basophils % (A) 0 %; Eosinophils # (A) 0.1 k/uL (0-0.7); Eosinophils % (A) 3 %; HCT 28.5 % (39.0-53.0); HGB 9.6 gm/dL (13.0-17.5); Lymphocytes # (A) 1.1 k/uL (1.0-4.8); Lymphocytes % (A) 23 %; MCH 32.3 pg (25.0-35.0); MCHC 33.6 g/dL (31.0-37.0); MCV 96.1 fL (80.0-100.0); Mean Platelet Volume 9.2; Monocytes # (A) 0.4 k/uL (0-1.0); Monocytes % (A) 8 %; Neutrophils # (A) 2.8 k/uL (1.3-7.7); Neutrophils % (A) 62 %; Platelet Count 230 k/uL (150-450); RBC 2.97 m/uL (4.30-5.90); RDW 12.2 % (11.5-15.5); WBC 4.5 k/uL (3.8-10.6)
[2019-09-28] MEDS ORDERED: IV FLUID CONTINUATION 1,000 ML IV ONE (11:46)
[2019-09-28] MEDS ORDERED: LIDOCAINE 1% INJ 10MG/ML (20 ML MDV) ONE (11:48)
[2019-09-28] MEDS ORDERED: fentaNYL (PF) 50 MCG/ML 2 ML AMP ONE (11:48)
[2019-09-28] MEDS ORDERED: ONDANSETRON 4 MG/2 ML VIAL ONE (11:48)
[2019-09-28] MEDS ORDERED: MIDAZOLAM 2 MG/2 ML VIAL ONE (11:48)
[2019-09-28] MEDS ORDERED: PROPOFOL 10 MG/ML 20 ML VIAL IV ONE (11:48)
[2019-09-28 12:10] VITALS: TEMP 98.2
--- NOTE | 2019-09-28 12:15 | P.OP ---
Date of Procedure: 09/28/19 Preoperative Diagnosis: Anemia Postoperative Diagnosis: Hiatal hernia Severe esophagitis Antral gastritis Procedure(s) Performed: EGD Anesthesia: MAC Surgeon: Cem Kelly Pathology: other (Antrum, esophagus) Condition: stable Disposition: PACU Description of Procedure: The patient's placed on the endoscopy table in the lateral position. She received IV sedation. The gastroscope placed oropharynx passed in the esophagus and into the stomach. Scope was placed through the pylorus. The first and second portion of the duodenum appeared normal. There is no evidence of any blood or ulcers in the duodenum. Scope was then brought back the antrum this was mildly inflamed. A biopsies performed. Scope was then retroflexed and there was a moderate size hiatal hernia. GE junction was at 38 cm. The distal esophagus was acutely inflamed. There is evidence of significant esophagitis. This area is biopsied. The proximal esophagus appeared normal. Scope withdrawn for patient. There is no evidence any active bleeding in the upper GI tract
[2019-09-28 12:36] VITALS: BP 118/73; PULSE 75
[2019-09-28] MEDS: SUCRALFATE 1 GM TAB PO SCH ×2 (13:32→13:35)
[2019-09-28] MEDS: METOPROLOL TARTRATE 50 MG TAB PO SCH (13:32)
--- NOTE | 2019-09-28 20:47 | CONS ---
CONSULTATION DATE OF DICTATION: September 28, 2019. REASON FOR CONSULTATION: GI bleed. HISTORY OF PRESENT ILLNESS: The patient is a 54 -year-old pleasant white male admitted to the hospital three days ago when he presented with severe epigastric pain, heartburn, and upper GI bleed. He had multiple episodes of coffee-ground emesis. He was seen by Dr. Kelly, had an upper endoscopy done today which showed severe reflux esophagitis, mild gastritis and moderate-size hiatal hernia. He is presently on Protonix 40 mg twice daily and doing much better. He wants to go home. He denies any further episodes of nausea, vomiting. He denies any melena. He has these symptoms that happen once or twice a year, usually aggravated with alcohol intake. He has longstanding history of GERD and maintained on Pepcid 40 mg daily on outpatient basis. PAST MEDICAL HISTORY: Significant for gastroesophageal reflux disease, alcoholism, anxiety and depression. MEDICATIONS: At home, Celexa, Lotrel, [place], pantoprazole. ALLERGIES: None. SOCIAL HISTORY: Chronic smoker. Alcohol use as mentioned above. FAMILY HISTORY: Mother has gastroesophageal of disease. PAST SURGICAL HISTORY: Cholecystectomy, appendectomy, bilateral hip replacement. PHYSICAL EXAMINATION: He appears comfortable. No apparent distress. Vital signs stable. Blood pressure is 133/86, pulse 82 and afebrile. HEENT examination unremarkable. Conjunctivae pink. Sclerae anicteric. Oral cavity no lesions. NECK: No JVD or lymph node enlargement. The chest was clear to auscultation. HEART: Regular rate and rhythm. ABDOMEN: Soft. Bowel sounds are positive. No organomegaly. EXTREMITIES: No pedal edema. SKIN no rashes. NEUROLOGIC: Alert and oriented x3. No focal deficits. LABS: At the time of admission to the hospital: Hemoglobin 11, today it is 9.6 g/dL. INR 1.2. ALT, AST, T-bilirubin and alkaline phosphatase within normal limits. IMPRESSION: 1. The patient presents to hospital with epigastric pain associated with nausea, vomiting, and coffee-ground emesis, dropped hemoglobin from 11-9 g/dL. He underwent EGD by Dr. Kelly today that showed evidence of severe grade D reflux esophagitis and moderate-size hiatal hernia. Presently on Protonix 40 mg twice daily. He is doing much better. Symptoms have resolved. No further episodes of nausea, vomiting, or coffee-grounds emesis. 2. History of heavy alcohol abuse. RECOMMENDATIONS: 1. Continue with Protonix 40 mg twice daily. 2. Pepcid as needed. 3. Anti-reflux measures. 4. Diet modification. 5. Abstinence from alcohol. 6. The patient can be discharged home today with outpatient followup as needed. Thank you for this consultation. MMFAUSTO / AASHISHN: [id number] /
--- NOTE | 2019-10-01 01:19 | CDI ---
Documentation Clarification Form Date: 10/01/2019 From: Ed Jarquin Phone: If you have a question about this query, please contact Mi Miles, Head Of [employer] at [phone] between 8am and 5pm. Admit Date: 09/25/2019 Discharge Date: 09/28/2019 Patient Name: Satya Arevalo Visit Number: [id number] ATTENTION: The Clinical Documentation Specialists (CDI) and [facility] Coding Staff appreciate your assistance in clarifying documentation. Please respond to the clarification below the line at the bottom and electronically sign. The CDI & [facility] Coding staff will review the response and follow-up if needed. Please note: Queries are made part of the Legal Health Record. If you have any questions, please contact the author of this message via ITS. Dear Aaron Calix., GI bleed is documented in the 09/28 consult note documented by Dr. Loyda diane . Patient history/risk factors: Anemia, Syncope, Gastritis EGD findings: There is evidence of significant esophagitis,Antral gastritis,There is no evidence any active bleeding in the upper GI tract Labs: hgb 9.8 Treatment: EGD Other treatment: Protonix 40 mg. 09/[address] Robin Priest "The patient's syncope is probably related to the GI bleed". In your professional opinion, can you please clarify Acute blood loss anemia Related to GI bleed? YES-this is most likely related to GI bleeding NO Other, please specify Unable to determine MTDD
--- NOTE | 2019-10-28 18:49 | P.DS ---
Providers Date of admission: 09/25/19 16:18 Attending physician: Aaron Loja Consults: 09/25/19 16:18 Consult Physician Urgent Consulting Provider: Anirudh Seo Consult Reason/Comments: syncope Do you want consulting provider notified?: Yes 09/25/19 22:19 Consult Physician Stat Consulting Provider: Juan Peoples Consult Reason/Comments: hematemesis Do you want consulting provider notified?: Yes 09/26/19 12:11 Consult Physician Routine Consulting Provider: Cem Kelly Consult Reason/Comments: low hgb, coffee ground emesis per pt Do you want consulting provider notified?: Yes Primary care physician: Aaron Loja - Discharge Diagnosis(es) (1) Syncope Status: Acute (2) Chronic a-fib Status: Acute Hospital Course: This is discharge summary a 54-year-old white male essentially admitted for chest pain. Diagnosis of severe esophagitis was instituted, the patient then had appropriate EGD by general surgery which did not find severe issue. The patient is discharged in stable condition to follow-up with me in about 1 week Plan - Discharge Summary Discharge Rx Participant: No New Discharge Prescriptions: New Pantoprazole Sodium [Protonix] 40 mg PO DAILY #30 tablet.dr [place] Action Citalopram Hydrobromide [CeleXA] 20 mg PO HS amLODIPine BESYLATE/BENAZEPRIL [Lotrel 5-10 MG] 1 cap PO DAILY Sucralfate [Carafate] 1 gm PO ACHS #1 bottle HYDROcodone/APAP 5-325MG [[place] 5-325] 1 tab PO Q6HR PRN PRN Reason: Pain Metoprolol Tartrate [Lopressor] 50 mg PO BID #60 tab Mag Hydrox/Al Hydrox/Simeth [Maalox] 30 ml PO Q6HR PRN cup PRN Reason: Nausea Warfarin Sodium [Coumadin] 4 mg PO DAILY #30 tablet Pantoprazole [Protonix] 40 mg PO BID #60 tablet. Famotidine [Pepcid] 40 mg PO HS Discharge Medication List Citalopram Hydrobromide [CeleXA] 20 mg PO HS 01/24/19 [History] amLODIPine BESYLATE/BENAZEPRIL [Lotrel 5-10 MG] 1 cap PO DAILY 06/24/19 [History] Sucralfate [Carafate] 1 gm PO ACHS #1 bottle 09/17/19 [Rx] HYDROcodone/APAP 5-325MG [[place] 5-325] 1 tab PO Q6HR PRN 09/18/19 [History] Mag Hydrox/Al Hydrox/Simeth [Maalox] 30 ml PO Q6HR PRN cup 09/20/19 [Rx] Metoprolol Tartrate [Lopressor] 50 mg PO BID #60 tab 09/20/19 [Rx] Pantoprazole [Protonix] 40 mg PO BID #60 tablet. 09/20/19 [Rx] Warfarin Sodium [Coumadin] 4 mg PO DAILY #30 tablet 09/20/19 [Rx] Famotidine [Pepcid] 40 mg PO HS 09/25/19 [History] Pantoprazole Sodium [Protonix] 40 mg PO DAILY #30 tablet. 09/28/19 [Rx] Follow up Appointment(s)/Referral(s): Aaron Loja MD [Primary Care Provider] - 10/02/19 11:40 am Cem Kelly MD [STAFF PHYSICIAN] - 1 Week Patient Instructions/Handouts: Syncope (DC) Discharge Disposition: HOME SELF-CARE
== END 2019-09-28 16:32 | disposition home or self-care (01) | DRG 378 ==
LOC: EC 13:39 → 1SOBS 16:18 → OBSVTOIN 16:18 → 1SOBS 18:34
PROVIDERS: ADMIT Family Medicine; ATTEND Family Medicine
PROC: 0DB58ZX Excision of Esophagus, Via Natural or Artificial Opening Endoscopic, Diagnostic (ICD-10-PCS; principal; 2019-09-28 07:45)
DX: K29.71 Gastritis, unspecified, with bleeding (principal); D62 Acute posthemorrhagic anemia; I48.21 Permanent atrial fibrillation; I10 Essential (primary) hypertension; K21.0 Gastro-esophageal reflux disease with esophagitis; M19.90 Unspecified osteoarthritis, unspecified site; Z96.643 Presence of artificial hip joint, bilateral; F41.9 Anxiety disorder, unspecified; F17.200 Nicotine dependence, unspecified, uncomplicated; E87.5 Hyperkalemia; E66.9 Obesity, unspecified; F32.9 Major depressive disorder, single episode, unspecified; K44.9 Diaphragmatic hernia without obstruction or gangrene; Z83.3 Family history of diabetes mellitus; Z79.899 Other long term (current) drug therapy; Z68.31 Body mass index [BMI] 31.0-31.9, adult; Z79.01 Long term (current) use of anticoagulants; Z90.49 Acquired absence of other specified parts of digestive tract; Z82.49 Family history of ischemic heart disease and other diseases of the circulatory system; Z82.0 Family history of epilepsy and other diseases of the nervous system; Z84.89 Family history of other specified conditions
CPT/HCPCS: 36415; 43239; 70450; 71046; 80048; 80053; 80306; 80320; 81003; 84484; 85025; 85610; 85730; 87502; 88305; 88312; 93005; 96360; 99285

== ENCOUNTER 2019-11-11 16:34 | Emergency (ER) | payer OTHER ==
[2019-11-11] MEDS ORDERED: FUROSEMIDE 40 MG TAB PO STA (17:35)
[2019-11-11] MEDS ORDERED: NAPROXEN 250 MG TAB PO STA (17:35)
[2019-11-11] MEDS ORDERED: DEXAMETHASONE SOD PHOSPHATE 10 MG/ML 1 ML VIAL IM STA (17:35)
--- NOTE | 2019-11-11 17:35 | ED ---
Recheck HPI - General Chief Complaint: Recheck/Abnormal Lab/Rx Stated Complaint: Leg swelling Time Seen by Provider: 11/11/19 17:01 Source: patient, RN notes reviewed, old records reviewed Mode of arrival: ambulatory Limitations: no limitations - History of Present Illness Initial Comments: This is a 54-year-old male DF for evaluation diffuse body pain and aches. Bilateral lower currently pain and aches. Patient has history of chronic pain and admits to history of chronic pain and was to lower extremity edema and swelling which is also chronic issue. Takes [place] at home 3 times a day for pain pain is just mildly worse. Today fevers no cough or congestion no nausea vomiting diarrhea. Patient's pain was worse today while at work. The symptoms are improving currently. MD Complaint: other (Chronic pain) -: days(s) Returns Today for: persistent/worsening pain related to initial visit Symptoms Since Prior Visit: worsening pain, worsening swelling Associated Symptoms: none - Related Data Home Medications Medication Instructions Recorded Confirmed Citalopram Hydrobromide [CeleXA] 20 mg PO HS 01/24/19 09/25/19 amLODIPine BESYLATE/BENAZEPRIL 1 cap PO DAILY 06/24/19 09/25/19 [Lotrel 5-10 MG] HYDROcodone/APAP 5-325MG [[place] 1 tab PO Q6HR PRN 09/18/19 09/25/19 5-325] Famotidine [Pepcid] 40 mg PO HS 09/25/19 09/25/19 Previous Rx's Medication Instructions Recorded Sucralfate [Carafate] 1 gm PO ACHS #1 bottle 09/17/19 Mag Hydrox/Al Hydrox/Simeth 30 ml PO Q6HR PRN cup 09/20/19 [Maalox] Metoprolol Tartrate [Lopressor] 50 mg PO BID #60 tab 09/20/19 Pantoprazole [Protonix] 40 mg PO BID #60 tablet. 09/20/19 Warfarin Sodium [Coumadin] 4 mg PO DAILY #30 tablet 09/20/19 Pantoprazole Sodium [Protonix] 40 mg PO DAILY #30 tablet. 09/28/19 Furosemide [Lasix] 40 mg PO DAILY #7 tablet 11/11/19 Naproxen [Naprosyn] 500 mg PO Q12HR PRN #30 tab 11/11/19 predniSONE 50 mg PO DAILY #5 tab 11/11/19 Allergies Allergy/AdvReac Type Severity Reaction Status Date / Time No Known Allergies Allergy Verified 11/11/19 16:48 Review of Systems ROS Statement: Those systems with pertinent positive or pertinent negative responses have been documented in the HPI. ROS Other: All systems not noted in ROS Statement are negative. Past Medical History Past Medical History: Atrial Fibrillation, GERD/Reflux, Hypertension, Osteoarthritis (OA) Additional Past Medical History / Comment(s): severe GERD, DJD. History of Any Multi-Drug Resistant Organisms: None Reported Past Surgical History: Appendectomy, Cholecystectomy, Hernia Repair, Joint Replacement, Orthopedic Surgery Additional Past Surgical History / Comment(s): 12/07/14 Total R Hip replacement, RIGHT KNEE SCOPE, umbilical hernia, EGD Past Anesthesia/Blood Transfusion Reactions: No Reported Reaction Additional Past Anesthesia/Blood Transfusion Reaction / Comment(s): "has never received any blood" Past Psychological History: Anxiety Smoking Status: Current every day smoker Past Alcohol Use History: Rare Past Drug Use History: None Reported - Past Family History Father Family Medical History: Coronary Artery Disease (CAD), Diabetes Mellitus, Myocardial Infarction (PA) Additional Family Medical History / Comment(s): Father has at the age of 74 yrs of a PA. He had 2 Cabg's Mother Family Medical History: Coronary Artery Disease (CAD), Diabetes Mellitus, Musculoskeletal Disorder, Neurologic Disorder Additional Family Medical History / Comment(s): Mother is . She at age 64 yrs. She had a cabg and multiple sclerosis Brother(s) Family Medical History: AFIB Additional Family Medical History / Comment(s): Pt has another brother with CAD and MIs General Exam - General Exam Comments Initial Comments: Bilateral lower extremity 3+ pitting edema Limitations: no limitations General appearance: alert, in no apparent distress Head exam: Present: atraumatic, normocephalic, normal inspection Eye exam: Present: normal appearance, PERRL, EOMI. Absent: scleral icterus, conjunctival injection, periorbital swelling ENT exam: Present: normal exam, mucous membranes moist Neck exam: Present: normal inspection. Absent: tenderness, meningismus, lymphadenopathy Respiratory exam: Present: normal lung sounds bilaterally. Absent: respiratory distress, wheezes, rales, rhonchi, stridor Cardiovascular Exam: Present: regular rate, normal rhythm, normal heart sounds. Absent: systolic murmur, diastolic murmur, rubs, gallop, clicks GI/Abdominal exam: Present: soft, normal bowel sounds. Absent: distended, tenderness, guarding, rebound, rigid Extremities exam: Present: normal inspection, full ROM, normal capillary refill. Absent: tenderness, pedal edema, joint swelling, calf tenderness Back exam: Present: normal inspection Neurological exam: Present: alert, oriented X3, CN II-XII intact Psychiatric exam: Present: normal affect, normal mood Skin exam: Present: warm, dry, intact, normal color. Absent: rash Course Vital Signs 11/11/19 16:45 Temperature 98.9 F Pulse Rate 75 Respiratory 20 Rate Blood Pressure 167/90 O2 Sat by Pulse 99 Oximetry - Reevaluation(s) Reevaluation #1: 11/11/19 19:31 Medical records are reviewed Reevaluation #2: 11/11/19 19:31 Patient has a chief pain control here in the ER Reevaluation #3: 11/11/19:31 Spoke with patient and updated regarding findings here in the ER plan of discharge, he is agreeable follow-up with Dr. Loja Medical Decision Making - Medical Decision Making 54 male DF for evaluation of bilateral lower [place] pain and swelling as well as diffuse body aches and pains symptoms improved here in the ER patient can be discharged home, ultrasound is negative for DVT - Radiology Data Radiology results: report reviewed (BILATERAL LOWER SHORTY IS NEGATIVE FOR DVT), image reviewed Disposition Clinical Impression: Chronic pain, Bilateral leg edema Disposition: HOME SELF-CARE Condition: Good Instructions (If sedation given, give patient instructions): Leg Edema (ED), Musculoskeletal Pain (ED) Prescriptions: Furosemide [Lasix] 40 mg PO DAILY #7 tablet Naproxen [Naprosyn] 500 mg PO Q12HR PRN #30 tab PRN Reason: Pain predniSONE 50 mg PO DAILY #5 tab Is patient prescribed a controlled substance at d/c from ED?: No Referrals: Aaron Loja MD [Primary Care Provider] - 1-2 days
--- NOTE | 2019-11-11 19:19 | US ---
EXAMINATION TYPE: US venous doppler duplex LE DATE OF EXAM: 11/11/2019 6:56 PM COMPARISON: NONE CLINICAL HISTORY: edema. Edema x 1.5 weeks. No hx of DVT. Patient on coumadin. Hx right knee surgery. SIDE PERFORMED: Bilateral TECHNIQUE: The lower extremity deep venous system is examined utilizing real time linear array sonog kemi with graded compression, doppler sonography and color-flow sonography. VESSELS IMAGED: External Iliac Vein (EIV) Common Femoral Vein Deep Femoral Vein Greater Saphenous Vein * Femoral Vein Popliteal Vein Small Saphenous Vein * Proximal Calf Veins (* superficial vessels) Right Leg: No evidence of DVT in veins imaged at this time from prox calf veins to EIV. Left Leg: No evidence of DVT in veins imaged at this time from prox calf veins to EIV. IMPRESSION: No evidence of deep vein thrombosis in both legs.
[2019-11-11 19:49] VITALS: BP 158/82; PULSE 76; RESP 18; TEMP 98.5
== END 2019-11-11 19:42 | disposition home or self-care (01) ==
LOC: EC 16:34
DX: R60.0 Localized edema (principal); G89.29 Other chronic pain; M79.604 Pain in right leg; M79.605 Pain in left leg; K21.9 Gastro-esophageal reflux disease without esophagitis; I10 Essential (primary) hypertension; M19.90 Unspecified osteoarthritis, unspecified site; F41.9 Anxiety disorder, unspecified; F17.200 Nicotine dependence, unspecified, uncomplicated; Z79.899 Other long term (current) drug therapy; Z96.641 Presence of right artificial hip joint
CPT/HCPCS: 93970; 99284; 96372; J1100

== ENCOUNTER 2020-05-26 06:47 | Emergency (ER) | payer OTHER ==
[2020-05-26 06:53] VITALS: TEMP 98.9
[2020-05-26] MEDS ORDERED: diphenhydrAMINE 50 MG/ML 1 ML VIAL IVP STA (07:01)
[2020-05-26] MEDS ORDERED: SODIUM CHLORIDE 0.9% 2,000 ML IV STA (07:01)
[2020-05-26] MEDS ORDERED: METOCLOPRAMIDE 5 MG/ML 2 ML VIAL IVP STA (07:01)
[2020-05-26] MEDS ORDERED: MAG HYDROX/AL HYDROX/SIMETH 30 ML, HYOSCYAMINE ELIXIR 10 ML, LIDOCAINE VISCOUS 2% 10 ML PO STA ×3 (07:01)
[2020-05-26] MEDS ORDERED: FAMOTIDINE 20 MG/2 ML VIAL IV STA (07:01)
[2020-05-26 07:19] LABS: Basophils % (A) 0 %; Eosinophils # (A) 0.2 k/uL (0-0.7); Eosinophils % (A) 1 %; HCT 48.1 % (39.0-53.0); HGB 16.2 gm/dL (13.0-17.5); Lymphocytes # (A) 1.1 k/uL (1.0-4.8); Lymphocytes % (A) 8 %; MCH 30.2 pg (25.0-35.0); MCHC 33.6 g/dL (31.0-37.0); MCV 89.7 fL (80.0-100.0); Mean Platelet Volume 8.7; Monocytes # (A) 0.7 k/uL (0-1.0); Monocytes % (A) 5 %; Neutrophils # (A) 12.5 k/uL (1.3-7.7); Neutrophils % (A) 86 %; Platelet Count 280 k/uL (150-450); RBC 5.37 m/uL (4.30-5.90); RDW 13.6 % (11.5-15.5); WBC 14.6 k/uL (3.8-10.6)
[2020-05-26 07:31] LABS: ALT 25 U/L (4-49); AST 43 U/L (17-59); African American GFR (CKD) >90 (>60 ml/min/1.73 sqM); Albumin 4.9 g/dL (3.5-5.0); Alkaline Phosphatase 85 U/L (38-126); Amylase 43 U/L (30-110); Anion Gap 15 mmol/L; Blood Urea Nitrogen 19 mg/dL (9-20); Calcium 9.7 mg/dL (8.4-10.2); Carbon Dioxide 22 mmol/L (22-30); Chloride 104 mmol/L (98-107); Glucose 161 mg/dL (74-99); Non-African American GFR(CKD) >90 (>60 ml/min/1.73 sqM); Sodium 141 mmol/L (137-145); Total Bilirubin 1.6 mg/dL (0.2-1.3); Total Protein 7.9 g/dL (6.3-8.2)
--- NOTE | 2020-05-26 07:33 | ED ---
Abdominal Pain HPI - General Chief Complaint: Abdominal Pain Stated Complaint: Abd pain, vomiting Time Seen by Provider: 05/26/20 06:54 Source: patient, RN notes reviewed Mode of arrival: ambulatory Limitations: no limitations - History of Present Illness Initial Comments: 55-year-old male presents emergency Department chief complaint of nausea vomiting GERD. Patient is long history. He's had multiple ER visits for exacerbations of his GERD. Patient states his last hospitalization he had a scope which showed possibility of a small ulcer. Patient denies any hematemesis or coffee-ground emesis. Denies any diarrhea constipation dysuria or hematuria. Patient has some epigastric pain no chest pain no shortness of breath. Patient denies any other associated complaints no fevers or chills. - Related Data Home Medications Medication Instructions Recorded Confirmed Citalopram Hydrobromide [CeleXA] 20 mg PO HS 01/24/19 09/25/19 amLODIPine BESYLATE/BENAZEPRIL 1 cap PO DAILY 06/24/19 09/25/19 [Lotrel 5-10 MG] HYDROcodone/APAP 5-325MG [[place] 1 tab PO Q6HR PRN 09/18/19 09/25/19 5-325] Famotidine [Pepcid] 40 mg PO HS 09/25/19 09/25/19 Previous Rx's Medication Instructions Recorded Sucralfate [Carafate] 1 gm PO ACHS #1 bottle 09/17/19 Mag Hydrox/Al Hydrox/Simeth 30 ml PO Q6HR PRN cup 09/20/19 [Maalox] Metoprolol Tartrate [Lopressor] 50 mg PO BID #60 tab 09/20/19 Pantoprazole [Protonix] 40 mg PO BID #60 tablet. 09/20/19 Warfarin Sodium [Coumadin] 4 mg PO DAILY #30 tablet 09/20/19 Pantoprazole Sodium [Protonix] 40 mg PO DAILY #30 tablet. 09/28/19 Furosemide [Lasix] 40 mg PO DAILY #7 tablet 11/11/19 Naproxen [Naprosyn] 500 mg PO Q12HR PRN #30 tab 11/11/19 predniSONE 50 mg PO DAILY #5 tab 11/11/19 Ondansetron Odt [Zofran Odt] 4 mg PO Q8HR PRN #10 tab 05/26/20 Sucralfate [Carafate] 1 gm PO BID #14 tablet 05/26/20 Allergies Allergy/AdvReac Type Severity Reaction Status Date / Time No Known Allergies Allergy Verified 11/11/19 16:48 Review of Systems ROS Statement: Those systems with pertinent positive or pertinent negative responses have been documented in the HPI. ROS Other: All systems not noted in ROS Statement are negative. Past Medical History Past Medical History: Atrial Fibrillation, GERD/Reflux, Hypertension, Osteoarthritis (OA) Additional Past Medical History / Comment(s): severe GERD, DJD. History of Any Multi-Drug Resistant Organisms: None Reported Past Surgical History: Appendectomy, Cholecystectomy, Hernia Repair, Joint Replacement, Orthopedic Surgery Additional Past Surgical History / Comment(s): 12/07/14 Total R Hip replacement, RIGHT KNEE SCOPE, umbilical hernia, EGD Past Anesthesia/Blood Transfusion Reactions: No Reported Reaction Additional Past Anesthesia/Blood Transfusion Reaction / Comment(s): "has never received any blood" Past Psychological History: Anxiety Smoking Status: Never smoker Past Alcohol Use History: Rare Past Drug Use History: None Reported - Past Family History Father Family Medical History: Coronary Artery Disease (CAD), Diabetes Mellitus, Myocardial Infarction ([place]) Additional Family Medical History / Comment(s): Father has at the age of 74 yrs of a [place]. He had 2 Cabg's Mother Family Medical History: Coronary Artery Disease (CAD), Diabetes Mellitus, Musculoskeletal Disorder, Neurologic Disorder Additional Family Medical History / Comment(s): Mother is . She at age 64 yrs. She had a cabg and multiple sclerosis Brother(s) Family Medical History: AFIB Additional Family Medical History / Comment(s): Pt has another brother with CAD and MIs General Exam Limitations: no limitations General appearance: alert, in no apparent distress Head exam: Present: atraumatic, normocephalic, normal inspection Eye exam: Present: normal appearance, PERRL, EOMI. Absent: scleral icterus, conjunctival injection, periorbital swelling ENT exam: Present: normal exam, normal oropharynx, mucous membranes moist, TM's normal bilaterally Neck exam: Present: normal inspection, full ROM. Absent: tenderness, meningismus, lymphadenopathy Respiratory exam: Present: normal lung sounds bilaterally. Absent: respiratory distress, wheezes, rales, rhonchi, stridor Cardiovascular Exam: Present: regular rate, normal rhythm, normal heart sounds. Absent: systolic murmur, diastolic murmur, rubs, gallop, clicks GI/Abdominal exam: Present: soft, tenderness (Epigastric), normal bowel sounds. Absent: distended, guarding, rebound, rigid Back exam: Absent: CVA tenderness (R), CVA tenderness (L) Neurological exam: Present: alert, oriented X3 Skin exam: Present: warm, dry, intact, normal color. Absent: rash Course Vital Signs 05/26/20 06:51 Temperature 98.9 F Pulse Rate 100 Respiratory 18 Rate Blood Pressure 157/74 O2 Sat by Pulse 98 Oximetry - Reevaluation(s) Reevaluation #1: 05/26/20 07:57 Patient reevaluated states that symptoms are greatly improved he just has pain that is residual from vomiting. He has no chest pain or shortness of breath. Medical Decision Making - Medical Decision Making Patient labs were reviewed with no significant abnormalities. Patient's had multiple ER visits for reflux, GI issues. Patient states he is feeling improved. Patient requests to be discharged home with follow return parameters were discussed. - Lab Data Result diagrams: 05/26/20 07:11 05/26/20 07:11 Lab Results 05/26/20 05/26/20 Range/Units 07:11 07:11 WBC 14.6 H (3.8-10.6) k/uL RBC 5.37 (4.30-5.90) m/uL Hgb 16.2 (13.0-17.5) gm/dL Hct 48.1 (39.0-53.0) % MCV 89.7 (80.0-100.0) fL MCH 30.2 (25.0-35.0) pg MCHC 33.6 (31.0-37.0) g/dL RDW 13.6 (11.5-15.5) % Plt Count 280 (150-450) k/uL Neutrophils % 86 % Lymphocytes % 8 % Monocytes % 5 % Eosinophils % 1 % Basophils % 0 % Neutrophils # 12.5 H (1.3-7.7) k/uL Lymphocytes # 1.1 (1.0-4.8) k/uL Monocytes # 0.7 (0-1.0) k/uL Eosinophils # 0.2 (0-0.7) k/uL Basophils # 0.0 (0-0.2) k/uL Sodium 141 (137-145) mmol/L Potassium 4.3 (3.5-5.1) mmol/L Chloride 104 (98-107) mmol/L Carbon Dioxide 22 (22-30) mmol/L Anion Gap 15 mmol/L BUN 19 (9-20) mg/dL Creatinine 0.83 (0.66-1.25) mg/dL Est GFR (CKD-EPI)AfAm >90 (>60 ml/min/1.73 sqM) Est GFR (CKD-EPI)NonAf >90 (>60 ml/min/1.73 sqM) Glucose 161 H (74-99) mg/dL Calcium 9.7 (8.4-10.2) mg/dL Total Bilirubin 1.6 H (0.2-1.3) mg/dL AST 43 (17-59) U/L ALT 25 (4-49) U/L Alkaline Phosphatase 85 (38-126) U/L Total Protein 7.9 (6.3-8.2) g/dL Albumin 4.9 (3.5-5.0) g/dL Amylase 43 (30-110) U/L Lipase 204 (23-300) U/L Disposition Clinical Impression: Abdominal pain, Dyspepsia Disposition: HOME SELF-CARE Condition: Stable Instructions (If sedation given, give patient instructions): Abdominal Pain (ED) Additional Instructions: Please return to the Emergency Department if symptoms worsen or any other concerns. Prescriptions: Sucralfate [Carafate] 1 gm PO BID #14 tablet Ondansetron Odt [Zofran Odt] 4 mg PO Q8HR PRN #10 tab PRN Reason: Nausea Is patient prescribed a controlled substance at d/c from ED?: No Referrals: Aaron Loja MD [Primary Care Provider] - 1-2 days Time of Disposition: 08:00
[2020-05-26 07:36] LABS: Potassium 4.3 mmol/L (3.5-5.1)
[2020-05-26] MEDS ORDERED: ONDANSETRON 4 MG/2 ML VIAL IVP STA (07:55)
[2020-05-26] MEDS ORDERED: MORPHINE SULFATE 4 MG/ML SYRINGE IVP STA (07:55)
[2020-05-26 08:18] VITALS: BP 148/72; PULSE 78; RESP 16
== END 2020-05-26 08:13 | disposition home or self-care (01) ==
LOC: EC 06:47
DX: R10.13 Epigastric pain (principal); R11.2 Nausea with vomiting, unspecified; I10 Essential (primary) hypertension; F41.9 Anxiety disorder, unspecified; K21.9 Gastro-esophageal reflux disease without esophagitis; Z79.899 Other long term (current) drug therapy; Z96.641 Presence of right artificial hip joint
CPT/HCPCS: 36415; 80053; 82150; 83690; 85025; 99284; 96374; 96375 ×4; 96361; J2270; J1200; J2765; J2405

== ENCOUNTER 2020-05-26 16:33 | Emergency (ER) | payer OTHER ==
[2020-05-26 16:50] VITALS: BP 145/92; PULSE 83; RESP 18; TEMP 100
[2020-05-26] MEDS ORDERED: SODIUM CHLORIDE 0.9% 1,000 ML IV STA (16:52)
[2020-05-26] MEDS ORDERED: PANTOPRAZOLE 40 MG/10 ML VIAL IVP STA (16:52)
[2020-05-26] MEDS ORDERED: MAG HYDROX/AL HYDROX/SIMETH 30 ML, HYOSCYAMINE ELIXIR 10 ML, LIDOCAINE VISCOUS 2% 10 ML PO STA ×3 (16:53)
[2020-05-26] MEDS ORDERED: MORPHINE SULFATE 4 MG/ML SYRINGE IM STA (17:08)
--- NOTE | 2020-05-26 17:14 | ED ---
Recheck HPI - General Chief Complaint: Recheck/Abnormal Lab/Rx Stated Complaint: recheck - GERD Time Seen by Provider: 05/26/20 16:51 Source: patient Mode of arrival: ambulatory Limitations: no limitations - History of Present Illness Initial Comments: Patient is 55-year-old male with history of GERD presenting to the emergency department with a chief complaint of GERD. Patient states here to take Prilosec daily and his symptoms are usually under control. States he just had a flareup the started this morning. States he ate spicy donuts last night which she should have not. Patient reports he was here earlier this morning and after having the GI cocktail really helped her symptoms. States the morphine also helped calm his stomach. Patient states he returned home but the symptoms reappeared. Patient states his symptoms feel exactly the same as his other GERD flareups. No chest patient or shortness of breath. - Related Data Home Medications Medication Instructions Recorded Confirmed Citalopram Hydrobromide [CeleXA] 20 mg PO HS 01/24/19 09/25/19 amLODIPine BESYLATE/BENAZEPRIL 1 cap PO DAILY 06/24/19 09/25/19 [Lotrel 5-10 MG] HYDROcodone/APAP 5-325MG [[place] 1 tab PO Q6HR PRN 09/18/19 09/25/19 5-325] Famotidine [Pepcid] 40 mg PO HS 09/25/19 09/25/19 Previous Rx's Medication Instructions Recorded Sucralfate [Carafate] 1 gm PO ACHS #1 bottle 09/17/19 Mag Hydrox/Al Hydrox/Simeth 30 ml PO Q6HR PRN cup 09/20/19 [Maalox] Metoprolol Tartrate [Lopressor] 50 mg PO BID #60 tab 09/20/19 Pantoprazole [Protonix] 40 mg PO BID #60 tablet. 09/20/19 Warfarin Sodium [Coumadin] 4 mg PO DAILY #30 tablet 09/20/19 Pantoprazole Sodium [Protonix] 40 mg PO DAILY #30 tablet. 09/28/19 Furosemide [Lasix] 40 mg PO DAILY #7 tablet 11/11/19 Naproxen [Naprosyn] 500 mg PO Q12HR PRN #30 tab 11/11/19 predniSONE 50 mg PO DAILY #5 tab 11/11/19 Ondansetron Odt [Zofran Odt] 4 mg PO Q8HR PRN #10 tab 05/26/20 Sucralfate [Carafate] 1 gm PO BID #14 tablet 05/26/20 Allergies Allergy/AdvReac Type Severity Reaction Status Date / Time No Known Allergies Allergy Verified 05/26/20 16:49 Review of Systems ROS Statement: Those systems with pertinent positive or pertinent negative responses have been documented in the HPI. ROS Other: All systems not noted in ROS Statement are negative. Past Medical History Past Medical History: Atrial Fibrillation, GERD/Reflux, Hypertension, Osteoarthritis (OA) Additional Past Medical History / Comment(s): severe GERD, DJD. History of Any Multi-Drug Resistant Organisms: None Reported Past Surgical History: Appendectomy, Cholecystectomy, Hernia Repair, Joint Replacement, Orthopedic Surgery Additional Past Surgical History / Comment(s): 12/07/14 Total R Hip replacement, RIGHT KNEE SCOPE, umbilical hernia, EGD Past Anesthesia/Blood Transfusion Reactions: No Reported Reaction Additional Past Anesthesia/Blood Transfusion Reaction / Comment(s): "has never received any blood" Past Psychological History: Anxiety Smoking Status: Never smoker Past Alcohol Use History: Rare Past Drug Use History: None Reported - Past Family History Father Family Medical History: Coronary Artery Disease (CAD), Diabetes Mellitus, Myocardial Infarction ([place]) Additional Family Medical History / Comment(s): Father has at the age of 74 yrs of a [place]. He had 2 Cabg's Mother Family Medical History: Coronary Artery Disease (CAD), Diabetes Mellitus, Musculoskeletal Disorder, Neurologic Disorder Additional Family Medical History / Comment(s): Mother is . She at age 64 yrs. She had a cabg and multiple sclerosis Brother(s) Family Medical History: AFIB Additional Family Medical History / Comment(s): Pt has another brother with CAD and MIs General Exam Limitations: no limitations General appearance: alert, in no apparent distress, obese Head exam: Present: atraumatic, normocephalic, normal inspection Eye exam: Present: normal appearance, PERRL, EOMI Pupils: Present: normal accommodation ENT exam: Present: normal exam, normal oropharynx, mucous membranes moist Neck exam: Present: normal inspection, full ROM. Absent: tenderness Respiratory exam: Present: normal lung sounds bilaterally. Absent: respiratory distress, wheezes, rales Cardiovascular Exam: Present: regular rate, normal rhythm, normal heart sounds GI/Abdominal exam: Present: soft. Absent: distended, tenderness, guarding, rebound Extremities exam: Present: normal inspection, full ROM. Absent: tenderness Back exam: Present: normal inspection, full ROM. Absent: tenderness Neurological exam: Present: alert, oriented X3 Psychiatric exam: Present: normal affect, normal mood Skin exam: Present: warm, dry, intact, normal color Course Vital Signs 05/26/20 16:46 Temperature 100.0 F H Pulse Rate 83 Respiratory 18 Rate Blood Pressure 145/92 O2 Sat by Pulse 97 Oximetry Medical Decision Making - Medical Decision Making Patient is 55-year-old male with history of GERD presenting to the emergency department with chief complaint of GERD. Patient is requesting analgesia and a GI cocktail. States this gets his symptoms under control. States he is going to follow with his primary care physician. Chart reviewed. All of the laboratory work was performed this morning with no acute findings. Return parameters were thoroughly discussed with patient is understanding and agreeable. Case discussed with physician. Disposition Clinical Impression: Abdominal pain, Dyspepsia Disposition: HOME SELF-CARE Condition: Stable Instructions (If sedation given, give patient instructions): Abdominal Pain (ED) Additional Instructions: Follow with primary care physician. Return to emergency department if symptoms worsen. Is patient prescribed a controlled substance at d/c from ED?: No Referrals: Aaron Loja MD [Primary Care Provider] - 1-2 days Time of Disposition: 17:13
== END 2020-05-26 17:38 | disposition home or self-care (01) ==
LOC: EC 16:33
DX: R10.13 Epigastric pain (principal); I10 Essential (primary) hypertension; F41.9 Anxiety disorder, unspecified; K21.9 Gastro-esophageal reflux disease without esophagitis; I48.91 Unspecified atrial fibrillation; M19.90 Unspecified osteoarthritis, unspecified site; Z79.899 Other long term (current) drug therapy; Z96.641 Presence of right artificial hip joint
CPT/HCPCS: 99283; 96372; J2270

== ENCOUNTER 2020-05-27 09:28 | Observation (INO) | payer OTHER ==
[2020-05-27] MEDS ORDERED: ONDANSETRON 4 MG/2 ML VIAL IVP STA (09:47)
[2020-05-27] MEDS ORDERED: PANTOPRAZOLE 40 MG/10 ML VIAL IVP STA (09:47)
[2020-05-27] MEDS ORDERED: SODIUM CHLORIDE 0.9% 1,000 ML IV STA (09:47)
[2020-05-27] MEDS ORDERED: diphenhydrAMINE 50 MG/ML 1 ML VIAL IVP STA (09:48)
[2020-05-27] MEDS ORDERED: MAG HYDROX/AL HYDROX/SIMETH 30 ML, HYOSCYAMINE ELIXIR 10 ML, LIDOCAINE VISCOUS 2% 10 ML PO STA ×3 (09:48)
--- NOTE | 2020-05-27 10:00 | ED ---
Abdominal Pain HPI - General Chief Complaint: Abdominal Pain Stated Complaint: gerd-revisit Time Seen by Provider: 05/27/20 09:38 Source: patient Mode of arrival: ambulatory Limitations: no limitations - History of Present Illness Initial Comments: Patient is a 55-year-old male, with history of GERD, A. fib currently on Coumadin, presenting to emergency Department with complaints of continued epigastric pain, vomiting. Patient did come to the ER twice yesterday for same complaint. He states usually the pain medicine as well as a GI cocktail usually helps with his symptoms however he has been continued to have pain and vomiting. Patient states last night he did have episode of vomiting with a mouthful of blood with it. He denies any diarrhea, lower abdominal pain. He describes his pain as all the epigastric area, no radiation. He rates the pain currently 8/10, he states he has not been able sleep very well the last 4 nights. He denies any chest pain or shortness of breath. He denies any fever or chills. He states he did have a scope performed in September of this year with Dr. Wright. He has history of appendectomy, cholecystectomy, hernia repair. He has no further complaints at this time. Upon arrival to the ER, his vital signs are stable. - Related Data Home Medications Medication Instructions Recorded Confirmed Citalopram Hydrobromide [CeleXA] 20 mg PO HS 01/24/19 05/27/20 amLODIPine BESYLATE/BENAZEPRIL 1 cap PO DAILY 06/24/19 05/27/20 [Lotrel 5-10 MG] HYDROcodone/APAP 5-325MG [[place] 1 tab PO Q6HR PRN 09/18/19 05/27/20 5-325] Famotidine [Pepcid] 40 mg PO BID 09/25/19 05/27/20 Lisinopril [Prinivil] 10 mg PO DAILY 05/27/20 05/27/20 Ondansetron Odt [Zofran Odt] 4 mg SL Q8HR PRN 05/27/20 05/27/20 Warfarin Sodium [Jantoven] 6 mg PO DAILY 05/27/20 05/27/20 Previous Rx's Medication Instructions Recorded Sucralfate [Carafate] 1 gm PO BID #14 tablet 05/26/20 Allergies Allergy/AdvReac Type Severity Reaction Status Date / Time No Known Allergies Allergy Verified 05/27/20 10:13 Review of Systems ROS Statement: Those systems with pertinent positive or pertinent negative responses have been documented in the HPI. ROS Other: All systems not noted in ROS Statement are negative. Past Medical History Past Medical History: Atrial Fibrillation, GERD/Reflux, Hypertension, Osteoarthritis (OA) Additional Past Medical History / Comment(s): severe GERD, DJD. History of Any Multi-Drug Resistant Organisms: None Reported Past Surgical History: Appendectomy, Cholecystectomy, Hernia Repair, Joint Replacement, Orthopedic Surgery Additional Past Surgical History / Comment(s): 12/07/14 Total R Hip replacement, RIGHT KNEE SCOPE, umbilical hernia, EGD Past Anesthesia/Blood Transfusion Reactions: No Reported Reaction Additional Past Anesthesia/Blood Transfusion Reaction / Comment(s): "has never received any blood" Past Psychological History: Anxiety Smoking Status: Current every day smoker Past Alcohol Use History: Rare Past Drug Use History: None Reported - Past Family History Father Family Medical History: Coronary Artery Disease (CAD), Diabetes Mellitus, Myocardial Infarction ([place]) Additional Family Medical History / Comment(s): Father has at the age of 74 yrs of a [place]. He had 2 Cabg's Mother Family Medical History: Coronary Artery Disease (CAD), Diabetes Mellitus, Musculoskeletal Disorder, Neurologic Disorder Additional Family Medical History / Comment(s): Mother is . She at age 64 yrs. She had a cabg and multiple sclerosis Brother(s) Family Medical History: AFIB Additional Family Medical History / Comment(s): Pt has another brother with CAD and MIs General Exam - General Exam Comments Initial Comments: GENERAL: Patient is well-developed and well-nourished. Patient is nontoxic and in no acute distress, does look uncomfortable. HEAD: Atraumatic, normocephalic. EYES: Pupils equal round and reactive to light, extraocular movements intact, sclera anicteric, conjunctiva are normal. Eyelids were unremarkable. ENT: TMs normal, nares patent, oropharynx clear without exudates. Moist mucous membranes. NECK: Normal range of motion, supple without lymphadenopathy or JVD. LUNGS: Unlabored respirations. Breath sounds clear to auscultation bilaterally and equal. No wheezes rales or rhonchi. HEART: Regular rate and rhythm without murmurs, rubs or gallops. ABDOMEN: Epigastric pain on palpation, no other specific area pain. Soft, normoactive bowel sounds. No guarding, no rebound. No masses appreciated. : Deferred MUSCULOSKELETAL: Normal extremities with adequate strength and normal range of motion, no pitting or edema. No clubbing or cyanosis. NEUROLOGICAL: Patient is alert and oriented x 3. Motor and sensory are also intact. Cranial nerves II through XII grossly intact. Symmetrical smile. Normal speech, normal gait. PSYCH: Normal mood, normal affect. SKIN: Warm, Dry, normal turgor, no rashes or lesions noted. Limitations: no limitations Course Vital Signs 05/27/20 09:31 Temperature 98.9 F Pulse Rate 95 Respiratory 20 Rate Blood Pressure 145/89 O2 Sat by Pulse 97 Oximetry Medical Decision Making - Medical Decision Making Patient is a 55-year-old male with history of GERD, A. fib on Coumadin, presenting for the third visit in 2 days for epigastric pain, vomiting but now has hematemesis. Vital signs are stable. EKG shows atrial fib, no other abnormality. Lab work shows a slight leukocytosis, similar to yesterday, hemoglobin is still stable but did decrease from 16.2-14.8, INR is 1.2. Potassium is 3.4, lactic acid is 1.7, troponin is normal, serum alcohol is normal. He was given fluids, Protonix, Zofran and Benadryl, as well as a GI c ocktail. He has been resting comfortably. Given patient's history and recent frequent ER visits, recommended admission for further workup. Patient was accepted by Dr. Loja. Patient is in agreement with this plan of care. Case discussed with Dr. Murray. - Lab Data Result diagrams: 05/27/20 10:00 05/27/20 10:00 Lab Results 05/27/20 05/27/20 05/27/20 Range/Units 10:00 10:00 10:00 WBC 13.8 H (3.8-10.6) k/uL RBC 4.98 (4.30-5.90) m/uL Hgb 14.8 (13.0-17.5) gm/dL Hct 44.8 (39.0-53.0) % MCV 90.0 (80.0-100.0) fL MCH 29.8 (25.0-35.0) pg MCHC 33.1 (31.0-37.0) g/dL RDW 13.7 (11.5-15.5) % Plt Count 240 (150-450) k/uL Neutrophils % 82 % Lymphocytes % 10 % Monocytes % 6 % Eosinophils % 1 % Basophils % 0 % Neutrophils # 11.3 H (1.3-7.7) k/uL Lymphocytes # 1.3 (1.0-4.8) k/uL Monocytes # 0.8 (0-1.0) k/uL Eosinophils # 0.1 (0-0.7) k/uL Basophils # 0.0 (0-0.2) k/uL PT 12.4 H (9.0-12.0) sec INR 1.2 H (<1.2) APTT 24.5 (22.0-30.0) sec Sodium 139 (137-145) mmol/L Potassium 3.4 L (3.5-5.1) mmol/L Chloride 104 (98-107) mmol/L Carbon Dioxide 25 (22-30) mmol/L Anion Gap 10 mmol/L BUN 24 H (9-20) mg/dL Creatinine 0.87 (0.66-1.25) mg/dL Est GFR (CKD-EPI)AfAm >90 (>60 ml/min/1.73 sqM) Est GFR (CKD-EPI)NonAf >90 (>60 ml/min/1.73 sqM) Glucose 131 H (74-99) mg/dL Plasma Lactic Acid Jarred (0.7-2.0) mmol/L Calcium 9.1 (8.4-10.2) mg/dL Total Bilirubin 1.4 H (0.2-1.3) mg/dL AST 26 (17-59) U/L ALT 22 (4-49) U/L Alkaline Phosphatase 74 (38-126) U/L Troponin I (0.000-0.034) ng/mL Total Protein 6.8 (6.3-8.2) g/dL Albumin 4.3 (3.5-5.0) g/dL Amylase 31 (30-110) U/L Lipase 210 (23-300) U/L Serum Alcohol <10 mg/dL 05/27/20 05/27/20 Range/Units 10:00 10:00 WBC (3.8-10.6) k/uL RBC (4.30-5.90) m/uL Hgb (13.0-17.5) gm/dL Hct (39.0-53.0) % MCV (80.0-100.0) fL MCH (25.0-35.0) pg MCHC (31.0-37.0) g/dL RDW (11.5-15.5) % Plt Count (150-450) k/uL Neutrophils % % Lymphocytes % % Monocytes % % Eosinophils % % Basophils % % Neutrophils # (1.3-7.7) k/uL Lymphocytes # (1.0-4.8) k/uL Monocytes # (0-1.0) k/uL Eosinophils # (0-0.7) k/uL Basophils # (0-0.2) k/uL PT (9.0-12.0) sec INR (<1.2) APTT (22.0-30.0) sec Sodium (137-145) mmol/L Potassium (3.5-5.1) mmol/L Chloride (98-107) mmol/L Carbon Dioxide (22-30) mmol/L Anion Gap mmol/L BUN (9-20) mg/dL Creatinine (0.66-1.25) mg/dL Est GFR (CKD-EPI)AfAm (>60 ml/min/1.73 sqM) Est GFR (CKD-EPI)NonAf (>60 ml/min/1.73 sqM) Glucose (74-99) mg/dL Plasma Lactic Acid Jarred 1.7 (0.7-2.0) mmol/L Calcium (8.4-10.2) mg/dL Total Bilirubin (0.2-1.3) mg/dL AST (17-59) U/L ALT (4-49) U/L Alkaline Phosphatase (38-126) U/L Troponin I <0.012 (0.000-0.034) ng/mL Total Protein (6.3-8.2) g/dL Albumin (3.5-5.0) g/dL Amylase (30-110) U/L Lipase (23-300) U/L Serum Alcohol mg/dL - EKG Data EKG Comments: EKG shows atrial fibrillation, no signs of acute ischemia. Ventricular rate 98, QRS duration 86, QT 356. Disposition Clinical Impression: Epigastric pain, Hematemesis, Nausea & vomiting, A-fib Disposition: ADMITTED IP TO THIS HOSP Condition: Stable Is patient prescribed a controlled substance at d/c from ED?: No Referrals: Aaron Loja MD [Primary Care Provider] - 1-2 days Decision Date: 05/27/20 Decision Time: 11:19
[2020-05-27 10:12] LABS: Basophils % (A) 0 %; Eosinophils # (A) 0.1 k/uL (0-0.7); Eosinophils % (A) 1 %; HCT 44.8 % (39.0-53.0); HGB 14.8 gm/dL (13.0-17.5); Lymphocytes # (A) 1.3 k/uL (1.0-4.8); Lymphocytes % (A) 10 %; MCH 29.8 pg (25.0-35.0); MCHC 33.1 g/dL (31.0-37.0); Mean Platelet Volume 8.7; Monocytes # (A) 0.8 k/uL (0-1.0); Monocytes % (A) 6 %; Neutrophils # (A) 11.3 k/uL (1.3-7.7); Neutrophils % (A) 82 %; Platelet Count 240 k/uL (150-450); RBC 4.98 m/uL (4.30-5.90); RDW 13.7 % (11.5-15.5); WBC 13.8 k/uL (3.8-10.6)
[2020-05-27 10:20] LABS: INR 1.2 (<1.2); Partial Thromboplastin Time 24.5 sec (22.0-30.0); Prothrombin Time 12.4 sec (9.0-12.0)
[2020-05-27 10:26] LABS: ALT 22 U/L (4-49); AST 26 U/L (17-59); African American GFR (CKD) >90 (>60 ml/min/1.73 sqM); Albumin 4.3 g/dL (3.5-5.0); Alcohol <10 mg/dL; Alkaline Phosphatase 74 U/L (38-126); Amylase 31 U/L (30-110); Anion Gap 10 mmol/L; Blood Urea Nitrogen 24 mg/dL (9-20); Calcium 9.1 mg/dL (8.4-10.2); Carbon Dioxide 25 mmol/L (22-30); Chloride 104 mmol/L (98-107); Glucose 131 mg/dL (74-99); Non-African American GFR(CKD) >90 (>60 ml/min/1.73 sqM); Potassium 3.4 mmol/L (3.5-5.1); Sodium 139 mmol/L (137-145); Total Bilirubin 1.4 mg/dL (0.2-1.3); Total Protein 6.8 g/dL (6.3-8.2)
[2020-05-27] MEDS ORDERED: ACETAMINOPHEN TAB 325 MG TAB PO PRN (11:17)
[2020-05-27] MEDS ORDERED: NALOXONE 0.4 MG/ML 1 ML VIAL IV PRN (11:17)
[2020-05-27 11:48] VITALS: RESP 16
[2020-05-27] MEDS: SODIUM CHLORIDE 0.9% 1,000 ML IV SCH (12:46)
[2020-05-27] MEDS: ONDANSETRON 4 MG/2 ML VIAL IVP PRN ×2 (13:46→21:48)
[2020-05-27] MEDS ORDERED: MAG HYDROX/AL HYDROX/SIMETH 30 ML, HYOSCYAMINE ELIXIR 10 ML PO ONE ×2 (14:38)
[2020-05-27] MEDS: HYDROcodone/APAP 5-325MG 1 EACH TAB PO PRN ×2 (14:53→20:56)
[2020-05-27] MEDS: diphenhydrAMINE 25 MG CAP PO PRN ×2 (15:42→21:48)
[2020-05-27] MEDS ORDERED: KETOROLAC 15 MG/ML 1 ML VIAL IVP PRN (18:16)
[2020-05-27] MEDS ORDERED: ZOLPIDEM 5 MG TAB PO PRN (18:16)
[2020-05-27] MEDS: KETOROLAC 15 MG/ML 1 ML VIAL IVP PRN (19:21)
[2020-05-28] MEDS: SODIUM CHLORIDE 0.9% 1,000 ML IV SCH (03:55)
[2020-05-28] MEDS: KETOROLAC 15 MG/ML 1 ML VIAL IVP PRN ×2 (03:58→11:31)
[2020-05-28 07:29] VITALS: TEMP 98.5
[2020-05-28] MEDS: HYDROcodone/APAP 5-325MG 1 EACH TAB PO PRN (07:33)
[2020-05-28] MEDS ORDERED: PANTOPRAZOLE 40 MG/10 ML VIAL IV SCH (09:00)
[2020-05-28] MEDS: diphenhydrAMINE 25 MG CAP PO PRN (13:22)
[2020-05-28 13:30] LABS: Basophils % (A) 0 %; Eosinophils # (A) 0.1 k/uL (0-0.7); Eosinophils % (A) 1 %; HCT 42.4 % (39.0-53.0); HGB 13.9 gm/dL (13.0-17.5); Lymphocytes # (A) 1.7 k/uL (1.0-4.8); Lymphocytes % (A) 18 %; MCHC 32.7 g/dL (31.0-37.0); MCV 91.6 fL (80.0-100.0); Mean Platelet Volume 9.4; Monocytes # (A) 0.6 k/uL (0-1.0); Monocytes % (A) 6 %; Neutrophils # (A) 6.7 k/uL (1.3-7.7); Neutrophils % (A) 72 %; Platelet Count 204 k/uL (150-450); RBC 4.63 m/uL (4.30-5.90); RDW 13.3 % (11.5-15.5); WBC 9.3 k/uL (3.8-10.6)
[2020-05-28 13:32] VITALS: BMI 31.3
[2020-05-28 13:52] LABS: African American GFR (CKD) >90 (>60 ml/min/1.73 sqM); Anion Gap 6 mmol/L; Blood Urea Nitrogen 21 mg/dL (9-20); Calcium 8.7 mg/dL (8.4-10.2); Carbon Dioxide 24 mmol/L (22-30); Chloride 108 mmol/L (98-107); Glucose 104 mg/dL (74-99); Non-African American GFR(CKD) >90 (>60 ml/min/1.73 sqM); Potassium 3.9 mmol/L (3.5-5.1); Sodium 138 mmol/L (137-145)
[2020-05-28 16:05] VITALS: BP 163/98; PULSE 90
[2020-05-28] MEDS ORDERED: MAG HYDROX/AL HYDROX/SIMETH 30 ML, HYOSCYAMINE ELIXIR 10 ML PO ONE ×2 (16:35)
[2020-05-28] MEDS ORDERED: HYDROcodone/APAP 5-325MG 1 EACH TAB PO PRN (16:36)
[2020-05-28] MEDS ORDERED: lisinopriL 20 MG TAB PO SCH (16:45)
[2020-05-28] MEDS ORDERED: CITALOPRAM HYDROBROMIDE 20 MG TAB PO SCH (21:00)
--- NOTE | 2020-05-29 09:18 | P.HPIM ---
History of Present Illness H&P Date: 05/28/20 Chief Complaint: Abdominal pain 55-year-old male, with history of GERD, A. fib currently on Coumadin, presenting to emergency Department with complaints of continued epigastric pain, vomiting. Patient did come to the ER twice yesterday for same complaint. He states usually the pain medicine as well as a GI cocktail usually helps with his symptoms however he has been continued to have pain and vomiting. Patient states last night he did have episode of vomiting with a mouthful of blood with it. He denies any diarrhea, lower abdominal pain. He describes his pain as all the epigastric area, no radiation. He rates the pain currently 8/10, he states he has not been able sleep very well the last 4 nights. He denies any chest pain or shortness of breath. He denies any fever or chills. He states he did have a scope performed in September of this year with Dr. Wright. He has history of appendectomy, cholecystectomy, hernia repair. He has no further complaints at this time. Upon arrival to the ER, his vital signs are stable. Patient has third visit in 2 days for epigastric pain, vomiting but now has hematemesis. Vital signs are stable. EKG shows atrial fib, no other abnormality. Lab work shows a slight leukocytosis, similar to yesterday, hemoglobin is still stable but did decrease from 16.2-14.8, INR is 1.2. Potassium is 3.4, lactic acid is 1.7, troponin is normal, serum alcohol is normal. He was given fluids, Protonix, Zofran and Benadryl, as well as a GI cocktail. He has been resting comfortably. Given patient's history and recent frequent ER visits, recommended admission for further workup. Due to concern about persistent symptoms and hematemesis patient is planned to be admitted to the hospital for further evaluation by GI Review of Systems REVIEW OF SYSTEMS: CONSTITUTIONAL: No fever, no malaise, no fatigue. HEENT: No recent visual problems or hearing problems. Denied any sore throat. CARDIOVASCULAR: No chest pain, orthopnea, PND, no palpitations, no syncope. PULMONARY: No shortness of breath, no cough, no hemoptysis. GASTROINTESTINAL: nausea, vomiting, abdominal pain. NEUROLOGICAL: No headaches, no weakness, no numbness. HEMATOLOGICAL: Denies any bleeding or petechiae. GENITOURINARY: Denies any burning micturition, frequency, or urgency. MUSCULOSKELETAL/RHEUMATOLOGICAL: Denies any joint pain, swelling, or any muscle pain. ENDOCRINE: Denies any polyuria or polydipsia. The rest of the 14-point review of systems is negative. Past Medical History Past Medical History: Atrial Fibrillation, GERD/Reflux, Hyperlipidemia, Hypertension, Osteoarthritis (OA), Syncope Additional Past Medical History / Comment(s): Severe gerd, pt believes he has been told he has had small gastric ulcer in past, arthritis in multiple joints, chronic low back pain, occasional lower leg edema. History of Any Multi-Drug Resistant Organisms: None Reported Past Surgical History: Appendectomy, Cholecystectomy, Hernia Repair, Joint Replacement, Orthopedic Surgery Additional Past Surgical History / Comment(s): Total R hip, R knee arthroscopy, EGDs, umbilical hernia repair Past Anesthesia/Blood Transfusion Reactions: No Reported Reaction Additional Past Anesthesia/Blood Transfusion Reaction / Comment(s): Pt has never received blood. Smoking Status: Current every day smoker - Past Family History Father Family Medical History: Coronary Artery Disease (CAD), Myocardial Infarction ([place]) Additional Family Medical History / Comment(s): Father has at the age of 74 yrs during valve replacement surgery. He had 2 Cabg's Mother Family Medical History: Coronary Artery Disease (CAD), Diabetes Mellitus, Musculoskeletal Disorder, Neurologic Disorder Additional Family Medical History / Comment(s): Mother is . She at age 64 yrs. She had a cabg and multiple sclerosis Brother(s) Family Medical History: AFIB Additional Family Medical History / Comment(s): Pt has another brother with CAD and MIs Medications and Allergies Home Medications Medication Instructions Recorded Confirmed Type Citalopram Hydrobromide [CeleXA] 20 mg PO HS 01/24/19 05/27/20 History HYDROcodone/APAP 5-325MG [[place] 1 tab PO Q6HR PRN 09/18/19 05/27/20 History 5-325] Famotidine [Pepcid] 40 mg PO DAILY 09/25/19 05/28/20 History Lisinopril [Prinivil] 20 mg PO DAILY 05/27/20 05/28/20 History Ondansetron Odt [Zofran Odt] 4 mg SL Q8HR PRN 05/27/20 05/27/20 History Warfarin Sodium [Jantoven] 6 mg PO DAILY 05/27/20 05/27/20 History Allergies Allergy/AdvReac Type Severity Reaction Status Date / Time No Known Allergies Allergy Verified 05/27/20 10:13 Physical Exam Vitals: Vital Signs Temp Pulse Resp BP Pulse Ox 05/28/20 07:00 98.5 F 77 16 149/90 98 05/27/20 21:11 98.0 F 85 16 145/82 95 Intake and Output 05/27/20 05/28/20 05/28/20 22:59 06:59 14:59 Intake Total 480 240 Balance 480 240 Intake: Intake, IV Titration 480 240 Amount Sodium Chloride 0.9% 1, 480 240 000 ml @ 60 mls/hr IV . [id number] [facility] Rx#:[id number] Other: Voiding Method Toilet # Voids 1 1 1 - Constitutional General appearance: Present: average body habitus, cooperative, no acute distress - EENT Eyes: Present: anicteric sclerae, EOMI, PERRLA, normal appearance - Neck: Present: normal ROM. Absent: lymphadenopathy, rigidity, thyromegaly Carotids: negative: bruit present Thyroid: bilateral: normal size, negative: enlarged, nodule - Respiratory: bilateral: CTA, negative: rales, rhonchi, wheezing - Cardiovascular: regular: normal: S1, S2 Abnormal Heart Sounds: Absent: systolic murmur, diastolic murmur - Gastrointestinal: normal bowel sounds, soft; mild diffuse tenderness - Genitourinary: deferred - Integumentary: normal turgor. Absent: jaundiced, rash, ulcer - Neurologic: CNII-XII intact. Absent: focal deficits - Musculoskeletal: gait normal, strength equal bilaterally - Psychiatric: A&O x's 3, appropriate affect, intact judgment & insight Results CBC & Chem 7: 05/28/20 13:15 05/28/20 13:15 Thrombosis Risk Factor Assmnt - Choose All That Apply Any of the Below Risk Factors Present?: Yes Each Factor Represents 1 point: Age 41-60 years, Obesity (BMI >25) Other Risk Factors: No Other congenital or acquired thrombophilia - If yes, enter type in comment: No Thrombosis Risk Factor Assessment Total Risk Factor Score: 2 Thrombosis Risk Factor Assessment Level: Low Risk Assessment and Plan Assessment: 1. Hematemesis/persistent abdominal pain/GI bleed; patient is currently on Coumadin which has been held since admission; INR is subtherapeutic; we will monitor H&H closely and type crossmatch and transfuse packed RBCs if hemoglobin is less than 8; Protonix 40 mg IV; consult GI for further recommendations; patient is somewhat annoyed and reports all of the testing been done recently; patient advised to continue with current management till seen by GI 2. Uncontrolled pain; patient reports persistent uncontrolled pain and once specifically Dilaudid or morphine for heartburn; we will order a GI cocktail and continue with IV Protonix to further evaluation by GI; hold off on morphine and Dilaudid 3. Leukocytosis; possibly reactive due to vomiting; patient doesn't exhibit any signs of sepsis; we will continue to monitor CBC and initiate sepsis workup if leukocytosis worsens 4. Atrial fibrillation; patient is currently not on any rate controlling agent; anticoagulation with Coumadin; INR subtherapeutic on admission; Coumadin has been placed on hold 5. Hypertension; uncontrolled; we will reorder home medications DVT prophylaxis; SCDs only due to GI bleed CODE STATUS; full code
--- NOTE | 2020-05-29 09:30 | P.DS ---
Providers Date of admission: 05/27/20 11:13 Expected date of discharge: 05/29/20 Attending physician: Aaron Loja Consults: 05/28/20 12:52 Consult Physician Routine Consulting Provider: Megan Scales Consult Reason/Comments: Hematemesis/ epigastric pain Do you want consulting provider notified?: Yes Primary care physician: Aaron Loja [facility] Course: 55-year-old male, with history of GERD, A. fib currently on Coumadin, presenting to emergency Department with complaints of continued epigastric pain, vomiting. Patient did come to the ER twice yesterday for same complaint. He states usually the pain medicine as well as a GI cocktail usually helps with his symptoms however he has been continued to have pain and vomiting. Patient states last night he did have episode of vomiting with a mouthful of blood with it. He denies any diarrhea, lower abdominal pain. He describes his pain as all the epigastric area, no radiation. He rates the pain currently 8/10, he states he has not been able sleep very well the last 4 nights. He denies any chest pain or shortness of breath. He denies any fever or chills. He states he did have a scope performed in September of this year with Dr. Wright. He has history of appendectomy, cholecystectomy, hernia repair. He has no further complaints at this time. Upon arrival to the ER, his vital signs are stable. Patient has third visit in 2 days for epigastric pain, vomiting but now has hematemesis. Vital signs are stable. EKG shows atrial fib, no other abnormality. Lab work shows a slight leukocytosis, similar to yesterday, hemoglobin is still stable but did decrease from 16.2-14.8, INR is 1.2. Potassium is 3.4, lactic acid is 1.7, troponin is normal, serum alcohol is normal. He was given fluids, Protonix, Zofran and Benadryl, as well as a GI cocktail. He has been resting comfortably. Given patient's history and recent frequent ER visits, recommended admission for further workup. Due to concern about persistent symptoms and hematemesis patient is planned to be admitted to the hospital for further evaluation by GI Patient was admitted on IV Protonix and GI cocktail for symptomatic treatment; H&H was monitored closely; patient continued to complain of uncontrolled pain while in the hospital and demanded Dilaudid or morphine for pain control; patient also reported that all of his workup has been done as an outpatient; patient was advised evaluation by GI for any further recommendations; patient did agree to plan of care but late in the evening signed himself out AMA stating that all of the workup has been done in the past Patient Condition at Discharge: Stable Plan - Discharge Summary Discharge Rx Participant: No New Discharge Prescriptions: No Action Citalopram Hydrobromide [CeleXA] 20 mg PO HS HYDROcodone/APAP 5-325MG [[place] 5-325] 1 tab PO Q6HR PRN PRN Reason: Pain Famotidine [Pepcid] 40 mg PO DAILY Warfarin Sodium [Jantoven] 6 mg PO DAILY Lisinopril [Prinivil] 20 mg PO DAILY Ondansetron Odt [Zofran Odt] 4 mg SL Q8HR PRN PRN Reason: Nausea Discharge Medication List Citalopram Hydrobromide [CeleXA] 20 mg PO HS 01/24/19 [History] HYDROcodone/APAP 5-325MG [[place] 5-325] 1 tab PO Q6HR PRN 09/18/19 [History] Famotidine [Pepcid] 40 mg PO DAILY 09/25/19 [History] Lisinopril [Prinivil] 20 mg PO DAILY 05/27/20 [History] Ondansetron Odt [Zofran Odt] 4 mg SL Q8HR PRN 05/27/20 [History] Warfarin Sodium [Jantoven] 6 mg PO DAILY 05/27/20 [History] Follow up Appointment(s)/Referral(s): Aaron Loja MD [Primary Care Provider] - 1-2 days Patient Instructions/Handouts: Diet for Stomach Ulcers and Gastritis (ED), Gastroesophageal Reflux Disease (DC)
== END 2020-05-28 18:07 | disposition home or self-care (01) ==
LOC: EC 09:28 → 6NMEDSUR 11:13
PROVIDERS: ADMIT Family Medicine; ATTEND Family Medicine
DX: R10.13 Epigastric pain (principal); K92.0 Hematemesis; D72.829 Elevated white blood cell count, unspecified; Z53.29 Procedure and treatment not carried out because of patient's decision for other reasons; K21.9 Gastro-esophageal reflux disease without esophagitis; I48.91 Unspecified atrial fibrillation; I10 Essential (primary) hypertension; F41.9 Anxiety disorder, unspecified; E78.5 Hyperlipidemia, unspecified; G89.29 Other chronic pain; M54.9 Dorsalgia, unspecified; M13.0 Polyarthritis, unspecified; E66.9 Obesity, unspecified; Z68.31 Body mass index [BMI] 31.0-31.9, adult; Z96.641 Presence of right artificial hip joint; F17.200 Nicotine dependence, unspecified, uncomplicated; Z79.01 Long term (current) use of anticoagulants; Z90.49 Acquired absence of other specified parts of digestive tract; Z79.899 Other long term (current) drug therapy; Z79.891 Long term (current) use of opiate analgesic; Z83.3 Family history of diabetes mellitus; Z82.49 Family history of ischemic heart disease and other diseases of the circulatory system; Z82.0 Family history of epilepsy and other diseases of the nervous system
CPT/HCPCS: 96376 ×2; 96375 ×2; 96361; 96374; 99285; 36415; 93005; 80053; 80048; 82150; 83605; 83690; 84484; 85025 ×2; 85610; 85730; 80320; G0378 ×2; J1200; J2405; J1885 ×2; C9113 ×2

== ENCOUNTER 2020-10-09 11:36 | Emergency (ER) | payer OTHER ==
[2020-10-09] MEDS ORDERED: PANTOPRAZOLE 40 MG/10 ML VIAL IVP STA (11:47)
[2020-10-09] MEDS ORDERED: METOCLOPRAMIDE 5 MG/ML 2 ML VIAL IVP STA (11:47)
[2020-10-09] MEDS ORDERED: SODIUM CHLORIDE 0.9% 1,000 ML IV STA (11:47)
[2020-10-09] MEDS ORDERED: diphenhydrAMINE 50 MG/ML 1 ML VIAL IVP STA (11:47)
[2020-10-09] MEDS ORDERED: MAG HYDROX/AL HYDROX/SIMETH 30 ML, HYOSCYAMINE ELIXIR 10 ML PO STA ×2 (12:06)
[2020-10-09 12:15] LABS: Basophils % (A) 0 %; Eosinophils # (A) 0.1 k/uL (0-0.7); Eosinophils % (A) 1 %; HGB 17.3 gm/dL (13.0-17.5); Lymphocytes # (A) 0.8 k/uL (1.0-4.8); Lymphocytes % (A) 7 %; MCH 31.1 pg (25.0-35.0); MCHC 34.6 g/dL (31.0-37.0); MCV 89.9 fL (80.0-100.0); Mean Platelet Volume 8.5; Monocytes # (A) 0.2 k/uL (0-1.0); Monocytes % (A) 2 %; Neutrophils # (A) 10.4 k/uL (1.3-7.7); Neutrophils % (A) 90 %; Platelet Count 278 k/uL (150-450); RBC 5.56 m/uL (4.30-5.90); RDW 13.6 % (11.5-15.5); WBC 11.6 k/uL (3.8-10.6)
[2020-10-09 12:29] LABS: ALT 41 U/L (4-49); AST 30 U/L (17-59); African American GFR (CKD) >90 (>60 ml/min/1.73 sqM); Alkaline Phosphatase 83 U/L (38-126); Amylase 41 U/L (30-110); Anion Gap 14 mmol/L; Blood Urea Nitrogen 18 mg/dL (9-20); Carbon Dioxide 24 mmol/L (22-30); Chloride 107 mmol/L (98-107); Glucose 187 mg/dL (74-99); Lipase 207 U/L (23-300); Non-African American GFR(CKD) >90 (>60 ml/min/1.73 sqM); Potassium 3.3 mmol/L (3.5-5.1); Sodium 145 mmol/L (137-145); Total Protein 8.1 g/dL (6.3-8.2)
[2020-10-09 13:00] VITALS: RESP 20
--- NOTE | 2020-10-09 13:27 | ED ---
Abdominal Pain HPI - General Chief Complaint: Abdominal Pain Stated Complaint: GERD Time Seen by Provider: 10/09/20 11:47 Source: patient, RN notes reviewed Mode of arrival: wheelchair Limitations: no limitations - History of Present Illness Initial Comments: 55-year-old male presents emergency Department chief complaint of severe abdominal pain, nausea vomiting. Patient states he has history of severe GERD with prior ulcers. Patient states he ate some pizza the night and states that he went to lay down. He states she's been vomiting over the last 24 hours. He states is very dark states it brushed black color. He states his epigastric pain. No chest pain or shortness of breath denies any melena or hematochezia. No dysuria. - Related Data Home Medications Medication Instructions Recorded Confirmed Citalopram Hydrobromide [CeleXA] 20 mg PO HS 01/24/19 10/09/20 HYDROcodone/APAP 5-325MG [[place] 1 tab PO Q6HR PRN 09/18/19 10/09/20 5-325] Lisinopril [Prinivil] 20 mg PO DAILY 05/27/20 10/09/20 Warfarin Sodium [Jantoven] 7.5 mg PO DAILY 10/09/20 10/09/20 Allergies Allergy/AdvReac Type Severity Reaction Status Date / Time No Known Allergies Allergy Verified 10/09/20 11:41 Review of Systems ROS Statement: Those systems with pertinent positive or pertinent negative responses have been documented in the HPI. ROS Other: All systems not noted in ROS Statement are negative. Past Medical History Past Medical History: Atrial Fibrillation, GERD/Reflux, Hyperlipidemia, Hypertension, Osteoarthritis (OA), Syncope Additional Past Medical History / Comment(s): Severe gerd, pt believes he has been told he has had small gastric ulcer in past, arthritis in multiple joints, chronic low back pain, occasional lower leg edema. History of Any Multi-Drug Resistant Organisms: None Reported Past Surgical History: Appendectomy, Cholecystectomy, Hernia Repair, Joint Replacement, Orthopedic Surgery Additional Past Surgical History / Comment(s): Total R hip, R knee arthroscopy, EGDs, umbilical hernia repair Past Anesthesia/Blood Transfusion Reactions: No Reported Reaction Additional Past Anesthesia/Blood Transfusion Reaction / Comment(s): Pt has never received blood. Past Psychological History: Anxiety Smoking Status: Current every day smoker Past Alcohol Use History: None Reported Past Drug Use History: None Reported - Past Family History Father Family Medical History: Coronary Artery Disease (CAD), Myocardial Infarction ([place]) Additional Family Medical History / Comment(s): Father has at the age of 74 yrs during valve replacement surgery. He had 2 Cabg's Mother Family Medical History: Coronary Artery Disease (CAD), Diabetes Mellitus, Musculoskeletal Disorder, Neurologic Disorder Additional Family Medical History / Comment(s): Mother is . She at age 64 yrs. She had a cabg and multiple sclerosis Brother(s) Family Medical History: AFIB Additional Family Medical History / Comment(s): Pt has another brother with CAD and MIs General Exam Limitations: no limitations General appearance: alert, in no apparent distress Head exam: Present: atraumatic, normocephalic, normal inspection Eye exam: Present: normal appearance, PERRL, EOMI. Absent: scleral icterus, con junctival injection, periorbital swelling ENT exam: Present: normal exam, normal oropharynx, mucous membranes moist Neck exam: Present: normal inspection, full ROM. Absent: tenderness, meningismus, lymphadenopathy Respiratory exam: Present: normal lung sounds bilaterally. Absent: respiratory distress, wheezes, rales, rhonchi, stridor Cardiovascular Exam: Present: regular rate, normal rhythm, normal heart sounds. Absent: systolic murmur, diastolic murmur, rubs, gallop, clicks GI/Abdominal exam: Present: soft, tenderness (Mild epigastric), normal bowel sounds. Absent: distended, guarding, rebound, rigid Back exam: Absent: CVA tenderness (R), CVA tenderness (L) Neurological exam: Present: alert, oriented X3 Skin exam: Present: warm, dry, intact, normal color. Absent: rash Course Vital Signs 10/09/20 10/09/20 11:39 12:59 Temperature 98.6 F Pulse Rate 84 78 Respiratory 18 20 Rate Blood Pressure 123/92 151/89 O2 Sat by Pulse 99 99 Oximetry Medical Decision Making - Medical Decision Making Patient's other review of vomiting other than patient's gastric occult pos itive.Patient history of peptic ulcer disease.Patient's having persistent vomiting at home.Patient admitted for IV fluids,Protonix,GI consult - Lab Data Result diagrams: 10/09/20 12:05 10/09/20 12:05 Lab Results 10/09/20 10/09/20 10/09/20 Range/Units 12:05 12:05 12:14 WBC 11.6 H (3.8-10.6) k/uL RBC 5.56 (4.30-5.90) m/uL Hgb 17.3 (13.0-17.5) gm/dL Hct 50.0 (39.0-53.0) % MCV 89.9 (80.0-100.0) fL MCH 31.1 (25.0-35.0) pg MCHC 34.6 (31.0-37.0) g/dL RDW 13.6 (11.5-15.5) % Plt Count 278 (150-450) k/uL MPV 8.5 Neutrophils % 90 % Lymphocytes % 7 % Monocytes % 2 % Eosinophils % 1 % Basophils % 0 % Neutrophils # 10.4 H (1.3-7.7) k/uL Lymphocytes # 0.8 L (1.0-4.8) k/uL Monocytes # 0.2 (0-1.0) k/uL Eosinophils # 0.1 (0-0.7) k/uL Basophils # 0.0 (0-0.2) k/uL Sodium 145 (137-145) mmol/L Potassium 3.3 L (3.5-5.1) mmol/L Chloride 107 (98-107) mmol/L Carbon Dioxide 24 (22-30) mmol/L Anion Gap 14 mmol/L BUN 18 (9-20) mg/dL Creatinine 0.94 (0.66-1.25) mg/dL Est GFR (CKD-EPI)AfAm >90 (>60 ml/min/1.73 sqM) Est GFR (CKD-EPI)NonAf >90 (>60 ml/min/1.73 sqM) Glucose 187 H (74-99) mg/dL Calcium 10.0 (8.4-10.2) mg/dL Total Bilirubin 1.0 (0.2-1.3) mg/dL AST 30 (17-59) U/L ALT 41 (4-49) U/L Alkaline Phosphatase 83 (38-126) U/L Total Protein 8.1 (6.3-8.2) g/dL Albumin 5.0 (3.5-5.0) g/dL Amylase 41 (30-110) U/L Lipase 207 (23-300) U/L Gastric Occult Blood Positive (Negative) Disposition Clinical Impression: Epigastric pain, Hematemesis, PUD (peptic ulcer disease) Disposition: ADMITTED IP TO THIS HOSP Condition: Fair Referrals: Aaron Loja MD [Primary Care Provider] - 1-2 days
[2020-10-09] MEDS ORDERED: NALOXONE 0.4 MG/ML 1 ML VIAL IV PRN (13:40)
[2020-10-09] MEDS ORDERED: ONDANSETRON 4 MG/2 ML VIAL IVP PRN (13:40)
[2020-10-09] MEDS ORDERED: ONDANSETRON 4 MG/2 ML VIAL IVP STA (13:44)
[2020-10-09] MEDS ORDERED: SODIUM CHLORIDE 0.9% 1,000 ML IV SCH (13:45)
[2020-10-09 14:00] LABS: Appearance,Urine Clear (Clear); Bilirubin,Urine Negative (Negative); Blood,Urine Negative (Negative); Color,Urine Yellow; Glucose,Urine (UA) Negative (Negative); Ketones,Urine Negative (Negative); Leukocyte Esterase,Urine Negative (Negative); Mucus,Urine Rare /hpf; Nitrite,Urine Negative (Negative); PH, Urine 8.5 (5.0-8.0); Protein,Urine 2+ (Negative); RBC,Urine <1 /hpf (0-5); Specific Gravity,Urine 1.022 (1.001-1.035); Urobilinogen,Urine <2.0 mg/dL (<2.0); WBC,Urine 1 /hpf (0-5)
[2020-10-09 14:03] VITALS: BP 123/65; PULSE 81; TEMP 98.3
[2020-10-09] MEDS ORDERED: PANTOPRAZOLE 40 MG/10 ML VIAL IV SCH (21:00)
== END 2020-10-09 14:00 | disposition left against medical advice (07) ==
LOC: EC 11:36
DX: K27.9 Peptic ulcer, site unspecified, unspecified as acute or chronic, without hemorrhage or perforation (principal); K92.0 Hematemesis; R19.5 Other fecal abnormalities; F41.9 Anxiety disorder, unspecified; I48.91 Unspecified atrial fibrillation; I10 Essential (primary) hypertension; M19.90 Unspecified osteoarthritis, unspecified site; G89.29 Other chronic pain; M54.5 Low back pain; F17.200 Nicotine dependence, unspecified, uncomplicated; Z79.01 Long term (current) use of anticoagulants; Z79.899 Other long term (current) drug therapy; Z87.19 Personal history of other diseases of the digestive system; Z96.641 Presence of right artificial hip joint; Z90.49 Acquired absence of other specified parts of digestive tract
CPT/HCPCS: 36415; 80053; 82150; 83690; 85025; 82271; 81001; 99284; 96374; 96375 ×3; 96361; J1200; J2765; J2405; C9113

== ENCOUNTER 2020-10-11 19:06 | Emergency (ER) | payer OTHER ==
[2020-10-11 19:10] VITALS: RESP 18; TEMP 99.9
[2020-10-11] MEDS ORDERED: SODIUM CHLORIDE 0.9% 1,000 ML IV STA (19:27)
[2020-10-11] MEDS ORDERED: PANTOPRAZOLE 40 MG/10 ML VIAL IVP STA (19:27)
[2020-10-11] MEDS ORDERED: METOCLOPRAMIDE 5 MG/ML 2 ML VIAL IVP STA (19:27)
[2020-10-11] MEDS ORDERED: MAG HYDROX/AL HYDROX/SIMETH 30 ML, HYOSCYAMINE ELIXIR 10 ML, LIDOCAINE VISCOUS 2% 10 ML PO STA ×3 (19:28)
--- NOTE | 2020-10-11 19:36 | ED ---
Nausea/Vomiting/Diarrhea HPI - General Chief complaint: Nausea/Vomiting/Diarrhea Stated complaint: revisit- GERD Time Seen by Provider: 10/11/20 19:13 Source: patient Mode of arrival: wheelchair Limitations: no limitations - History of Present Illness Initial comments: Patient is a 55-year-old male, with history of A. fib on Coumadin, hypertension, GERD, presenting to the emergency Department with complaints of continued nausea and vomiting epigastric pain for the last 3 days. Patient was seen in the ER 2 days ago and evaluated for the same thing. Patient was having hematemesis at that time but states he has not had any blood in his vomit since then. He did leave the hospital AMA, he states he did not want to stay just have a scope done. He denies any hematuria or hematochezia. He states he has been having trouble sleeping the last 2 nights because of the pain and the constant nausea. He admits to history of appendectomy, cholecystectomy and umbilical hernia repair. He has been having normal bowel movements. He denies any chest pain or shortness of breath, no cough or congestion. He states he has been trying to take his medications. He has no further complaints at this time. Upon arrival to the ER, patient is slightly febrile at 99.9, pulse is 107, rest of vitals are normal. - Related Data Home Medications Medication Instructions Recorded Confirmed Citalopram Hydrobromide [CeleXA] 20 mg PO HS 01/24/19 10/11/20 HYDROcodone/APAP 5-325MG [[place] 1 tab PO Q6HR PRN 09/18/19 10/11/20 5-325] Lisinopril [Prinivil] 20 mg PO DAILY 05/27/20 10/11/20 Warfarin Sodium [Jantoven] 7.5 mg PO DAILY 10/09/20 10/11/20 Allergies Allergy/AdvReac Type Severity Reaction Status Date / Time No Known Allergies Allergy Verified 10/11/20 19:30 Review of Systems ROS Statement: Those systems with pertinent positive or pertinent negative responses have been documented in the HPI. ROS Other: All systems not noted in ROS Statement are negative. Past Medical History Past Medical History: Atrial Fibrillation, GERD/Reflux, Hyperlipidemia, Hypertension, Osteoarthritis (OA), Syncope Additional Past Medical History / Comment(s): Severe gerd, pt believes he has been told he has had small gastric ulcer in past, arthritis in multiple joints, chronic low back pain, occasional lower leg edema. History of Any Multi-Drug Resistant Organisms: None Reported Past Surgical History: Appendectomy, Cholecystectomy, Hernia Repair, Joint Replacement, Orthopedic Surgery Additional Past Surgical History / Comment(s): Total R hip, R knee arthroscopy, EGDs, umbilical hernia repair Past Anesthesia/Blood Transfusion Reactions: No Reported Reaction Additional Past Anesthesia/Blood Transfusion Reaction / Comment(s): Pt has never received blood. Past Psychological History: Anxiety Smoking Status: Current every day smoker Past Alcohol Use History: None Reported Past Drug Use History: None Reported - Past Family History Father Family Medical History: Coronary Artery Disease (CAD), Myocardial Infarction ([place]) Additional Family Medical History / Comment(s): Father has at the age of 74 yrs during valve replacement surgery. He had 2 Cabg's Mother Family Medical History: Coronary Artery Disease (CAD), Diabetes Mellitus, Musculoskeletal Disorder, Neurologic Disorder Additional Family Medical History / Comment(s): Mother is . She at age 64 yrs. She had a cabg and multiple sclerosis Brother(s) Family Medical History: AFIB Additional Family Medical History / Comment(s): Pt has another brother with CAD and MIs General Exam - General Exam Comments Initial Comments: GENERAL: Patient is well-developed and well-nourished. Patient is nontoxic and in no acute distress, but does look uncomfortable. HEAD: Atraumatic, normocephalic. EYES: Pupils equal round and reactive to light, extraocular movements intact, sclera anicteric, conjunctiva are normal. Eyelids were unremarkable. ENT: TMs normal, nares patent, oropharynx clear without exudates. Moist mucous membranes. NECK: Normal range of motion, supple without lymphadenopathy or JVD. LUNGS: Unlabored respirations. Breath sounds clear to auscultation bilaterally and equal. No wheezes rales or rhonchi. HEART: Regular rate and rhythm without murmurs, rubs or gallops. ABDOMEN: Epigastric pain with palpation, no other areas of pain. Soft, normoactive bowel sounds. No guarding, no rebound. No masses appreciated. : Deferred MUSCULOSKELETAL: Normal extremities with adequate strength and normal range of motion, no pitting or edema. No clubbing or cyanosis. NEUROLOGICAL: Patient is alert and oriented x 3. Motor and sensory are also intact. Cranial nerves II through XII grossly intact. Symmetrical smile. Normal speech, normal gait. PSYCH: Normal mood, normal affect. SKIN: Warm, Dry, normal turgor, no rashes or lesions noted. Limitations: no limitations Course Vital Signs 10/11/20 10/11/20 19:07 21:30 Temperature 99.9 F H Pulse Rate 107 H 92 Respiratory 18 18 Rate Blood Pressure 134/98 153/101 O2 Sat by Pulse 97 95 Oximetry Medical Decision Making - Medical Decision Making Patient is a 55-year-old male with history of A. fib on Coumadin, GERD, presenting with nausea and vomiting epigastric pain for the last 2 days. He left AMA 2 days ago for similar complaint, he was having hematemesis at the time but states he has no longer having that. He denies hematuria or hematochezia. He did arrive several afebrile 99.9, pulse is 107, rest of vitals were normal. Labs are stable today, INR is 1.7, kidney function is normal, urine shows no evidence of infection or dehydration, urine tox screen is positive for opiates. Patient was given fluids, GI cocktail along with nausea meds. He reports improvement of symptoms. He did say he saw Dr. Loja today for follow-up, he will follow up again with her. I did recommend the patient for admission since this is his second visit in 2 days for similar complaint O patient continues to decline. He will follow up with Dr. Loja again. Strict return parameters were discussed with the patient and he verbalized understanding. Case discussed with Dr. Andre. - Lab Data Result diagrams: 10/11/20 19:49 10/11/20 19:49 Lab Results 10/11/20 10/11/20 10/11/20 Range/Units 19:49 19:49 19:49 WBC 8.1 (3.8-10.6) k/uL RBC 5.02 (4.30-5.90) m/uL Hgb 15.7 (13.0-17.5) gm/dL Hct 45.1 (39.0-53.0) % MCV 89.8 (80.0-100.0) fL MCH 31.2 (25.0-35.0) pg MCHC 34.8 (31.0-37.0) g/dL RDW 13.3 (11.5-15.5) % Plt Count 214 (150-450) k/uL MPV 8.3 Neutrophils % 76 % Lymphocytes % 15 % Monocytes % 7 % Eosinophils % 0 % Basophils % 0 % Neutrophils # 6.2 (1.3-7.7) k/uL Lymphocytes # 1.3 (1.0-4.8) k/uL Monocytes # 0.6 (0-1.0) k/uL Eosinophils # 0.0 (0-0.7) k/uL Basophils # 0.0 (0-0.2) k/uL PT 16.9 H (9.0-12.0) sec INR 1.7 H (<1.2) APTT 26.4 (22.0-30.0) sec Sodium 139 (137-145) mmol/L Potassium 3.8 (3.5-5.1) mmol/L Chloride 107 (98-107) mmol/L Carbon Dioxide 25 (22-30) mmol/L Anion Gap 7 mmol/L BUN 21 H (9-20) mg/dL Creatinine 0.89 (0.66-1.25) mg/dL Est GFR (CKD-EPI)AfAm >90 (>60 ml/min/1.73 sqM) Est GFR (CKD-EPI)NonAf >90 (>60 ml/min/1.73 sqM) Glucose 121 H (74-99) mg/dL Plasma Lactic Acid Jarred (0.7-2.0) mmol/L Calcium 9.3 (8.4-10.2) mg/dL Total Bilirubin 1.2 (0.2-1.3) mg/dL AST 34 (17-59) U/L ALT 31 (4-49) U/L Alkaline Phosphatase 59 (38-126) U/L Total Protein 6.9 (6.3-8.2) g/dL Albumin 4.2 (3.5-5.0) g/dL Amylase <30 L (30-110) U/L Lipase 208 (23-300) U/L Urine Color Urine Appearance (Clear) Urine pH (5.0-8.0) Ur Specific [place] (1.001-1.035) Urine Protein (Negative) Urine Glucose (UA) (Negative) Urine Ketones (Negative) Urine Blood (Negative) Urine Nitrite (Negative) Urine Bilirubin (Negative) Urine Urobilinogen (<2.0) mg/dL Ur Leukocyte Esterase (Negative) Urine Opiates Screen (NotDetected) Ur Oxycodone Screen (NotDetected) Urine Methadone Screen (NotDetected) Ur Propoxyphene Screen (NotDetected) Ur Barbiturates Screen (NotDetected) U Tricyclic Antidepress (NotDetected) Ur Phencyclidine Scrn (NotDetected) Ur Amphetamines Screen (NotDetected) U Methamphetamines Scrn (NotDetected) U Benzodiazepines Scrn (NotDetected) Urine Cocaine Screen (NotDetected) U Marijuana (THC) Screen (NotDetected) 10/11/20 10/11/20 Range/Units 19:49 20:21 WBC (3.8-10.6) k/uL RBC (4.30-5.90) m/uL Hgb (13.0-17.5) gm/dL Hct (39.0-53.0) % MCV (80.0-100.0) fL MCH (25.0-35.0) pg MCHC (31.0-37.0) g/dL RDW (11.5-15.5) % Plt Count (150-450) k/uL MPV Neutrophils % % Lymphocytes % % Monocytes % % Eosinophils % % Basophils % % Neutrophils # (1.3-7.7) k/uL Lymphocytes # (1.0-4.8) k/uL Monocytes # (0-1.0) k/uL Eosinophils # (0-0.7) k/uL Basophils # (0-0.2) k/uL PT (9.0-12.0) sec INR (<1.2) APTT (22.0-30.0) sec Sodium (137-145) mmol/L Potassium (3.5-5.1) mmol/L Chloride (98-107) mmol/L Carbon Dioxide (22-30) mmol/L Anion Gap mmol/L BUN (9-20) mg/dL Creatinine (0.66-1.25) mg/dL Est GFR (CKD-EPI)AfAm (>60 ml/min/1.73 sqM) Est GFR (CKD-EPI)NonAf (>60 ml/min/1.73 sqM) Glucose (74-99) mg/dL Plasma Lactic Acid Jarred 1.9 (0.7-2.0) mmol/L Calcium (8.4-10.2) mg/dL Total Bilirubin (0.2-1.3) mg/dL AST (17-59) U/L ALT (4-49) U/L Alkaline Phosphatase (38-126) U/L Total Protein (6.3-8.2) g/dL Albumin (3.5-5.0) g/dL Amylase (30-110) U/L Lipase (23-300) U/L Urine Color Yellow Urine Appearance Clear (Clear) Urine pH 7.5 (5.0-8.0) Ur Specific [place] 1.027 (1.001-1.035) Urine Protein Trace H (Negative) Urine Glucose (UA) Negative (Negative) Urine Ketones Negative (Negative) Urine Blood Negative (Negative) Urine Nitrite Negative (Negative) Urine Bilirubin Negative (Negative) Urine Urobilinogen 2.0 (<2.0) mg/dL Ur Leukocyte Esterase Negative (Negative) Urine Opiates Screen Detected H (NotDetected) Ur Oxycodone Screen Not Detected (NotDetected) Urine Methadone Screen Not Detected (NotDetected) Ur Propoxyphene Screen Not Detected (NotDetected) Ur Barbiturates Screen Not Detected (NotDetected) U Tricyclic Antidepress Not Detected (NotDetected) Ur Phencyclidine Scrn Not Detected (NotDetected) Ur Amphetamines Screen Not Detected (NotDetected) U Methamphetamines Scrn Not Detected (NotDetected) U Benzodiazepines Scrn Not Detected (NotDetected) Urine Cocaine Screen Not Detected (NotDetected) U Marijuana (THC) Screen Not Detected (NotDetected) - EKG Data EKG Comments: A. fib, no signs of an acute process. Similar to previous EKG on 05/27/2020. Ventricular rate 76, QRS duration 86, QT 362. Disposition Clinical Impression: Chronic GERD, Epigastric abdominal pain Disposition: HOME SELF-CARE Condition: Stable Instructions (If sedation given, give patient instructions): Acute Nausea and Vomiting (ED) Additional Instructions: Please return to the Emergency Department if symptoms worsen or any other concerns. Follow-up with Dr. Loja as discussed. Is patient prescribed a controlled substance at d/c from ED?: No Referrals: Aaron Loja MD [Primary Care Provider] - 1-2 days
[2020-10-11 20:12] LABS: Basophils % (A) 0 %; Eosinophils % (A) 0 %; HCT 45.1 % (39.0-53.0); HGB 15.7 gm/dL (13.0-17.5); Lymphocytes # (A) 1.3 k/uL (1.0-4.8); Lymphocytes % (A) 15 %; MCH 31.2 pg (25.0-35.0); MCHC 34.8 g/dL (31.0-37.0); MCV 89.8 fL (80.0-100.0); Mean Platelet Volume 8.3; Monocytes # (A) 0.6 k/uL (0-1.0); Monocytes % (A) 7 %; Neutrophils # (A) 6.2 k/uL (1.3-7.7); Neutrophils % (A) 76 %; Platelet Count 214 k/uL (150-450); RBC 5.02 m/uL (4.30-5.90); RDW 13.3 % (11.5-15.5); WBC 8.1 k/uL (3.8-10.6)
[2020-10-11 20:20] LABS: INR 1.7 (<1.2); Partial Thromboplastin Time 26.4 sec (22.0-30.0); Prothrombin Time 16.9 sec (9.0-12.0)
[2020-10-11 20:28] LABS: Appearance,Urine Clear (Clear); Bilirubin,Urine Negative (Negative); Blood,Urine Negative (Negative); Color,Urine Yellow; Glucose,Urine (UA) Negative (Negative); Ketones,Urine Negative (Negative); Leukocyte Esterase,Urine Negative (Negative); Nitrite,Urine Negative (Negative); PH, Urine 7.5 (5.0-8.0); Protein,Urine Trace (Negative); Specific Gravity,Urine 1.027 (1.001-1.035)
[2020-10-11 20:28] LABS: ALT 31 U/L (4-49); AST 34 U/L (17-59); African American GFR (CKD) >90 (>60 ml/min/1.73 sqM); Albumin 4.2 g/dL (3.5-5.0); Alkaline Phosphatase 59 U/L (38-126); Amylase <30 U/L (30-110); Anion Gap 7 mmol/L; Blood Urea Nitrogen 21 mg/dL (9-20); Calcium 9.3 mg/dL (8.4-10.2); Carbon Dioxide 25 mmol/L (22-30); Chloride 107 mmol/L (98-107); Glucose 121 mg/dL (74-99); Lipase 208 U/L (23-300); Non-African American GFR(CKD) >90 (>60 ml/min/1.73 sqM); Potassium 3.8 mmol/L (3.5-5.1); Sodium 139 mmol/L (137-145); Total Bilirubin 1.2 mg/dL (0.2-1.3); Total Protein 6.9 g/dL (6.3-8.2)
[2020-10-11 20:37] LABS: Amphetamine Screen,Urine Not Detected (NotDetected); Barbiturate Screen,Urine Not Detected (NotDetected); Benzodiazepines Screen,Urine Not Detected (NotDetected); Cocaine Screen,Urine Not Detected (NotDetected); Methadone Screen, Urine Not Detected (NotDetected); Opiate Screen,Urine Detected (NotDetected); Oxycodone Screen, Urine Not Detected (NotDetected); Phencyclidine Screen,Urine Not Detected (NotDetected); Tricyclic Antidepressant,Urine Not Detected (NotDetected); Urn Cannabinoid Scrn Not Detected (NotDetected)
[2020-10-11] MEDS ORDERED: MORPHINE SULFATE 2 MG/ML SYRINGE IVP ONE (20:43)
[2020-10-11] MEDS ORDERED: diphenhydrAMINE 50 MG/ML 1 ML VIAL IVP STA (20:43)
[2020-10-11] MEDS ORDERED: ONDANSETRON 4 MG/2 ML VIAL IVP STA (20:43)
[2020-10-11 21:39] VITALS: BP 153/101; PULSE 92
== END 2020-10-11 21:49 | disposition home or self-care (01) ==
LOC: EC 19:06
DX: K21.9 Gastro-esophageal reflux disease without esophagitis (principal); I48.91 Unspecified atrial fibrillation; I10 Essential (primary) hypertension; F41.9 Anxiety disorder, unspecified; F17.200 Nicotine dependence, unspecified, uncomplicated; Z79.01 Long term (current) use of anticoagulants; Z79.899 Other long term (current) drug therapy; Z90.49 Acquired absence of other specified parts of digestive tract; Z90.89 Acquired absence of other organs
CPT/HCPCS: 36415; 93005; 80053; 82150; 83605; 83690; 85025; 85610; 85730; 81003; 80306; 99284; 96374; 96375 ×4; 96361; J1200; J2765; J2405; J2270; C9113

== ENCOUNTER 2021-03-27 | Emergency (ER) | payer BC | END 2021-03-27 16:31 | disposition home or self-care (01) ==

== ENCOUNTER 2021-03-28 | Emergency (ER) | payer BC | END 2021-03-29 00:41 | disposition home or self-care (01) | CPT/HCPCS: 36415; 80053; 83690; 84484; 85025; 81003; 96374; 96375 ×3; 96376; 96361 ×2; 99284; J1200; J2765; J1170 ==

== ENCOUNTER 2021-03-29 | Emergency (ER) | payer BC | END 2021-03-29 20:36 | disposition home or self-care (01) | CPT/HCPCS: 36415; 80053; 82150; 83605; 83690; 84484; 85025; 85610; 85730; 96374; 96375; 96376 ×2; 96361 ×2; 99284; J2270; C9113 ==

== ENCOUNTER 2021-09-21 14:26 | Emergency (ER) | payer BC ==
[2021-09-21] MEDS ORDERED: SODIUM CHLORIDE 0.9% 1,000 ML IV STA (16:17)
[2021-09-21] MEDS ORDERED: MORPHINE SULFATE 4 MG/ML SYRINGE IV STA (16:17)
[2021-09-21] MEDS ORDERED: PANTOPRAZOLE 40 MG/10 ML VIAL IVP STA ×2 (16:17→18:38)
[2021-09-21] MEDS ORDERED: ONDANSETRON 4 MG/2 ML VIAL IVP STA ×2 (16:17→18:38)
[2021-09-21] MEDS ORDERED: MAG HYDROX/AL HYDROX/SIMETH 30 ML, HYOSCYAMINE ELIXIR 10 ML, LIDOCAINE VISCOUS 2% 10 ML PO STA ×3 (16:18)
[2021-09-21 16:49] LABS: Basophils % (A) 0 %; Eosinophils # (A) 0.1 k/uL (0-0.7); Eosinophils % (A) 1 %; HCT 53.1 % (39.0-53.0); HGB 17.6 gm/dL (13.0-17.5); Lymphocytes # (A) 0.8 k/uL (1.0-4.8); Lymphocytes % (A) 9 %; MCHC 33.1 g/dL (31.0-37.0); MCV 99.6 fL (80.0-100.0); Monocytes # (A) 0.4 k/uL (0-1.0); Monocytes % (A) 4 %; Neutrophils # (A) 7.4 k/uL (1.3-7.7); Neutrophils % (A) 85 %; Platelet Count 205 k/uL (150-450); RBC 5.33 m/uL (4.30-5.90); RDW 12.5 % (11.5-15.5); WBC 8.7 k/uL (3.8-10.6)
[2021-09-21 16:56] LABS: ALT 28 U/L (4-49); AST 29 U/L (17-59); African American GFR (CKD) >90 (>60 ml/min/1.73 sqM); Albumin 4.9 g/dL (3.5-5.0); Alkaline Phosphatase 75 U/L (38-126); Amylase 41 U/L (30-110); Anion Gap 14 mmol/L; Blood Urea Nitrogen 23 mg/dL (9-20); Carbon Dioxide 22 mmol/L (22-30); Chloride 104 mmol/L (98-107); Glucose 157 mg/dL (74-99); Lipase 202 U/L (23-300); Non-African American GFR(CKD) 89 (>60 ml/min/1.73 sqM); Sodium 140 mmol/L (137-145); Total Bilirubin 1.6 mg/dL (0.2-1.3); Total Protein 8.1 g/dL (6.3-8.2)
--- NOTE | 2021-09-21 16:59 | ED ---
General Adult HPI - General Chief complaint: Abdominal Pain Stated complaint: GERD Time Seen by Provider: 09/21/21 16:01 Source: patient, RN notes reviewed, old records reviewed Mode of arrival: ambulatory Limitations: physical limitation - History of Present Illness Initial comments: 56-year-old female presenting for evaluation of vomiting, and heartburn. Patient has a long history of gastric reflux. He states that he's missed several of his medication doses over the past several days and has been eating more. He states his symptoms are exactly the same as his previous episodes with gastric reflux. He denies chest pain. He denies fever or chills. Denies abdominal pain or dysuria. - Related Data Home Medications Medication Instructions Recorded Confirmed Citalopram Hydrobromide [CeleXA] 20 mg PO DAILY 01/24/19 09/21/21 HYDROcodone/APAP 5-325MG [[place] 1 tab PO Q6H PRN 09/18/19 09/21/21 5-325] Warfarin Sodium [Jantoven] 7.5 mg PO DAILY 10/09/20 09/21/21 Famotidine 40 mg PO BID 09/21/21 09/21/21 lisinopriL [Zestril] 20 mg PO DAILY 09/21/21 09/21/21 Previous Rx's Medication Instructions Recorded Azithromycin [Zithromax Z-pack] 0 mg PO DIRECTED #6 tab 09/21/21 Allergies Allergy/AdvReac Type Severity Reaction Status Date / Time No Known Allergies Allergy Verified 09/21/21 18:17 Review of Systems ROS Statement: Those systems with pertinent positive or pertinent negative responses have been documented in the HPI. ROS Other: All systems not noted in ROS Statement are negative. Past Medical History Past Medical History: Atrial Fibrillation, GERD/Reflux, Hyperlipidemia, Hypertension, Osteoarthritis (OA), Syncope Additional Past Medical History / Comment(s): Severe gerd, pt believes he has been told he has had small gastric ulcer in past, arthritis in multiple joints, chronic low back pain, occasional lower leg edema. History of Any Multi-Drug Resistant Organisms: None Reported Past Surgical History: Appendectomy, Cholecystectomy, Hernia Repair, Joint Replacement, Orthopedic Surgery Additional Past Surgical History / Comment(s): Total R hip, R knee arthroscopy, EGDs, umbilical hernia repair Past Anesthesia/Blood Transfusion Reactions: No Reported Reaction Additional Past Anesthesia/Blood Transfusion Reaction / Comment(s): Pt has never received blood. Past Psychological History: Anxiety Smoking Status: Current every day smoker Past Alcohol Use History: None Reported Past Drug Use History: None Reported - Past Family History Father Family Medical History: Coronary Artery Disease (CAD), Myocardial Infarction ([place]) Additional Family Medical History / Comment(s): Father has at the age of 74 yrs during valve replacement surgery. He had 2 Cabg's Mother Family Medical History: Coronary Artery Disease (CAD), Diabetes Mellitus, Musculoskeletal Disorder, Neurologic Disorder Additional Family Medical History / Comment(s): Mother is . She at age 64 yrs. She had a cabg and multiple sclerosis Brother(s) Family Medical History: AFIB Additional Family Medical History / Comment(s): Pt has another brother with CAD and MIs General Exam Limitations: physical limitation General appearance: alert, in no apparent distress Head exam: Present: atraumatic, normocephalic Eye exam: Present: normal appearance ENT exam: Present: mucous membranes dry Neck exam: Present: normal inspection. Absent: tenderness, meningismus Respiratory exam: Present: normal lung sounds bilaterally. Absent: respiratory distress, wheezes Cardiovascular Exam: Present: regular rate, normal rhythm GI/Abdominal exam: Present: soft. Absent: distended, tenderness, guarding Extremities exam: Present: normal inspection Neurological exam: Present: alert, oriented X3 Psychiatric exam: Present: normal affect, normal mood Skin exam: Present: warm, dry, intact. Absent: cyanosis, diaphoretic Course Vital Signs 09/21/21 09/21/21 15:14 19:31 Temperature 100.6 F H 97.6 F Pulse Rate 115 H 97 Respiratory 18 17 Rate Blood Pressure 164/112 152/101 O2 Sat by Pulse 96 98 Oximetry EKG Findings - EKG Comments: EKG Findings:: EKG: Atrial fibrillation, T-wave inversion in the precordial leads, rate of 87, QRS duration 84, QTC [address] segment elevation Medical Decision Making - Medical Decision Making 56-year-old male with epigastric discomfort, history of gastric reflux. He states he's been off this medication is requesting some symptomatic relief. I did evaluate this patient further as he had a low-grade temperature. He has a chest x-ray showing the possibility of an atypical pneumonia. He has a normal white blood cell count, likely hemoconcentrated hemoglobin. Normal electrolytes. Troponin negative. EKG negative for ST segment elevation. I did offer this patient observation for symptomatically control. He declines. Prefers outpatient follow-up. - Lab Data Result diagrams: 09/21/21 16:31 09/21/21 16:31 Lab Results 09/21/21 09/21/21 09/21/21 Range/Units 16:31 16:31 16:31 WBC 8.7 (3.8-10.6) k/uL RBC 5.33 (4.30-5.90) m/uL Hgb 17.6 H (13.0-17.5) gm/dL Hct 53.1 H (39.0-53.0) % MCV 99.6 (80.0-100.0) fL MCH 33.0 (25.0-35.0) pg MCHC 33.1 (31.0-37.0) g/dL RDW 12.5 (11.5-15.5) % Plt Count 205 (150-450) k/uL MPV 9.0 Neutrophils % 85 % Lymphocytes % 9 % Monocytes % 4 % Eosinophils % 1 % Basophils % 0 % Neutrophils # 7.4 (1.3-7.7) k/uL Lymphocytes # 0.8 L (1.0-4.8) k/uL Monocytes # 0.4 (0-1.0) k/uL Eosinophils # 0.1 (0-0.7) k/uL Basophils # 0.0 (0-0.2) k/uL Sodium 140 (137-145) mmol/L Potassium 4.0 (3.5-5.1) mmol/L Chloride 104 (98-107) mmol/L Carbon Dioxide 22 (22-30) mmol/L Anion Gap 14 mmol/L BUN 23 H (9-20) mg/dL Creatinine 0.95 (0.66-1.25) mg/dL Est GFR (CKD-EPI)AfAm >90 (>60 ml/min/1.73 sqM) Est GFR (CKD-EPI)NonAf 89 (>60 ml/min/1.73 sqM) Glucose 157 H (74-99) mg/dL Calcium 10.0 (8.4-10.2) mg/dL Total Bilirubin 1.6 H (0.2-1.3) mg/dL AST 29 (17-59) U/L ALT 28 (4-49) U/L Alkaline Phosphatase 75 (38-126) U/L Troponin I <0.012 (0.000-0.034) ng/mL Total Protein 8.1 (6.3-8.2) g/dL Albumin 4.9 (3.5-5.0) g/dL Amylase 41 (30-110) U/L Lipase 202 (23-300) U/L Coronavirus (PCR) (Not Detectd) 09/21/21 Range/Units 20:11 WBC (3.8-10.6) k/uL RBC (4.30-5.90) m/uL Hgb (13.0-17.5) gm/dL Hct (39.0-53.0) % MCV (80.0-100.0) fL MCH (25.0-35.0) pg MCHC (31.0-37.0) g/dL RDW (11.5-15.5) % Plt Count (150-450) k/uL MPV Neutrophils % % Lymphocytes % % Monocytes % % Eosinophils % % Basophils % % Neutrophils # (1.3-7.7) k/uL Lymphocytes # (1.0-4.8) k/uL Monocytes # (0-1.0) k/uL Eosinophils # (0-0.7) k/uL Basophils # (0-0.2) k/uL Sodium (137-145) mmol/L Potassium (3.5-5.1) mmol/L Chloride (98-107) mmol/L Carbon Dioxide (22-30) mmol/L Anion Gap mmol/L BUN (9-20) mg/dL Creatinine (0.66-1.25) mg/dL Est GFR (CKD-EPI)AfAm (>60 ml/min/1.73 sqM) Est GFR (CKD-EPI)NonAf (>60 ml/min/1.73 sqM) Glucose (74-99) mg/dL Calcium (8.4-10.2) mg/dL Total Bilirubin (0.2-1.3) mg/dL AST (17-59) U/L ALT (4-49) U/L Alkaline Phosphatase (38-126) U/L Troponin I (0.000-0.034) ng/mL Total Protein (6.3-8.2) g/dL Albumin (3.5-5.0) g/dL Amylase (30-110) U/L Lipase (23-300) U/L Coronavirus (PCR) Not Detected (Not Detectd) Disposition Clinical Impression: GERD (gastroesophageal reflux disease), Nausea & vomiting Disposition: HOME SELF-CARE Condition: Fair Instructions (If sedation given, give patient instructions): Gastroesophageal Reflux Disease (ED) Prescriptions: Azithromycin [Zithromax Z-pack] 0 mg PO DIRECTED #6 tab Is patient prescribed a controlled substance at d/c from ED?: No Referrals: Aaron Loja MD [Primary Care Provider] - 1-2 days Time of Disposition: 21:01
[2021-09-21] MEDS ORDERED: MORPHINE SULFATE 4 MG/ML SYRINGE IM STA (18:38)
--- NOTE | 2021-09-21 18:54 | XR ---
EXAMINATION TYPE: XR chest 2V DATE OF EXAM: 09/21/2021 COMPARISON: 09/25/2019 HISTORY: 56 year-old male abdominal pain TECHNIQUE: PA and lateral views FINDINGS: Heart upper limits of normal in size. Mild interstitial prominence and peribronchial cuffing. No cons olidation or pleural effusion. IMPRESSION: Peribronchial cuffing and interstitial prominence. Correlate for possible bronchitis, asthma, or atyp ical pneumonias.
[2021-09-21 21:25] VITALS: BP 176/96; PULSE 101; RESP 16; TEMP 98.8
== END 2021-09-21 21:20 | disposition home or self-care (01) ==
LOC: EC 14:26
DX: R11.2 Nausea with vomiting, unspecified (principal); K21.9 Gastro-esophageal reflux disease without esophagitis; I48.91 Unspecified atrial fibrillation; E78.5 Hyperlipidemia, unspecified; I10 Essential (primary) hypertension; M19.90 Unspecified osteoarthritis, unspecified site; F41.9 Anxiety disorder, unspecified; F17.200 Nicotine dependence, unspecified, uncomplicated; Z20.822 Contact with and (suspected) exposure to COVID-19; Z90.49 Acquired absence of other specified parts of digestive tract; Z96.641 Presence of right artificial hip joint; Z96.651 Presence of right artificial knee joint
CPT/HCPCS: 99284; 96374; 96375 ×2; 96376 ×2; 96372; 96361; 93005; 80053; 82150; 83690; 84484; 85025; 87635; 71046; J2270; J2405; C9113

== ENCOUNTER 2022-07-30 10:52 | Emergency (ER) | payer BC ==
[2022-07-30 10:55] VITALS: BP 152/102; PULSE 110; RESP 16; TEMP 97.4
[2022-07-30] MEDS ORDERED: HYDROcodone/APAP 5-325MG 1 EACH TAB PO STA (11:10)
--- NOTE | 2022-07-30 11:15 | ED ---
Skin/Abscess/FB HPI - General Chief complaint: Skin/Abscess/Foreign Body Stated complaint: lt sided rib pain Time Seen by Provider: 07/30/22 11:04 Source: patient, RN notes reviewed, old records reviewed Mode of arrival: ambulatory Limitations: no limitations - History of Present Illness Initial comments: 67-year-old male presents to the emergency room, alert and oriented 4, with complaints of a mass just below his left breast that has been present for 20 years and now red and painful to touch for the past 2 days. Denies any injuries. Medical history of hypertension and GERD MD complaint: lesion (left anterior chest wall ) Location: chest Severity scale (1-10): 7 Consistency: constant Improves with: none Worsens with: palpation Context: other (mass for 20 years, yesterday painful and red) Associated symptoms: denies other symptoms Treatments Prior to Arrival: none - Related Data Home Medications Medication Instructions Recorded Confirmed Citalopram Hydrobromide [CeleXA] 20 mg PO DAILY 01/24/19 09/21/21 HYDROcodone/APAP 5-325MG [[place] 1 tab PO Q6H PRN 09/18/19 09/21/21 5-325] Warfarin Sodium [Jantoven] 7.5 mg PO DAILY 10/09/20 09/21/21 Famotidine 40 mg PO BID 09/21/21 09/21/21 lisinopriL [Zestril] 20 mg PO DAILY 09/21/21 09/21/21 Previous Rx's Medication Instructions Recorded Azithromycin [Zithromax Z-pack] 0 mg PO DIRECTED #6 tab 09/21/21 Cephalexin [Keflex] 500 mg PO Q6HR 5 Days #20 cap 07/30/22 Allergies Allergy/AdvReac Type Severity Reaction Status Date / Time No Known Allergies Allergy Verified 07/30/22 10:53 Review of Systems ROS Statement: Those systems with pertinent positive or pertinent negative responses have been documented in the HPI. ROS Other: All systems not noted in ROS Statement are negative. Past Medical History Past Medical History: Atrial Fibrillation, GERD/Reflux, Hyperlipidemia, Hypertension, Osteoarthritis (OA), Syncope Additional Past Medical History / Comment(s): Severe gerd, pt believes he has been told he has had small gastric ulcer in past, arthritis in multiple joints, chronic low back pain, occasional lower leg edema. History of Any Multi-Drug Resistant Organisms: None Reported Past Surgical History: Appendectomy, Cholecystectomy, Hernia Repair, Joint Replacement, Orthopedic Surgery Additional Past Surgical History / Comment(s): Total R hip, R knee arthroscopy, EGDs, umbilical hernia repair Past Anesthesia/Blood Transfusion Reactions: No Reported Reaction Additional Past Anesthesia/Blood Transfusion Reaction / Comment(s): Pt has never received blood. Past Psychological History: Anxiety Smoking Status: Current every day smoker Past Alcohol Use History: None Reported Past Drug Use History: None Reported - Past Family History Father Family Medical History: Coronary Artery Disease (CAD), Myocardial Infarction ( [place]) Additional Family Medical History / Comment(s): Father has at the age of 74 yrs during valve replacement surgery. He had 2 Cabg's Mother Family Medical History: Coronary Artery Disease (CAD), Diabetes Mellitus, Musculoskeletal Disorder, Neurologic Disorder Additional Family Medical History / Comment(s): Mother is . She at age 64 yrs. She had a cabg and multiple sclerosis Brother(s) Family Medical History: AFIB Additional Family Medical History / Comment(s): Pt has another brother with CAD and MIs General Exam Limitations: no limitations General appearance: alert, in no apparent distress Head exam: Present: atraumatic, normocephalic Eye exam: Absent: scleral icterus, conjunctival injection, periorbital swelling Respiratory exam: Absent: respiratory distress, accessory muscle use Cardiovascular Exam: Present: tachycardia GI/Abdominal exam: Present: soft Neurological exam: Present: alert, oriented X3 Psychiatric exam: Present: normal affect, normal mood Skin exam: Present: warm, dry, normal color, other (4 cm round mass with erythema, no fluctuance ). Absent: cyanosis, diaphoretic, petechiae, pallor Course Vital Signs 07/30/22 10:54 Temperature 97.4 F L Pulse Rate 110 H Respiratory 16 Rate Blood Pressure 152/102 O2 Sat by Pulse 96 Oximetry Medical Decision Making - Medical Decision Making Ultrasound favored to be cystic however may represent sebaceous cyst versus pilomatricoma with superimposed infection. Case discussed with Dr. Andre. Patient was given Keflex. Agreeable to follow up with primary care doctor this week. Disposition Clinical Impression: Folliculitis Disposition: HOME SELF-CARE Condition: Good Instructions (If sedation given, give patient instructions): Folliculitis (ED) Additional Instructions: Warm moist compresses throughout the day. Take antibiotics as prescribed. Follow-up with the primary care doctor this week. Return to the emergency room with any new or concerning symptoms. Prescriptions: Cephalexin [Keflex] 500 mg PO Q6HR 5 Days #20 cap Is patient prescribed a controlled substance at d/c from ED?: No Referrals: Aaron Loja MD [Primary Care Provider] - 1-2 days Time of Disposition: 12:17
--- NOTE | 2022-07-30 11:48 | US ---
EXAMINATION TYPE: US mass soft tissue chest/back DATE OF EXAM: 07/30/2022 COMPARISON: NONE CLINICAL HISTORY: left anterior chest wall mass. Palpable, painful lump left upper ABD x 20+ yrs, rec ently became painful and red FINDINGS: There is an ovoid heterogenous lesion with posterior acoustic enhancement in the subcutaneous tissues tissues of the midline left upper abdomen in the patient's region of palpable abnormality. This jesus ures 1.7 x 1.1 x 1.9 cm without internal color flow. No definitive tract to the skin surface is ident ified. IMPRESSION: Nonspecific 1.9 cm complex subcutaneous lesion corresponding to patient's palpable abnormality withou t internal color flow. This is favored to be cystic and may represent a sebaceous cyst versus pilomat ricoma with superimposed infection not excluded. Clinical correlation is recommended.
== END 2022-07-30 12:28 | disposition home or self-care (01) ==
LOC: EC 10:52
DX: L73.9 Follicular disorder, unspecified (principal); I48.91 Unspecified atrial fibrillation; K21.9 Gastro-esophageal reflux disease without esophagitis; E78.5 Hyperlipidemia, unspecified; M19.90 Unspecified osteoarthritis, unspecified site; I10 Essential (primary) hypertension; F41.9 Anxiety disorder, unspecified; F17.200 Nicotine dependence, unspecified, uncomplicated; Z79.899 Other long term (current) drug therapy
CPT/HCPCS: 99283

== ENCOUNTER 2022-08-04 12:10 | Emergency (ER) | payer BC ==
[2022-08-04 12:20] VITALS: TEMP 98.4
[2022-08-04] MEDS ORDERED: LIDOCAINE 1% INJ 10MG/ML (30 ML VIAL-PF) SQ ONE (13:11)
--- NOTE | 2022-08-04 13:33 | ED ---
General Adult HPI - General Chief complaint: Recheck/Abnormal Lab/Rx Stated complaint: revisit - abscess on chest Time Seen by Provider: 08/04/22 13:04 Source: patient, RN notes reviewed, old records reviewed Mode of arrival: ambulatory Limitations: no limitations - History of Present Illness Initial comments: Patient is a 57-year-old presenting to the emergency room with complaints of left chest wall abscess in which he was evaluated on 08/01/2022 in which an ultrasound was completed and he was placed on oral antibiotics. He states that he has been taking his Keflex as prescribed and does have 2 days left of his current antibiotic course but was concerned regarding worsening of symptoms. He reports that the abscessed region has become approximately double in size has become more tender and developed multiple "spots". He denies any drainage from the site. He does report that his girlfriend has previously had MRSA infections and he is unsure of his exposure to these infections. He denies any chest pain not related to the chest wall pain from the abscess, shortness of breath, abdominal pain, nausea, vomiting, lethargy, headache, weakness, fevers or chills. Patient is a past medical history significant for A. fib on warfarin, GERD, hypertension, hyperlipidemia, osteoarthritis and syncope; he is a current smoker. - Related Data Home Medications Medication Instructions Recorded Confirmed Citalopram Hydrobromide [CeleXA] 20 mg PO DAILY 01/24/19 09/21/21 HYDROcodone/APAP 5-325MG [[place] 1 tab PO Q6H PRN 09/18/19 09/21/21 5-325] Warfarin Sodium [Jantoven] 7.5 mg PO DAILY 10/09/20 09/21/21 Famotidine 40 mg PO BID 09/21/21 09/21/21 lisinopriL [Zestril] 20 mg PO DAILY 09/21/21 09/21/21 Previous Rx's Medication Instructions Recorded Azithromycin [Zithromax Z-pack] 0 mg PO DIRECTED #6 tab 09/21/21 Cephalexin [Keflex] 500 mg PO Q6HR 5 Days #20 cap 07/30/22 clindamycin HCL [Cleocin] 300 mg PO Q6HR 10 Days #40 cap 08/04/22 Allergies Allergy/AdvReac Type Severity Reaction Status Date / Time No Known Allergies Allergy Verified 08/04/22 12:20 Review of Systems ROS Statement: Those systems with pertinent positive or pertinent negative responses have been documented in the HPI. ROS Other: All systems not noted in ROS Statement are negative. Past Medical History Past Medical History: Atrial Fibrillation, GERD/Reflux, Hyperlipidemia, Hypertension, Osteoarthritis (OA), Syncope Additional Past Medical History / Comment(s): Severe gerd, pt believes he has been told he has had small gastric ulcer in past, arthritis in multiple joints, chronic low back pain, occasional lower leg edema. History of Any Multi-Drug Resistant Organisms: None Reported Past Surgical History: Appendectomy, Cholecystectomy, Hernia Repair, Joint Replacement, Orthopedic Surgery Additional Past Surgical History / Comment(s): Total R hip, R knee arthroscopy, EGDs, umbilical hernia repair Past Anesthesia/Blood Transfusion Reactions: No Reported Reaction Additional Past Anesthesia/Blood Transfusion Reaction / Comment(s): Pt has never received blood. Past Psychological History: Anxiety Smoking Status: Current every day smoker Past Alcohol Use History: None Reported Past Drug Use History: None Reported - Past Family History Father Family Medical History: Coronary Artery Disease (CAD), Myocardial Infarction ([place]) Additional Family Medical History / Comment(s): Father has at the age of 74 yrs during valve replacement surgery. He had 2 Cabg's Mother Family Medical History: Coronary Artery Disease (CAD), Diabetes Mellitus, Musculoskeletal Disorder, Neurologic Disorder Additional Family Medical History / Comment(s): Mother is . She at age 64 yrs. She had a cabg and multiple sclerosis Brother(s) Family Medical History: AFIB Additional Family Medical History / Comment(s): Pt has another brother with CAD and MIs General Exam Limitations: no limitations General appearance: alert, in no apparent distress Head exam: Present: atraumatic, normocephalic, normal inspection Eye exam: Present: normal appearance, PERRL, EOMI. Absent: scleral icterus, conjunctival injection, periorbital swelling ENT exam: Present: normal exam, mucous membranes moist Neck exam: Present: normal inspection, full ROM Respiratory exam: Present: normal lung sounds bilaterally. Absent: respiratory distress, wheezes, rales, rhonchi, stridor Cardiovascular Exam: Present: regular rate, irregular rhythm, normal heart sounds. Absent: systolic murmur, diastolic murmur, rubs, gallop, clicks GI/Abdominal exam: Present: soft, normal bowel sounds. Absent: distended, tenderness, guarding, rebound, rigid Back exam: Present: normal inspection Neurological exam: Present: alert, oriented X3, CN II-XII intact Psychiatric exam: Present: normal affect, normal mood Skin exam: Present: other (Abscess to left chest wall lateral to midclavicular line below breast approximately 5 cm in diameter including induration. Status post I&D with 2 cm incision. Purulent drainage, culture obtained, dressing applied) Course Vital Signs 08/04/22 08/04/22 08/04/22 12:18 15:03 15:48 Temperature 98.4 F Pulse Rate 74 79 77 Respiratory 20 16 16 Rate Blood Pressure 164/101 151/95 141/100 O2 Sat by Pulse 98 97 98 Oximetry Procedures - Incision & Drainage Consent Obtained: verbal consent Site: chest Size (cm): 4 (4.5) Anesthetic Used: lidocaine 1% I&D Cleaning Method: Chloroprep Scalpel Used: #11 I&D Drainage Obtained: Pus, Blood Culture Obtained?: Yes Complications: pain (Treated with morphine with good response) Patient Tolerated Procedure: well, no complications Medical Decision Making - Medical Decision Making 57-year-old male presenting to the emergency room with complaints of worsening abscess with no surrounding cellulitis to left chest wall. Recent ultrasound completed on 08/01/2022 reviewed. No indication for further diagnostic imaging. Will obtain CBC, lactic acid and BMP. Will proceed with inci leighton and drainage. No hypotension, tachycardia or fever. Pending lab results will plan for discharge home on oral antibiotics versus need for inpatient admission with IV antibiotics. Will hold antibiotics until after incision and drainage and culture obtained. Patient tolerated incision and drainage well. Area dressed after drainage and culture obtained. Morphine given for pain with good response. Laboratory studies reveal no significant leukocytosis and normal lactic acid without significant e lectrolyte derangement. Will give dose of IV clindamycin. Tolerated clindamycin well and pain stable without significant drainage through dressing after incision and drainage. Will discharge patient home in stable condition on oral clindamycin. Advised to continue to keep dressing on and monitor drainage and discharge. Strict return parameters for worsening of infection reviewed with patient at length and he verbalized understanding. Advised follow-up with his primary care provider. Case discussed with Dr. Andre. - Lab Data Result diagrams: 08/04/22 13:24 08/04/22 13:24 Lab Results 08/04/22 08/04/22 Range/Units 13:24 13:24 WBC 7.8 (3.8-10.6) k/uL RBC 4.66 (4.30-5.90) m/uL Hgb 15.8 (13.0-17.5) gm/dL Hct 45.4 (39.0-53.0) % MCV 97.4 (80.0-100.0) fL MCH 33.9 (25.0-35.0) pg MCHC 34.8 (31.0-37.0) g/dL RDW 12.0 (11.5-15.5) % Plt Count 201 (150-450) k/uL MPV 8.8 Neutrophils % 71 % Lymphocytes % 14 % Monocytes % 7 % Eosinophils % 5 % Basophils % 1 % Neutrophils # 5.5 (1.3-7.7) k/uL Lymphocytes # 1.1 (1.0-4.8) k/uL Monocytes # 0.5 (0-1.0) k/uL Eosinophils # 0.4 (0-0.7) k/uL Basophils # 0.1 (0-0.2) k/uL Sodium 137 (137-145) mmol/L Potassium 5.4 H (3.5-5.1) mmol/L Chloride 110 H (98-107) mmol/L Carbon Dioxide 22 (22-30) mmol/L Anion Gap 5 mmol/L BUN 20 (9-20) mg/dL Creatinine 0.70 (0.66-1.25) mg/dL Est GFR (CKD-EPI)AfAm >90 (>60 ml/min/1.73 sqM) Est GFR (CKD-EPI)NonAf >90 (>60 ml/min/1.73 sqM) Glucose 113 H (74-99) mg/dL Calcium 8.8 (8.4-10.2) mg/dL Total Bilirubin 0.6 (0.2-1.3) mg/dL AST 36 (17-59) U/L ALT 33 (4-49) U/L Alkaline Phosphatase 66 (38-126) U/L Total Protein 6.9 (6.3-8.2) g/dL Albumin 4.5 (3.5-5.0) g/dL Disposition Clinical Impression: Abscess or cellulitis of chest wall Disposition: HOME SELF-CARE Condition: Stable Instructions (If sedation given, give patient instructions): Abscess Incision and Drainage (ED), Abscess (ED) Additional Instructions: Please continue to keep a dressing on abscess to left chest wall and monitor drainage. Please complete course of antibiotics as prescribed. Drink plenty of fluids. Please follow-up with your primary care provider. Please return to the Emergency Department if symptoms worsen or any other concerns. Prescriptions: clindamycin HCL [Cleocin] 300 mg PO Q6HR 10 Days #40 cap Is patient prescribed a controlled substance at d/c from ED?: No Referrals: Aaron Loja MD [Primary Care Provider] - 1-2 days Time of Disposition: 15:15
[2022-08-04 13:44] LABS: Basophils # (A) 0.1 k/uL (0-0.2); Basophils % (A) 1 %; Eosinophils # (A) 0.4 k/uL (0-0.7); Eosinophils % (A) 5 %; HCT 45.4 % (39.0-53.0); HGB 15.8 gm/dL (13.0-17.5); Lymphocytes # (A) 1.1 k/uL (1.0-4.8); Lymphocytes % (A) 14 %; MCH 33.9 pg (25.0-35.0); MCHC 34.8 g/dL (31.0-37.0); MCV 97.4 fL (80.0-100.0); Mean Platelet Volume 8.8; Monocytes # (A) 0.5 k/uL (0-1.0); Monocytes % (A) 7 %; Neutrophils # (A) 5.5 k/uL (1.3-7.7); Neutrophils % (A) 71 %; Platelet Count 201 k/uL (150-450); RBC 4.66 m/uL (4.30-5.90); WBC 7.8 k/uL (3.8-10.6)
[2022-08-04] MEDS ORDERED: MORPHINE SULFATE 4 MG/ML SYRINGE IVP STA (13:45)
[2022-08-04 13:48] LABS: ALT 33 U/L (4-49); African American GFR (CKD) >90 (>60 ml/min/1.73 sqM); Anion Gap 5 mmol/L; Blood Urea Nitrogen 20 mg/dL (9-20); Calcium 8.8 mg/dL (8.4-10.2); Carbon Dioxide 22 mmol/L (22-30); Chloride 110 mmol/L (98-107); Glucose 113 mg/dL (74-99); Non-African American GFR(CKD) >90 (>60 ml/min/1.73 sqM); Sodium 137 mmol/L (137-145); Total Bilirubin 0.6 mg/dL (0.2-1.3)
[2022-08-04 13:54] LABS: AST 36 U/L (17-59); Albumin 4.5 g/dL (3.5-5.0); Alkaline Phosphatase 66 U/L (38-126); Potassium 5.4 mmol/L (3.5-5.1); Total Protein 6.9 g/dL (6.3-8.2)
[2022-08-04] MEDS ORDERED: CLINDAMYCIN 600 MG/50 ML-D5W 600 MG in DEXTROSE/WATER 1 50ML.BAG IVPB STA (14:16)
[2022-08-04 15:49] VITALS: BP 141/100; PULSE 77; RESP 16
== END 2022-08-04 15:56 | disposition home or self-care (01) ==
LOC: EC 12:10
DX: L03.313 Cellulitis of chest wall (principal); I48.91 Unspecified atrial fibrillation; K21.9 Gastro-esophageal reflux disease without esophagitis; E78.5 Hyperlipidemia, unspecified; I10 Essential (primary) hypertension; M19.90 Unspecified osteoarthritis, unspecified site; F41.9 Anxiety disorder, unspecified; F17.200 Nicotine dependence, unspecified, uncomplicated
CPT/HCPCS: 36415; 80053; 85025; 87040; 87070; 87205; 99283; 96365; 96375; 10060; J2270; J2001

== ENCOUNTER 2022-09-19 09:17 | Emergency (ER) | payer BC ==
[2022-09-19 09:24] VITALS: BP 160/93; PULSE 96; RESP 20; TEMP 97
[2022-09-19] MEDS ORDERED: MAG HYDROX/AL HYDROX/SIMETH 30 ML, HYOSCYAMINE ELIXIR 10 ML, LIDOCAINE VISCOUS 2% 10 ML PO STA ×3 (09:39)
--- NOTE | 2022-09-19 09:45 | XR ---
EXAMINATION TYPE: XR chest 2V DATE OF EXAM: 09/19/2022 9:41 AM COMPARISON: 09/21/2021 TECHNIQUE: XR chest 2V Frontal and lateral views of the chest. CLINICAL INDICATION:Male, 57 years old with history of Chest Pain; FINDINGS: Lungs/Pleura: There is no evidence of pleural effusion, focal consolidation, or pneumothorax. Pulmonary vascularity: Unremarkable. Heart/mediastinum: Cardiomediastinal silhouette is unremarkable. Musculoskeletal: No acute osseous pathology. IMPRESSION: No acute cardiopulmonary disease/process.
[2022-09-19 09:50] LABS: Basophils # (A) 0.1 k/uL (0-0.2); Basophils % (A) 1 %; Eosinophils # (A) 0.1 k/uL (0-0.7); Eosinophils % (A) 1 %; HCT 49.2 % (39.0-53.0); HGB 17.3 gm/dL (13.0-17.5); Lymphocytes # (A) 0.6 k/uL (1.0-4.8); Lymphocytes % (A) 6 %; MCH 33.8 pg (25.0-35.0); MCHC 35.1 g/dL (31.0-37.0); MCV 96.3 fL (80.0-100.0); Mean Platelet Volume 9.3; Monocytes # (A) 0.3 k/uL (0-1.0); Monocytes % (A) 3 %; Neutrophils # (A) 9.5 k/uL (1.3-7.7); Neutrophils % (A) 89 %; Platelet Count 207 k/uL (150-450); RBC 5.11 m/uL (4.30-5.90); RDW 12.4 % (11.5-15.5); WBC 10.7 k/uL (3.8-10.6)
[2022-09-19 09:58] LABS: ALT 44 U/L (4-49); AST 35 U/L (17-59); African American GFR (CKD) >90 (>60 ml/min/1.73 sqM); Albumin 5.2 g/dL (3.5-5.0); Alkaline Phosphatase 90 U/L (38-126); Anion Gap 14 mmol/L; Blood Urea Nitrogen 24 mg/dL (9-20); Calcium 9.9 mg/dL (8.4-10.2); Carbon Dioxide 19 mmol/L (22-30); Chloride 106 mmol/L (98-107); Glucose 158 mg/dL (74-99); Magnesium 1.7 mg/dL (1.6-2.3); Non-African American GFR(CKD) >90 (>60 ml/min/1.73 sqM); Potassium 5.2 mmol/L (3.5-5.1); Sodium 139 mmol/L (137-145); Total Bilirubin 1.2 mg/dL (0.2-1.3)
[2022-09-19 10:00] LABS: Prothrombin Time 10.2 sec (9.0-12.0)
[2022-09-19] MEDS ORDERED: SODIUM CHLORIDE 0.9% 1,000 ML IV STA (10:12)
[2022-09-19] MEDS ORDERED: PANTOPRAZOLE 40 MG/10 ML VIAL IVP STA (10:12)
[2022-09-19] MEDS ORDERED: FAMOTIDINE 20 MG/2 ML VIAL IV STA (10:12)
[2022-09-19] MEDS ORDERED: ONDANSETRON 4 MG/2 ML VIAL IVP STA (10:20)
[2022-09-19] MEDS ORDERED: PROCHLORPERAZINE INJ 10 MG/2 ML VIAL IVP STA (11:13)
[2022-09-19] MEDS ORDERED: KETOROLAC 15 MG/ML 1 ML VIAL IVP STA (11:13)
--- NOTE | 2022-09-19 11:55 | ED ---
Chest Pain HPI - General Chief Complaint: Chest Pain Stated Complaint: GERD Time Seen by Provider: 09/19/22 10:04 Source: patient Mode of arrival: ambulatory - History of Present Illness Initial Comments: Patient is a 57-year-old male who presents to the emergency department with a chief complaint of chest burning. Patient has history of severe GERD and states this feels similar. Describes the pain as a burning in his lower chest without radiation. It is not exertional. Patient admits to being noncompliant with his medications. He also reports eating a lot of food that could contribute to his GERD symptoms over the weekend, as well as daily alcohol use consisting of 5 beers a day. Patient denies lightheadedness, dizziness, shortness of breath, abdominal pain. Does admit to nausea with 2 episodes of vomiting. Patient states when this happens he comes to the emergency department for "fluids and morphine." Of note, patient does have atrial fibrillation which he takes warfarin for. - Related Data Home Medications Medication Instructions Recorded Confirmed Citalopram Hydrobromide [CeleXA] 20 mg PO DAILY 01/24/19 09/21/21 HYDROcodone/APAP 5-325MG [[place] 1 tab PO Q6H PRN 09/18/19 09/21/21 5-325] Warfarin Sodium [Jantoven] 7.5 mg PO DAILY 10/09/20 09/21/21 Famotidine 40 mg PO BID 09/21/21 09/21/21 lisinopriL [Zestril] 20 mg PO DAILY 09/21/21 09/21/21 Previous Rx's Medication Instructions Recorded Azithromycin [Zithromax Z-pack] 0 mg PO DIRECTED #6 tab 09/21/21 Cephalexin [Keflex] 500 mg PO Q6HR 5 Days #20 cap 07/30/22 clindamycin HCL [Cleocin] 300 mg PO Q6HR 10 Days #40 cap 08/04/22 Ondansetron Odt [Zofran Odt] 4 mg PO Q8HR PRN #9 tab 09/19/22 Allergies Allergy/AdvReac Type Severity Reaction Status Date / Time No Known Allergies Allergy Verified 09/19/22 05:38 Review of Systems ROS Statement: Those systems with pertinent positive or pertinent negative responses have been documented in the HPI. ROS Other: All systems not noted in ROS Statement are negative. EKG Findings - EKG Comments: EKG Findings:: EKG taken at 5:47, interpreted by me. Atrial fibrillation. Ventricular rate 93. QRS duration 87. QTc 404 Past Medical History Past Medical History: Atrial Fibrillation, GERD/Reflux, Hyperlipidemia, Hypertension, Osteoarthritis (OA), Syncope Additional Past Medical History / Comment(s): Severe gerd, pt believes he has been told he has had small gastric ulcer in past, arthritis in multiple joints, chronic low back pain, occasional lower leg edema. History of Any Multi-Drug Resistant Organisms: None Reported Past Surgical History: Appendectomy, Cholecystectomy, Hernia Repair, Joint Replacement, Orthopedic Surgery Additional Past Surgical History / Comment(s): Total R hip, R knee arthroscopy, EGDs, umbilical hernia repair Past Anesthesia/Blood Transfusion Reactions: No Reported Reaction Additional Past Anesthesia/Blood Transfusion Reaction / Comment(s): Pt has never received blood. Past Psychological History: Anxiety Smoking Status: Current every day smoker Past Alcohol Use History: None Reported Past Drug Use History: None Reported - Past Family History Father Family Medical History: Coronary Artery Disease (CAD), Myocardial Infarction ([place]) Additional Family Medical History / Comment(s): Father has at the age of 74 yrs during valve replacement surgery. He had 2 Cabg's Mother Family Medical History: Coronary Artery Disease (CAD), Diabetes Mellitus, Musculoskeletal Disorder, Neurologic Disorder Additional Family Medical History / Comment(s): Mother is . She at age 64 yrs. She had a cabg and multiple sclerosis Brother(s) Family Medical History: AFIB Additional Family Medical History / Comment(s): Pt has another brother with CAD and MIs Course Vital Signs 09/19/22 09:21 Temperature 97 F L Pulse Rate 96 Respiratory 20 Rate Blood Pressure 160/93 O2 Sat by Pulse 95 Oximetry Chest Pain MDM - MDM Was pt. sent in by a medical professional or institution? No Did you speak to anyone other than the patient for history? No Did you review nursing and triage notes? Yes, symptoms consistent with nursing and triage notes. Were old charts reviewed? Yes, patient often presents to the emergency department for GERD Differential Diagnosis? Differential Chest Pain: Stable Angina, Unstable Angina, STEMI, NSTEMI Aortic Dissection, Pneumothorax, Musculoskeletal, Esophageal Spasm GERD, Cholecystitis, Pancreatitis, Zoster, this is not meant to be an all-inclusive list. EKG interpreted by me (3pts min.)? Yes, atrial fibrillation with controlled ventricular rate 93 X-rays interpreted by me (1pt min.)? Yes, no acute cardiopulmonary disease or process CT interpreted by me (1pt min.)? NA U/S interpreted by me (1pt. min.)? NA What testing was considered but not performed? (CT, X-rays, U/S, labs)? Why? None What meds were considered but not given? Why? I consider given nitroglycerin however symptoms are consistent with GERD rather than cardiac origin Did you discuss the management of the patient with other professionals? Yes, I discussed the case with my attending Dr. Card. Did you reconcile home meds? No, patient discharged. Was smoking cessation discussed for >3mins.? No Was critical care preformed (if so, how long)? No Were there social determinants of health that impacted care today? How? (Homelessness, low income, unemployed, alcoholism, drug addiction, transportation, low edu. Level, literacy, decrease access to med. care, retirement, rehab)? No Was there de-escalation of care discussed even if they declined? (Discuss DNR or withdrawal of care, Hospice)? No What co-morbidities impacted this encounter? (DM, HTN, Smoking, COPD, CAD, Cancer, CVA, Hep., AIDS, mental health diagnosis, sleep apnea, morbid obesity)? Atrial fibrillation, hyperlipidemia, hypertension, cholecystectomy Was patient admitted / discharged? This is a 57-year-old male presenting with chest burning. Symptoms and physical exam consistent with GERD. Patient requesting morphine which I declined. He was given a GI cocktail in triage without relief. He was then given IV fluids, Pepcid, Protonix, Zofran. Patient reports little relief. Patient was then given Toradol and Compazine with improvement. Laboratory studies unremarkable. Troponin within normal limits. EKG does show atrial fibrillation which is chronic in nature. There is controlled ventricular rate at 93. Patient is on Warfarin. We discussed GERD in detail. Patient aware that it is very important to take his medication for GERD. Patient will be discharged with Zofran for nausea will continue his home prescription of Pepcid and Protonix Undiagnosed new problem with uncertain prognosis? No Drug Therapy requiring intensive monitoring for toxicity (Heparin, Nitro, Insulin, Cardizem)? No Were any procedures done? No Diagnosis/symptom? chest burning, GERD, n/v Acute, or Chronic, or Acute on Chronic? acute on chronic Uncomplicated (without systemic symptoms) or Complicated (systemic symptoms)? Uncomplicated Side effects of treatment? No Exacerbation, Progression, or Severe Exacerbation] NA Poses a threat to life or bodily function? No Disposition Clinical Impression: GERD (gastroesophageal reflux disease), Burning chest pain, Nausea and vomiting Disposition: HOME SELF-CARE Condition: Good Instructions (If sedation given, give patient instructions): Diet for Stomach Ulcers and Gastritis (ED), GERD (Gastroesophageal Reflux Disease) (ED) Additional Instructions: Take meds as directed.It is very important to continue your home prescription of pepcid and protonix. Avoid triggers of gastroesophageal reflux disease which we discussed today. Common triggers include alcohol. caffeine, chocolate, fatty foods. Avoid eating within 3 hours of sleep. Sleeping with the head of the bed elevated may help improve symptoms. Follow up with PCP in 1-2 days. If symptoms do not improve after trial of medication, you may need a scope for further evaluation. Return to the emergency Department patient experiences new, concerning, or worsening symptoms. Prescriptions: Ondansetron Odt [Zofran Odt] 4 mg PO Q8HR PRN #9 tab PRN Reason: Nausea Is patient prescribed a controlled substance at d/c from ED?: No Referrals: None,Stated [Primary Care Provider] - 1-2 days Time of Disposition: 11:55
== END 2022-09-19 12:27 | disposition home or self-care (01) ==
LOC: EC 09:17
DX: K21.9 Gastro-esophageal reflux disease without esophagitis (principal); R11.2 Nausea with vomiting, unspecified; I48.91 Unspecified atrial fibrillation; I10 Essential (primary) hypertension; M19.90 Unspecified osteoarthritis, unspecified site; F41.9 Anxiety disorder, unspecified; F17.200 Nicotine dependence, unspecified, uncomplicated; Z79.899 Other long term (current) drug therapy; Z79.891 Long term (current) use of opiate analgesic
CPT/HCPCS: 99285; 96374; 96375 ×4; 96361; 36415; 93005; 80053; 83735; 84484; 85025; 85610; 85730; 71046; J0780; J2405; J1885; C9113

== ENCOUNTER 2023-01-20 17:29 | Emergency (ER) | payer BC ==
[2023-01-20 17:40] VITALS: RESP 18; TEMP 98.5
[2023-01-20] MEDS ORDERED: METOCLOPRAMIDE 5 MG/ML 2 ML VIAL IVP STA (18:02)
[2023-01-20] MEDS ORDERED: SODIUM CHLORIDE 0.9% 500 ML 500 ML IV STA (18:02)
[2023-01-20] MEDS ORDERED: SODIUM CHLORIDE 0.9% 1,000 ML IV STA (18:02)
[2023-01-20] MEDS ORDERED: PANTOPRAZOLE 40 MG/10 ML VIAL IVP STA (18:02)
[2023-01-20] MEDS ORDERED: HYDROmorphone 1 MG/ML 1 ML SYRINGE IVP STA (18:03)
--- NOTE | 2023-01-20 18:05 | ED ---
General Adult HPI - General Chief complaint: Nausea/Vomiting/Diarrhea Stated complaint: Vomiting Time Seen by Provider: 01/20/23 17:40 Source: patient, RN notes reviewed Mode of arrival: ambulatory Limitations: no limitations - History of Present Illness Initial comments: Patient is a pleasant 57-year-old male presenting to the emergency department with concerns with nausea vomiting. Onset of symptoms was earlier this morning. Patient has had similar episodes dozens of times previously. Patient has had discussion of previous surgery however has decided against this at this time. Patient states usually he needs IV fluids and nausea medication and Protonix and pain medication, sometimes GI cocktail. Patient does request all of these. Patient states there is some discomfort that radiates up the chest however this is chronic and he associates this with recurrent emesis. - Related Data Home Medications Medication Instructions Recorded Confirmed Citalopram Hydrobromide [CeleXA] 20 mg PO DAILY 01/24/19 01/20/23 HYDROcodone/APAP 5-325MG [[place] 1 tab PO Q6H PRN 09/18/19 01/20/23 5-325] Warfarin Sodium [Jantoven] 7.5 mg PO DIRECTED 10/09/20 01/20/23 Famotidine 40 mg PO BID 09/21/21 01/20/23 lisinopriL [Zestril] 20 mg PO DAILY 09/21/21 01/20/23 Previous Rx's Medication Instructions Recorded Metoclopramide HCl [Reglan] 10 mg PO Q6HR PRN #15 tablet 01/20/23 Allergies Allergy/AdvReac Type Severity Reaction Status Date / Time No Known Allergies Allergy Verified 01/20/23 19:00 Review of Systems ROS Statement: Those systems with pertinent positive or pertinent negative responses have been documented in the HPI. ROS Other: All systems not noted in ROS Statement are negative. Constitutional: Denies: fever Eyes: Denies: eye pain ENT: Denies: ear pain Respiratory: Denies: cough Cardiovascular: Reports: as per HPI Gastrointestinal: Reports: abdominal pain, nausea, vomiting. Denies: diarrhea, constipation Genitourinary: Denies: dysuria Musculoskeletal: Denies: back pain Skin: Denies: rash Neurological: Denies: weakness Past Medical History Past Medical History: Atrial Fibrillation, GERD/Reflux, Hyperlipidemia, Hypertension, Osteoarthritis (OA), Syncope Additional Past Medical History / Comment(s): Severe gerd, pt believes he has been told he has had small gastric ulcer in past, arthritis in multiple joints, chronic low back pain, occasional lower leg edema. History of Any Multi-Drug Resistant Organisms: None Reported Past Surgical History: Appendectomy, Cholecystectomy, Hernia Repair, Joint Replacement, Orthopedic Surgery Additional Past Surgical History / Comment(s): Total R hip, R knee arthroscopy, EGDs, umbilical hernia repair Past Anesthesia/Blood Transfusion Reactions: No Reported Reaction Additional Past Anesthesia/Blood Transfusion Reaction / Comment(s): Pt has never received blood. Past Psychological History: Anxiety Smoking Status: Current every day smoker Past Alcohol Use History: Occasional Past Drug Use History: None Reported - Past Family History Father Family Medical History: Coronary Artery Disease (CAD), Myocardial Infarction ([place]) Additional Family Medical History / Comment(s): Father has at the age of 74 yrs during valve replacement surgery. He had 2 Cabg's Mother Family Medical History: Coronary Artery Disease (CAD), Diabetes Mellitus, Musculoskeletal Disorder, Neurologic Disorder Additional Family Medical History / Comment(s): Mother is . She at age 64 yrs. She had a cabg and multiple sclerosis Brother(s) Family Medical History: AFIB Additional Family Medical History / Comment(s): Pt has another brother with CAD and MIs General Exam Limitations: no limitations General appearance: alert, in no apparent distress Head exam: Present: normocephalic Eye exam: Present: normal appearance Neck exam: Present: normal inspection Respiratory exam: Present: normal lung sounds bilaterally Cardiovascular Exam: Present: regular rate, irregular rhythm, normal heart sounds Expanded Peripheral pulses: 2+: Dorsalis Pedis (R), Dorsalis Pedis (L) GI/Abdominal exam: Present: soft, tenderness (Mild epigastric tenderness to palpation). Absent: distended Extremities exam: Present: normal inspection Neurological exam: Present: alert Psychiatric exam: Present: normal affect, normal mood Skin exam: Present: normal color Course Vital Signs 01/20/23 17:38 Temperature 98.5 F Pulse Rate 89 Respiratory 18 Rate Blood Pressure 153/93 O2 Sat by Pulse 98 Oximetry EKG Findings - EKG Results: EKG: interpreted by ERMD, normal axis, normal QRS, normal ST/T Medical Decision Making - Medical Decision Making Was pt. sent in by a medical professional or institution (Dr., PA, [employer]IE[employer], urgent care, hospital, or correction...) When possible be specific @ -No Did you speak to anyone other than the patient for history (EMS, parent, family, police, friend...)? What history was obtained from this source @ -No Did you review nursing and triage notes (agree or disagree)? Why? @ -I reviewed and agree with nursing and triage notes Were old charts reviewed (outside hosp., previous admission, EMS record, old EKG, old radiological studies, urgent care reports/EKG's, correction records)? Report findings @ -No old charts were reviewed Differential Diagnosis (chest pain, altered mental status, abdominal pain women, abdominal pain men, vaginal bleeding, weakness, fever, dyspnea, syncope, headache, dizziness, GI bleed, back pain, seizure, CVA, palpatations, mental health)? @ -Differential Abdominal Pain Men: Appendicitis, cholecystitis, diverticulosis, ischemic bowel, pancreatitis, hepatitis, UTI, gastroenteritis, AAA, incarcerated hernia, bowel obstruction, constipation, inflammatory bowel, hepatitis, peptic ulcer disease, splenic infarction, perforated viscus, testicular torsion, this is not meant to be an all-inclusive list EKG interpreted by me (3pts min.). @ -As above X-rays interpreted by me (1pt min.). @ -X-rays ordered but patient refused CT interpreted by me (1pt min.). @ -None done U/S interpreted by me (1pt. min.). @ -None done What testing was considered but not performed or refused? (CT, X-rays, U/S, labs)? Why? @ -None What meds were considered but not given or refused? Why? @ -None Did you discuss the management of the patient with other professionals (lea moser i.e., Dr., PA, [employer], lab, RT, psych nurse, social services analyst, aerospace technician, teacher, traffic officer, case consultant)? Give summary @ -No Was smoking cessation discussed for >3mins.? @ -No Was critical care preformed (if so, how long)? @ -No Were there social determinants of health that impacted care today? How? (Homelessness, low income, unemployed, alcoholism, drug addiction, transportation, low edu. Level, literacy, decrease access to med. care, shelter, rehab)? @ -No Was there de-escalation of care discussed even if they declined (Discuss DNR or withdrawal of care, Hospice)? DNR status @ -No What co-morbidities impacted this encounter? (DM, HTN, Smoking, COPD, CAD, Cancer, CVA, ARF, Chemo, Hep., AIDS, mental health diagnosis, sleep apnea, morbid obesity)? @ -None Was patient admitted / discharged? Hospital course, mention meds given and route, prescriptions, significant lab abnormalities, going to OR and other pertinent info. @ -Patient presents with chronic vomiting in symptoms. Patient responded well to medications upon reevaluation. Patient is comfortable with discharge home however does again requests GI cocktail prior to this. Patient is updated on results and need for follow-up. Undiagnosed new problem with uncertain prognosis? @ -No Drug Therapy requiring intensive monitoring for toxicity (Heparin, Nitro, Insulin, Cardizem)? @ -No Were any procedures done? @ -No Diagnosis/symptom? @ -Vomiting Acute, or Chronic, or Acute on Chronic? @ -Acute Uncomplicated (without systemic symptoms) or Complicated (systemic symptoms)? @ -default Side effects of treatment? @ -No Exacerbation, Progression, or Severe Exacerbation? @ -No Poses a threat to life or bodily function? How? (Chest pain, USA, [place], pneumonia, PE, COPD, DKA, ARF, appy, cholecystitis, CVA, Diverticulitis, Homicidal, Suicidal, threat to staff... and all critical care pts) @ -No - Lab Data Result diagrams: 01/20/23 18:06 01/20/23 18:06 Lab Results 01/20/23 01/20/23 01/20/23 Range/Units 18:06 18:06 18:06 WBC 6.8 (3.8-10.6) k/uL RBC 5.54 (4.30-5.90) m/uL Hgb 17.9 H (13.0-17.5) gm/dL Hct 52.8 (39.0-53.0) % MCV 95.3 (80.0-100.0) fL MCH 32.3 (25.0-35.0) pg MCHC 33.9 (31.0-37.0) g/dL RDW 13.0 (11.5-15.5) % Plt Count 240 (150-450) k/uL MPV 8.9 Neutrophils % 88 % Lymphocytes % 9 % Monocytes % 2 % Eosinophils % 1 % Basophils % 0 % Neutrophils # 6.0 (1.3-7.7) k/uL Lymphocytes # 0.6 L (1.0-4.8) k/uL Monocytes # 0.1 (0-1.0) k/uL Eosinophils # 0.0 (0-0.7) k/uL Basophils # 0.0 (0-0.2) k/uL PT 12.9 H (9.0-12.0) sec INR 1.3 H (<1.2) APTT 25.3 (22.0-30.0) sec Sodium 137 (137-145) mmol/L Potassium 4.5 (3.5-5.1) mmol/L Chloride 103 (98-107) mmol/L Carbon Dioxide 18 L (22-30) mmol/L Anion Gap 16 mmol/L BUN 19 (9-20) mg/dL Creatinine 0.79 (0.66-1.25) mg/dL Est GFR (CKD-EPI)AfAm >90 (>60 ml/min/1.73 sqM) Est GFR (CKD-EPI)NonAf >90 (>60 ml/min/1.73 sqM) Glucose 136 H (74-99) mg/dL Calcium 9.6 (8.4-10.2) mg/dL Total Bilirubin 1.5 H (0.2-1.3) mg/dL AST 30 (17-59) U/L ALT 35 (4-49) U/L Alkaline Phosphatase 83 (38-126) U/L Troponin I (0.000-0.034) ng/mL Total Protein 7.7 (6.3-8.2) g/dL Albumin 4.8 (3.5-5.0) g/dL Amylase 38 (30-110) U/L Lipase 187 (23-300) U/L 01/20/23 Range/Units 18:06 WBC (3.8-10.6) k/uL RBC (4.30-5.90) m/uL Hgb (13.0-17.5) gm/dL Hct (39.0-53.0) % MCV (80.0-100.0) fL MCH (25.0-35.0) pg MCHC (31.0-37.0) g/dL RDW (11.5-15.5) % Plt Count (150-450) k/uL MPV Neutrophils % % Lymphocytes % % Monocytes % % Eosinophils % % Basophils % % Neutrophils # (1.3-7.7) k/uL Lymphocytes # (1.0-4.8) k/uL Monocytes # (0-1.0) k/uL Eosinophils # (0-0.7) k/uL Basophils # (0-0.2) k/uL PT (9.0-12.0) sec INR (<1.2) APTT (22.0-30.0) sec Sodium (137-145) mmol/L Potassium (3.5-5.1) mmol/L Chloride (98-107) mmol/L Carbon Dioxide (22-30) mmol/L Anion Gap mmol/L BUN (9-20) mg/dL Creatinine (0.66-1.25) mg/dL Est GFR (CKD-EPI)AfAm (>60 ml/min/1.73 sqM) Est GFR (CKD-EPI)NonAf (>60 ml/min/1.73 sqM) Glucose (74-99) mg/dL Calcium (8.4-10.2) mg/dL Total Bilirubin (0.2-1.3) mg/dL AST (17-59) U/L ALT (4-49) U/L Alkaline Phosphatase (38-126) U/L Troponin I <0.012 (0.000-0.034) ng/mL Total Protein (6.3-8.2) g/dL Albumin (3.5-5.0) g/dL Amylase (30-110) U/L Lipase (23-300) U/L Disposition Clinical Impression: Vomiting Disposition: HOME SELF-CARE Condition: Stable Instructions (If sedation given, give patient instructions): Acute Nausea and Vomiting (ED) Additional Instructions: Please do follow-up through primary care physician in the next day or 2 for recheck. Prescription has been sent to pharmacy. Return for increased pain, uncontrolled vomiting, worsening or changing symptoms or other concerns. Prescriptions: Metoclopramide HCl [Reglan] 10 mg PO Q6HR PRN #15 tablet PRN Reason: Nausea Is patient prescribed a controlled substance at d/c from ED?: No Referrals: Aaron Loja MD [STAFF PHYSICIAN] - 1-2 days Time of Disposition: 19:13
[2023-01-20 18:25] LABS: Basophils % (A) 0 %; Eosinophils % (A) 1 %; HCT 52.8 % (39.0-53.0); HGB 17.9 gm/dL (13.0-17.5); Lymphocytes # (A) 0.6 k/uL (1.0-4.8); Lymphocytes % (A) 9 %; MCH 32.3 pg (25.0-35.0); MCHC 33.9 g/dL (31.0-37.0); MCV 95.3 fL (80.0-100.0); Mean Platelet Volume 8.9; Monocytes # (A) 0.1 k/uL (0-1.0); Monocytes % (A) 2 %; Neutrophils % (A) 88 %; Platelet Count 240 k/uL (150-450); RBC 5.54 m/uL (4.30-5.90); WBC 6.8 k/uL (3.8-10.6)
[2023-01-20 18:35] LABS: ALT 35 U/L (4-49); AST 30 U/L (17-59); African American GFR (CKD) >90 (>60 ml/min/1.73 sqM); Albumin 4.8 g/dL (3.5-5.0); Alkaline Phosphatase 83 U/L (38-126); Amylase 38 U/L (30-110); Anion Gap 16 mmol/L; Blood Urea Nitrogen 19 mg/dL (9-20); Calcium 9.6 mg/dL (8.4-10.2); Carbon Dioxide 18 mmol/L (22-30); Chloride 103 mmol/L (98-107); Glucose 136 mg/dL (74-99); Lipase 187 U/L (23-300); Non-African American GFR(CKD) >90 (>60 ml/min/1.73 sqM); Potassium 4.5 mmol/L (3.5-5.1); Sodium 137 mmol/L (137-145); Total Bilirubin 1.5 mg/dL (0.2-1.3); Total Protein 7.7 g/dL (6.3-8.2)
[2023-01-20 18:55] LABS: INR 1.3 (<1.2); Partial Thromboplastin Time 25.3 sec (22.0-30.0); Prothrombin Time 12.9 sec (9.0-12.0)
[2023-01-20] MEDS ORDERED: MAG HYDROX/AL HYDROX/SIMETH 30 ML, HYOSCYAMINE ELIXIR 10 ML, LIDOCAINE VISCOUS 2% 10 ML PO STA ×3 (19:10)
[2023-01-20 19:34] VITALS: BP 137/82; PULSE 82
== END 2023-01-20 19:34 | disposition home or self-care (01) ==
LOC: EC 17:29
DX: R11.2 Nausea with vomiting, unspecified (principal); I10 Essential (primary) hypertension; I48.91 Unspecified atrial fibrillation; F41.9 Anxiety disorder, unspecified; F17.200 Nicotine dependence, unspecified, uncomplicated; Z79.899 Other long term (current) drug therapy
CPT/HCPCS: 36415; 93005; 80053; 82150; 83690; 84484; 85025; 85610; 85730; 99284; 96374; 96375 ×2; 96361; J2765; J1170; C9113

== ENCOUNTER 2023-01-20 22:52 | Emergency (ER) | payer BC ==
[2023-01-20 23:27] VITALS: TEMP 99
[2023-01-21] MEDS ORDERED: PROCHLORPERAZINE INJ 10 MG/2 ML VIAL IVP STA (02:45)
[2023-01-21] MEDS ORDERED: SODIUM CHLORIDE 0.9% 1,000 ML IV ONE (02:46)
[2023-01-21] MEDS ORDERED: MAG HYDROX/AL HYDROX/SIMETH 30 ML, HYOSCYAMINE ELIXIR 10 ML, LIDOCAINE VISCOUS 2% 10 ML PO STA ×3 (02:46)
[2023-01-21] MEDS ORDERED: PANTOPRAZOLE 40 MG/10 ML VIAL IVP STA (02:46)
[2023-01-21 03:17] LABS: Basophils % (A) 0 %; Eosinophils # (A) 0.1 k/uL (0-0.7); Eosinophils % (A) 1 %; HCT 47.5 % (39.0-53.0); HGB 16.3 gm/dL (13.0-17.5); Lymphocytes # (A) 0.9 k/uL (1.0-4.8); Lymphocytes % (A) 12 %; MCH 32.3 pg (25.0-35.0); MCHC 34.3 g/dL (31.0-37.0); MCV 94.1 fL (80.0-100.0); Mean Platelet Volume 8.9; Monocytes # (A) 0.4 k/uL (0-1.0); Monocytes % (A) 5 %; Neutrophils # (A) 6.2 k/uL (1.3-7.7); Neutrophils % (A) 82 %; Platelet Count 230 k/uL (150-450); RBC 5.05 m/uL (4.30-5.90); WBC 7.6 k/uL (3.8-10.6)
[2023-01-21] MEDS ORDERED: MORPHINE SULFATE 4 MG/ML SYRINGE IVP STA (03:23)
[2023-01-21] MEDS ORDERED: FAMOTIDINE 20 MG/2 ML VIAL IV STA (03:23)
[2023-01-21] MEDS ORDERED: MAG HYDROX/AL HYDROX/SIMETH 30 ML, HYOSCYAMINE ELIXIR 10 ML PO STA ×2 (03:24)
[2023-01-21 03:34] LABS: ALT 32 U/L (4-49); African American GFR (CKD) >90 (>60 ml/min/1.73 sqM); Albumin 4.4 g/dL (3.5-5.0); Anion Gap 11 mmol/L; Blood Urea Nitrogen 20 mg/dL (9-20); Calcium 9.1 mg/dL (8.4-10.2); Carbon Dioxide 23 mmol/L (22-30); Chloride 102 mmol/L (98-107); Glucose 140 mg/dL (74-99); Non-African American GFR(CKD) >90 (>60 ml/min/1.73 sqM); Sodium 136 mmol/L (137-145); Total Bilirubin 1.5 mg/dL (0.2-1.3); Total Protein 7.2 g/dL (6.3-8.2)
[2023-01-21 03:37] LABS: AST 34 U/L (17-59); Alkaline Phosphatase 60 U/L (38-126); Potassium 4.7 mmol/L (3.5-5.1)
--- NOTE | 2023-01-21 04:32 | ED ---
Abdominal Pain HPI - General Chief Complaint: Abdominal Pain Stated Complaint: acid reflux Time Seen by Provider: 01/21/23 00:30 Source: patient Mode of arrival: wheelchair Limitations: no limitations - History of Present Illness Initial Comments: 57-year-old male with past medical history of gastric reflux who presents emergency department reporting epigastric abdominal discomfort. Patient has been seen in the emergency department several times for the same complaints. He was seen in the emergency room earlier today for epigastric discomfort. States that the medications that he was given only helped for a short period of time. He went home and began having intense burning in his chest with more nausea and vomiting. He states he usually get a GI cocktail, Protonix and some pain medications and had improvement in his symptoms. He denies any diarrhea. No black or bloody stools. No hematemesis. Denies fevers. No other alleviating, precipitating or modifying factors - Related Data Home Medications Medication Instructions Recorded Confirmed Citalopram Hydrobromide [CeleXA] 20 mg PO DAILY 01/24/19 01/22/23 HYDROcodone/APAP 5-325MG [[place] 1 tab PO Q6H PRN 09/18/19 01/22/23 5-325] Warfarin Sodium [Jantoven] 7.5 mg PO DIRECTED 10/09/20 01/22/23 Famotidine 40 mg PO BID 09/21/21 01/22/23 lisinopriL [Zestril] 20 mg PO DAILY 09/21/21 01/22/23 Previous Rx's Medication Instructions Recorded Metoclopramide HCl [Reglan] 10 mg PO Q6HR PRN #15 tablet 01/20/23 Allergies Allergy/AdvReac Type Severity Reaction Status Date / Time No Known Allergies Allergy Verified 01/22/23 18:17 Review of Systems ROS Statement: Those systems with pertinent positive or pertinent negative responses have been documented in the HPI. ROS Other: All systems not noted in ROS Statement are negative. Past Medical History Past Medical History: Atrial Fibrillation, GERD/Reflux, Hyperlipidemia, Hypertension, Osteoarthritis (OA), Syncope Additional Past Medical History / Comment(s): Severe gerd, pt believes he has been told he has had small gastric ulcer in past, arthritis in multiple joints, chronic low back pain, occasional lower leg edema. History of Any Multi-Drug Resistant Organisms: None Reported Past Surgical History: Appendectomy, Cholecystectomy, Hernia Repair, Joint Replacement, Orthopedic Surgery Additional Past Surgical History / Comment(s): Total R hip, R knee arthroscopy, EGDs, umbilical hernia repair Past Anesthesia/Blood Transfusion Reactions: No Reported Reaction Additional Past Anesthesia/Blood Transfusion Reaction / Comment(s): Pt has never received blood. Past Psychological History: Anxiety Smoking Status: Current every day smoker Past Alcohol Use History: Occasional Past Drug Use History: None Reported - Past Family History Father Family Medical History: Coronary Artery Disease (CAD), Myocardial Infarction (MA) Additional Family Medical History / Comment(s): Father has at the age of 74 yrs during valve replacement surgery. He had 2 Cabg's Mother Family Medical History: Coronary Artery Disease (CAD), Diabetes Mellitus, Musculoskeletal Disorder, Neurologic Disorder Additional Family Medical History / Comment(s): Mother is . She at age 64 yrs. She had a cabg and multiple sclerosis Brother(s) Family Medical History: AFIB Additional Family Medical History / Comment(s): Pt has another brother with CAD and MIs General Exam Limitations: no limitations General appearance: alert, in no apparent distress Head exam: Present: atraumatic, normocephalic, normal inspection Eye exam: Present: normal appearance, PERRL, EOMI. Absent: scleral icterus, conjunctival injection, periorbital swelling ENT exam: Present: normal exam, mucous membranes moist Neck exam: Present: normal inspection. Absent: tenderness, meningismus, lymphadenopathy Respiratory exam: Present: normal lung sounds bilaterally. Absent: respiratory distress, wheezes, rales, rhonchi, stridor Cardiovascular Exam: Present: regular rate, normal rhythm, normal heart sounds. Absent: systolic murmur, diastolic murmur, rubs, gallop, clicks GI/Abdominal exam: Present: soft, tenderness (epigastric pain), normal bowel sounds. Absent: distended, guarding, rebound, rigid Extremities exam: Present: normal inspection, full ROM, normal capillary refill. Absent: tenderness, pedal edema, joint swelling, calf tenderness Back exam: Present: normal inspection Neurological exam: Present: alert, oriented X3, CN II-XII intact Psychiatric exam: Present: normal affect, normal mood Skin exam: Present: warm, dry, intact, normal color. Absent: rash Course Vital Signs 01/20/23 01/21/23 23:25 04:40 Temperature 99.0 F Pulse Rate 105 H 102 H Respiratory 18 16 Rate Blood Pressure 171/113 158/98 O2 Sat by Pulse 97 97 Oximetry Medical Decision Making - Medical Decision Making Was pt. sent in by a medical professional or institution (OMARI De Leon, [employer], urgent care, hospital, or [facility]...) When possible be specific @ -No Did you speak to anyone other than the patient for history (EMS, parent, family, police, friend...)? What history was obtained from this source @ -No Did you review nursing and triage notes (agree or disagree)? Why? @ -I reviewed and agree with nursing and triage notes Were old charts reviewed (outside hosp., previous admission, EMS record, old EKG, old radiological studies, urgent care reports/EKG's, [facility] records)? Report findings @ - old charts were reviewed - ER note from earlier today is reviewed as patient was here for same complaint Differential Diagnosis (chest pain, altered mental status, abdominal pain women, abdominal pain men, vaginal bleeding, weakness, fever, dyspnea, syncope, headache, dizziness, GI bleed, back pain, seizure, CVA, palpatations, mental health, musculoskeletal)? @ -gastritis, gerd, gastric ulcer, baretts, esophagitis EKG interpreted by me (3pts min.). @ -No X-rays interpreted by me (1pt min.). @ -No CT interpreted by me (1pt min.). @ -None done U/S interpreted by me (1pt. min.). @ -None done What testing was considered but not performed or refused? (CT, X-rays, U/S, labs)? Why? @ -xray and ct however patient was already evaluated for same complaint earlier today with no change in symptoms What meds were considered but not given or refused? Why? @ -None Did you discuss the management of the patient with other professionals (professionals i.e. OMARI De Leon, [employer], lab, RT, psych nurse, clinical social work therapist, aircraft general repair mechanic, teacher, adult probation officer, counter caser)? Give summary @ -No Was smoking cessation discussed for >3mins.? @ -No Was critical care preformed (if so, how long)? @ -No Were there social determinants of health that impacted care today? How? (Homeles sness, low income, unemployed, alcoholism, drug addiction, transportation, low edu. Level, literacy, decrease access to med. care, [facility], rehab)? @ -No Was there de-escalation of care discussed even if they declined (Discuss DNR or withdrawal of care, Hospice)? DNR status @ -No What co-morbidities impacted this encounter? (DM, HTN, Smoking, COPD, CAD, Cancer, CVA, ARF, Chemo, Hep., AIDS, mental health diagnosis, sleep apnea, morbid obesity)? @ -GERD Was patient admitted / discharged? Hospital course, mention meds given and route, prescriptions, significant lab abnormalities, going to OR and other pertinent info. @ -Upon arrival patient was placed into room 8. Thorough history and physical exam is performed. IV access established. He was given a GI cocktail, Pepcid, Protonix. Patient reevaluated and continues to have symptoms. Requesting morphine. Patient given 1 dose reevaluated and he states that he has improvement in his symptoms. Patient will be discharged home at this time. Instructed to return for any new or worsening symptoms. Patient needs to see GI for endoscopy. Patient was agreeable treatment plan and was discharged home in stable condition Undiagnosed new problem with uncertain prognosis? @ -no Drug Therapy requiring intensive monitoring for toxicity (Heparin, Nitro, Insu javier, Cardizem)? @ -No Were any procedures done? @ -No Diagnosis/symptom? @ -acute exacerbation of chronic epigastric pain Acute, or Chronic, or Acute on Chronic? @ -acute on chronic Uncomplicated (without systemic symptoms) or Complicated (systemic symptoms)? @ -complicated Side effects of treatment? @ -No Exacerbation, Progression, or Severe Exacerbation? @ -yes Poses a threat to life or bodily function? How? (Chest pain, USA, [place], pneumonia, PE, COPD, DKA, ARF, appy, cholecystitis, CVA, Diverticulitis, Homicidal, Suicidal, threat to staff... and all critical care pts) @ -No - Lab Data Result diagrams: 01/21/23 02:55 01/21/23 02:55 Lab Results 01/21/23 01/21/23 Range/Units 02:55 02:55 WBC 7.6 (3.8-10.6) k/uL RBC 5.05 (4.30-5.90) m/uL Hgb 16.3 (13.0-17.5) gm/dL Hct 47.5 (39.0-53.0) % MCV 94.1 (80.0-100.0) fL MCH 32.3 (25.0-35.0) pg MCHC 34.3 (31.0-37.0) g/dL RDW 13.0 (11.5-15.5) % Plt Count 230 (150-450) k/uL MPV 8.9 Neutrophils % 82 % Lymphocytes % 12 % Monocytes % 5 % Eosinophils % 1 % Basophils % 0 % Neutrophils # 6.2 (1.3-7.7) k/uL Lymphocytes # 0.9 L (1.0-4.8) k/uL Monocytes # 0.4 (0-1.0) k/uL Eosinophils # 0.1 (0-0.7) k/uL Basophils # 0.0 (0-0.2) k/uL Sodium 136 L (137-145) mmol/L Potassium 4.7 (3.5-5.1) mmol/L Chloride 102 (98-107) mmol/L Carbon Dioxide 23 (22-30) mmol/L Anion Gap 11 mmol/L BUN 20 (9-20) mg/dL Creatinine 0.70 (0.66-1.25) mg/dL Est GFR (CKD-EPI)AfAm >90 (>60 ml/min/1.73 sqM) Est GFR (CKD-EPI)NonAf >90 (>60 ml/min/1.73 sqM) Glucose 140 H (74-99) mg/dL Calcium 9.1 (8.4-10.2) mg/dL Total Bilirubin 1.5 H (0.2-1.3) mg/dL AST 34 (17-59) U/L ALT 32 (4-49) U/L Alkaline Phosphatase 60 (38-126) U/L Total Protein 7.2 (6.3-8.2) g/dL Albumin 4.4 (3.5-5.0) g/dL Disposition Clinical Impression: Epigastric pain, Nausea & vomiting Disposition: HOME SELF-CARE Condition: Stable Instructions (If sedation given, give patient instructions): Acute Nausea and Vomiting (ED) Additional Instructions: Please continue taking your medications as directed. Follow up with your doctor and return for any new or worsening symptoms Is patient prescribed a controlled substance at d/c from ED?: No Referrals: Aaron Loja MD [Primary Care Provider] - 1-2 days Time of Disposition: 04:32
[2023-01-21 04:52] VITALS: BP 158/98; PULSE 102; RESP 16
== END 2023-01-21 04:40 | disposition home or self-care (01) ==
LOC: EC 22:52
DX: R10.13 Epigastric pain (principal); R11.2 Nausea with vomiting, unspecified; I10 Essential (primary) hypertension; I48.91 Unspecified atrial fibrillation; E78.5 Hyperlipidemia, unspecified; M19.90 Unspecified osteoarthritis, unspecified site; F41.9 Anxiety disorder, unspecified; F17.200 Nicotine dependence, unspecified, uncomplicated; Z79.899 Other long term (current) drug therapy; Z90.49 Acquired absence of other specified parts of digestive tract
CPT/HCPCS: 36415; 80053; 85025; 99284; 96374; 96375 ×3; 96361; J2270; J0780; C9113

== ENCOUNTER 2023-01-22 15:42 | Emergency (ER) | payer BC ==
[2023-01-22] MEDS ORDERED: PANTOPRAZOLE 40 MG/10 ML VIAL IVP STA (18:38)
[2023-01-22] MEDS ORDERED: MAG HYDROX/AL HYDROX/SIMETH 30 ML, HYOSCYAMINE ELIXIR 10 ML, LIDOCAINE VISCOUS 2% 10 ML PO STA ×6 (18:39→19:47)
[2023-01-22] MEDS ORDERED: FAMOTIDINE 20 MG/2 ML VIAL IV STA (18:39)
[2023-01-22] MEDS ORDERED: KETOROLAC 15 MG/ML 1 ML VIAL IVP STA (19:46)
[2023-01-22] MEDS ORDERED: SODIUM CHLORIDE 0.9% 1,000 ML IV ONE (19:47)
--- NOTE | 2023-01-22 20:13 | ED ---
General Adult HPI - General Chief complaint: Nausea/Vomiting/Diarrhea Stated complaint: GERD Source: patient, RN notes reviewed, old records reviewed Mode of arrival: ambulatory Limitations: no limitations - History of Present Illness Initial comments: 57-year-old male presents emergency Department with chief complaint of acid reflux. Patient has a long-standing history of acid reflux. He was here 3 days ago and again 2 days ago for the same thing where he was treated with a GI cocktail, Pepcid, Protonix which resolved his symptoms. He states that he's been dealing with acid reflux for greater than 20 years and this is no different in character to previous times. He states that he occasionally vomiting. He states that he did not pickle processor his medication from the pharmacy. Denies diarrhea, fever, shortness of breath. Patient has past medical history of atrial fibrillation. - Related Data Home Medications Medication Instructions Recorded Confirmed Citalopram Hydrobromide [CeleXA] 20 mg PO DAILY 01/24/19 01/22/23 HYDROcodone/APAP 5-325MG [[place] 1 tab PO Q6H PRN 09/18/19 01/22/23 5-325] Warfarin Sodium [Jantoven] 7.5 mg PO DIRECTED 10/09/20 01/22/23 Famotidine 40 mg PO BID 09/21/21 01/22/23 lisinopriL [Zestril] 20 mg PO DAILY 09/21/21 01/22/23 Previous Rx's Medication Instructions Recorded Metoclopramide HCl [Reglan] 10 mg PO Q6HR PRN #15 tablet 01/20/23 Allergies Allergy/AdvReac Type Severity Reaction Status Date / Time No Known Allergies Allergy Verified 01/22/23 18:17 Review of Systems ROS Statement: Those systems with pertinent positive or pertinent negative responses have been documented in the HPI. ROS Other: All systems not noted in ROS Statement are negative. Past Medical History Past Medical History: Atrial Fibrillation, GERD/Reflux, Hyperlipidemia, Hypertension, Osteoarthritis (OA), Syncope Additional Past Medical History / Comment(s): Severe gerd, pt believes he has been told he has had small gastric ulcer in past, arthritis in multiple joints, chronic low back pain, occasional lower leg edema. History of Any Multi-Drug Resistant Organisms: None Reported Past Surgical History: Appendectomy, Cholecystectomy, Hernia Repair, Joint Replacement, Orthopedic Surgery Additional Past Surgical History / Comment(s): Total R hip, R knee arthroscopy, EGDs, umbilical hernia repair Past Anesthesia/Blood Transfusion Reactions: No Reported Reaction Additional Past Anesthesia/Blood Transfusion Reaction / Comment(s): Pt has never received blood. Past Psychological History: Anxiety Smoking Status: Current every day smoker Past Alcohol Use History: Occasional Past Drug Use History: None Reported - Past Family History Father Family Medical History: Coronary Artery Disease (CAD), Myocardial Infarction (RI) Additional Family Medical History / Comment(s): Father has at the age of 74 yrs during valve replacement surgery. He had 2 Cabg's Mother Family Medical History: Coronary Artery Disease (CAD), Diabetes Mellitus, Musculoskeletal Disorder, Neurologic Disorder Additional Family Medical History / Comment(s): Mother is . She at age 64 yrs. She had a cabg and multiple sclerosis Brother(s) Family Medical History: AFIB Additional Family Medical History / Comment(s): Pt has another brother with CAD and MIs General Exam Limitations: no limitations General appearance: alert, in no apparent distress Head exam: Present: atraumatic, normocephalic, normal inspection Eye exam: Present: normal appearance ENT exam: Present: normal exam, mucous membranes moist Neck exam: Present: normal inspection. Absent: tenderness, meningismus, lymphadenopathy Respiratory exam: Present: normal lung sounds bilaterally. Absent: respiratory distress, wheezes, rales, rhonchi, stridor Cardiovascular Exam: Present: regular rate, irregular rhythm GI/Abdominal exam: Present: soft, normal bowel sounds. Absent: distended, tenderness, guarding, rebound, rigid Psychiatric exam: Present: normal affect, normal mood Skin exam: Present: warm, dry, intact, normal color. Absent: rash Course Vital Signs 01/22/23 01/22/23 16:05 20:24 Temperature 97.2 F L 98.8 F Pulse Rate 94 86 Respiratory 20 18 Rate Blood Pressure 180/113 153/96 O2 Sat by Pulse 99 96 Oximetry Medical Decision Making - Medical Decision Making Was pt. sent in by a medical professional or institution (, PA, TOOLING MANAGER, urgent care, hospital, or assisted...) When possible be specific @ -No Did you speak to anyone other than the patient for history (EMS, parent, family, police, friend...)? What history was obtained from this source @ -No Did you review nursing and triage notes (agree or disagree)? Why? @ -I reviewed and agree with nursing and triage notes Were old charts reviewed (outside hosp., previous admission, EMS record, old EKG, old radiological studies, urgent care reports/EKG's, assisted records)? Report findings @ -Charts from visits 2 and 3 days ago are reviewed Differential Diagnosis (chest pain, altered mental status, abdominal pain women, abdominal pain men, vaginal bleeding, weakness, fever, dyspnea, syncope, headache, dizziness, GI bleed, back pain, seizure, CVA, palpatations, mental health, musculoskeletal)? @ -Differential Abdominal Pain Men: Appendicitis, cholecystitis, diverticulosis, ischemic bowel, pancreatitis, hepatitis, UTI, gastroenteritis, AAA, incarcerated hernia, bowel obstruction, constipation, inflammatory bowel, hepatitis, peptic ulcer disease, splenic infarction, perforated viscus, testicular torsion, this is not meant to be an all-inclusive list EKG interpreted by me (3pts min.). @ -EKG at 1611 showed atrial fibrillation, nonspecific T-wave abnormality, rate 84, QRS 86, QTQTc [id number] X-rays interpreted by me (1pt min.). @ -None done CT interpreted by me (1pt min.). @ -None done U/S interpreted by me (1pt. min.). @ -None done What testing was considered but not performed or refused? (CT, X-rays, U/S, labs)? Why? @ -Laboratory testing including cardiac workup, troponin was refused by patient. CT chest was considered to rule out dissection but was refused by patient What meds were considered but not given or refused? Why? @ -None Did you discuss the management of the patient with other professionals (professionals i.e. , PA, TOOLING MANAGER, lab, RT, psych nurse, social service agency director, clerk analyst, teacher, safety patrol officer, supportive employment case manager)? Give summary @ -No Was smoking cessation discussed for >3mins.? @ -No Was critical care preformed (if so, how long)? @ -No Were there social determinants of health that impacted care today? How? (Homelessness, low income, unemployed, alcoholism, drug addiction, transportation, low edu. Level, literacy, decrease access to med. care, assisted, rehab)? @ -No Was there de-escalation of care discussed even if they declined (Discuss DNR or withdrawal of care, Hospice)? DNR status @ -No What co-morbidities impacted this encounter? (DM, HTN, Smoking, COPD, CAD, Canc er, CVA, ARF, Chemo, Hep., AIDS, mental health diagnosis, sleep apnea, morbid obesity)? @ -None Was patient admitted / discharged? Hospital course, mention meds given and route, prescriptions, significant lab abnormalities, going to OR and other pertinent info. @ -Discharged. Patient presented to emergency department with chief complaint of acid reflux. EKG was performed which showed atrial fibrillation which patient has a history of present is on warfarin for. Patient refused additional testing including laboratory studies and computed tomography scan. The importance of these tests was discussed with patient including the inability to rule out life-threatening conditions including RI and aortic dissection without these tests but patient still refused. Patient was administered a 1L NS, GI cocktail, Protonix, Pepcid, Toradol. Patient was advised to pickle processor his medications from the pharmacy and follow up with his primary care provider. Return precautions discussed. Patient discharged in stable condition. Case discussed with my attending, Dr. Rashid Undiagnosed new problem with uncertain prognosis? @ -No Drug Therapy requiring intensive monitoring for toxicity (Heparin, Nitro, Insulin, Cardizem)? @ -No Were any procedures done? @ -No Diagnosis/symptom? @ -GERD Acute, or Chronic, or Acute on Chronic? @ -acute Uncomplicated (without systemic symptoms) or Complicated (systemic symptoms)? @ -uncomplicated Side effects of treatment? @ -No Exacerbation, Progression, or Severe Exacerbation? @ -No Poses a threat to life or bodily function? How? (Chest pain, USA, RI, pneumonia, PE, COPD, DKA, ARF, appy, cholecystitis, CVA, Diverticulitis, Homicidal, Suicidal, threat to staff... and all critical care pts) @ -No Disposition Clinical Impression: GERD (gastroesophageal reflux disease) Disposition: HOME SELF-CARE Condition: Stable Instructions (If sedation given, give patient instructions): GERD (Gastroesophageal Reflux Disease) (ED) Additional Instructions: Please return to the Emergency Department if symptoms worsen or any other concerns. Is patient prescribed a controlled substance at d/c from ED?: No Referrals: Aaron Loja MD [Primary Care Provider] - 1-2 days Time of Disposition: 20:12
[2023-01-22 20:24] VITALS: BP 153/96; PULSE 86; RESP 18; TEMP 98.8
== END 2023-01-22 20:24 | disposition home or self-care (01) ==
LOC: EC 15:42
DX: K21.9 Gastro-esophageal reflux disease without esophagitis (principal); I48.91 Unspecified atrial fibrillation; I10 Essential (primary) hypertension; M19.90 Unspecified osteoarthritis, unspecified site; F41.9 Anxiety disorder, unspecified; F17.200 Nicotine dependence, unspecified, uncomplicated; Z79.1 Long term (current) use of non-steroidal anti-inflammatories (NSAID); Z79.899 Other long term (current) drug therapy; Z79.01 Long term (current) use of anticoagulants
CPT/HCPCS: 93005; 99284; 96374; 96375 ×2; J1885; C9113

== ENCOUNTER 2023-03-19 17:11 | Observation (INO) | payer BC ==
--- NOTE | 2023-03-19 17:33 | ED ---
General Adult HPI - General Source: patient, RN notes reviewed Mode of arrival: ambulatory Limitations: no limitations <Jessica Rausch - Last Filed: 03/19/23 17:33> <Holly Dueñas - Last Filed: 03/19/23 22:03> - General Chief complaint: Abdominal Pain Stated complaint: Abd pain Time Seen by Provider: 03/19/23 17:33 - History of Present Illness Initial comments: 58-year-old male with past medical history significant for GERD since the emergency department with a chief complaint of epigastric pain. Patient reports he was seen at [facility] prior to arrival. He reports no resolution of symptoms. (Jessica Rausch) Patient is an alcoholic who admits to drinking earlier today he does have a history of previous alcoholic pancreatitis. Patient reports his pain is epigastric associated with nausea with no relieving factors similar to previous episodes of pancreatitis. No fevers. (Holly Dueñas) - Related Data Home Medications Medication Instructions Recorded Confirmed Citalopram Hydrobromide [CeleXA] 20 mg PO DAILY 01/24/19 03/19/23 Warfarin Sodium [Jantoven] 7.5 mg PO DAILY 10/09/20 03/19/23 Famotidine 40 mg PO BID 09/21/21 03/19/23 lisinopriL [Zestril] 20 mg PO DAILY 09/21/21 03/19/23 oxyCODONE-APAP 5-325MG [Percocet 1 tab PO Q6HR PRN 03/19/23 03/19/23 5-325 mg] Allergies Allergy/AdvReac Type Severity Reaction Status Date / Time No Known Allergies Allergy Verified 03/19/23 20:56 Review of Systems ROS Other: All systems not noted in ROS Statement are negative. <Jessica Rausch - Last Filed: 03/19/23 17:33> ROS Other: All systems not noted in ROS Statement are negative. <Holly Dueñas - Last Filed: 03/19/23 22:03> ROS Statement: Those systems with pertinent positive or pertinent negative responses have been documented in the HPI. Past Medical History Past Medical History: Atrial Fibrillation, GERD/Reflux, Hyperlipidemia, Hypertension, Osteoarthritis (OA), Syncope Additional Past Medical History / Comment(s): Severe gerd, pt believes he has been told he has had small gastric ulcer in past, arthritis in multiple joints, chronic low back pain, occasional lower leg edema. History of Any Multi-Drug Resistant Organisms: None Reported Past Surgical History: Appendectomy, Cholecystectomy, Hernia Repair, Joint Replacement, Orthopedic Surgery Additional Past Surgical History / Comment(s): Total R hip, R knee arthroscopy, EGDs, umbilical hernia repair Past Anesthesia/Blood Transfusion Reactions: No Reported Reaction Additional Past Anesthesia/Blood Transfusion Reaction / Comment(s): Pt has never received blood. Past Psychological History: Anxiety Smoking Status: Current every day smoker Past Alcohol Use History: Occasional Past Drug Use History: None Reported - Past Family History Father Family Medical History: Coronary Artery Disease (CAD), Myocardial Infarction (PA) Additional Family Medical History / Comment(s): Father has at the age of 74 yrs during valve replacement surgery. He had 2 Cabg's Mother Family Medical History: Coronary Artery Disease (CAD), Diabetes Mellitus, Musculoskeletal Disorder, Neurologic Disorder Additional Family Medical History / Comment(s): Mother is . She at age 64 yrs. She had a cabg and multiple sclerosis Brother(s) Family Medical History: AFIB Additional Family Medical History / Comment(s): Pt has another brother with CAD and MIs <Jessica Rausch - Last Filed: 03/19/23 17:33> General Exam Limitations: no limitations <Jessica Rausch - Last Filed: 03/19/23 17:33> <Holly Dueñas - Last Filed: 03/19/23 22:03> - General Exam Comments Initial Comments: Visual Physical Exam Vital signs reviewed General: Well-appearing, nontoxic, no acute distress. Head: Normocephalic, atraumatic Eyes: PERRLA, EOMI ENT: Airway patent Chest: Nonlabored breathing Skin: No visual rash, normal skin tone Neuro: Alert and oriented 3 Musculoskeletal: No gross abnormalities (Jessica Rausch) Physical Exam GENERAL: Patient is well-developed and well-nourished. Patient is nontoxic and well-hydrated and is in no distress. HENT: Normocephalic, Atraumatic. EYES: PERRL, EOMI PULMONARY: Unlabored respirations. CARDIOVASCULAR: RRR Warm and well perfused extremities ABDOMEN: Tenderness to palpation in the epigastrium SKIN: No rashes or bruising : Deferred NEUROLOGIC: Alert and oriented Normal speech Normal gait MUSCULOSKELETAL: Moving all extremities with no apparent injury PSYCHIATRIC: No SI/HI (Holly Dueñas) Course Vital Signs 03/19/23 03/19/23 17:30 18:28 Temperature 98.9 F Pulse Rate 120 H 96 Respiratory 20 18 Rate Blood Pressure 153/101 166/107 O2 Sat by Pulse 97 97 Oximetry EKG Findings - EKG Comments: EKG Findings:: EKG was ordered and interpreted by me, EKG was ordered due to tachycardia and epigastric pain. EKG was obtained at this 1737 EKG is narrow complex tachycardia irregularly irregular with a rate of 112. This is atrial fibrillation with RVR. This is consistent with patient's history of atrial fibrillation. There are T-wave inversions laterally no acute ST elevations no evidence of acute infarction. <Holly Dueñas - Last Filed: 03/19/23 22:03> Medical Decision Making - Lab Data Result diagrams: 03/19/23 18:24 03/19/23 18:24 <Holly Dueñas - Last Filed: 03/19/23 22:03> - Medical Decision Making Was pt. sent in by a medical professional or institution (OMARI De Leon, FILM DEVELOPER, urgent care, hospital, or usp...) When possible be specific @ -Yes physician Did you speak to anyone other than the patient for history (EMS, parent, family, police, friend...)? What history was obtained from this source @ -[No] Did you review nursing and triage notes (agree or disagree)? Why? @ -[I reviewed and agree with nursing and triage notes] Were old charts reviewed (outside hosp., previous admission, EMS record, old EKG, old radiological studies, urgent care reports/EKG's, usp records)? Report findings @ -Previous admission notes were reviewed Differential Diagnosis (chest pain, altered mental status, abdominal pain women, abdominal pain men, vaginal bleeding, weakness, fever, dyspnea, syncope, headache, dizziness, GI bleed, back pain, seizure, CVA, palpatations, mental health, musculoskeletal)? @ -GERD, gastritis, pancreatitis, acute cholecystitis EKG interpreted by me (3pts min.). @ -As above X-rays interpreted by me (1pt min.). @ -[None done] CT interpreted by me (1pt min.). @ -[None done] U/S interpreted by me (1pt. min.). @ -[None done] What testing was considered but not performed or refused? (CT, X-rays, U/S, labs)? Why? @ -CT of the abdomen was considered however given the patient's history of alcoholic pancreatitis and current alcohol intoxication What meds were considered but not given or refused? Why? @ -[None] Did you discuss the management of the patient with other professionals (professionals i.e. , PA, FILM DEVELOPER, lab, RT, psych nurse, social media project manager, tellers supervisor, teacher, national insurance officer, showcase maker)? Give summary @ -Patient care was discussed with patient's primary care physician Dr. Loja Was smoking cessation discussed for >3mins.? @ -[No] Was critical care preformed (if so, how long)? @ -[No] Were there social determinants of health that impacted care today? How? (Homelessness, low income, unemployed, alcoholism, drug addiction, transportation, low edu. Level, literacy, decrease access to med. care, fci, rehab)? @ -Alcoholism Was there de-escalation of care discussed even if they declined (Discuss DNR or withdrawal of care, Hospice)? DNR status @ -[No] What co-morbidities impacted this encounter? (DM, HTN, Smoking, COPD, CAD, Cancer, CVA, ARF, Chemo, Hep., AIDS, mental health diagnosis, sleep apnea, morbid obesity)? @ -Alcoholism Was patient admitted / discharged? Hospital course, mention meds given and route, prescriptions, significant lab abnormalities, going to OR and other pertinent info. @ -Admitted Undiagnosed new problem with uncertain prognosis? @ -[No] Drug Therapy requiring intensive monitoring for toxicity (Heparin, Nitro, Insulin, Cardizem)? @ -[No] Were any procedures done? @ -[No] Diagnosis/symptom? @ -Acute alcoholic pancreatitis Acute, or Chronic, or Acute on Chronic? @ -Acute Uncomplicated (without systemic symptoms) or Complicated (systemic symptoms)? @ -[default] Side effects of treatment? @ -[No] Exacerbation, Progression, or Severe Exacerbation? @ -Recurrence Poses a threat to life or bodily function? How? (Chest pain, USA, PA, pneumonia, PE, COPD, DKA, ARF, appy, cholecystitis, CVA, Diverticulitis, Homicidal, Suicidal, threat to staff... and all critical care pts) @ -Yes (Holly Dueñas) - Lab Data Lab Results 03/19/23 03/19/23 03/19/23 Range/Units 18:24 18:24 18:24 WBC 10.4 (3.8-10.6) k/uL RBC 4.81 (4.30-5.90) m/uL Hgb 15.9 (13.0-17.5) gm/dL Hct 47.4 (39.0-53.0) % MCV 98.6 (80.0-100.0) fL MCH 33.2 (25.0-35.0) pg MCHC 33.7 (31.0-37.0) g/dL RDW 12.7 (11.5-15.5) % Plt Count 208 (150-450) k/uL MPV 9.2 Neutrophils % 77 % Lymphocytes % 13 % Monocytes % 8 % Eosinophils % 1 % Basophils % 0 % Neutrophils # 8.0 H (1.3-7.7) k/uL Lymphocytes # 1.3 (1.0-4.8) k/uL Monocytes # 0.8 (0-1.0) k/uL Eosinophils # 0.1 (0-0.7) k/uL Basophils # 0.0 (0-0.2) k/uL Sodium 137 (137-145) mmol/L Potassium 3.4 L (3.5-5.1) mmol/L Chloride 97 L (98-107) mmol/L Carbon Dioxide 25 (22-30) mmol/L Anion Gap 15 mmol/L BUN 31 H (9-20) mg/dL Creatinine 1.62 H (0.66-1.25) mg/dL Est GFR (CKD-EPI)AfAm 53 (>60 ml/min/1.73 sqM) Est GFR (CKD-EPI)NonAf 46 (>60 ml/min/1.73 sqM) Glucose 117 H (74-99) mg/dL Calcium 9.8 (8.4-10.2) mg/dL Total Bilirubin 0.9 (0.2-1.3) mg/dL AST 34 (17-59) U/L ALT 28 (4-49) U/L Alkaline Phosphatase 60 (38-126) U/L Troponin I (0.000-0.034) ng/mL Total Protein 7.0 (6.3-8.2) g/dL Albumin 4.5 (3.5-5.0) g/dL Lipase 333 H (23-300) U/L Urine Color Yellow Urine Appearance Clear (Clear) Urine pH 5.5 (5.0-8.0) Ur Specific [place] 1.038 H (1.001-1.035) Urine Protein 1+ H (Negative) Urine Glucose (UA) Trace H (Negative) Urine Ketones Negative (Negative) Urine Blood Negative (Negative) Urine Nitrite Negative (Negative) Urine Bilirubin Negative (Negative) Urine Urobilinogen <2.0 (<2.0) mg/dL Ur Leukocyte Esterase Negative (Negative) Urine RBC 2 (0-5) /hpf Urine WBC <1 (0-5) /hpf Hyaline Casts 1 (0-2) /lpf Urine Mucus Occasional H (None) /hpf 03/19/23 Range/Units 18:24 WBC (3.8-10.6) k/uL RBC (4.30-5.90) m/uL Hgb (13.0-17.5) gm/dL Hct (39.0-53.0) % MCV (80.0-100.0) fL MCH (25.0-35.0) pg MCHC (31.0-37.0) g/dL RDW (11.5-15.5) % Plt Count (150-450) k/uL MPV Neutrophils % % Lymphocytes % % Monocytes % % Eosinophils % % Basophils % % Neutrophils # (1.3-7.7) k/uL Lymphocytes # (1.0-4.8) k/uL Monocytes # (0-1.0) k/uL Eosinophils # (0-0.7) k/uL Basophils # (0-0.2) k/uL Sodium (137-145) mmol/L Potassium (3.5-5.1) mmol/L Chloride (98-107) mmol/L Carbon Dioxide (22-30) mmol/L Anion Gap mmol/L BUN (9-20) mg/dL Creatinine (0.66-1.25) mg/dL Est GFR (CKD-EPI)AfAm (>60 ml/min/1.73 sqM) Est GFR (CKD-EPI)NonAf (>60 ml/min/1.73 sqM) Glucose (74-99) mg/dL Calcium (8.4-10.2) mg/dL Total Bilirubin (0.2-1.3) mg/dL AST (17-59) U/L ALT (4-49) U/L Alkaline Phosphatase (38-126) U/L Troponin I <0.012 (0.000-0.034) ng/mL Total Protein (6.3-8.2) g/dL Albumin (3.5-5.0) g/dL Lipase (23-300) U/L Urine Color Urine Appearance (Clear) Urine pH (5.0-8.0) Ur Specific [place] (1.001-1.035) Urine Protein (Negative) Urine Glucose (UA) (Negative) Urine Ketones (Negative) Urine Blood (Negative) Urine Nitrite (Negative) Urine Bilirubin (Negative) Urine Urobilinogen (<2.0) mg/dL Ur Leukocyte Esterase (Negative) Urine RBC (0-5) /hpf Urine WBC (0-5) /hpf Hyaline Casts (0-2) /lpf Urine Mucus (None) /hpf Disposition <Jessica Rausch - Last Filed: 03/19/23 17:33> Is patient prescribed a controlled substance at d/c from ED?: No <Holly Dueñas - Last Filed: 03/19/23 22:03> Clinical Impression: Alcoholic pancreatitis Disposition: ADMITTED IP TO THIS HOSP Condition: Stable Referrals: Aaron Loja MD [STAFF PHYSICIAN] - 1-2 days
[2023-03-19] MEDS ORDERED: ONDANSETRON 4 MG/2 ML VIAL IVP STA (18:04)
[2023-03-19] MEDS ORDERED: MAG HYDROX/AL HYDROX/SIMETH 30 ML, HYOSCYAMINE ELIXIR 10 ML, LIDOCAINE 2% GLYDO JELLY 1... PO STA ×3 (18:04)
[2023-03-19] MEDS ORDERED: SODIUM CHLORIDE 0.9% 1,000 ML IV ONE ×2 (18:04→20:01)
[2023-03-19] MEDS ORDERED: PANTOPRAZOLE 40 MG/10 ML VIAL IVP STA (18:04)
[2023-03-19 18:47] LABS: Basophils % (A) 0 %; Eosinophils # (A) 0.1 k/uL (0-0.7); Eosinophils % (A) 1 %; HCT 47.4 % (39.0-53.0); HGB 15.9 gm/dL (13.0-17.5); Lymphocytes # (A) 1.3 k/uL (1.0-4.8); Lymphocytes % (A) 13 %; MCH 33.2 pg (25.0-35.0); MCHC 33.7 g/dL (31.0-37.0); MCV 98.6 fL (80.0-100.0); Mean Platelet Volume 9.2; Monocytes # (A) 0.8 k/uL (0-1.0); Monocytes % (A) 8 %; Neutrophils % (A) 77 %; Platelet Count 208 k/uL (150-450); RBC 4.81 m/uL (4.30-5.90); RDW 12.7 % (11.5-15.5); WBC 10.4 k/uL (3.8-10.6)
[2023-03-19 19:01] LABS: ALT 28 U/L (4-49); AST 34 U/L (17-59); African American GFR (CKD) 53 (>60 ml/min/1.73 sqM); Albumin 4.5 g/dL (3.5-5.0); Alkaline Phosphatase 60 U/L (38-126); Anion Gap 15 mmol/L; Blood Urea Nitrogen 31 mg/dL (9-20); Calcium 9.8 mg/dL (8.4-10.2); Carbon Dioxide 25 mmol/L (22-30); Chloride 97 mmol/L (98-107); Glucose 117 mg/dL (74-99); Lipase 333 U/L (23-300); Non-African American GFR(CKD) 46 (>60 ml/min/1.73 sqM); Potassium 3.4 mmol/L (3.5-5.1); Sodium 137 mmol/L (137-145); Total Bilirubin 0.9 mg/dL (0.2-1.3)
[2023-03-19] MEDS ORDERED: MORPHINE SULFATE 4 MG/ML SYRINGE IVP STA (20:02)
[2023-03-19 20:05] LABS: Appearance,Urine Clear (Clear); Bilirubin,Urine Negative (Negative); Blood,Urine Negative (Negative); Color,Urine Yellow; Glucose,Urine (UA) Trace (Negative); Hyaline Casts,Urine 1 /lpf (0-2); Ketones,Urine Negative (Negative); Leukocyte Esterase,Urine Negative (Negative); Mucus,Urine Occasional /hpf; Nitrite,Urine Negative (Negative); PH, Urine 5.5 (5.0-8.0); Protein,Urine 1+ (Negative); RBC,Urine 2 /hpf (0-5); Specific Gravity,Urine 1.038 (1.001-1.035); Urobilinogen,Urine <2.0 mg/dL (<2.0); WBC,Urine <1 /hpf (0-5)
[2023-03-19] MEDS ORDERED: NALOXONE 0.4 MG/ML 1 ML VIAL IV PRN (22:03)
[2023-03-19] MEDS ORDERED: ONDANSETRON 4 MG/2 ML VIAL IVP PRN (22:28)
[2023-03-19] MEDS ORDERED: LORazepam 1 MG TAB PO PRN ×2 (22:31)
[2023-03-19] MEDS ORDERED: LORazepam 2 MG/ML INJ IV PRN (22:31)
[2023-03-19] MEDS ORDERED: THIAMINE 100 MG/ML 2 ML VIAL IM STA (22:31)
[2023-03-19] MEDS: MORPHINE SULFATE 4 MG/ML SYRINGE IV PRN (22:38)
[2023-03-19] MEDS: SODIUM CHLORIDE 0.9% 1,000 ML IV SCH (23:46)
[2023-03-20] MEDS: SODIUM CHLORIDE 0.9% 1,000 ML IV SCH ×3 (00:57→14:20)
[2023-03-20] MEDS: MORPHINE SULFATE 4 MG/ML SYRINGE IV PRN ×2 (03:57→08:19)
[2023-03-20 07:31] VITALS: BP 128/86; PULSE 76; RESP 14; TEMP 97.6
--- NOTE | 2023-03-20 08:59 | P.HPIM ---
History of Present Illness H&P Date: 03/20/23 Chief Complaint: Abdominal pain. The patient is here essentially as a 58-year-old white male who has an underlying history of atrial fibrillation. However he's been somewhat noncompliant taking his Coumadin and he came in with sudden onset of severe abdominal pain. He was found have early pancreatitis and states that he's alcoholic drinking about half a pint of hard liquor daily. He's been in this for many many years. No previous delirium tremens. Opiate dependency related to DJD of the lumbar spine is also noted. No fever or chills stated. Review of Systems Constitutional: Denies chills, Denies fever Eyes: denies blurred vision, denies pain Ears, nose, mouth and throat: Denies headache, Denies sore throat Cardiovascular: Denies chest pain, Denies shortness of breath Gastrointestinal: Reports abdominal pain, Reports nausea, Reports vomiting, Denies diarrhea Genitourinary: Reports as per HPI Musculoskeletal: Denies myalgias Past Medical History Past Medical History: Atrial Fibrillation, GERD/Reflux, Hyperlipidemia, Hypertension, Osteoarthritis (OA), Syncope Additional Past Medical History / Comment(s): Severe gerd, pt believes he has been told he has had small gastric ulcer in past, arthritis in multiple joints, chronic low back pain, occasional lower leg edema. History of Any Multi-Drug Resistant Organisms: None Reported Past Surgical History: Appendectomy, Cholecystectomy, Hernia Repair, Joint Replacement, Orthopedic Surgery Additional Past Surgical History / Comment(s): Total R hip, R knee arthroscopy, EGDs, umbilical hernia repair Past Anesthesia/Blood Transfusion Reactions: No Reported Reaction Additional Past Anesthesia/Blood Transfusion Reaction / Comment(s): Pt has never received blood. Past Psychological History: Anxiety Additional Psychological History / Comment(s): Pt lives with significant other a nd is independent. He does have a limp. He does not use any assistive devices. . Smoking Status: Current every day smoker Past Alcohol Use History: Daily Additional Past Alcohol Use History / Comment(s): Pt started smoking in 1987 and is a 0.5 ppd smoker. Patient states he has 2-3 shots of liquor a day. Past Drug Use History: None Reported Additional Drug Use History / Comment(s): Pt S.O. states he took 90 pills of norco within a week post hip replacement - Past Family History Father Family Medical History: Coronary Artery Disease (CAD), Myocardial Infarction ([place]) Additional Family Medical History / Comment(s): Father has at the age of 74 yrs during valve replacement surgery. He had 2 Cabg's Mother Family Medical History: Coronary Artery Disease (CAD), Diabetes Mellitus, Musculoskeletal Disorder, Neurologic Disorder Additional Family Medical History / Comment(s): Mother is . She at age 64 yrs. She had a cabg and multiple sclerosis Brother(s) Family Medical History: AFIB Additional Family Medical History / Comment(s): Pt has another brother with CAD and MIs Medications and Allergies Home Medications Medication Instructions Recorded Confirmed Type Citalopram Hydrobromide [CeleXA] 20 mg PO DAILY 01/24/19 03/19/23 History Warfarin Sodium [Jantoven] 7.5 mg PO DAILY 10/09/20 03/19/23 History Famotidine 40 mg PO BID 09/21/21 03/19/23 History lisinopriL [Zestril] 20 mg PO DAILY 09/21/21 03/19/23 History oxyCODONE-APAP 5-325MG [Percocet 1 tab PO Q6HR PRN 03/19/23 03/19/23 History 5-325 mg] Allergies Allergy/AdvReac Type Severity Reaction Status Date / Time No Known Allergies Allergy Verified 03/19/23 20:56 Physical Exam Vitals: Vital Signs Temp Pulse Pulse Resp BP BP BP 03/20/23 07:00 97.6 F 76 14 128/86 03/20/23 00:15 98.4 F 95 12 142/99 03/19/23 23:41 83 18 142/91 03/19/23 18:28 96 18 166/107 03/19/23 17:30 98.9 F 120 H 20 153/101 Pulse Ox 03/20/23 07:00 96 03/20/23 00:15 97 03/19/23 23:41 100 03/19/23 18:28 97 03/19/23 17:30 97 Intake and Output 03/19/23 03/20/23 03/20/23 22:59 06:59 14:59 Other: Voiding Method Toilet # Voids 2 Weight 88.451 kg 88.451 kg - Constitutional General appearance: no acute distress - EENT Eyes: EOMI - Neck Neck: no lymphadenopathy - Respiratory Respiratory: bilateral: CTA - Cardiovascular Rhythm: irregularly irregular Heart sounds: normal: S1, S2 Abnormal Heart Sounds: no S3 Gallop - Gastrointestinal General gastrointestinal: soft, no splenomegaly, tenderness - Neurologic Neurologic: CNII-XII intact Results CBC & Chem 7: 03/19/23 18:24 03/19/23 18:24 Labs: Abnormal Lab Results - Last 24 Hours (Table) 03/19/23 03/19/23 03/19/23 Range/Units 18:24 18:24 18:24 Neutrophils # 8.0 H (1.3-7.7) k/uL Potassium 3.4 L (3.5-5.1) mmol/L Chloride 97 L (98-107) mmol/L BUN 31 H (9-20) mg/dL Creatinine 1.62 H (0.66-1.25) mg/dL Glucose 117 H (74-99) mg/dL Lipase 333 H (23-300) U/L Ur Specific [place] 1.038 H (1.001-1.035) Urine Protein 1+ H (Negative) Urine Glucose (UA) Trace H (Negative) Urine Mucus Occasional H (None) /hpf Assessment and Plan (1) Alcoholic pancreatitis Current Visit: Yes Status: Acute Code(s): K85.20 - ALCOHOL INDUCED ACUTE PANCREATITIS WITHOUT NECROSIS OR INFCT SNOMED Code(s): 023803628 (2) Alcohol dependence Current Visit: No Status: Acute Code(s): F10.20 - ALCOHOL DEPENDENCE, UNCOMPLICATED SNOMED Code(s): 89596767 (3) Chronic a-fib Current Visit: No Status: Acute Code(s): I48.2 - CHRONIC ATRIAL FIBRILLATION * DO NOT USE * SNOMED Code(s): 851497322 (4) Cigarette nicotine dependence Current Visit: No Status: Acute Code(s): F17.210 - NICOTINE DEPENDENCE, CIGARETTES, UNCOMPLICATED SNOMED Code(s): 06812482 (5) Epigastric pain Current Visit: No Status: Acute Code(s): R10.13 - EPIGASTRIC PAIN SNOMED Code(s): 83497965 (6) Nicotine addiction Current Visit: No Status: Acute Code(s): F17.200 - NICOTINE DEPENDENCE, UNSPECIFIED, UNCOMPLICATED SNOMED Code(s): 01937283 Plan: Pain control. Consult GI. Computed tomography scan of abdomen today. Advised to decrease/stop ethanol use. banking services officer for appropriate alcohol struggles. Check CBC CMP PT/INR and amylase lipase in a.m. Prognosis is guarded.
[2023-03-20] MEDS ORDERED: lisinopriL 20 MG TAB PO SCH (09:00)
[2023-03-20] MEDS ORDERED: THIAMINE 100 MG TAB PO SCH (09:00)
[2023-03-20] MEDS ORDERED: FOLIC ACID 1 MG TAB PO SCH (09:00)
[2023-03-20] MEDS ORDERED: PANTOPRAZOLE 40 MG/10 ML VIAL IV SCH (09:00)
[2023-03-20] MEDS ORDERED: CITALOPRAM HYDROBROMIDE 20 MG TAB PO SCH (09:00)
[2023-03-20] MEDS ORDERED: MULTIVITAMINS, THERA 1 EACH TAB PO SCH (09:00)
[2023-03-20 10:24] LABS: INR 1.3 (<1.2); Prothrombin Time 12.8 sec (9.0-12.0)
--- NOTE | 2023-03-20 11:25 | CT ---
EXAMINATION TYPE: CT abdomen wo con CT DLP: 467.5 mGycm, Automated exposure control for dose reduction was used. DATE OF EXAM: 03/20/2023 11:16 AM COMPARISON: CT abdomen pelvis most recent from 09/15/2018. CLINICAL INDICATION:Male, 58 years old with history of pancreatitis; Pancreatitis recheck TECHNIQUE: Standard CT of the abdomen without IV or oral contrast. Lack of IV or oral contrast limi ts evaluation of solid and hollow organ viscera. Coronal and sagittal reformats were performed. FINDINGS: LOWER CHEST: Posterior dependent subsegmental atelectasis is noted. Dense coronary artery calcificati ons. ABDOMEN LIVER: Unremarkable noncontrast appearance. GALLBLADDER AND BILE DUCTS: The gallbladder is surgically absent. PANCREAS: Unremarkable noncontrast appearance. No ductal dilatation, fluid collections, surrounding i nflammatory changes, or pancreatic calcifications identified. SPLEEN: Unremarkable noncontrast appearance ADRENAL GLANDS: Unremarkable noncontrast appearance. KIDNEYS AND URETERS: No evidence of hydronephrosis. Nonobstructive 2 mm right renal calculus. STOMACH AND BOWEL: Stomach and duodenum are unremarkable . No focal bowel wall thickening or surround ing inflammatory changes. No evidence of bowel obstruction. PERITONEUM: No evidence of pneumoperitoneum or free fluid. VASCULATURE: Moderate atherosclerotic calcifications are present throughout the abdominal aorta and i ts branches. No evidence of aortic aneurysm. MUSCULOSKELETAL: No acute osseous abnormalities. Mild disc degeneration changes are present throughou t the thoracolumbar spine. LYMPH NODES: No gross evidence for lymphadenopathy. SOFT TISSUE/ABDOMINAL WALL: Small fat filled periumbilical and epigastric ventral wall hernias. IMPRESSION: 1. No acute intra-abdominal process. No CT evidence for pancreatitis or sequelae of pancreatitis. 2. Nonobstructive right renal calculus.
--- NOTE | 2023-03-20 14:59 | P.CONS ---
History of Present Illness - Reason for Consult Consult date: 03/20/23 Alcoholic pancreatitis Requesting physician: Aaron Loja - Chief Complaint Epigastric pain - History of Present Illness This a pleasant 58-year-old male who presented to the emergency department with complaints of epigastric pain that began Saturday and became more severe yesterday afternoon. Patient has a history of heavy alcohol use, GERD, atrial fibrillation, hyperlipidemia, and hypertension. Patient thought he was having problems with his GERD states that he continues to drink quite heavily, and he was drinking Saturday and then ate a heavy meal and went to bed. Patient was admitted for acute alcoholic pancreatitis. He states abdominal pain improved significantly, no nausea or vomiting, no shortness of breath or chest pain. Patient been afebrile. Had a CT of the abdomen that reported no acute intra- abdominal process. No CT evidence for pancreatitis or seek follow up pancreatitis. Nonobstructive right renal calculi. Labs WBC 10.4 hemoglobin 15.9 platelet count 208,000 INR 1.3 sodium 137 potassium 3.4 BUN 31 creatinine 1.6 total bilirubin 0.9 AST 34 ALT 28 alkaline phosphatase 60 lipase 333 Review of Systems REVIEW OF SYSTEMS: CARDIOPULMONARY: No chest pain or shortness of breath. Gastrointestinal: Burning sensation in epigastric region, no associated abdominal pain. No nausea or vomiting. No hematemesis, coffee-ground emesis. No rectal bleeding, or melena. GENITOURINARY: No dysuria or hematuria. MUSCULOSKELETAL: Reports normal range of motion., Joint pain. SKIN: No rashes. No jaundice. ENDOCRINE: No chills, fevers. No excessive weight gain or loss. No polydipsia or polyuria. PSYCHIATRIC: Unremarkable. NEUROLOGY: No change in mental status. Denies dizziness, headache. ENT: Vision unremarkable. CONSTITUTIONAL: No recent weight loss. No fever, chills, night sweats. Past Medical History Past Medical History: Atrial Fibrillation, GERD/Reflux, Hyperlipidemia, Hypertension, Osteoarthritis (OA), Syncope Additional Past Medical History / Comment(s): Severe gerd, pt believes he has been told he has had small gastric ulcer in past, arthritis in multiple joints, chronic low back pain, occasional lower leg edema. History of Any Multi-Drug Resistant Organisms: None Reported Past Surgical History: Appendectomy, Cholecystectomy, Hernia Repair, Joint Replacement, Orthopedic Surgery Additional Past Surgical History / Comment(s): Total R hip, R knee arthroscopy, EGDs, umbilical hernia repair Past Anesthesia/Blood Transfusion Reactions: No Reported Reaction Additional Past Anesthesia/Blood Transfusion Reaction / Comm: Pt has never received blood. Past Psychological History: Anxiety Additional Psychological History / Comment(s): Pt lives with significant other and is independent. He does have a limp. He does not use any assistive devices. . Smoking Status: Current every day smoker Past Alcohol Use History: Daily Additional Past Alcohol Use History / Comment(s): Pt started smoking in 1987 and is a 0.5 ppd smoker. Patient states he has 2-3 shots of liquor a day. Past Drug Use History: None Reported Additional Drug Use History / Comment(s): Pt S.O. states he took 90 pills of norco within a week post hip replacement - Past Family History Father Family Medical History: Coronary Artery Disease (CAD), Myocardial Infarction ([place]) Additional Family Medical History / Comment(s): Father has at the age of 74 yrs during valve replacement surgery. He had 2 Cabg's Mother Family Medical History: Coronary Artery Disease (CAD), Diabetes Mellitus, Musculoskeletal Disorder, Neurologic Disorder Additional Family Medical History / Comment(s): Mother is . She at age 64 yrs. She had a cabg and multiple sclerosis Brother(s) Family Medical History: AFIB Additional Family Medical History / Comment(s): Pt has another brother with CAD and MIs Medications and Allergies Home Medications Medication Instructions Recorded Confirmed Type Citalopram Hydrobromide [CeleXA] 20 mg PO DAILY 01/24/19 03/19/23 History Warfarin Sodium [Jantoven] 7.5 mg PO DAILY 10/09/20 03/19/23 History Famotidine 40 mg PO BID 09/21/21 03/19/23 History lisinopriL [Zestril] 20 mg PO DAILY 09/21/21 03/19/23 History oxyCODONE-APAP 5-325MG [Percocet 1 tab PO Q6HR PRN 03/19/23 03/19/23 History 5-325 mg] Allergies Allergy/AdvReac Type Severity Reaction Status Date / Time No Known Allergies Allergy Verified 03/19/23 20:56 Physical Exam Vitals: Vital Signs Temp Pulse Pulse Resp BP BP BP 03/20/23 07:00 97.6 F 76 14 128/86 03/20/23 00:15 98.4 F 95 12 142/99 03/19/23 23:41 83 18 142/91 03/19/23 18:28 96 18 166/107 03/19/23 17:30 98.9 F 120 H 20 153/101 Pulse Ox 03/20/23 07:00 96 03/20/23 00:15 97 03/19/23 23:41 100 03/19/23 18:28 97 03/19/23 17:30 97 Intake and Output 03/19/23 03/20/23 03/20/23 22:59 06:59 14:59 Other: Voiding Method Toilet # Voids 2 2 Weight 88.451 kg 88.451 kg General appearance: The patient is alert, oriented, appears in no acute distress. HET: Head is normocephalic and atraumatic. Conjunctiva pink. Sclera anicteric. Neck: Supple without lymphadenopathy. Trachea midline. Heart: S1 S2. Regular rate and rhythm. Lungs: Clear to auscultation. Abdomen: Soft, nontender, nondistended with bowel sounds. No guarding or rigidity. Skin: No rashes. No jaundice. Extremities: Normal skin color and turgor. No pedal edema. Neurological: No focal deficits. Alert and oriented x3. Results CBC & Chem 7: 03/19/23 18:24 03/19/23 18:24 Labs: Abnormal Lab Results - Last 24 Hours (Table) 03/19/23 03/19/23 03/19/23 Range/Units 18:24 18:24 18:24 Neutrophils # 8.0 H (1.3-7.7) k/uL PT (9.0-12.0) sec INR (<1.2) Potassium 3.4 L (3.5-5.1) mmol/L Chloride 97 L (98-107) mmol/L BUN 31 H (9-20) mg/dL Creatinine 1.62 H (0.66-1.25) mg/dL Glucose 117 H (74-99) mg/dL Lipase 333 H (23-300) U/L Ur Specific [place] 1.038 H (1.001-1.035) Urine Protein 1+ H (Negative) Urine Glucose (UA) Trace H (Negative) Urine Mucus Occasional H (None) /hpf 03/20/23 Range/Units 09:51 Neutrophils # (1.3-7.7) k/uL PT 12.8 H (9.0-12.0) sec INR 1.3 H (<1.2) Potassium (3.5-5.1) mmol/L Chloride (98-107) mmol/L BUN (9-20) mg/dL Creatinine (0.66-1.25) mg/dL Glucose (74-99) mg/dL Lipase (23-300) U/L Ur Specific [place] (1.001-1.035) Urine Protein (Negative) Urine Glucose (UA) (Negative) Urine Mucus (None) /hpf Assessment and Plan (1) Abdominal pain Narrative/Plan: Patient with history of GERD, also alcohol abuse who presented with epigastric abdominal pain. Mildly elevated lipase at 333, CT abdomen and pelvis with no acute findings and no evidence of pancreatitis. Patient continues to drink heavily, states he is only taking Pepcid once a day. Last EGD was in [address] Blake with findings of hiatal hernia, severe esophagitis and antral gastritis. Pain likely related to GERD, recommend protonic 40 mg twice a day. Discussed dietary changes, not eating late at night, weight loss, and Status: Acute Code(s): R10.9 - UNSPECIFIED ABDOMINAL PAIN SNOMED Code(s): 19169485 (2) GERD (gastroesophageal reflux disease) Status: Acute Code(s): K21.9 - GASTRO-ESOPHAGEAL REFLUX DISEASE WITHOUT ESO PHAGITIS SNOMED Code(s): 678325790 Plan: 1. Continue symptomatic supportive care 2. Low-fat soft diet 3. Protonix 40 mg daily 4. Discussed with patient lifestyle modification, diet modification, weight loss, alcohol abstinence to improve GERD. Follow-up as needed Thank you for this consultation, patient is clear from gastroenterology for discharge. Dr. Mckenzie Scales I agree with the dictator's note, documented as a scribe by Viviana Diaz.
== END 2023-03-20 14:44 | disposition home or self-care (01) ==
LOC: EC 17:11 → 6NMEDSUR 22:32
PROVIDERS: ADMIT Family Medicine; ATTEND Family Medicine
DX: K85.20 Alcohol induced acute pancreatitis without necrosis or infection (principal); K21.9 Gastro-esophageal reflux disease without esophagitis; E78.5 Hyperlipidemia, unspecified; F41.9 Anxiety disorder, unspecified; I10 Essential (primary) hypertension; F17.210 Nicotine dependence, cigarettes, uncomplicated; M54.50 Low back pain, unspecified; G89.29 Other chronic pain; M47.816 Spondylosis without myelopathy or radiculopathy, lumbar region; F10.20 Alcohol dependence, uncomplicated; I48.20 Chronic atrial fibrillation, unspecified; F11.20 Opioid dependence, uncomplicated; I25.10 Atherosclerotic heart disease of native coronary artery without angina pectoris; N20.0 Calculus of kidney; I70.0 Atherosclerosis of aorta; M51.35 Other intervertebral disc degeneration, thoracolumbar region; K42.9 Umbilical hernia without obstruction or gangrene; K43.9 Ventral hernia without obstruction or gangrene; Z90.49 Acquired absence of other specified parts of digestive tract; Z79.899 Other long term (current) drug therapy; Z79.01 Long term (current) use of anticoagulants; Z96.641 Presence of right artificial hip joint; Z82.49 Family history of ischemic heart disease and other diseases of the circulatory system; Z83.3 Family history of diabetes mellitus; Z63.4 Disappearance and death of family member; Z82.0 Family history of epilepsy and other diseases of the nervous system; Z91.148 Patient's other noncompliance with medication regimen for other reason
CPT/HCPCS: 96361 ×2; 96376 ×2; 96372; 96374; 96375; 99284; 36415; 93005; 80053; 83690; 84484; 85025; 85610; 81001; 74150; G0378 ×2; J2270 ×2; J3411; J2405 ×2; C9113 ×2

== ENCOUNTER → 2024-06-05 | Outpatient (CLI) | payer BC ==
--- NOTE | 2024-06-05 12:54 | US ---
EXAMINATION TYPE: US kidneys/renal and bladder DATE OF EXAM: 06/05/2024 COMPARISON: CT abdomen and pelvis 03/20/2023 CLINICAL INDICATION: Male, 59 years old with history of R94.4 ABNORMAL RESULTS OF KIDNEY FUNCTION EVY DIES; Abn labs EXAM MEASUREMENTS: Right Kidney: 10.3x6.1x6.1 cm Left Kidney: 11.0x5.6x5.9 cm Right Kidney: wnl Left Kidney: wnl Bladder: not fully distended Bilateral Jets seen: No There is no evidence for hydronephrosis at this point in time. Cortical medullary differentiation is preserved bilaterally. No shadowing nephrolithiasis is seen. No masses are identified. The urinary bladder is underdistended and anechoic. IMPRESSION: No hydronephrosis.
== END | disposition home or self-care (01) ==
LOC: RADUSWWP 10:22
PROVIDERS: ATTEND Family Medicine
DX: R94.4 Abnormal results of kidney function studies (principal)
CPT/HCPCS: 76770

== ENCOUNTER → 2024-06-25 | Outpatient (CLI) | payer BC ==
[2024-06-25 12:33] LABS: Appearance,Urine Clear (Clear); Bilirubin,Urine Negative (Negative); Blood,Urine Negative (Negative); Color,Urine Yellow; Glucose,Urine (UA) Negative (Negative); Hyaline Casts,Urine 1 /lpf (0-2); Ketones,Urine Negative (Negative); Leukocyte Esterase,Urine Negative (Negative); Mucus,Urine Occasional /hpf; Nitrite,Urine Negative (Negative); Protein,Urine 1+ (Negative); RBC,Urine <1 /hpf (0-5); Specific Gravity,Urine 1.029 (1.001-1.035); Urobilinogen,Urine <2.0 mg/dL (<2.0); WBC,Urine 1 /hpf (0-5)
[2024-06-25 15:29] LABS: HCT 43.2 % (39.6-50.0); HGB 14.4 g/dL (13.0-17.0); MCH 32.7 pg (27.0-32.0); MCHC 33.3 g/dL (32.0-37.0); MCV 98.2 FL (80.0-97.0); Mean Platelet Volume 10.9 FL (9.5-12.2); NRBC Per 100 WBC 0 X 10*3/uL (0.00-0.01); Platelet Count 222 X 10*3/uL (140-440); RDW 12.3 % (11.5-14.5); WBC 5.68 X 10*3/uL (4.50-10.00)
[2024-06-25 16:05] LABS: ALT 22 U/L (10-49); AST 23 U/L (14-35); Albumin 4.3 g/dL (3.8-4.9); Albumin/Globulin Ratio 1.79 Ratio (1.60-3.17); Alkaline Phosphatase 80 U/L (41-126); Blood Urea Nitrogen 17.5 mg/dL (9.0-27.0); Calcium 9.4 mg/dL (8.7-10.3); Carbon Dioxide 24.4 mmol/L (21.6-31.8); Chloride 104 mmol/L (96-109); Globulin 2.4 g/dL (1.6-3.3); Glucose 135 mg/dL (70-110); Magnesium 1.9 mg/dL (1.5-2.4); Phosphorus 3.4 mg/dL (2.4-5.1); Potassium 5.7 mmol/L (3.5-5.5); Sodium 140 mmol/L (135-145); Total Bilirubin 0.6 mg/dL (0.3-1.2); Total Protein 6.7 g/dL (6.2-8.2)
== END | disposition home or self-care (01) ==
LOC: LABWHC1 12:03
PROVIDERS: ATTEND Internal Medicine Nephrology
DX: N28.9 Disorder of kidney and ureter, unspecified (principal); D64.9 Anemia, unspecified; N39.0 Urinary tract infection, site not specified
CPT/HCPCS: 36415; 80053; 81001; 83735; 84100; 85027

== ENCOUNTER → 2024-08-03 | Outpatient (CLI) | payer BC ==
[2024-08-03 15:38] LABS: Basophils # (A) 0.08 X 10*3/uL (0.00-0.10); Basophils % (A) 0.9 %; Eosinophils # (A) 0.28 X 10*3/uL (0.04-0.35); Eosinophils % (A) 3.3 %; HCT 44.6 % (39.6-50.0); HGB 14.9 g/dL (13.0-17.0); Lymphocytes # (A) 1.62 X 10*3/uL (0.90-5.00); Lymphocytes % (A) 18.9 %; MCH 32.2 pg (27.0-32.0); MCHC 33.4 g/dL (32.0-37.0); MCV 96.3 FL (80.0-97.0); Mean Platelet Volume 11.7 FL (9.5-12.2); Monocytes # (A) 0.81 X 10*3/uL (0.20-1.00); Monocytes % (A) 9.5 %; NRBC Per 100 WBC 0 X 10*3/uL (0.00-0.01); Neutrophils # (A) 5.73 X 10*3/uL (1.80-7.70); Neutrophils % (A) 66.8 %; Platelet Count 195 X 10*3/uL (140-440); RBC 4.63 X 10*6/uL (4.40-5.60); RDW 12.1 % (11.5-14.5); WBC 8.57 X 10*3/uL (4.50-10.00)
[2024-08-03 15:43] LABS: Appearance,Urine Clear (Clear); Bilirubin,Urine Negative (Negative); Blood,Urine Negative (Negative); Color,Urine Yellow (Yellow); Ketones,Urine Negative (Negative); Nitrite,Urine Negative (Negative); PH, Urine 5.5; Specific Gravity,Urine 1.025 (1.001-1.030); Urobilinogen,Urine 0.2 E.U./DL
[2024-08-03 15:55] LABS: Iron 79 UG/DL (65-175); Magnesium 1.9 mg/dL (1.5-2.4); Phosphorus 2.8 mg/dL (2.4-5.1); Uric Acid 5.6 mg/dL (3.7-8.7)
[2024-08-03 15:56] LABS: % Iron Saturation 18.85 (15.00-50.00); Albumin 4.4 g/dL (3.8-4.9); BUN/Creat Ratio 27.89 Ratio (12.00-20.00); Blood Urea Nitrogen 25.1 mg/dL (9.0-27.0); Calcium 9.4 mg/dL (8.7-10.3); Carbon Dioxide 23.3 mmol/L (21.6-31.8); Chloride 106 mmol/L (96-109); Glucose 130 mg/dL (70-110); Sodium 141 mmol/L (135-145); Total Iron Binding Capacity 419 UG/DL (228-460)
== END | disposition home or self-care (01) ==
LOC: LABWHC1 11:57
PROVIDERS: ATTEND Internal Medicine Nephrology
DX: E78.5 Hyperlipidemia, unspecified (principal); E55.9 Vitamin D deficiency, unspecified; D64.9 Anemia, unspecified; M10.9 Gout, unspecified; N17.9 Acute kidney failure, unspecified; N25.81 Secondary hyperparathyroidism of renal origin; N39.0 Urinary tract infection, site not specified; R80.9 Proteinuria, unspecified
CPT/HCPCS: 36415; 80048; 81003; 82040; 82043; 82306; 82570; 82728; 83540; 83550; 83735; 83970; 84100; 84550; 85025; 86334; 86335

== ENCOUNTER 2024-12-13 22:09 | Emergency (ER) | payer BC ==
--- NOTE | 2024-12-13 23:03 | ED ---
Nausea/Vomiting/Diarrhea HPI - General Chief complaint: Nausea/Vomiting/Diarrhea Stated complaint: GERD, Vomiting Time Seen by Provider: 12/13/24 22:23 Source: patient, RN notes reviewed Mode of arrival: ambulatory Limitations: no limitations - History of Present Illness Initial comments: This is a 59-year-old female with history of GERD and daily EtOH use presenting with epigastric pain (8/10) x 1 day. Patient endorses severe burning pain with associated nausea/vomiting. States he drinks about 6 beers per day, last being yesterday. Patient states that this is a second time the symptoms have occurred this year. States symptoms were resolved following GI cocktail in the past. Denies chills, dizziness, chest pain, dyspnea, hematemesis, diarrhea, melena, hematochezia. MD complaint: nausea, vomiting, abdominal pain Onset/Timin -: days(s) Associated Abdominal Pain: Yes Location: epigastric Radiation: none Severity scale (1-10): 8 Quality: sharp Consistency: constant - Related Data Home Medications Medication Instructions Recorded Confirmed Citalopram Hydrobromide [CeleXA] 20 mg PO DAILY 01/24/19 03/19/23 Warfarin Sodium [Jantoven] 7.5 mg PO DAILY 10/09/20 03/19/23 Famotidine 40 mg PO BID 09/21/21 03/19/23 lisinopriL [Zestril] 20 mg PO DAILY 09/21/21 03/19/23 oxyCODONE-APAP 5-325MG [Percocet 1 tab PO Q6HR PRN 03/19/23 03/19/23 5-325 mg] Previous Rx's Medication Instructions Recorded Pantoprazole [Protonix] 40 mg PO DAILY #30 tab 03/20/23 Pantoprazole [Protonix] 40 mg PO DAILY #20 tab 12/14/24 Allergies Allergy/AdvReac Type Severity Reaction Status Date / Time No Known Allergies Allergy Verified 12/13/24 22:10 Review of Systems ROS Statement: Those systems with pertinent positive or pertinent negative responses have been documented in the HPI. ROS Other: All systems not noted in ROS Statement are negative. Past Medical History Past Medical History: Atrial Fibrillation, GERD/Reflux, Hyperlipidemia, Hypertension, Osteoarthritis (OA), Syncope Additional Past Medical History / Comment(s): Severe gerd, pt believes he has been told he has had small gastric ulcer in past, arthritis in multiple joints, chronic low back pain, occasional lower leg edema. History of Any Multi-Drug Resistant Organisms: None Reported Past Surgical History: Appendectomy, Cholecystectomy, Hernia Repair, Joint Re placement, Orthopedic Surgery Additional Past Surgical History / Comment(s): Total R hip, R knee arthroscopy, EGDs, umbilical hernia repair Past Anesthesia/Blood Transfusion Reactions: No Reported Reaction Additional Past Anesthesia/Blood Transfusion Reaction / Comment(s): Pt has never received blood. Past Psychological History: Anxiety Smoking Status: Current every day smoker Past Alcohol Use History: Daily Past Drug Use History: None Reported - Past Family History Father Family Medical History: Coronary Artery Disease (CAD), Myocardial Infarction ([place]) Additional Family Medical History / Comment(s): Father has at the age of 74 yrs during valve replacement surgery. He had 2 Cabg's Mother Family Medical History: Coronary Artery Disease (CAD), Diabetes Mellitus, Musculoskeletal Disorder, Neurologic Disorder Additional Family Medical History / Comment(s): Mother is . She at age 64 yrs. She had a cabg and multiple sclerosis Brother(s) Family Medical History: AFIB Additional Family Medical History / Comment(s): Pt has another brother with CAD and MIs General Exam Limitations: no limitations General appearance: alert, in no apparent distress Head exam: Present: atraumatic, normocephalic, normal inspection Eye exam: Present: normal appearance, PERRL, EOMI. Absent: scleral icterus, conjunctival injection, periorbital swelling ENT exam: Present: normal exam, mucous membranes moist Neck exam: Present: normal inspection. Absent: tenderness, meningismus, lymphadenopathy Respiratory exam: Present: normal lung sounds bilaterally. Absent: respiratory distress, wheezes, rales, rhonchi, stridor, accessory muscle use, decreased breath sounds, prolonged expiratory Cardiovascular Exam: Present: regular rate, normal rhythm, normal heart sounds. Absent: systolic murmur, diastolic murmur, rubs, gallop, clicks GI/Abdominal exam: Present: soft, tenderness (Positive epigastric tenderness and tympanic tenderness without guarding), normal bowel sounds. Absent: distended, guarding, rebound, rigid, mass, pulsatile mass, hernia Extremities exam: Present: normal inspection, full ROM, normal capillary refill. Absent: tenderness, pedal edema, joint swelling, calf tenderness Back exam: Present: normal inspection Neurological exam: Present: alert, oriented X3, CN II-XII intact Psychiatric exam: Present: normal affect, normal mood Skin exam: Present: warm, dry, intact, normal color. Absent: rash Course Vital Signs 12/13/24 12/14/24 12/14/24 22:10 00:24 00:25 Temperature 100.1 F H 98.6 F Pulse Rate 83 90 Respiratory 18 17 Rate Blood Pressure 148/90 149/93 O2 Sat by Pulse 98 95 Oximetry Medical Decision Making - Medical Decision Making Was pt. sent in by a medical professional or institution (, PA, [employer], urgent care, hospital, or half-way...) When possible be specific @ -[No] Did you speak to anyone other than the patient for history (EMS, parent, family, police, friend...)? What history was obtained from this source @ -[No] Did you review nursing and triage notes (agree or disagree)? Why? @ -[I reviewed and agree with nursing and triage notes] Were old charts reviewed (outside hosp., previous admission, EMS record, old EKG, old radiological studies, urgent care reports/EKG's, half-way records)? Report findings @ -[No old charts were reviewed] Differential Diagnosis (chest pain, altered mental status, abdominal pain women, abdominal pain men, vaginal bleeding, weakness, fever, dyspnea, syncope, headache, dizziness, GI bleed, back pain, seizure, CVA, palpatations, mental health, musculoskeletal)? @ -Differential Abdominal Pain Men: Appendicitis, cholecystitis, diverticulosis, ischemic bowel, pancreatitis, hepatitis, UTI, gastroenteritis, AAA, incarcerated hernia, bowel obstruction, constipation, inflammatory bowel, hepatitis, peptic ulcer disease, splenic infar ction, perforated viscus, testicular torsion, this is not meant to be an all- inclusive list EKG interpreted by me (3pts min.). @ -A-fib with RVR. T wave inversion noted in leads V3V6. No ST deviation. Ventricular rate 101 bpm, QRS 88 ms, QTc 404 ms. Similar T wave changes seen in EKG from February 2023. X-rays interpreted by me (1pt min.). @ -[None done] CT interpreted by me (1pt min.). @ -[None done] U/S interpreted by me (1pt. min.). @ -[None done] What testing was considered but not performed or refused? (CT, X-rays, U/S, labs)? Why? @ -[None] What meds were considered but not given or refused? Why? @ -[None] Did you discuss the management of the patient with other professionals (janet ryder i.e. , PA, [employer], lab, RT, psych nurse, social worker palliative care, smelter liner, teacher, bomb squad officer, child support case officer)? Give summary @ -[No] Was smoking cessation discussed for >3mins.? @ -[No] Was critical care preformed (if so, how long)? @ -[No] Were there social determinants of health that impacted care today? How? (Homelessness, low income, unemployed, alcoholism, drug addiction, transportation, low edu. Level, literacy, decrease access to med. care, nursing home, rehab)? @ -[No] Was there de-escalation of care discussed even if they declined (Discuss DNR or withdrawal of care, Hospice)? DNR status @ -[No] What co-morbidities impacted this encounter? (DM, HTN, Smoking, COPD, CAD, Cancer, CVA, ARF, Chemo, Hep., AIDS, mental health diagnosis, sleep apnea, morbid obesity)? @ -[None] Was patient admitted / discharged? Hospital course, mention meds given and route, prescriptions, significant lab abnormalities, going to OR and other pertinent info. @ -[hospital course] Undiagnosed new problem with uncertain prognosis? @ -[No] Drug Therapy requiring intensive monitoring for toxicity (Heparin, Nitro, I nsulin, Cardizem)? @ -[No] Were any procedures done? @ -[No] Diagnosis/symptom? @ -GERD, dyspepsia Acute, or Chronic, or Acute on Chronic? @ -Acute Uncomplicated (without systemic symptoms) or Complicated (systemic symptoms)? @ -Uncomplicated Side effects of treatment? @ -[No] Exacerbation, Progression, or Severe Exacerbation? @ -[No] Poses a threat to life or bodily function? How? (Chest pain, [place], [place], pneumonia, PE, COPD, DKA, ARF, appy, cholecystitis, CVA, Diverticulitis, Homicidal, Suicidal, threat to staff... and all critical care pts) @ -[No] - Lab Data Result diagrams: 12/13/24 23:15 12/13/24 23:15 Lab Results 12/13/24 12/13/24 12/14/24 Range/Units 23:15 23:15 00:42 WBC 10.5 (3.8-10.6) k/uL RBC 5.41 (4.30-5.90) m/uL Hgb 17.3 (13.0-17.5) gm/dL Hct 53.0 (39.0-53.0) % MCV 98.0 (80.0-100.0) fL MCH 32.0 (25.0-35.0) pg MCHC 32.6 (31.0-37.0) g/dL RDW 12.6 (11.5-15.5) % Plt Count 269 (150-450) k/uL MPV 9.7 Neutrophils % 80 % Lymphocytes % 10 % Monocytes % 8 % Eosinophils % 1 % Basophils % 0 % Neutrophils # 8.4 H (1.3-7.7) k/uL Lymphocytes # 1.1 (1.0-4.8) k/uL Monocytes # 0.8 (0-1.0) k/uL Eosinophils # 0.1 (0-0.7) k/uL Basophils # 0.0 (0-0.2) k/uL PT 11.2 (10.0-12.5) sec INR 1.0 (<1.2) APTT 23.0 (22.0-30.0) sec Sodium 141 (137-145) mmol/L Potassium 3.7 (3.5-5.1) mmol/L Chloride 98 (98-107) mmol/L Carbon Dioxide 27 (22-30) mmol/L Anion Gap 16 mmol/L BUN 24 H (9-20) mg/dL Creatinine 1.07 (0.66-1.25) mg/dL Est GFR (CKD-EPI)AfAm 88 (>60 ml/min/1.73 sqM) Est GFR (CKD-EPI)NonAf 76 (>60 ml/min/1.73 sqM) Glucose 161 H (74-99) mg/dL Calcium 10.2 (8.4-10.2) mg/dL Total Bilirubin 1.8 H (0.2-1.3) mg/dL AST 34 (17-59) U/L ALT 32 (4-49) U/L Alkaline Phosphatase 78 (38-126) U/L Troponin I (0.000-0.034) ng/mL Total Protein 8.6 H (6.3-8.2) g/dL Albumin 5.4 H (3.5-5.0) g/dL 12/14/24 Range/Units 00:42 WBC (3.8-10.6) k/uL RBC (4.30-5.90) m/uL Hgb (13.0-17.5) gm/dL Hct (39.0-53.0) % MCV (80.0-100.0) fL MCH (25.0-35.0) pg MCHC (31.0-37.0) g/dL RDW (11.5-15.5) % Plt Count (150-450) k/uL MPV Neutrophils % % Lymphocytes % % Monocytes % % Eosinophils % % Basophils % % Neutrophils # (1.3-7.7) k/uL Lymphocytes # (1.0-4.8) k/uL Monocytes # (0-1.0) k/uL Eosinophils # (0-0.7) k/uL Basophils # (0-0.2) k/uL PT (10.0-12.5) sec INR (<1.2) APTT (22.0-30.0) sec Sodium (137-145) mmol/L Potassium (3.5-5.1) mmol/L Chloride (98-107) mmol/L Carbon Dioxide (22-30) mmol/L Anion Gap mmol/L BUN (9-20) mg/dL Creatinine (0.66-1.25) mg/dL Est GFR (CKD-EPI)AfAm (>60 ml/min/1.73 sqM) Est GFR (CKD-EPI)NonAf (>60 ml/min/1.73 sqM) Glucose (74-99) mg/dL Calcium (8.4-10.2) mg/dL Total Bilirubin (0.2-1.3) mg/dL AST (17-59) U/L ALT (4-49) U/L Alkaline Phosphatase (38-126) U/L Troponin I <0.012 (0.000-0.034) ng/mL Total Protein (6.3-8.2) g/dL Albumin (3.5-5.0) g/dL Disposition Clinical Impression: GERD (gastroesophageal reflux disease), Dyspepsia Disposition: HOME SELF-CARE Condition: Good Instructions (If sedation given, give patient instructions): GERD (Gastroesophageal Reflux Disease) (ED), Indigestion (ED) Additional Instructions: Follow-up with PCP/gastroenterology for ongoing management of GERD symptoms. Limit intake of acidic, spicy, fatty foods Prescriptions: Pantoprazole [Protonix] 40 mg PO DAILY #20 tab Is patient prescribed a controlled substance at d/c from ED?: No Referrals: Aaron Loja MD [Primary Care Provider] - 1-2 days Megan Scales MD [STAFF PHYSICIAN] - 1-2 days Time of Disposition: 00:14
[2024-12-13] MEDS: SODIUM CHLORIDE 0.9% 1,000 ML IV STA (23:22)
[2024-12-13] MEDS: ONDANSETRON 4 MG/2 ML VIAL IVP STA (23:24)
[2024-12-13 23:26] LABS: Basophils % (A) 0 %; Eosinophils # (A) 0.1 k/uL (0-0.7); Eosinophils % (A) 1 %; HGB 17.3 gm/dL (13.0-17.5); Lymphocytes # (A) 1.1 k/uL (1.0-4.8); Lymphocytes % (A) 10 %; MCHC 32.6 g/dL (31.0-37.0); Mean Platelet Volume 9.7; Monocytes # (A) 0.8 k/uL (0-1.0); Monocytes % (A) 8 %; Neutrophils # (A) 8.4 k/uL (1.3-7.7); Neutrophils % (A) 80 %; Platelet Count 269 k/uL (150-450); RBC 5.41 m/uL (4.30-5.90); RDW 12.6 % (11.5-15.5); WBC 10.5 k/uL (3.8-10.6)
[2024-12-13] MEDS: FAMOTIDINE 20 MG/2 ML VIAL IV STA (23:26)
[2024-12-13] MEDS: PANTOPRAZOLE 40 MG/10 ML VIAL IVP STA (23:27)
[2024-12-13] MEDS: MORPHINE SULFATE 2 MG/ML SYRINGE IVP ONE (23:36)
[2024-12-13] MEDS: ACETAMINOPHEN TAB 500 MG TAB PO STA (23:37)
[2024-12-13 23:54] LABS: AST 34 U/L (17-59); African American GFR (CKD) 88 (>60 ml/min/1.73 sqM); Albumin 5.4 g/dL (3.5-5.0); Alkaline Phosphatase 78 U/L (38-126); Anion Gap 16 mmol/L; Blood Urea Nitrogen 24 mg/dL (9-20); Calcium 10.2 mg/dL (8.4-10.2); Carbon Dioxide 27 mmol/L (22-30); Chloride 98 mmol/L (98-107); Glucose 161 mg/dL (74-99); Non-African American GFR(CKD) 76 (>60 ml/min/1.73 sqM); Potassium 3.7 mmol/L (3.5-5.1); Sodium 141 mmol/L (137-145); Total Bilirubin 1.8 mg/dL (0.2-1.3); Total Protein 8.6 g/dL (6.3-8.2)
[2024-12-14 00:04] LABS: ALT 32 U/L (4-49)
[2024-12-14] MEDS: SODIUM CHLORIDE 0.9% 1,000 ML IV STA (00:17)
[2024-12-14] MEDS: MORPHINE SULFATE 2 MG/ML SYRINGE IVP ONE (00:17)
[2024-12-14 00:25] VITALS: RESP 17
[2024-12-14 00:26] VITALS: TEMP 98.6
[2024-12-14 01:15] LABS: Prothrombin Time 11.2 sec (10.0-12.5)
[2024-12-14 02:47] VITALS: BP 153/99; PULSE 75
--- NOTE | 2024-12-14 03:23 | XR ---
EXAM: XR Chest, 2 Views CLINICAL HISTORY: ITS.REASON XR Reason: Epigastric pain TECHNIQUE: Frontal and lateral views of the chest. COMPARISON: No relevant prior studies available. FINDINGS: Lungs: Unremarkable. No consolidation. Pleural space: Unremarkable. No pneumothorax. Heart: Unremarkable. No cardiomegaly. Mediastinum: Unremarkable. Bones/joints: Unremarkable. IMPRESSION: No consolidation.
== END 2024-12-14 02:46 | disposition home or self-care (01) ==
LOC: EC 22:09
DX: K21.9 Gastro-esophageal reflux disease without esophagitis (principal); I48.91 Unspecified atrial fibrillation; F17.200 Nicotine dependence, unspecified, uncomplicated; Z79.01 Long term (current) use of anticoagulants; Z79.899 Other long term (current) drug therapy
CPT/HCPCS: 36415; 80053; 85025; 99284; 96374; 96375 ×3; 96376; 96361 ×2; J2405; J3490; J2270; J2470; 71046; 84484; 85610; 85730; 93005